=== PATIENT | male | born 1965 | race Caucasian/White ===

== ENCOUNTER 2023-12-27 08:23 | Day surgery (SDC) | payer OTHER, SELFPAY ==
--- NOTE | 2023-12-20 15:32 | PTCARENOTE ---
Abnormal EKG ok per Dr. Araujo.
[2023-12-27] VITALS (18 sets, daily range): BP systolic 142–179; BP diastolic 68–93; BMI 35.4
[2023-12-27] MEDS: NSS 1000 IV ×2 (09:45→17:20)
--- NOTE | 2023-12-27 09:53 | PTCARENOTE ---
Pt's accucheck was [address] Bauman made aware. No treatment ordered per Dr Bauman.
[2023-12-27 09:54] LABS: Hematocrit 30.9 % (39.0-52.0); Hemoglobin 10.5 g/dL (13.0-18.0); Mean Corpuscular Hgb 28.7 pg (27.0-31.0); Mean Corpuscular Volume 84.4 fL (80.0-94.0); Mean Platelet Volume 10.5 fL (7.4-10.4); Platelet Count 233 10^3/uL (130-400); Red Blood Cell Count 3.66 10^6/uL (4.70-6.10); Red Cell Dist. Width 15.1 % (11.5-14.5); White Blood Cell Count 12.7 10^3/uL (4.8-10.8)
[2023-12-27 10:02] LABS: Glucose - Point of Care 220 mg/dl (70-99)
[2023-12-27 10:09] LABS: INR 1.27; PT 15.7 Sec (11.4-14.6)
[2023-12-27 10:10] LABS: APTT 34.3 Sec (23.4-35.0)
[2023-12-27 10:11] LABS: Blood Urea Nitrogen 65 mg/dl (9-20); Calcium 8.7 mg/dl (8.4-10.2); Carbon Dioxide 19 mmol/L (22-30); Chloride 104 mmol/L (98-107); Estimated Creatinine Clearance 22 ml/min; Glucose 193 mg/dl (70-99); Potassium 3.9 mmol/L (3.5-5.1); Sodium 135 mmol/L (135-145); eGFR 13.62
--- NOTE | 2023-12-27 10:15 | PTCARENOTE ---
Addendum entered by Shyanne Connolly RN 12/27/23 10:16:
Pt is not a dialysis pt.
Original Note:
Pt's creatinine from today is 4.7. Pt's last creatinine was 4.1 from 02/10/2023. [employer] message sent to Ilene HOGAN, Jackelyn HOGAN, and Dr King. Awaiting response.
--- NOTE | 2023-12-27 10:55 | PTCARENOTE ---
Ilene HOGAN responded to pt's creat 4.7 stating ok. No further treatment ordered at this time. Will continue to monitor.
--- NOTE | 2023-12-27 13:55 | PTCARENOTE ---
Pt ambulated to bathoom with cane without difficutly.
[2023-12-27 14:28] LABS: Glucose - Point of Care 143 mg/dl (70-99)
--- NOTE | 2023-12-27 14:55 | W.SUR.PREOP ---
Pre-Operative Surgical Note
-
I have examined this patient prior to the performance of the scheduled procedure.
The patient's condition is unchanged from the time of the current History and
Physical and the patient is able to undergo the scheduled procedure.
[2023-12-27 16:44] LABS: Glucose - Point of Care 130 mg/dl (70-99)
--- NOTE | 2023-12-27 16:59 | W.IMMPOSTOP ---
Surgical Immed Post Op Note
-
Primary Surgeon: Emmett King III, MD
Assisting Surgeon: Lam Patel MD
Pre-op Diagnosis: Non-healing heel ulcer
Post-op Diagnosis: Non-healing heel ulcer
Procedure Performed: LLE angiogram, IV lithotripsy, drug-coated balloon angioplasty
Anesthesia Type: Light Sedation
Specimen / Cultures:
Estimated Blood Loss: 2cc
Complications: NA
Operative Findings:
Access obtained via right femoral artery and wire/catheter passed up and over into contralateral iliac. SFA relatively disease-free. Moderate-severe disease in below-knee pop. AT/PT/Peroneal arteries severely diseased. Peroneal artery treated with
3.5x6cm balloon IV lithotripsy. Popliteal artery treated with 5x80 drug-coated balloon. Brisk flow through posterior circulation noted postoperatively. Access site closed with a perc--close device. Left PT dopplerable postoperatively and marked.
[2023-12-27] MEDS: PLAVIX 300 MG PO (17:29)
--- NOTE | 2023-12-27 20:08 | OR.RPT ---
Operative Report
Operative Report
Date of Operation: 12/27/2023
Pre Op Diagnosis: Critical limb threatening ischemia with nonhealing left heel wound
Post Op Diagnosis: Critical limb threatening ischemia with nonhealing left heel wound
Procedure:
1.) Intravascular lithotripsy to calcified left posterior tibial artery occlusion (3.5 mm x 60 mm M5+ shockwave balloon)
2.) Intravascular lithotripsy to calcified left tibioperoneal trunk stenosis (3.5 mm x 60 mm M5+ shockwave balloon)
3.) Balloon angioplasty to distal left posterior tibial artery stenosis (3 mm x 150 mm angioplasty balloon)
4.) Drug-coated balloon angioplasty of left popliteal artery stenosis behind the knee (5 mm x 80 mm iNPACT DCB)
5.) Diagnostic aortobiiliac arteriogram (CO2)
6.) Diagnostic left lower extremity arteriogram (CO2 and 1/4 strength contrast)
7.) Ultrasound-guided percutaneous access to the right common femoral artery
8.) ProGlide closure of the right common femoral artery access
Surgeon: Emmett King III, MD
Supervisor Fertilizer: Lam Patel MD PGY-1
Anesthesia: Sedation with local
Fluoroscopy:
37.0 min
207 mGy
54.06 Gy.cm2
Complications: None
Estimated Blood Loss: Less than 20 cc
History and Indications for Procedure: 58-year-old male with critical limb threatening ischemia of his left lower extremity manifested by a nonhealing left heel wound
Procedure in Detail: Walter Williamson was correctly identified and placed supine on the operating table. After adequate induction of anesthesia the bilateral groins were prepped and draped in the usual sterile fashion. A timeout was performed with the
nursing and anesthesia staff confirming the patient's identity as well as the nature and laterality of the procedure.
The right common femoral artery was identified under ultrasound guidance. The artery was patent. The superior and inferior aspects of the femoral head were identified with radiographic guidance and marked at the skin level. The proposed puncture
site was infiltrated with local anesthesia. We saved a copy of the ultrasound image to the medical record. Under ultrasound guidance we accessed the right common femoral artery with a micropuncture needle and upsized to a 5 Fr sheath over a Project [employer]on
wire. The wire and a Shepherds hook flush catheter were advanced into the distal abdominal aorta and a diagnostic aorto-biiliac arteriogram was performed with CO2 due to the patient's chronic kidney disease:
AORTO-ILIAC ARTERIOGRAM:
Aorta: Patent with no stenosis identified
Right common iliac artery: Patent with no stenosis identified
Right external iliac artery: Patent with no stenosis identified
Left common iliac artery: Patent with no stenosis identified
Left external iliac artery: Patent with no stenosis identified
Under roadmap guidance using a Glidewire and the Shepherds hook catheter we selected the left common iliac artery and then the external iliac artery. A catheter was tracked up and over the aortic bifurcation and placed in the distal external iliac
artery. A diagnostic left lower extremity arteriogram was then performed with CO2 which demonstrated the following:
LEFT LOWER EXTREMITY:
Common femoral artery: Patent with no stenosis identified
Profunda femoral artery: Patent with no stenosis identified
Superficial femoral artery: Patent with no stenosis identified
In an effort to better visualize the popliteal artery and tibial artery runoff the superficial femoral artery and above-knee popliteal artery was selected with the Glidewire and Quickcross catheter. Dilute quarter strength contrast was then
utilized for the remainder of the procedure.
Popliteal artery: Patent. Moderate to high-grade stenosis identified behind the knee. Below the knee segment widely patent with no stenosis identified
Anterior tibial artery: Patent at its origin but occluded shortly thereafter. No distal reconstitution.
Tibioperoneal trunk: High-grade stenosis identified
Peroneal artery: High-grade stenosis versus focal occlusion in the proximal segment. Distal reconstitution identified
Posterior tibial artery: Occluded proximally. Reconstituted in the mid calf.
ENDOVASCULAR INTERVENTION: Systemic heparin was administered. Exchanged out for a 6 Fr 45 cm sheath over a Storq wire. Selected the the popliteal artery under roadmap guidance with Quickcross catheter and Glidewire. The popliteal artery stenosis was
crossed with this set up. Under roadmap guidance and magnification view I crossed the proximal posterior tibial artery occlusion with a Quickcross and Glidewire. The wire and catheter were advanced into the distal posterior tibial artery and a
subtraction arteriogram confirmed position in the true lumen. I exchanged out for a 0.014 wire. Due to the calcified nature of the posterior tibial artery and tibioperoneal trunk disease and in an effort to modify the calcium to achieve maximum
luminal gain with endovascular intervention I elected to proceed with intravascular lithotripsy. A 3.5 mm x 60 mm M5+ shockwave balloon was advanced through the occlusive disease and positioned in the desired location in the posterior tibial artery
under roadmap guidance. Alternating rounds of lithotripsy pulse delivery at sub-nominal pressure and angioplasty at nominal pressure was performed across the length of the posterior tibial artery disease as well as the tibioperoneal trunk stenosis.
In between rounds of pulse delivery and angioplasty the balloon was deflated and repositioned under roadmap guidance. All 300 pulses were delivered. Subsequent arteriogram demonstrated a significantly improved result across the occluded segment
which was now patent. Brisk flow was identified through the patent tibioperoneal trunk and posterior tibial artery. Areas of residual stenosis were identified distally in the posterior tibial artery. Under roadmap guidance I positioned a 3 mm x
150 mm angioplasty balloon across the areas of more distal stenosis. The balloon was inflated to nominal pressure, held in place for 2-minute inflation and then slowly deflated and removed over the wire. Subsequent arteriogram demonstrated an
excellent technical result with brisk flow through a patent posterior tibial artery. Only focal areas of mild residual stenosis were identified distally. The posterior tibial artery continued across the ankle to form the plantar branches in the
foot. The peroneal artery demonstrated late reconstitution.
I then focused my attention on the popliteal artery stenosis behind the knee. Under roadmap guidance a 5 mm x 80 mm drug-coated angioplasty balloon was advanced to the desired location in the popliteal artery behind the knee. The balloon was
inflated to nominal pressure in the desired location, held in place for 3 minutes and then slowly deflated and removed over the wire. Subsequent arteriogram demonstrated an excellent technical result with a widely patent popliteal artery and only
minimal residual stenosis identified.
Satisfied with this result we concluded the procedure. The sheath tip was pulled back into the right external iliac artery. A Bentson wire was placed. A Pro-glide closure device was used to close the right common femoral artery access. Protamine
was administered. Hemostasis was achieved. A sterile dressing was applied.
The patient tolerated the procedure well and was taken to the recovery area in stable condition.
Attestation: I was present and responsible for the entire procedure.
Signed:
Emmett King III, MD
[facility]
[phone] (cell)
== END 2023-12-27 20:35 | disposition home or self-care (01) ==
LOC: CATH 08:23
PROVIDERS: ATTENDING PHYSICIAN Surgery Vascular Surgery; FAMILY PHYSICIAN Family Medicine
DX: I70.244 Atherosclerosis of native arteries of left leg with ulceration of heel and midfoot (principal); L97.429 Non-pressure chronic ulcer of left heel and midfoot with unspecified severity; I13.0 Hypertensive heart and chronic kidney disease with heart failure and stage 1 through stage 4 chronic kidney disease, or unspecified chronic kidney disease; E11.22 Type 2 diabetes mellitus with diabetic chronic kidney disease; N18.9 Chronic kidney disease, unspecified; I50.9 Heart failure, unspecified; Z87.891 Personal history of nicotine dependence; Z79.82 Long term (current) use of aspirin; Z79.4 Long term (current) use of insulin; Z79.02 Long term (current) use of antithrombotics/antiplatelets
CPT/HCPCS: 37224; C9772; 75625; 75716; 76937; 80048; 82962; 85027; 85610; 85730; C1725; C1760; C1769; C1894; C2623; Q9967

== ENCOUNTER 2024-05-09 14:00 | Inpatient (IN) | payer MEDICARE, SELFPAY ==
[2024-05-09] VITALS (19 sets, daily range): BP systolic 119–155; BP diastolic 57–78; BMI 34.5
[2024-05-09] MEDS: NSS 337 ML IV (09:29)
[2024-05-09 09:39] LABS: Glucose - Point of Care 133 mg/dl (70-99)
[2024-05-09 09:47] LABS: Hematocrit 29.8 % (39.0-52.0); Mean Corp Hgb Conc. 33.6 g/dL (33.0-37.0); Mean Corpuscular Hgb 27.9 pg (27.0-31.0); Mean Corpuscular Volume 83.2 fL (80.0-94.0); Mean Platelet Volume 10.6 fL (7.4-10.4); Platelet Count 224 10^3/uL (130-400); Red Blood Cell Count 3.58 10^6/uL (4.70-6.10); Red Cell Dist. Width 14.5 % (11.5-14.5); White Blood Cell Count 12.6 10^3/uL (4.8-10.8)
--- NOTE | 2024-05-09 10:00 | PTCARENOTE ---
Patient here for LLE arteriogram possible IVL/angioplasty/stent. Patient's order sheet had mupirocin 2% & peridex checked off to be given. Patient has multiple antibiotic allergies and there is a possibilit of cross sensitivity to the ordered
medications. Verified with EDISON Garrison that these medications do not need to be given for the scheduled procedure, therefore Mupirocin and peridex were held as ordered by EDISON.
[2024-05-09 10:03] LABS: Blood Urea Nitrogen 89 mg/dl (9-20); Calcium 8.4 mg/dl (8.4-10.2); Carbon Dioxide 8 mmol/L (22-30); Chloride 112 mmol/L (98-107); Estimated Creatinine Clearance 17 ml/min; Glucose 130 mg/dl (70-99); Potassium 4.2 mmol/L (3.5-5.1); Sodium 137 mmol/L (135-145); eGFR 10.37
[2024-05-09 10:04] LABS: APTT 35.7 Sec (23.4-35.0); INR 1.38; PT 16.8 Sec (11.4-14.6)
--- NOTE | 2024-05-09 10:08 | PTCARENOTE ---
Patient's rhythm is NSR-Sinus ben with bigeminal PVCs. Patient is asymptomatic and says this is normal for him. Dr. Macdonald anesthesiologist evaluated patient and aware. Repeat EKG performed and reviewed by Dr. Macdonald. Magnesium level was added
to patient's lab orders. Awaiting results.
[2024-05-09 10:23] LABS: Magnesium 1.7 mg/dl (1.6-2.3)
--- NOTE | 2024-05-09 10:56 | PTCARENOTE ---
Patient did not take his daily dose of Aspirin or Plavix today. EDISON Hernandez aware and said they would be ordered post procedure.
--- NOTE | 2024-05-09 11:00 | W.SUR.PREOP ---
Pre-Operative Surgical Note
-
I have examined this patient prior to the performance of the scheduled procedure.
The patient's condition is unchanged from the time of the current History and
Physical and the patient is able to undergo the scheduled procedure.
Labs reviewed. Discussed with Dr. Leggett from nephrology. Will move ahead with arteriogram for critical limb threatening ischemia and plan for admission and likely initiation of hemodialysis.
Emmett King III, MD
[facility]
[phone] (cell)
--- NOTE | 2024-05-09 13:23 | HPS.HSE ---
Family Physician
-
Family Physician: Milind Montana
Chief Complaint
-
TENZIN
History of Present Illness
58yo M with PMHx of SANJUANA (DM 1.5), ASCVD, PAD, HTN, CKD stage 4, HFpEF was brought to the hospital for planned angiogram due to chronic limb ischemia. On PreOP labs noted to have elevated Cr from his baseline 4.3-4.7 to 5.9, so as discussed with
nephrology - might need initiation of HD.
Medical History
Past Medical History
Past Medical History: Reports Other
Additional Past Medical History:
See HPI
Past Surgical History: Reports None
Social History
Tobacco: Non-smoker
Alcohol: None
Drug: None
Family History
Family History: Not pertinent
Allergies / Home Medications
Allergies reflects when Allergies were last updated in [facility].
Home Medications with original date entered in [facility]
Allergy/Medication List:
Allergies
Allergy/AdvReac Type Severity Reaction Status Date / Time
JOHNATHON Inhibitors Allergy Swelling Verified 05/09/24 09:03
and HTN
acyclovir Allergy Swelling Verified 05/09/24 09:03
clindamycin Allergy Swelling Verified 05/09/24 09:03
ethacrynic acid Allergy nausea/ Verified 05/09/24 09:03
vomiting
honey Allergy Throat Verified 05/09/24 09:03
closes,
rash
hydralazine Allergy angioedema Verified 05/09/24 09:03
losartan Allergy palpitation Verified 05/09/24 09:03
s
metformin Allergy 'shut my Verified 05/09/24 09:03
liver
down, GI
Bleed'
metoprolol Allergy angioedema, Verified 05/09/24 09:03
Tachycardia,
HTN
mint Allergy Throat Verified 05/09/24 09:03
closes,
rash
mold Allergy Throat Verified 05/09/24 09:03
closes,
rash
nifedipine Allergy Angioedema Verified 05/09/24 09:03
Penicillins Allergy Anaphylaxis Verified 05/09/24 09:03
pollen extracts Allergy Throat Verified 05/09/24 09:03
closes,
rash, itch
Bwhesoy-VIB-ZoJ Reductase Allergy Rash, Verified 05/09/24 09:03
Inhibitor blistering
Sulfa (Sulfonamide Allergy Anaphylaxis Verified 05/09/24 09:03
Antibiotics) and hives
tetracycline Allergy Anaphylaxis Verified 05/09/24 09:03
Home Medications
insulin degludec 100 unit/mL (3 mL) subcutaneous pen (Tresiba FlexTouch U-100 insulin) 28 unit SC HS Diabetes 04/26/22
acetaminophen 325 mg tablet 650 mg (2 x 325 mg) PO Q4HPRN PRN PRIETO, mild pain, or temp >100.4F #30 tabs 04/28/22
metolazone 5 mg tablet 5 mg PO TUFR Fluid retention/Swelling 01/18/23
pantoprazole 40 mg tablet,delayed release 40 mg PO DAILY PRN GERD 01/18/23
furosemide 80 mg tablet 80 mg PO BID Fluid retention/Swelling 02/03/23
insulin aspart U-100 100 unit/mL (3 mL) subcutaneous pen (Novolog FlexPen U-100 Insulin aspart) 0 sliding scale dose SC MEALS Diabetes 02/03/23
calcium acetate(phosphat bind) 667 mg tablet 667 mg PO TID 12/22/23
carvedilol 25 mg tablet (Coreg) 25 mg PO BID Blood pressure 12/22/23
aspirin 81 mg tablet,delayed release 81 mg PO DAILY@1200 12/27/23
cholecalciferol (vitamin D3) 125 mcg (5,000 unit) tablet (Vitamin D3) 125 mcg PO SUMOWETHFRSA 12/27/23
dorzolamide 2 % eye drops 1 drp BOTH EYES DAILY 12/27/23
ergocalciferol (vitamin D2) 1,250 mcg (50,000 unit) capsule (Vitamin D2) 1,250 mcg PO TU@119912/27/23
fenofibrate 40 mg tablet 40 mg PO DAILY@119912/27/23
multivitamin with minerals-folic acid 200 mcg chewable tablet (Multivitamin Gummies) 2 tab PO DAILY 12/27/23
ofloxacin 0.3 % eye drops 1 drp ophthalmic (eye) Q8W Post eye injections 12/27/23
amlodipine 5 mg tablet 5 mg PO DAILY@119905/04/24
clopidogrel 75 mg tablet 75 mg PO DAILY@119905/04/24
sodium bicarbonate 650 mg tablet 650 mg PO TID 05/09/24
Review of Systems
-
History Source: Patient
A 12 point ROS was completed and negative except as noted: Yes
Physical Exam
Vital Signs
Vital Signs
Temp Pulse Resp BP Pulse Ox
97.6 F 48 18 143/63 98
05/09/24 09:04 05/09/24 09:45 05/09/24 09:45 05/09/24 09:17 05/09/24 09:45
Physical Exam
General: No Apparent Distress
HEENT: NormoCephalic
Respiratory: Clear; No Wheezes, Rales or Crackles
Cardiac: S1/S2 and Regular Rhythm
GI: Soft, Non Tender and Non Distended
Musculoskeletal: No Clubbing, No Cyanosis and No Edema
Skin: Warm
Neuro: Awake, Alert, Oriented, AO x 3 and Other (Chronic RUE and RLE weakness)
Psych: Calm
Laboratory Results
-
05/09/24 09:31
05/09/24 09:31
Laboratory Results
PT 16.8 Sec (11.4-14.6) H 05/09/24 09:31
INR 1.38 05/09/24 09:31
APTT 35.7 Sec (23.4-35.0) H 05/09/24 09:31
Data Reviewed
-
Lab Data: Labs Reviewed by me
Impression/Plan
-
A/P:
#Critical L limb ischemia 2/2 PAD with chronic L heel wound
s/p Angio
Vasc consult
COnt DAPT
wound care
#Mild chronic leukocytosis
2/2 severe PAD
follow trend
wound care
#CKD stage 4 with TENZIN
Possible need in HD, follow Cr
Nephro consult
#SANJUANA with circulatory complications
Insulin to continue, add sliding scale, check HgbA1c, DM diet
#Chronic HFpEF
#Essential HTN
#GERD
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
#Anemia of chronic disease
cont home meds
DVT ppx hep
FUll code
I Have spent at least 78min preparing admission, reviewing chart, test results, communication with consultants and direct patient care
--- NOTE | 2024-05-09 13:25 | W.SUR.POST ---
Surgical Immediate Post Op
Note
Pre Op Diagnosis: Peripheral arterial disease
Post Op Diagnosis: Peripheral arterial disease
Procedure Performed: LEFT lower extremity angioreaphy and angioplasty
Primary Surgeon: Emmett King MD
Secondary Surgeons: Migue Oliveros MD, PhD
Anesthesia: Per Anesthesia
Estimated Blood Loss: 2 cc
Fluids: Per Anesthesia
Drains/Shunts: None
Specimens/Cultures: None
Doppler/Duplex/Angio (Y/N): Yes
Complications: None
Operative Findings: LLE antegrade angiogram, 3 mm x 80 mm shockwave angioplasty x4 to segmental PT, 3 mm x 200 mm balloon angioplasty x2 to the PT, 3.5 mm x 60 mm balloon angioplasty x2 to the proximal PT.
[2024-05-09 13:33] LABS: Glucose - Point of Care 135 mg/dl (70-99)
--- NOTE | 2024-05-09 14:14 | OR.RPT ---
Operative Report
Operative Report
Date of Operation: 05/09/2024
Pre Op Diagnosis: Critical limb threatening ischemia with nonhealing left heel wound
Post Op Diagnosis: Critical limb threatening ischemia with nonhealing left heel wound
Procedure:
1.) Intravascular lithotripsy to left posterior tibial artery (3 mm x 80 mm E8 shockwave balloon)
2.) Balloon angioplasty of left posterior tibial artery (3 mm x 200 mm balloon)
3.) Balloon angioplasty of left tibioperoneal trunk (3.5 mm x 60 mm balloon)
4.) Ultrasound-guided ANTEGRADE access to the left proximal superficial femoral artery
5.) Diagnostic left lower extremity arteriogram (1/4 strength contrast)
Surgeon: Emmett King III, MD
Gynecologist: Migue Oliveros MD PhD PGY-6
Anesthesia: Sedation with local
Fluoroscopy:
33.7 min
195 mGy
33.92 Gy.cm2
Complications: None
Estimated Blood Loss: Less than 20 cc
History and Indications for Procedure: 58-year-old male with critical limb threatening ischemia of the left lower extremity manifested by a nonhealing left heel wound.
Procedure in Detail: Walter Williamson was correctly identified and placed supine on the operating table. After adequate induction of anesthesia the bilateral groins were prepped and draped in the usual sterile fashion. A timeout was performed with the
nursing and anesthesia staff confirming the patient's identity as well as the nature and laterality of the procedure.
The left common femoral artery was identified under ultrasound guidance. The artery was patent. The superior and inferior aspects of the femoral head were identified with radiographic guidance and marked at the skin level. The proposed puncture site
was infiltrated with local anesthesia. Under ultrasound guidance we accessed the proximal left superficial femoral artery with a micropuncture needle in an antegrade direction and upsized to a 5 Fr sheath over a Bentson wire.
A diagnostic left lower extremity arteriogram was then performed which demonstrated the following:
LEFT LOWER EXTREMITY:
Common femoral artery: Patent with no stenosis identified
Profunda femoral artery: Patent with scattered distal branch stenoses identified
Superficial femoral artery: Diffusely calcified, mild. Patent with no significant stenosis identified
Popliteal artery: Patent with no significant stenosis identified
Anterior tibial artery: Patent stump but occluded thereafter
Tibioperoneal trunk: Patent with high-grade stenosis
Peroneal artery: Occluded proximally with distal reconstitution identified.
Posterior tibial artery: Occluded proximally with distal reconstitution identified. Artery continues distally and crosses the ankle to form plantar branches. Small vessel disease identified in the distribution to the left heel.
ENDOVASCULAR INTERVENTION: Systemic heparin was administered. Exchanged out for a 5 Fr 23 cm sheath over a Joshfire wire. Selected the tibioperoneal trunk artery under roadmap guidance with Quickcross catheter and glidewire. The proximal posterior
tibial artery occlusion was crossed with a Quickcross and Glidewire under roadmap magnification view. The wire and catheter were advanced into the distal posterior tibial artery and subtraction angio confirmed proper position in the true lumen.
Exchanged out for a 0.014 grand slam wire. Due to the calcified nature of the tibial artery disease and in an effort to modify the calcium to achieve maximum luminal gain with endovascular intervention I elected to proceed with intravascular
lithotripsy. A 3 mm x 80 mm Shockwave balloon was placed across the stenosis under roadmap guidance. Alternating rounds of lithotripsy pulse delivery at sub-nominal pressure and angioplasty at nominal pressure was performed across the entire
posterior tibial artery. In between rounds of pulse delivery and angioplasty the balloon was deflated and repositioned under roadmap guidance. All 400 pulses were delivered. A subsequent arteriogram was performed demonstrating a significantly
improved result. There were scattered areas of residual stenosis identified throughout the posterior tibial artery but the artery was patent including the previously occluded segment. Under roadmap guidance and then brought into position a long 3
mm x 20 cm angioplasty balloon. The entire length of posterior tibial artery disease was again profiled with this balloon. 2 balloon inflations were performed across the entire posterior tibial artery. Each inflation was held in place for 2
minutes. Subsequent arteriogram demonstrated an excellent technical result with a widely patent posterior tibial artery. Some degree of spasm was identified in the distal posterior tibial artery. 100 mcg of nitroglycerin was locally injected into
the posterior tibial artery to treat this.
I then focused my attention on the tibioperoneal trunk stenosis. Under roadmap guidance I brought into position a 3.5 mm x 60 mm angioplasty balloon. This was placed into the proximal posterior tibial artery and carried across the tibioperoneal
trunk stenosis. The balloon was inflated to nominal pressure and held in place for 2 minutes. 2 inflations were performed in this manner across the tibioperoneal trunk stenosis. The balloon was then deflated and removed over the wire.
COMPLETION ARTERIOGRAM: Excellent technical result. Widely patent below-knee popliteal artery, tibioperoneal trunk and posterior tibial artery with brisk flow. Significantly improved compared to pretreatment. Again identified was evidence of
small vessel disease in the posterior tibial artery distribution to the heel.
Satisfied with this result we concluded the procedure. Protamine was administered. The wire was removed. The sheath was secured in place with the plan to pull it in the recovery area.
At the conclusion of the case the patient had a robust biphasic posterior tibial Doppler signal at the medial malleolus.
The patient tolerated the procedure well and was taken to the recovery area in stable condition.
Attestation: I was present and responsible for the entire procedure.
Signed:
Ememtt King III, MD
[facility]
[phone] (cell)
[2024-05-09] MEDS: ASPIR LOW (ENTERIC COATED) 81 MG PO (14:27)
[2024-05-09] MEDS: PLAVIX 75 MG PO (14:27)
--- NOTE | 2024-05-09 14:31 | W.CON.NEPH ---
Consultation
-
Date/Time Consultation Requested: 05/09/24 1312
Date/Time Consultation Performed: 05/09/24 1415
Requesting Provider: Titi To
Performing Provider: Olimpia Malhotra
Reason for Consultation: TENZIN with CKD
Medical History
-
Chief Complaint: Abnormal labs
History of Present Illness:
This patient is 58y/o M with PMH of IDDM with microvascular compactions, CKD4, HTN on Amlodipine, coreg, chr metabolic acidosis on high dose of po bicarb(2600mg TID), Anemia of CKD on SEEMA therapy by hematology, DCHF on lasix and metolazone who
recently had increase in cr from baseline mid 4s to 5.9 felt to be from low BPs and his meds were decreased hoping to see improvement and contact surg for PD catheter placement for initiating [employer]. He is here today for CLI of left heel wound for
which he needed angioplasty. Pre op labs shows cr 5.9 but with worsening acidosis bicarb at 8 hence nephrology consulted. Pt reports he trying to lose wt but with persistent edema. He notes to have intermittent diarrhea from Phoslo. No CP or SOB or
dysuria.
Past Medical History
1. CKD stage 4 approaching stage 5 due to biopsy-proven diabetic
nephropathy.
2. Renal biopsy September 2021.
3. Diabetic retinopathy.
4. Diabetic neuropathy.
5. PAD.
6. Anemia of CKD, maintained on SEEMA therapy.
7. History of iron deficiency.
8. Secondary hyperparathyroidism.
9. heart failure with preserved EF.
10.obesity
11.GERD.
12.CVA April 2022.
Hyperphosphatemia
Past Surgical History: Other ( Kidney biopsy 09/2021 Cyst removal from back extra bones removed from both feet age 12 Right eye cataract left eye cataract Arteriogram ([facility]) 02/05/23 Rt heel debridement 03/04/23
Arteriogram left leg 12/27/23,left leg angipoplasty 05/09/24)
Social History
Tobacco: Non-Smoker
Alcohol: None
Drug: None
Living: With Family
Employment: Retired
Family History
Father with a history of CAD, stroke, .
Mother heart disease
Brother heart disease, half brotheer from father's side of the kidney disease on dialysis
grandmother with heart disease, maternal grandfather with a cerebral hemorrhage, diabetes
Maternal cousin with edema issues
Paternal uncle probably with the kidney disease.
Allergies / Home Medications
Allergy/AdvReac Type Severity Reaction Status Date / Time
JOHNATHON Inhibitors Allergy Swelling Verified 05/09/24 09:03
and HTN
acyclovir Allergy Swelling Verified 05/09/24 09:03
clindamycin Allergy Swelling Verified 05/09/24 09:03
ethacrynic acid Allergy nausea/ Verified 05/09/24 09:03
vomiting
honey Allergy Throat Verified 05/09/24 09:03
closes,
rash
hydralazine Allergy angioedema Verified 05/09/24 09:03
losartan Allergy palpitation Verified 05/09/24 09:03
s
metformin Allergy 'shut my Verified 05/09/24 09:03
liver
down, GI
Bleed'
metoprolol Allergy angioedema, Verified 05/09/24 09:03
Tachycardia,
HTN
mint Allergy Throat Verified 05/09/24 09:03
closes,
rash
mold Allergy Throat Verified 05/09/24 09:03
closes,
rash
nifedipine Allergy Angioedema Verified 05/09/24 09:03
Penicillins Allergy Anaphylaxis Verified 05/09/24 09:03
pollen extracts Allergy Throat Verified 05/09/24 09:03
closes,
rash, itch
Bwdzzcu-BWT-UrB Reductase Allergy Rash, Verified 05/09/24 09:03
Inhibitor blistering
Sulfa (Sulfonamide Allergy Anaphylaxis Verified 05/09/24 09:03
Antibiotics) and hives
tetracycline Allergy Anaphylaxis Verified 05/09/24 09:03
�Medication �Instructions �Recorded �Confirmed �Type
insulin degludec 100 unit/mL (3 28 unit SC HS Diabetes 04/26/22 05/09/24 History
mL) subcutaneous pen (Tresiba
FlexTouch U-100 insulin)
acetaminophen 325 mg tablet 650 mg (2 x 325 mg) PO Q4HPRN PRN 04/28/22 05/04/24 Rx
PRIETO, mild pain, or temp >100.4F #30
tabs
metolazone 5 mg tablet 5 mg PO TUFR Fluid 01/18/23 05/09/24 History
retention/Swelling
pantoprazole 40 mg tablet,delayed 40 mg PO DAILY PRN GERD 01/18/23 05/04/24 History
release
furosemide 80 mg tablet 80 mg PO BID Fluid 02/03/23 05/09/24 History
retention/Swelling
insulin aspart U-100 100 unit/mL 0 sliding scale dose SC MEALS 02/03/23 05/09/24 History
(3 mL) subcutaneous pen (Novolog Diabetes
FlexPen U-100 Insulin aspart)
calcium acetate(phosphat bind) 667 667 mg PO TID 12/22/23 05/09/24 History
mg tablet
carvedilol 25 mg tablet (Coreg) 25 mg PO BID Blood pressure 12/22/23 05/09/24 History
aspirin 81 mg tablet,delayed 81 mg PO DAILY@1200 12/27/23 05/09/24 History
release
cholecalciferol (vitamin D3) 125 125 mcg PO SUMOWETHFRSA 12/27/23 05/04/24 History
mcg (5,000 unit) tablet (Vitamin
D3)
dorzolamide 2 % eye drops 1 drp BOTH EYES DAILY 12/27/23 05/09/24 History
ergocalciferol (vitamin D2) 1,250 1,250 mcg PO TU@119912/27/23 05/04/24 History
mcg (50,000 unit) capsule (Vitamin
D2)
fenofibrate 40 mg tablet 40 mg PO DAILY@119912/27/23 05/09/24 History
multivitamin with minerals-folic 2 tab PO DAILY 12/27/23 05/04/24 History
acid 200 mcg chewable tablet
(Multivitamin Gummies)
ofloxacin 0.3 % eye drops 1 drp ophthalmic (eye) Q8W Post 12/27/23 05/04/24 History
eye injections
amlodipine 5 mg tablet 5 mg PO DAILY@119905/04/24 05/09/24 History
clopidogrel 75 mg tablet 75 mg PO DAILY@119905/04/24 05/09/24 History
sodium bicarbonate 650 mg tablet 650 mg PO TID 05/09/24 05/09/24 History
Review of Systems
-
All complete 12 point ROS have been inquired and found negative other than stated in HPI
Physical Exam
Vital Signs
Vital Signs
Temp Pulse Resp BP Pulse Ox
97.0 F 72 6 134/78 96
05/09/24 13:18 05/09/24 14:15 05/09/24 14:15 05/09/24 14:15 05/09/24 14:15
Lab Results
WBC 12.6 10^3/uL (4.8-10.8) H 05/09/24 09:31
RBC 3.58 10^6/uL (4.70-6.10) L 05/09/24 09:31
Hgb 10.0 g/dL (13.0-18.0) L 05/09/24 09:31
Hct 29.8 % (39.0-52.0) L 05/09/24 09:31
Plt Count 224 10^3/uL (130-400) 05/09/24 09:31
Sodium 137 mmol/L (135-145) 05/09/24 09:31
Potassium 4.2 mmol/L (3.5-5.1) 05/09/24 09:31
Chloride 112 mmol/L (98-107) H 05/09/24 09:31
Carbon Dioxide 8 mmol/L (22-30) L* 05/09/24 09:31
BUN 89 mg/dl (9-20) H 05/09/24 09:31
Creatinine 5.9 mg/dL (0.7-1.3) H* 05/09/24 09:31
eGFR 10.37 05/09/24 09:31
Glucose 130 mg/dl (70-99) H 05/09/24 09:31
Calcium 8.4 mg/dl (8.4-10.2) 05/09/24 09:31
Physical Exam
General: Awake, Alert, Oriented, AOx3, No Distress and Nontoxic
HEENT: EOMI, Anicteric, Facial Symmetry and Neck Supple
Respiratory: Clear, Normal Excursion and Nonlabored Respirations
Cardiac: S1/S2 and Regular Rate/Rhythm
Breast: Deferred by me
Abdomen: Soft, Nontender and Nondistended
Musculoskeletal: No Cyanosis and Edema (2=chronic)
Skin: No Rash, Warm and Normal Turgor
Neuro: Other (chr right UE and LE weakness)
Psych: Mood/afflect pleasant, Insight/judgement good and Appropriate
Data Reviewed
-
Radiology: Report Reviewed by me
Labs: Labs Reviewed by me and Discussed with Patient
Assessment/Plan
-
Assessment:
CLI left leg s/p angioplasty 05/09/24
TENZIN
CKD 4-baseline mid 4 range
Acute on chronic metabolic acidosis on high dose po therapy
Biopsy-proven diabetic nephropathy with advanced nephrotic syndrome
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
PAD with right heel ischemic lesion
postponement of PD catheter placement due to right heel infection
Hypertension
Secondary hyperparathyroidism
Anemia in part CKD related on SEEMA through hematology
CVA April 2022
Family history of CKD/ESRD
Right heel wound with prior debridement s/p balloon angioplasty February 05, 2023
Skin cancer supposed to start XRT tomorrow
Hypertriglyceridemia
Hyperphosphatemia
Plan:
A/w abnormal labs TENZIN
Pt has very recent increase in cr felt to be result of low BPs and plan was to get PD catheter which has been delayed due to foot wound for longtime
now seem to have refractory acidosis despite on high dose po bicarb and no improvement of cr
suspect he may have progressed to CKD 5
will trial bicarb IVF to temporize and plan to start HD tomorrow with tunneled catheter, IR notified
previously he refused to have AVF eval since having stroke on right side
BP are stable, resume home meds and avoid hypotension
vol status seem stable, hold diuretics for now
ok to resume phoslo
d/w pt in detail
[2024-05-09] MEDS: SODIUM BICARBONATE 50 MEQ IV (16:18)
[2024-05-09] MEDS: SODIUM BICARBONATE 1150 MEQ IV (16:19)
[2024-05-09] MEDS: HEPARIN SC ×2 (17:42→23:02)
[2024-05-09] MEDS: SODIUM BICARBONATE 1300 MG PO ×2 (17:43→21:50)
[2024-05-09] MEDS: PHOSLO 667 MG PO (17:45)
[2024-05-09 17:51] LABS: Glucose - Point of Care 96 mg/dl (70-99)
[2024-05-09 20:42] LABS: Glucose - Point of Care 127 mg/dl (70-99)
[2024-05-09] MEDS: COREG 25 MG PO (21:50)
[2024-05-09] MEDS: LANTUS 0.28 UNITS SC (21:51)
[2024-05-10] VITALS (26 sets, daily range): BP systolic 76–163; BP diastolic 60–95; BMI 35.1
[2024-05-10 06:03] LABS: % Basophils 0.6 % (0-2); % Eosinophils 2.7 % (0-6); % Immature Granulocytes 0.9 % (0-0.5); % Lymphocytes 10.3 % (20.5-51.1); % Monocytes 8.8 % (1.7-9.3); % Neutrophils 76.7 % (42.2-75.2); Absolute Basophils 0.1 10^3/uL (0-0.2); Absolute Eosinophils 0.3 10^3/uL (0-0.7); Absolute Immature Granulocytes 0.1 10^3/uL (0-0.05); Absolute Lymphocytes 1.2 10^3/uL (1.2-3.4); Hematocrit 26.6 % (39.0-52.0); Hemoglobin 9.2 g/dL (13.0-18.0); Mean Corp Hgb Conc. 34.6 g/dL (33.0-37.0); Mean Corpuscular Hgb 28.9 pg (27.0-31.0); Mean Corpuscular Volume 83.6 fL (80.0-94.0); Mean Platelet Volume 10.6 fL (7.4-10.4); Nucleated Red Blood Cells % 0 % (-); Platelet Count 195 10^3/uL (130-400); Red Blood Cell Count 3.18 10^6/uL (4.70-6.10); Red Cell Dist. Width 14.3 % (11.5-14.5); White Blood Cell Count 11.7 10^3/uL (4.8-10.8)
--- NOTE | 2024-05-10 06:05 | PTCARENOTE ---
No acute changes overnight. Denies any pain. Tele showing NSR with Bigeminy and frequent PVCs; asymptomatic. Left groin site fully recovered. Pt ambulated to BR. Voiding into urinal. Left chronic heel dressing intact. Call roland and tray table within
reach. Pt calls appropriately.
[2024-05-10 06:33] LABS: ALT (SGPT) 10 U/L (0-50); AST (SGOT) 13 U/L (17-59); Alkaline Phosphatase 56 U/L (38-126); Blood Urea Nitrogen 87 mg/dl (9-20); Calcium 8.3 mg/dl (8.4-10.2); Carbon Dioxide 15 mmol/L (22-30); Chloride 113 mmol/L (98-107); Creatine Phosphokinase 50 U/L (55-170); Estimated Creatinine Clearance 18 ml/min; Glucose 89 mg/dl (70-99); Potassium 3.7 mmol/L (3.5-5.1); Sodium 138 mmol/L (135-145); Total Bilirubin 0.5 mg/dl (0.2-1.3); Total Protein 5.3 g/dl (6.3-8.2); eGFR 11.04
[2024-05-10 07:38] LABS: Glucose - Point of Care 97 mg/dl (70-99)
--- NOTE | 2024-05-10 08:12 | W.PN.VS ---
Addendum entered and electronically signed by Nithin Mann MD 05/10/24 11:47:
Seen and examined with CALDERON Cabezas earlier this AM. Agree with findings and plan as discussed and noted below.
Original Note:
Today's Communication / Plan
-
See below.
Assessment/Plan
-
Assessment: 58-year-old male POD #1 LEFT lower extremity angioreaphy and angioplasty
Plan:
Follow-up ultrasound and outpatient appointment placed in discharge instructions
Appreciate nephrology and primary team management of chronic kidney disease
Wound care consult placed for chronic wound management
We will sign off, please call with questions or concerns
Subjective Data
-
Date of Service: May 10, 2024
Patient seen and examined at bedside, offers no complaints. Denies pain at puncture site. Denies nausea, vomiting, fever, and chills.
Objective Data
-
Vital Signs
Temp Pulse Resp BP Pulse Ox
97.9 F 73 18 142/71 98
05/10/24 07:56 05/10/24 06:15 05/10/24 06:15 05/10/24 06:04 05/10/24 06:15
Intake and Output
05/09/24 05/10/24 05/11/24
06:59 06:59 06:59
Intake Total 387 / 387
Output Total 1250 / 1250
Balance -863 / -863
Intake:
IV fluids (Total) 387 / 387
NSS 50 / 50
Output:
Urine, Voided 1250 / 1250
Lab Results
05/10/24 05:52
05/10/24 05:52
Calcium 8.3 mg/dl (8.4-10.2) L 05/10/24 05:52
Magnesium Cancelled 05/09/24 09:51
Total Bilirubin 0.5 mg/dl (0.2-1.3) 05/10/24 05:52
AST 13 U/L (17-59) L 05/10/24 05:52
ALT 10 U/L (0-50) 05/10/24 05:52
Alkaline Phosphatase 56 U/L (38-126) 05/10/24 05:52
Total Protein 5.3 g/dl (6.3-8.2) L 05/10/24 05:52
Albumin 3.0 g/dl (3.5-5.0) L 05/10/24 05:52
Physical Exam
-
He is awake and alert.
Abdomen soft, nondistended, nontender.
Left groin puncture site flat, no hematoma.
Left foot warm and pink and well-perfused.
Moderate edema. Unchanged. Wound dressings dry.
[2024-05-10] MEDS: PHOSLO 667 MG PO ×2 (08:49→18:03)
[2024-05-10] MEDS: SODIUM BICARBONATE 1300 MG PO ×3 (08:49→21:10)
[2024-05-10] MEDS: HEPARIN SC ×2 (08:50→22:06)
[2024-05-10] MEDS: THERAGRAN 1 TABLET PO (08:50)
[2024-05-10] MEDS: COREG 25 MG PO ×2 (08:52→21:10)
[2024-05-10] MEDS: VITAMIN D3 (cholecalciferol) 125 MCG PO (08:57)
[2024-05-10 09:08] LABS: Glycohemoglobin (HgbA1c) 8.7 % (4.0-5.6)
--- NOTE | 2024-05-10 09:20 | WOUNDNOTE ---
L CALF (UPPER LATERAL)(knee toward R side of photo)
--- NOTE | 2024-05-10 09:40 | W.PN.HOSP.TC ---
Today's Communication/Plan
-
mild improvement in Cr and acidosis - await permacath placement by IRAD and HD
Assessment / Plan
Assessment / Plan
58yo M with PMHx of SANJUANA (DM 1.5), ASCVD, PAD, HTN, CKD stage 4, HFpEF was brought to the hospital for planned angiogram due to chronic limb ischemia. On PreOP labs noted to have elevated Cr from his baseline 4.3-4.7 to 5.9, so as discussed with
nephrology - might need initiation of HD.
A/P:
#Critical L limb ischemia 2/2 PAD with chronic L heel wound
s/p L Angio, baloon angio, shockwave angio
Vasc consult
Cont DAPT
wound care
#Mild chronic leukocytosis
2/2 severe PAD
follow trend
wound care
#CKD stage 4 with TENZIN and HAGMA
Possible need in HD, follow Cr
Nephro consult
#SANJUANA with circulatory complications
Insulin to continue, add sliding scale, check HgbA1c, DM diet
#Chronic HFpEF
#Essential HTN
#GERD
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
#Anemia of chronic disease
cont home meds
DVT ppx hep
FUll code
I have spent at least 37min reviewing chart, test results, communicstion with consultants and direct patient care
Anticipated Discharge: 24 - 48 hours
Subjective/Interval History
-
Date of Service: May 10, 2024
Objective Data
-
Labs:
Laboratory Results
05/10/24
05:52
WBC 11.7 H
Hgb 9.2 L
Hct 26.6 L
Plt Count 195
Sodium 138
Potassium 3.7
Chloride 113 H
Carbon Dioxide 15 L
BUN 87 H
Creatinine 5.6 H*
Glucose 89
Calcium 8.3 L
Total Bilirubin 0.5
AST 13 L
ALT 10
Alkaline Phosphatase 56
Vital Signs:
Vital Signs
Temp Pulse Resp BP Pulse Ox
97.9 F 80 18 146/67 98
05/10/24 07:56 05/10/24 08:52 05/10/24 06:15 05/10/24 08:52 05/10/24 06:15
I&O
05/09/24 05/10/24 05/11/24
06:59 06:59 06:59
Intake Total 387 / 387
Output Total 1250 / 1250
Balance -863 / -863
Review of Systems
-
History Source: Patient
All other systems: Reviewed and negative
Physical Exam
-
General: No Apparent Distress
HEENT: Normocephalic
Respiratory: Clear to Auscultation
Cardiac: Regular Rhythm
GI: Soft, Nontender and Nondistended
Musculoskeletal: No Clubbing, No Cyanosis and No Edema
Skin: Warm
Neuro: Awake, Alert, Oriented and AO x 3
Psych: Calm
--- NOTE | 2024-05-10 09:45 | WOUNDNOTE ---
[facility] RN note: Patient admitted for arteriogram. s/p LLE angioplasty LLE 05/09/24. Patient to get HD access and start hemodialysis today. His mother does his wound care at home.
See H&P for complete history.
PMH: CKD, DM, chronic L heel ulcer and is followed by Dr. Aviles agricultural economics teacher, neuropathy, edema, arteriogram 02/2023, heel debridement 03/04/23, former smoker.
Wound Location and type/assessment: Patient admitted with: full thickness L heel ulcer r/t PAD, diabetes, pressure? pale pink with scattered yellow fibrin. +Pedal pulse heard faintly via portable Doppler. Current wound care has been 5 minute soak
with Vashe, Xeroform gauze, gauze pad, ABD pad, kerlix, L knee high Alek, R knee high tubigrip (remove q hs). R heel mild pink and intact. Sacral/coccyx crease with linear mild red skin.
Appetite: good.
Pressure redistribution devices in place: [employer] Accumax. Patient moves self in bed and can ambulate.
Plan: Seen and confirmed orders with Dr. Rivero and updated RN Oneida Cabrera Confirmed with vascular PHOTOGEOLOGIST to apply L knee high Alek and R knee high Tubigrip. Patient removes compression q hs at home.
Care plan to be updated and will follow as needed. Patient to follow up with Dr. Aviles for wound management.
[2024-05-10 12:06] LABS: Glucose - Point of Care 139 mg/dl (70-99)
[2024-05-10] MEDS: TRICOR PO (13:40)
[2024-05-10] MEDS: PHOSLO PO (13:40)
[2024-05-10] MEDS: NORVASC PO (13:40)
[2024-05-10] MEDS: VANCOCIN 300 ML IV (13:50)
[2024-05-10] MEDS: VANCOCIN 300 MG IV (13:50)
[2024-05-10] MEDS: FLUSH (NSS) 1 FLUSH IV (13:51)
--- NOTE | 2024-05-10 14:37 | PTCARENOTE ---
Assumed care after morning report. Pt is alert and oriented x 3. Left groin site, CDI. CV team here and rounded on pt. WOC consult obtained and WOC RN provided wound care this am. Feet elevated to provided heel pressure relief. Pt with bilat
neuropathy and denies pain at this time. He is slow and slightly unsteady with gait and use of single point cane. Pt walks slow and cautiously, denies dizziness. Pt to IRAD for HD catheter. Psych-social support provided as pt discusses his multiple
and complicated health situation. Pt disappointed that he was unable to begin PD. Pt has Mom at bedside and she is aware of plan of care. HD RN aware pt is in IRAD
--- NOTE | 2024-05-10 15:55 | CM ---
Patient with Dx Critical L limb ischemia 2/2 PAD with chronic L heel wound s/p L Angio/balloon angio/shockwave angio, CKD stage 4 with TENZIN. Room air. To IR today for HD catheter -first dialysis today. Seen by wound care nurse.
Attempted to meet with patient who was off the unit in IR.
Spoke with patient's mother Roma;
the patient resides with his mother in a 1 story house with 3 LINDSAY.
He has been independent in ADLs and ambulation using his SPC.
Mother says patient has been slightly unsteady on his feet since his stroke.
Mother states that the patient does not work, he has disabled status due to kidney failure, stroke and diabetes, and receives income.
Roma does the patient's wound care and he also goes to the wound care center.
DME - SPC, shower chair, CGM/continuous glucose monitor
VN - prior VN
No prior SNF
Prior [facility].
PCP - Mil[facility] [place]
Pharmacy - [facility]
No immediate housing/food/utility/transport insecurity, however mother shares she has been out of work for the past 3 months and finances are tight.
Message with Dr Tiwari, who confirms patient will need outpatient HD setup for Dx ESRD.
Spoke with [facility]; initiated outpatient HD referral for [facility] [place]. Patient schedule preference unknown at this time. CM will need to provide # hrs HD run, dialysis catheter info, hepatitis labs, HD flowsheets.
Patient will benefit from PT/OT Evals when medically appropriate.
Plan speak with patient about outpatient HD.
Plan follow up after seen by PT/OT.
--- NOTE | 2024-05-10 15:56 | PTCARENOTE ---
patient off unit at 1400
--- NOTE | 2024-05-10 15:56 | PTCARENOTE ---
Patient returned from IRAD. Rt HD chest wall cath intact, dressing is CDI. HD Rn at bedside beginning treatment. Pt is alert and denies pain. Assess left groin site-no changes, pedals obtained with doppler to bilateral dorsalis pedis
--- NOTE | 2024-05-10 16:15 | W.PN.NEPH.HD ---
Assessment
-
Patient seen on dialysis
Systolic blood pressure 145 current UF of 1 kg
Mannitol x 2 given to mitigate disequilibrium
Low QB
HD via right IJ catheter
Next dialysis to be planned for tomorrow
Progress Note - Hemodialysis
-
Date of Service: May 10, 2024
Duration: 15 minutes and 2 hours
Potassium Bath: 3
Calcium Bath: 2.5
Opti-Dialyzer: 160
Ultrafiltration: Other (1kg)
Blood Flow: 250
Dialysate Flow: 600
Heparin: 500 x 2
EPO: 2000
[2024-05-10] MEDS: HEPARIN 500 UNITS IV ×2 (17:15→17:17)
[2024-05-10] MEDS: MANNITOL 25% 12.5 GRAMS IV ×2 (17:15→17:16)
[2024-05-10] MEDS: RETACRIT 2000 UNITS IV (17:16)
[2024-05-10] MEDS: CLARITIN 10 MG PO (18:03)
[2024-05-10] MEDS: HEPARIN 5000 UNITS SC (18:05)
[2024-05-10] MEDS: HEPARIN 2400 UNITS INTRACATH (18:14)
[2024-05-10 18:28] LABS: Glucose - Point of Care 76 mg/dl (70-99)
--- NOTE | 2024-05-10 19:35 | PTCARENOTE ---
patient c/o of nasal congestion and head stuffiness approx 1.5 hours into HD treatment. Pt given p.o.Claritin which is effective for s/s/ No other complaints during HD
[2024-05-10] MEDS: TRUSOPT 2% OPHTHALMIC SOLUTION 1 DROP BOTH EYES (21:11)
[2024-05-10] MEDS: LANTUS 0.28 UNITS SC (21:14)
[2024-05-10 21:24] LABS: Glucose - Point of Care 200 mg/dl (70-99)
--- NOTE | 2024-05-10 21:51 | PTCARENOTE ---
Pt being transferred to via wheelchair with all of his belongings. Report given to TAYA.
[2024-05-11 06:00] VITALS: BMI 35.0
[2024-05-11 07:25] LABS: Glucose - Point of Care 82 mg/dl (70-99)
[2024-05-11 07:36] LABS: Hematocrit 27.6 % (39.0-52.0); Hemoglobin 9.2 g/dL (13.0-18.0); Mean Corp Hgb Conc. 33.3 g/dL (33.0-37.0); Mean Corpuscular Hgb 27.5 pg (27.0-31.0); Mean Corpuscular Volume 82.4 fL (80.0-94.0); Mean Platelet Volume 10.5 fL (7.4-10.4); Platelet Count 188 10^3/uL (130-400); Red Blood Cell Count 3.35 10^6/uL (4.70-6.10); Red Cell Dist. Width 14.5 % (11.5-14.5); White Blood Cell Count 9.7 10^3/uL (4.8-10.8)
[2024-05-11 07:50] VITALS: BP 152/72
[2024-05-11] MEDS: SODIUM BICARBONATE 1300 MG PO ×3 (08:03→21:07)
[2024-05-11] MEDS: PHOSLO 667 MG PO ×3 (08:03→16:13)
[2024-05-11] MEDS: COREG 25 MG PO ×2 (08:03→21:07)
[2024-05-11] MEDS: THERAGRAN 1 TABLET PO (08:05)
[2024-05-11] MEDS: HEPARIN SC ×2 (08:06→16:13)
[2024-05-11 08:14] LABS: Blood Urea Nitrogen 59 mg/dl (9-20); Calcium 8.3 mg/dl (8.4-10.2); Carbon Dioxide 20 mmol/L (22-30); Chloride 107 mmol/L (98-107); Estimated Creatinine Clearance 22 ml/min; Glucose 73 mg/dl (70-99); Potassium 3.5 mmol/L (3.5-5.1); Sodium 138 mmol/L (135-145); eGFR 13.98
[2024-05-11] MEDS: HEPARIN 500 UNITS IV ×2 (10:02→11:17)
--- NOTE | 2024-05-11 10:16 | W.PN.HOSP.TC ---
Today's Communication/Plan
-
CM for HD time assignment as outpatient and D/C
Assessment / Plan
Assessment / Plan
58yo M with PMHx of SANJUANA (DM 1.5), ASCVD, PAD, HTN, CKD stage 4, HFpEF was brought to the hospital for planned angiogram due to chronic limb ischemia. On PreOP labs noted to have elevated Cr from his baseline 4.3-4.7 to 5.9, so as discussed with
nephrology patient started on HD. Tolerating sessions well. VascSx left D/C instruction for follow up. CM working on getting outpatient HD time assigned
A/P:
#Critical L limb ischemia 2/2 PAD with chronic L heel wound
s/p L Angio, baloon angio, shockwave angio
Vasc consult
Cont DAPT
wound care
#Mild chronic leukocytosis
2/2 severe PAD
follow trend
wound care
#CKD stage 4 with TENZIN and HAGMA
Possible need in HD, follow Cr
Nephro consult
#SANJUANA with circulatory complications
Insulin to continue, add sliding scale, check HgbA1c, DM diet
#Chronic HFpEF
#Essential HTN
#GERD
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
#Anemia of chronic disease
cont home meds
DVT ppx hep
FUll code
I have spent at least 37min reviewing chart, test results, communication with consultants and direct patient care
Anticipated Discharge: Within 24 hours
Subjective/Interval History
-
Date of Service: May 11, 2024
Objective Data
-
Labs:
Laboratory Results
05/11/24
07:20
WBC 9.7
Hgb 9.2 L
Hct 27.6 L
Plt Count 188
Sodium 138
Potassium 3.5
Chloride 107
Carbon Dioxide 20 L
BUN 59 H
Creatinine 4.6 H*
Glucose 73
Calcium 8.3 L
Vital Signs:
Vital Signs
Temp Pulse Resp BP Pulse Ox
98.0 F 73 17 152/72 97
05/11/24 07:50 05/11/24 07:50 05/11/24 07:50 05/11/24 07:50 05/11/24 07:50
I&O
05/10/24 05/11/24 05/12/24
06:59 06:59 06:59
Intake Total 387 / 387 935 / 935
Output Total 1250 / 1250 1150 / 1150
Balance -863 / -863 -215 / -215
Review of Systems
-
History Source: Patient
All other systems: Reviewed and negative
Physical Exam
-
General: No Apparent Distress
HEENT: Normocephalic and Atraumatic
Respiratory: Clear to Auscultation
GI: Soft and Nontender
Neuro: Awake, Alert, Oriented and AO x 3
Psych: Calm
--- NOTE | 2024-05-11 10:56 | W.PN.NEPH.HD ---
Assessment
-
Patient seen on hemodialysis
Systolic blood pressure stable with current UF
Mannitol provided to mitigate disequilibrium
Dialysis to be performed for tomorrow further treatment
Case management aware of patient need for outpatient ESRD management at [facility]
Progress Note - Hemodialysis
-
Date of Service: May 11, 2024
Duration: 30 minutes and 2 hours
Potassium Bath: 3
Calcium Bath: 2.5
Opti-Dialyzer: 160
Ultrafiltration: Other (1kg)
Blood Flow: 300
Dialysate Flow: 600
Heparin: 500 times two
EPO: none today
--- NOTE | 2024-05-11 11:01 | CM ---
Addendum entered by Racheal Acosta 05/11/24 14:01:
Clinicals faxed to [facility]
Plan - anticipate home when HD chair obtained
Original Note:
Case management following for discharge planning
Pt new to HD - outpatient HD placement in progress
Received call from Pablito at [facility] requesting additional clinical information be faxed to [phone]
[2024-05-11 11:39] LABS: Glucose - Point of Care 115 mg/dl (70-99)
[2024-05-11] MEDS: HEPARIN 4300 UNITS INTRACATH (12:34)
[2024-05-11] MEDS: NORVASC 5 MG PO (12:45)
[2024-05-11] MEDS: TRICOR 48 MG PO (12:45)
[2024-05-11] MEDS: VITAMIN D3 (cholecalciferol) 125 MCG PO (12:49)
[2024-05-11 12:57] VITALS: BP 167/71; PULSE 79; PULSE 83; O2SAT 97; O2SAT 98
--- NOTE | 2024-05-11 13:03 | PTOTSP ---
The patient is independent with ambulation and elevations using a cane, offers no concerns regarding his mobility upon return home. No PT needs identified at this time, will sign off.
--- NOTE | 2024-05-11 13:09 | PTOTSP ---
Pt presents to OT at mod I level with basic self care, transfers and functional mobility in room with SPC. No further skilled OT indicated at this time. Will sign off
[2024-05-11 15:00] VITALS: BP 151/74
[2024-05-11 16:18] LABS: Glucose - Point of Care 146 mg/dl (70-99)
[2024-05-11 18:01] LABS: Hepatitis B Surface Antigen Negative (Negative)
[2024-05-11 18:12] LABS: Hepatitis B Core Ab, Total Negative (Negative); Hepatitis B Surface Antibody Negative
[2024-05-11 18:19] LABS: Hepatitis C Antibody Negative (Negative)
[2024-05-11] MEDS: TRUSOPT 2% OPHTHALMIC SOLUTION 1 DROP BOTH EYES (21:07)
[2024-05-11 21:15] LABS: Glucose - Point of Care 227 mg/dl (70-99)
[2024-05-11] MEDS: LANTUS 0.28 UNITS SC (21:15)
[2024-05-11 23:15] VITALS: BP 154/74
[2024-05-12] MEDS: HEPARIN SC ×4 (00:32→23:19)
[2024-05-12 06:11] VITALS: BMI 35.1
[2024-05-12 07:00] VITALS: BP 141/76
[2024-05-12 07:42] LABS: Glucose - Point of Care 96 mg/dl (70-99)
[2024-05-12] MEDS: SODIUM BICARBONATE 1300 MG PO ×3 (07:53→21:44)
[2024-05-12] MEDS: THERAGRAN 1 TABLET PO (07:54)
[2024-05-12] MEDS: COREG PO (07:54)
[2024-05-12] MEDS: VITAMIN D3 (cholecalciferol) 125 MCG PO (07:54)
[2024-05-12] MEDS: PHOSLO 667 MG PO ×3 (07:54→15:29)
[2024-05-12 08:21] LABS: Hemoglobin 8.8 g/dL (13.0-18.0)
[2024-05-12] MEDS: HEPARIN 500 UNITS IV ×2 (08:30→09:30)
[2024-05-12 08:34] LABS: Blood Urea Nitrogen 49 mg/dl (9-20); Calcium 7.8 mg/dl (8.4-10.2); Carbon Dioxide 25 mmol/L (22-30); Chloride 104 mmol/L (98-107); Estimated Creatinine Clearance 24 ml/min; Glucose 102 mg/dl (70-99); Potassium 3.1 mmol/L (3.5-5.1); Sodium 135 mmol/L (135-145); eGFR 15.15
[2024-05-12] MEDS: MANNITOL 25% 12.5 GRAMS IV ×2 (09:00→10:30)
[2024-05-12] MEDS: RETACRIT 4000 UNITS IV (09:12)
--- NOTE | 2024-05-12 09:37 | CM ---
Addendum entered by Racheal Acosta 05/12/24 16:06:
Pt given information regarding start date and time for HD at [facility]
Addendum entered by Racheal Acosta 05/12/24 14:30:
Received call from Abby at [facility]
Confirmed HD chair time - start date 05/16/2024 at 5:50AM
T//S schedule
Plan - home - HD chair start date 05/16 at 5:50AM
Addendum entered by Racheal Acosta 05/12/24 12:47:
Updated clinicals faxed to [facility]
Original Note:
Case management following for discharge planning
Serology results faxed to [facility] and to [facility]
[2024-05-12] MEDS: HEPARIN 4300 UNITS INTRACATH (11:12)
[2024-05-12 11:28] LABS: Glucose - Point of Care 113 mg/dl (70-99)
--- NOTE | 2024-05-12 11:33 | W.PN.NEPH.HD ---
Assessment
-
Seen on HD. no complaints. VSS, access CVC.
await OP HD placement
refuse AVF
Progress Note - Hemodialysis
-
Date of Service: May 12, 2024
Duration: 3 hours
Potassium Bath: 3
Calcium Bath: 2.5
Opti-Dialyzer: 160
Ultrafiltration: Other (2kg)
Blood Flow: 400
Dialysate Flow: 600
Heparin: 500x2
EPO: 4000 units
[2024-05-12] MEDS: NORVASC 5 MG PO (11:41)
[2024-05-12] MEDS: TRICOR 48 MG PO (11:42)
--- NOTE | 2024-05-12 12:31 | W.PN.HOSP.TC ---
Today's Communication/Plan
-
pending outpatient HD
Assessment / Plan
Assessment / Plan
58yo M with PMHx of SANJUANA (DM 1.5), ASCVD, PAD, HTN, CKD stage 4, HFpEF was brought to the hospital for planned angiogram due to chronic limb ischemia. On PreOP labs noted to have elevated Cr from his baseline 4.3-4.7 to 5.9, so as discussed with
nephrology patient started on HD. Tolerating sessions well. VascSx left D/C instruction for follow up. CM working on getting outpatient HD time assigned, otherwise medically stable for d/c
A/P:
#Critical L limb ischemia 2/2 PAD with chronic L heel wound
s/p L Angio, baloon angio, shockwave angio
Vasc consult
Cont DAPT
wound care
#Mild chronic leukocytosis - resolved
2/2 severe PAD
follow trend
wound care
#CKD stage 4 with TENZIN and HAGMA
Possible need in HD, follow Cr
Nephro consult
#SANJUANA with circulatory complications
Insulin to continue, add sliding scale, check HgbA1c, DM diet
#hypokalemia
managed with HD
#Chronic HFpEF
#Essential HTN
#GERD
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
#Anemia of chronic disease
cont home meds
DVT ppx hep
FUll code
I have spent at least 37min reviewing chart, test results, communication with consultants and direct patient care
Anticipated Discharge: Within 24 hours
Subjective/Interval History
-
Date of Service: May 12, 2024
Objective Data
-
Labs:
Laboratory Results
05/12/24
07:13
Hgb 8.8 L
Hct 26.0 L
Sodium 135
Potassium 3.1 L
Chloride 104
Carbon Dioxide 25
BUN 49 H
Creatinine 4.3 H*
Glucose 102 H
Calcium 7.8 L
Vital Signs:
Vital Signs
Temp Pulse Resp BP Pulse Ox
98.3 F 84 16 162/82 95
05/12/24 07:00 05/12/24 11:41 05/12/24 07:00 05/12/24 11:41 05/12/24 07:00
I&O
05/11/24 05/12/24 05/13/24
06:59 06:59 06:59
Intake Total 935 / 935 900 / 900
Output Total 1150 / 1150
Balance -215 / -215 900 / 900
Review of Systems
-
History Source: Patient
All other systems: Reviewed and negative
Physical Exam
-
General: No Apparent Distress
HEENT: Normocephalic
Respiratory: Clear to Auscultation
Cardiac: Regular Rhythm
Musculoskeletal: No Clubbing, No Cyanosis and No Edema
Skin: Warm
Neuro: Awake, Alert, Oriented and AO x 3
Psych: Calm
--- NOTE | 2024-05-12 14:20 | W.PN.UPDATE ---
Update Note
Progress Note Update
HD chair start date of 05/16 at 5:50AM
D/C on 05/13/24 after HD
[2024-05-12 15:00] VITALS: BP 158/77
[2024-05-12 16:24] LABS: Glucose - Point of Care 131 mg/dl (70-99)
[2024-05-12] MEDS: COREG 25 MG PO (20:09)
[2024-05-12 20:59] LABS: Glucose - Point of Care 222 mg/dl (70-99)
[2024-05-12] MEDS: LANTUS 0.28 UNITS SC (21:43)
[2024-05-12] MEDS: TRUSOPT 2% OPHTHALMIC SOLUTION 1 DROP BOTH EYES (21:44)
[2024-05-12 23:10] VITALS: BP 140/70
[2024-05-13 06:01] VITALS: BMI 34.6
[2024-05-13 07:00] VITALS: BP 162/90
[2024-05-13 07:10] LABS: Glucose - Point of Care 138 mg/dl (70-99)
[2024-05-13] MEDS: PHOSLO 667 MG PO ×2 (07:11→11:23)
[2024-05-13] MEDS: THERAGRAN 1 TABLET PO (07:12)
[2024-05-13] MEDS: COREG PO (07:12)
[2024-05-13] MEDS: SODIUM BICARBONATE 1300 MG PO (07:12)
[2024-05-13] MEDS: VITAMIN D3 (cholecalciferol) 125 MCG PO (07:16)
[2024-05-13] MEDS: HEPARIN SC (07:17)
[2024-05-13] MEDS: HEPARIN 500 UNITS IV ×2 (07:55→08:55)
[2024-05-13 08:22] LABS: Hematocrit 26.6 % (39.0-52.0); Hemoglobin 8.9 g/dL (13.0-18.0)
[2024-05-13 08:44] LABS: Carbon Dioxide 27 mmol/L (22-30); Chloride 99 mmol/L (98-107); Sodium 135 mmol/L (135-145)
[2024-05-13] MEDS: HEPARIN 4300 UNITS INTRACATH (10:42)
--- NOTE | 2024-05-13 11:21 | W.PN.NEPH.HD ---
Assessment
-
Seen on HD. no complaints. VSS, access tunnelled CVC ok
OP HD TTS 1st shift [place]
Progress Note - Hemodialysis
-
Date of Service: May 13, 2024
Duration: 3 hours
Potassium Bath: 4
Calcium Bath: 2.5
Opti-Dialyzer: 160
Ultrafiltration: Other (1kg)
Blood Flow: 400
Dialysate Flow: 600
Heparin: 500x2
EPO: no
[2024-05-13] MEDS: TRICOR 48 MG PO (11:23)
[2024-05-13] MEDS: NORVASC 5 MG PO (11:23)
[2024-05-13 11:27] LABS: Glucose - Point of Care 140 mg/dl (70-99)
--- NOTE | 2024-05-13 11:35 | W.PN.HOSP.TC ---
Today's Communication/Plan
-
dc
Assessment / Plan
Assessment / Plan
58yo M with PMHx of SANJUANA (DM 1.5), ASCVD, PAD, HTN, CKD stage 4, HFpEF was brought to the hospital for planned angiogram due to chronic limb ischemia. On PreOP labs noted to have elevated Cr from his baseline 4.3-4.7 to 5.9, so as discussed with
nephrology patient started on HD. Tolerating sessions well. VascSx left D/C instruction for follow up. Outpatient HD arranged and patient has a scheduled session on 05/16/2024 at 5:50AM. Will follow with nephrology and VascSx upon d/c. Verbalized
understanding of the instructions and medically stable for d/c home
A/P:
#Critical L limb ischemia 2/2 PAD with chronic L heel wound
s/p L Angio, balloon angio, shockwave angio
Vasc consult
Cont DAPT
wound care
#Mild chronic leukocytosis - resolved
2/2 severe PAD
follow trend
wound care
#CKD stage 4 with TENZIN and HAGMA
Possible need in HD, follow Cr
Nephro consult
#SANJUANA with circulatory complications
Insulin to continue, add sliding scale, check HgbA1c, DM diet
#hypokalemia
managed with HD
#Chronic HFpEF
#Essential HTN
#GERD
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
#Anemia of chronic disease
cont home meds
DVT ppx hep
FUll code
I have spent at least 37min reviewing chart, test results, communication with consultants and direct patient care
Anticipated Discharge: Today
Subjective/Interval History
-
Date of Service: May 13, 2024
Objective Data
-
Labs:
Laboratory Results
05/13/24
08:06
Hgb 8.9 L
Hct 26.6 L
Sodium 135
Potassium 3.0 L
Chloride 99
Carbon Dioxide 27
Vital Signs:
Vital Signs
Temp Pulse Resp BP Pulse Ox
98.7 F 76 18 162/90 97
05/13/24 07:00 05/13/24 07:00 05/13/24 07:00 05/13/24 07:00 05/13/24 07:00
I&O
05/12/24 05/13/24 05/14/24
06:59 06:59 06:59
Intake Total 900 / 900 1080 / 1080
Balance 900 / 900 1080 / 1080
Review of Systems
-
History Source: Patient
All other systems: Reviewed and negative
Physical Exam
-
General: Well Nourished
HEENT: Normocephalic
Respiratory: Clear to Auscultation
GI: Soft, Nontender and Nondistended
Musculoskeletal: No Clubbing, No Cyanosis and No Edema
Neuro: Awake, Alert, Oriented and AO x 3
--- NOTE | 2024-05-13 11:37 | W.DCSUMMARY ---
Discharge Summary
Discharge Data
Date of Admission: 05/09/24
Date of Discharge: 05/13/24
-
Pending Results: No
Hospital Course
58yo M with PMHx of SANJUANA (DM 1.5), ASCVD, PAD, HTN, CKD stage 4, HFpEF was brought to the hospital for planned angiogram due to chronic limb ischemia. On PreOP labs noted to have elevated Cr from his baseline 4.3-4.7 to 5.9, so as discussed with
nephrology patient started on HD. Tolerating sessions well. VascSx left D/C instruction for follow up. Outpatient HD arranged and patient has a scheduled session on 05/16/2024 at 5:50AM. Will follow with nephrology and VascSx upon d/c. Chronic LE
wound seems to be non-infected. Verbalized understanding of the instructions and medically stable for d/c home
I have spent at least 38min preparing d/c
A/P:
#Critical L limb ischemia 2/2 PAD with chronic L heel wound
#Mild chronic leukocytosis - resolved
#CKD stage 4 with TENZIN and HAGMA
#SANJUANA with circulatory complications
#hypokalemia
#Chronic HFpEF
#Essential HTN
#GERD
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
#Anemia of chronic disease
Discharge Plan
-
Diet: As tolerated
Activity: No strenuous activity
Driving Restrictions: No driving for 24 hours
Bathing Restrictions: OK to Shower
Others Tests: Your follow-up ultrasound is scheduled on 06/22 at 8 AM here at [facility]
Activity Restrictions/Additional Instructions:
Wound Care Instructions
L heel wound care-Vashe solution moistened gauze soak x 5 minutes, Xeroform gauze, 4x4 gauze pad, ABD pad, kerlix. Change daily and prn drainage.
L knee high Alek with light compression, R knee high tubigrip; as tolerated; remove at bedtime; re apply every morning.
Elevate heels off bed with pillows.
Follow up with Dr. Aviles
Follow up with vascular surgeon
Follow up with your cost and risk analysis manager.
Stand Alone Forms: DC Instr - Vascular OR
Referrals:
Milind Montana MD [Family Provider] -
Sultana Jaime PA-C [Specified Professional Personl] - 06/28/24 9:30 am
Prescriptions:
No Action
insulin degludec [Tresiba FlexTouch U-100] 100 UNIT/ML insulin pen
28 unit SC HS
acetaminophen 325 mg Tablet
650 mg PO Q4HPRN PRN (Reason: PRIETO, mild pain, or temp >100.4F) Qty: 30 0RF
metolazone 5 mg Tablet
5 mg PO TUFR
pantoprazole 40 mg tablet,delayed release (DR/EC)
40 mg PO DAILY PRN (Reason: GERD)
furosemide 80 mg tablet
80 mg PO BID
insulin aspart U-100 [Novolog FlexPen U-100 Insulin] 100 unit/mL (3 mL) insulin pen
0 sliding scale dose SC MEALS
Patient Comments:
BS> 150
carvedilol [Coreg] 25 MG tablet
25 mg PO BID
calcium acetate(phosphat bind) 667 mg Tablet
667 mg PO TID
aspirin 81 mg Tablet,Delayed Release (Dr/Ec)
81 mg PO DAILY@1200
ergocalciferol (vitamin D2) [Vitamin D2] 1,250 mcg (50,000 unit) Capsule
1,250 mcg PO TU@1200
fenofibrate 40 mg Tablet
40 mg PO DAILY@1200
cholecalciferol (vitamin D3) [Vitamin D3] 125 mcg (5,000 unit) Tablet
125 mcg PO SUMOWETHFRSA
ofloxacin 0.3 % Drops
1 drp OPHTHALMIC (EYE) Q8W
dorzolamide 2 % Drops
1 drp BOTH EYES DAILY
multivit with min-folic acid [Multivitamin Gummies] 200 mcg Tablet,Chewable
2 tab PO DAILY
amlodipine 5 mg Tablet
5 mg PO DAILY@1200
clopidogrel 75 mg tablet
75 mg PO DAILY@1200
sodium bicarbonate 650 mg tablet
650 mg PO TID
Discharge Date and Time
Print Language: CZECH
[2024-05-13 12:15] VITALS: BP 162/83
--- NOTE | 2024-05-13 13:44 | CM ---
pt for dc.
IMM issued verbally.
Pt with no VN need; Will start HD 05/16/2024 at 5:50AM; schedule
== END 2024-05-13 12:36 | disposition home or self-care (01) | DRG 279 ==
LOC: 3 WEST ACU 14:00
PROVIDERS: Radiology Vascular & Interventional Radiology; Specialist; ADMITTING PHYSICIAN Surgery Vascular Surgery; ATTENDING PHYSICIAN Internal Medicine; FAMILY PHYSICIAN Family Medicine; OTHER PHYSICIAN Internal Medicine
PROC: 047N3ZZ Dilation of Left Popliteal Artery, Percutaneous Approach (ICD-10-PCS; 2024-05-09)
PROC: 047S3ZZ Dilation of Left Posterior Tibial Artery, Percutaneous Approach (ICD-10-PCS; 2024-05-09)
PROC: B41G1ZZ Fluoroscopy of Left Lower Extremity Arteries using Low Osmolar Contrast (ICD-10-PCS; 2024-05-09)
PROC: 04FS3ZZ Fragmentation of Left Posterior Tibial Artery, Percutaneous Approach (ICD-10-PCS; 2024-05-09)
PROC: 0JH60XZ Insertion of Tunneled Vascular Access Device into Chest Subcutaneous Tissue and Fascia, Open Approach (ICD-10-PCS; 2024-05-10)
PROC: B5181ZA Fluoroscopy of Superior Vena Cava using Low Osmolar Contrast, Guidance (ICD-10-PCS; 2024-05-10)
PROC: 5A1D70Z Performance of Urinary Filtration, Intermittent, Less than 6 Hours Per Day (ICD-10-PCS; 2024-05-10)
PROC: 02H633Z Insertion of Infusion Device into Right Atrium, Percutaneous Approach (ICD-10-PCS; 2024-05-10)
DX: E13.51 Other specified diabetes mellitus with diabetic peripheral angiopathy without gangrene (principal); I13.0 Hypertensive heart and chronic kidney disease with heart failure and stage 1 through stage 4 chronic kidney disease, or unspecified chronic kidney disease; I50.32 Chronic diastolic (congestive) heart failure; N18.4 Chronic kidney disease, stage 4 (severe); N17.9 Acute kidney failure, unspecified; N25.81 Secondary hyperparathyroidism of renal origin; E87.21 Acute metabolic acidosis; E87.22 Chronic metabolic acidosis; L97.429 Non-pressure chronic ulcer of left heel and midfoot with unspecified severity; I70.244 Atherosclerosis of native arteries of left leg with ulceration of heel and midfoot; E78.1 Pure hyperglyceridemia; E66.9 Obesity, unspecified; I25.10 Atherosclerotic heart disease of native coronary artery without angina pectoris; D63.1 Anemia in chronic kidney disease; E83.39 Other disorders of phosphorus metabolism; E13.22 Other specified diabetes mellitus with diabetic chronic kidney disease; E13.42 Other specified diabetes mellitus with diabetic polyneuropathy; E87.6 Hypokalemia; K21.9 Gastro-esophageal reflux disease without esophagitis; I69.322 Dysarthria following cerebral infarction; Z88.1 Allergy status to other antibiotic agents; Z88.3 Allergy status to other anti-infective agents; Z88.0 Allergy status to penicillin; Z88.2 Allergy status to sulfonamides; Z88.8 Allergy status to other drugs, medicaments and biological substances; Z91.018 Allergy to other foods; Z79.4 Long term (current) use of insulin; Z79.82 Long term (current) use of aspirin; Z79.02 Long term (current) use of antithrombotics/antiplatelets; Z68.34 Body mass index [BMI] 34.0-34.9, adult; Z82.49 Family history of ischemic heart disease and other diseases of the circulatory system; Z83.3 Family history of diabetes mellitus
CPT/HCPCS: 36558; 37228; 37232; 75710; 76937; 77001; 80048; 80051; 80053; 82550; 82962; 83036; 83735; 85014; 85018; 85025; 85027; 85610; 85730; 86704; 86706; 86803; 87070; 87340; 93005; 97162; 97165; 99152; 99153; C1725; C1750; C1894; G0257; P9047; Q5106; Q9967

== ENCOUNTER → 2024-06-23 08:35 | Outpatient (REF) | payer MEDICARE, SELFPAY | LOC: RAD 08:35 | PROVIDERS: ATTENDING PHYSICIAN Surgery Vascular Surgery; FAMILY PHYSICIAN Family Medicine; REFERRING PHYSICIAN Podiatrist Foot & Ankle Surgery | DX: I73.9 Peripheral vascular disease, unspecified (principal) | CPT/HCPCS: 93922; 93925 ==

== ENCOUNTER → 2024-09-15 07:34 | Outpatient (REF) | payer MEDICARE, SELFPAY ==
[2024-09-15 09:21] LABS: Hematocrit 30.4 % (39.0-52.0); Mean Corp Hgb Conc. 32.9 g/dL (33.0-37.0); Mean Corpuscular Hgb 28.4 pg (27.0-31.0); Mean Corpuscular Volume 86.4 fL (80.0-94.0); Mean Platelet Volume 11.1 fL (7.4-10.4); Platelet Count 186 10^3/uL (130-400); Red Blood Cell Count 3.52 10^6/uL (4.70-6.10); Red Cell Dist. Width 14.5 % (11.5-14.5); White Blood Cell Count 9.6 10^3/uL (4.8-10.8)
[2024-09-15 10:14] LABS: Blood Urea Nitrogen 23 mg/dl (9-20); Calcium 8.8 mg/dl (8.4-10.2); Carbon Dioxide 27 mmol/L (22-30); Chloride 101 mmol/L (98-107); Glucose 104 mg/dl (70-99); Potassium 4.9 mmol/L (3.5-5.1); Sodium 140 mmol/L (135-145); eGFR 15.15
== END ==
LOC: SDSPAT 07:34
PROVIDERS: ATTENDING PHYSICIAN Surgery; FAMILY PHYSICIAN Family Medicine
DX: Z01.818 Encounter for other preprocedural examination (principal)
CPT/HCPCS: 36415; 80048; 85027

== ENCOUNTER 2024-09-22 06:20 | Day surgery (SDC) | payer MEDICARE, SELFPAY ==
[2024-09-15 13:55] VITALS: BMI 37.3
[2024-09-22] VITALS (8 sets, daily range): BP systolic 136–152; BP diastolic 70–77; BMI 37.3
--- NOTE | 2024-09-22 07:22 | HP.FOC2 ---
Focused History & Physical
Chief Complaint
HPI:
Chief Complaint: End-stage renal disease need for dialysis access
HPI / Indication for Planned Procedure: Patient is a 58-year-old male currently on hemodialysis through a temporary hemodialysis catheter. He wishes to transition to peritoneal rather than long-term hemodialysis and presents today for anticipated
laparoscopic assisted placement of PD catheter
Relevant Past Medical History: Other (Hypertension, ESRD on HD, diabetes, retinopathy, diabetic neuropathy, edema, hyperlipidemia, history of CVA, anemia, CHF, bigeminy)
Relevant Social History: Negative
Relevant Family History: Negative
Relevant Past Surgical History: Positive for (Kidney biopsies, cyst removal, cataracts, angiogram, heel debridement)
Review of Systems
Review of Pertinent Systems: All Systems Negative
Medication
See Medication form for detailed medications: Yes
Medication List (including Herbals & OTC):
insulin degludec 100 unit/mL (3 mL) subcutaneous pen (Tresiba FlexTouch U-100 insulin) 32 unit SC HS Diabetes 04/26/22
metolazone 5 mg tablet 5 mg PO TUFR Fluid retention/Swelling 01/18/23
pantoprazole 40 mg tablet,delayed release 40 mg PO DAILY PRN GERD 01/18/23
furosemide 80 mg tablet 80 mg PO BID Fluid retention/Swelling 02/03/23
insulin aspart U-100 100 unit/mL (3 mL) subcutaneous pen (Novolog FlexPen U-100 Insulin aspart) 0 sliding scale dose SC MEALS Diabetes 02/03/23
calcium acetate(phosphat bind) 667 mg tablet 667 mg PO TID Supplement 12/22/23
carvedilol 25 mg tablet (Coreg) 25 mg PO BID Blood pressure 12/22/23
aspirin 81 mg tablet,delayed release 81 mg PO DAILY@1200 Blood Clot Prevention/Tx 12/27/23
cholecalciferol (vitamin D3) 125 mcg (5,000 unit) tablet (Vitamin D3) 125 mcg PO SUMOWETHFRSA Supplement 12/27/23
dorzolamide 2 % eye drops 1 drp BOTH EYES DAILY Eye Condition 12/27/23
ergocalciferol (vitamin D2) 1,250 mcg (50,000 unit) capsule (Vitamin D2) 1,250 mcg PO TU@1200 Supplement 12/27/23
fenofibrate 40 mg tablet 40 mg PO DAILY@1200 HIGH TRIGLYCERIDES 12/27/23
multivitamin with minerals-folic acid 200 mcg chewable tablet (Multivitamin Gummies) 2 tab PO DAILY Supplement 12/27/23
ofloxacin 0.3 % eye drops 1 drp ophthalmic (eye) Q8W PRN Post eye injections 12/27/23
amlodipine 5 mg tablet 5 mg PO BID Blood Pressure 05/04/24
clopidogrel 75 mg tablet 75 mg PO DAILY@1200 Blood Clot Prevention/Tx 05/04/24
sodium bicarbonate 650 mg tablet 650 mg PO TID ALKALINIZER 05/09/24
Medications Reviewed: Yes
Allergies and Reactions
Patient has Allergies: Yes
Noted Allergies and Reactions:
Allergy/AdvReac Type Severity Reaction Status Date / Time
JOHNATHON Inhibitors Allergy Swelling Verified 09/18/24 09:03
and HTN
acyclovir Allergy Swelling Verified 09/18/24 09:03
clindamycin Allergy Swelling Verified 09/18/24 09:03
ethacrynic acid Allergy nausea/ Verified 09/18/24 09:03
vomiting
honey Allergy Throat Verified 09/18/24 09:03
closes,
rash
hydralazine Allergy angioedema Verified 09/18/24 09:03
losartan Allergy palpitation Verified 09/18/24 09:03
s
metformin Allergy 'shut my Verified 09/18/24 09:03
liver
down, GI
Bleed'
metoprolol Allergy angioedema, Verified 09/18/24 09:03
Tachycardia,
HTN
mint Allergy Throat Verified 09/18/24 09:03
closes,
rash
mold Allergy Throat Verified 09/18/24 09:03
closes,
rash
nifedipine Allergy Angioedema Verified 09/18/24 09:03
Penicillins Allergy Anaphylaxis Verified 09/18/24 09:03
pollen extracts Allergy Throat Verified 09/18/24 09:03
closes,
rash, itch
[id number] Reductase Allergy Rash, Verified 09/18/24 09:03
Inhibitor blistering
Sulfa (Sulfonamide Allergy Anaphylaxis Verified 09/18/24 09:03
Antibiotics) and hives
tetracycline Allergy Anaphylaxis Verified 09/18/24 09:03
Pertinent Physical Exam
All Other Systems: Negative
Head/Neck: Normal
Lungs: Normal
Heart: Normal
Abdomen: Normal
Extremities: Other (Bilateral lower extremity edema)
Neurological: Normal
Diagnosis / Assessment
58-year-old male presenting for peritoneal dialysis catheter access procedure
Plan / Procedure
Laparoscopic assisted placement of peritoneal dialysis catheter; 1 cuff curl catheter with 2 cuff swan neck extension and left subcostal skin exit site
Anesthesia/Sedation to be done by Anesthesia Provider: Yes
[2024-09-22 08:12] LABS: Glucose - Point of Care 80 mg/dl (70-99)
[2024-09-22] MEDS: TYLENOL 1000 MG PO (08:24)
[2024-09-22] MEDS: NORMOSOL-R/PLASMALYTE-A 1000 IV (08:26)
--- NOTE | 2024-09-22 10:28 | W.IMMPOSTOP ---
Addendum entered and electronically signed by Deni Arroyo MD 09/22/24 10:40:
#[id number]
Original Note:
Surgical Immed Post Op Note
-
Primary Surgeon: Cruz
Assisting Surgeon: Sherin Echeverria PA-c
Pre-op Diagnosis: ESRD on HD
Post-op Diagnosis: ESRD on HD
Procedure Performed: Laparoscopic assisted placement of peritoneal dialysis catheter
Anesthesia Type: GETA + 0.25% Marcaine
Specimen / Cultures: none
Estimated Blood Loss: 4mL
Complications: none immediate
Operative Findings: normal anatomy. 1 cuff curl catheter; 2 cuff swan neck extension. LUQ skin exit site. Excellent in-jaimee/out-jaimee intraoperative (1L 3min in/800mL 2 min out)
[2024-09-22 10:37] LABS: Glucose - Point of Care 69 mg/dl (70-99)
[2024-09-22 10:51] LABS: Glucose - Point of Care 77 mg/dl (70-99)
== END 2024-09-22 12:17 | disposition home or self-care (01) ==
LOC: SDS 06:20
PROVIDERS: ATTENDING PHYSICIAN Surgery
DX: N18.6 End stage renal disease (principal); Z99.2 Dependence on renal dialysis
CPT/HCPCS: 49324; 82962; C1894

== ENCOUNTER 2024-09-30 22:13 | Inpatient (IN) | payer MEDICARE, SELFPAY ==
[2024-09-30] VITALS (33 sets, daily range): BP systolic 106–186; BP diastolic 66–154; PULSE 2–106; BMI 36.1
[2024-09-30] MEDS: LASIX 80 MG IV (19:05)
--- NOTE | 2024-09-30 19:10 | ED.GENMED ---
History of Present Illness
General
Chief Complaint: Breathing Problem
Source: patient and ambulance crew
Exam Limitations: none
Time Seen by Provider: 09/30/24 19:09
Nursing documentation reviewed up to this point in time: agreed with
History of Present Illness
History of Present Illness:
59-year-old male presents emergency department from complaining of shortness of breath that began earlier today. His oxygen saturation was found to be in the 60s-70s, found sitting on toilet. called EMS. About 2 hours prior to EMS call, it
worsened. He had hemodialysis today. Has not felt well for 2 days.
Past History
Past History
ED Past Medical History: CHF, HTN, IDDM and Renal failure
Social History
Tobacco: Former smoker
Alcohol: None
Drug: None
Personal:
Living: with family
Review of Systems
Review of Systems
Allergies reviewed?: Yes
All Other Systems: Not applicable
Constitutional: Reports no symptoms
EENT: Reports no symptoms
Respiratory: Reports cough and trouble breathing
Cardiac: Reports no symptoms
ABD/GI: Reports no symptoms
: Reports no symptoms
Musculoskeletal: Reports no symptoms
Skin: Reports no symptoms
Neurological: Reports no symptoms
Endocrine: Reports no symptoms
Hematologic/Lymphatic: Reports no symptoms
Psychiatric: Reports no symptoms
Phy Exam
Physical Exam
Physical Exam:
Physical Exam
General: Severe respiratory distress
Neck: supple. no meningeal signs. normal posterior pharynx
Heart: s1/s2 tachycardia, regular rhythm, no murmur. equal radial
pulses.
HEENT: Pupils equal round reactive to light, EOMI
Lungs: Severe respiratory distress. Rales bilaterally
Abdomen: normal bowel sounds. not tender. no CVAT, peritoneal dialysis catheter in place
Neuro: alert and oriented. no focal neurological deficits cranial nerves II through XII intact
Skin: no rash
Psychiatric: well kept. interactive and cooperative
Extremities: no edema. no calf tenderness. negative homans. good distal pulses
Scores
Heart Failure Risk
Heart Failure Risk Score: Yes
History of Stroke or TIA: Yes
History of intubation for respiratory distress: No
Heart rate on ED arrival >/= 110: No
SaO2 <90% on arrival on room air: Yes
HR >/=110 during 3min walk test (or too ill to perform test): Yes
ECG has acute ischemic changes: No
Urea >/=12mmol/L (BUN 33.6mg/dL): No
Serum CO2>/=35mmol/L: No
Troponin I or T elevated to ID Level (0.4mg/dL): No
NT-proBNP >/=5,000ng/L (5,000pg/ml): Yes
HF Risk Score: 5
Admission Status: VERY HIGH RISK 39.8% Consider admission to hospital
Course
Orders/Labs/Results
Orders:
Orders
09/30/24 19:05
Electrocardiogram (*1) Urgent
Reason for Study: Shortness of Breath
EKG- Treatment ONCE
Furosemide [Lasix] 80 mg IV NOW STA
09/30/24 19:06
CR Chest Portable - 1 View Urgent
Comment:
Reason For Exam: SOB
Reason Study Needs to be Portable: Other
09/30/24 19:15
Nitroglycerin 100 mg/250 ml [Nitroglycerin Premix] 100 mg in 250 ml IV PER PROTOCOL
Initial dose in mcg/min, then titrate:: 100
Titrate to keep:: MAP 70-100 mmHg
Titrate by mcg/min:: 5 mcg/min, may increase by 10 mcg/min if dose > 20 mcg/min
Frequency of titrations (minutes):: every 3-5 minutes
Maximum dose in mcg/min:: 200
Begin to taper infusion when:: Remained at goal for 2hrs
Taper by mcg/min:: 5 mcg/min
Frequency of taper (minutes) if patient maintains goal:: 30
Taper to off?: Yes
If infusion off & no longer maintaining goal:: Contact Provider
09/30/24 19:24
COVID-19 Antigen Urgent
Source: Nasal Swab
Complete Blood Count/With Diff Urgent
Comprehensive Metabolic Panel Urgent
NT-proBNP Urgent
Troponin I Urgent
Influenza A+B Rapid Molecular Urgent
THALIA Source: Nasal Swab
Specimen Description:
09/30/24 19:28
ABG [Arterial Blood Gas] Urgent
%Oxygen/Room Air: 60
09/30/24 21:24
Admit/Transfer Patient As Directed
Co-Sign Provider:
Level of Care: Inpatient admission
Assign to:: IMU- Intermediate Care
Physician / Group: Adán
Diagnosis: Acute Hypoxemic Respiratory Failure, COVID-19, ESRD on HD
Reason for Hospitalization: Acute Hypoxemic Respiratory Failure, COVID-19, ESRD on HD
Expected length of stay greater than two midnights?: Yes
ELOS- Estimated Length of Stay in days: 4
I certify the patient meets the requirements for IP care: Yes
PRN Pain Medication Management As Directed
May give lesser potent ordered pain med per pt: Yes
preference::
Protocol:: Medication orders for pain may be administered in a
manner that supports deferring to patient preference
when the pt is:
- Requesting an ordered lesser potent pain medication.
Least to most potent pain medications are defined
as: acetaminophen < NSAID < tramadol < opioids
(morphine, oxycodone, hydromorphone).
- Requesting a lesser dose of the same medication IF
ORDERED.
- Requesting a less intrusive route of administration
if both routes are prescribed by the provider (PO <
IV).
09/30/24 21:26
Code Status As Directed
Resuscitation Status: Full Code
09/30/24 23:23
Acetaminophen [Tylenol] 650 mg PO Q4HPRN PRN
Albuterol [ProAIR HFA INHALER] 2 puff INH R Q4HPRN PRN
Calcium Acetate [Phoslo] 667 mg PO TID
Dextrose 50%-Water [Dextrose 50% Syringe] 12.5 grams IV [id number] PRN
Glucagon [GlucaGen] 1 mg IM PRN PRN
Nitroglycerin 100 mg/250 ml [Nitroglycerin Premix] 100 mg in 250 ml IV PER PROTOCOL
Continuous dose without titration in mcg/min:: 60
Additional Titration Instructions:: Do not titrate. Rate change by provider order only.
insulin degludec [Tresiba FlexTouch U-100] 30 unit SC HS
09/30/24 23:23
Echo 2D MMode Doppler [Echo 2D MMode Color/Doppler] Routine
Reason for Study: CHF
Consult Notification Routine
Specialty to Notify: Nephrology
Consult Notification Routine
Specialty to Notify: Pulmonary
NEPHROLOGY CONSULT Routine
Consulting Provider: Norberto Harris
Was physician already notified: No
Reason for consult: ESRD / HD, Hypoxemia / Pulm Edema
PULMONARY CONSULT Routine
Consulting Provider: Aline Renteria
Was physician already notified: No
Reason for consult: Hypoxemia, COVID-19
WOUND/OSTOMY CONSULT Routine
Reason for Consult: L Foot Wound
TSH Reflex To Free T4 Routine
Activity As Directed
Activity Level: Ambulate
With Assistance
Bedside Glucose Monitoring As Directed
Frequency: AC&HS
Additional Instructions:: Change to q6h if pt on TPN, tube feeding or not eating
Bladder Scan As Directed
Follow Bladder Retention/Intermittent Cath Algorithm?: Yes
PRN if no void in __ hours: 6
Frequency: Per Retention Algorithm
If Bladder Scan Result >: 400
then:: Straight cath
EKG with chest pain [ECG as needed] As Directed
ECG as needed for:: Chest Pain
I/O [Intake/ Output] As Directed
Frequency: Per unit guidelines
Precautions As Directed
Type of Precautions: Airborne
Straight Cath As Directed
Frequency: Per Retention Algorithm
Additional Instructions: straight cath as needed per acute urinary retention algorithm for 24 hrs
Additional Instructions: for bladder scan greater than 400 mL
Vital Signs As Directed
Frequency: Per unit guidelines
Weight As Directed
Frequency: Daily
Bipap [RESP] Routine
Patient to use own unit?: No
Inspiratory Pressure (cm H2O): 18
Expiratory Pressure (cm H2O): 10
Instructions: Titrate for comfort and adequate oxygenation.
Oxygen Therapy [O2 Therapy] [RESP] Routine
Titrate/Wean O2 to maintain O2 sat greater than (%): 94
DX Deep Vein Thrombosis Video Routine
09/30/24 23:30
Dexamethasone Sod Phosphate [Decadron] 6 mg IV Q24H
10/01/24 00:00
Heparin 5,000 units SC Q8
10/01/24 05:23
Troponin I Q6H
10/01/24 06:00
EKG [Electrocardiogram (*1)] IN AM
Reason for Study: Chest Pain
2000 calorie (17 carb) Diabetic
At Your Request: Full Participation
Does patient need a safe tray?: No
Fluid Restriction: 1440 mL/day (48 oz)
Basic Metabolic Panel IN AM
Complete Blood Count/No Diff IN AM
Glycohemoglobin (HgbA1c) IN AM
Magnesium IN AM
Phosphorus IN AM
10/01/24 07:30
Insulin Aspart Corrective Mod [Novolog Flexpen-Moderate Resistance] See Protocol SC AC
10/01/24 08:00
Carvedilol [Coreg] 25 mg PO BID
Furosemide [Lasix] 80 mg IV BID AT 0800,1600
Sodium Bicarbonate 650 mg PO BID
10/01/24 11:23
Troponin I Q6H
10/01/24 12:00
Aspirin Low Dose EC [Aspir Low (Enteric Coated)] 81 mg PO DAILY@1200
Clopidogrel Bisulfate [Plavix] 75 mg PO DAILY@1200
Pantoprazole [Protonix] 40 mg PO NOON
Abnormal Lab Results
09/30/24 09/30/24
19:24 19:28
WBC 12.9 H 10^3/uL
(4.8-10.8)
RBC 3.49 L 10^6/uL
(4.70-6.10)
Hgb 9.7 L g/dL
(13.0-18.0)
Hct 29.8 L %
(39.0-52.0)
MCHC 32.6 L g/dL
(33.0-37.0)
RDW 15.0 H %
(11.5-14.5)
Abs Immat Gran (auto) 0.1 H 10^3/uL
(0-0.05)
Absolute Neuts (auto) 11.3 H 10^3/uL
(1.4-6.5)
Absolute Lymphs (auto) 0.5 L 10^3/uL
(1.2-3.4)
Absolute Monos (auto) 0.8 H 10^3/uL
(0.1-0.6)
Immature Gran % 1.1 H %
(0-0.5)
Neutrophils % 87.8 H %
(42.2-75.2)
Lymphocytes % 4.0 L %
(20.5-51.1)
pO2 65 L mmHg
(83-108)
Sodium 134 L mmol/L
(135-145)
Chloride 94 L mmol/L
(98-107)
BUN 23 H mg/dl
(9-20)
Creatinine 3.9 H mg/dL
(0.7-1.3)
Glucose 249 H mg/dl
(70-99)
Calcium 8.0 L mg/dl
(8.4-10.2)
Troponin I 0.091 H* ng/ml
SARS-CoV-2 Antigen Positive A
(Negative)
09/30/24 19:24
09/30/24 19:24
Vital Signs
Initial and Last Documented VS:
Initial Vital Signs
Pulse Resp Pulse Ox
108 32 89
09/30/24 19:03 09/30/24 19:03 09/30/24 19:03
Last Documented Vital Signs
Temp Pulse Resp BP Pulse Ox
99.4 F 90 20 128/76 99
10/01/24 00:00 09/30/24 23:05 09/30/24 23:05 09/30/24 23:00 10/01/24 01:33
MDM/Problems Addressed
Differential Diagnosis Includes:
Pneumonia, COVID, CHF exacerbation, respiratory failure.
MDM/Problems Addressed:
59-year-old male with respiratory failure, improving on BiPAP. COVID, CHF exacerbation, improving with Lasix and nitroglycerin drip. Chronic kidney disease on hemodialysis. Patient had hemodialysis today. Admit to ICU.
Chronic conditions affecting care: DM, HTN, Cardiomyopathy and Kidney disease
Acute Exacerbation and/or Progression of Chronic Illness: DM, HTN, Cardiomyopathy and Kidney disease
*Radiology
Radiology exam reviewed: preliminary read by ED provider (Chest x-ray shows mild fluid overload, bilateral groundglass infiltrates)
*Pulse Oximetry
Patient hypoxic: yes
*EKG
Interpreted by ED Provider?: Yes
EKG Intrepretation Date: 09/30/24
EKG Intrepretation Time: 19:09
Interpretation: abnormal
Comparison EKG: no comparison EKG present
Heart Rate: 106
Rate: tachycardiac
Rhythm: PVC's and sinus tachycardia
[place]: normal axis
Interval: normal interval
QRS Pattern: normal QRS
Ischemia: no ischemia
*Cushion Mat Maker Interpretation
Rate: tachycardiac
Interpretation: abnormal
Heart Rate: 105
Rhythm: sinus tachycardia
*Critical Care Note
Total Time (30-74mins, 75-104mins- exclusive of procedures): 40
comment:
Critical care statement: A total of 40 minutes of critical care time was provided for this patient. This includes management of unstable vital signs, evaluation of the patient at bedside, reviewing the patient's pertinent medical records,
discussion with consultants, review of old EKGs and review of pertinent medical records. This time with separate from time utilized to perform the aforementioned documented procedures
Data Reviewed
Review of Other/Old Records Reveals: Labs (Prior creatinine 4.3 on 09/15/2024) and Testing (Echocardiogram on 04/27/2022 shows normal biventricular size and systolic function without regional wall motion abnormality)
Source: records
ED Attending Note
-
Portions of this chart may have been created with voice recognition software.� Occasional wrong word or��sound alike� substitutions may have occurred due to the inherent limitations of voice recognition software.
Discharge Plan
Departure
Patient Disposition: Admit
Date of Disposition: 09/30/24
Time of Disposition: 20:06
Admit to: ICU
Presentation/result/management discussed w/ accepting MD/DO: Hospitalist
Patient with high blood pressure during this ER visit?: Yes
Condition: Serious
Covid-19: Confirmed COVID-19
Discharge Problem:
Respiratory failure with hypoxia, CKD (chronic kidney disease) stage 4, GFR 15-29 ml/min, IDDM (insulin dependent diabetes mellitus), COVID-19, Acute exacerbation of CHF (congestive heart failure)
Interventions
Interventions:
*Risk Screen - Suicide Last Done: 09/30/24 19:03
*General Assessment Last Done: 09/30/24 19:03
*Neglect/Abuse Screening Last Done: 09/30/24 19:03
ED- Fall Risk Assessment Last Done: 09/30/24 23:16
*ED COVID-19 Vaccine History Last Done: 09/30/24 19:03
*Nursing Disposition Last Done: 09/30/24 23:16
ED- Cardiac Assessment Last Done: 09/30/24 19:03
ED- Pulmonary Assessment Last Done: 09/30/24 19:10
Discharge Date and Time
Discharge Date/Time: 09/30/24 23:17
[2024-09-30] MEDS: NITROGLYCERIN PREMIX 250 IV (19:27)
[2024-09-30 19:31] LABS: % Basophils 0.5 % (0-2); % Eosinophils 0.5 % (0-6); % Immature Granulocytes 1.1 % (0-0.5); % Monocytes 6.1 % (1.7-9.3); % Neutrophils 87.8 % (42.2-75.2); Absolute Basophils 0.1 10^3/uL (0-0.2); Absolute Eosinophils 0.1 10^3/uL (0-0.7); Absolute Immature Granulocytes 0.1 10^3/uL (0-0.05); Absolute Lymphocytes 0.5 10^3/uL (1.2-3.4); Absolute Monocytes 0.8 10^3/uL (0.1-0.6); Absolute Neutrophils 11.3 10^3/uL (1.4-6.5); Hematocrit 29.8 % (39.0-52.0); Hemoglobin 9.7 g/dL (13.0-18.0); Mean Corp Hgb Conc. 32.6 g/dL (33.0-37.0); Mean Corpuscular Hgb 27.8 pg (27.0-31.0); Mean Corpuscular Volume 85.4 fL (80.0-94.0); Mean Platelet Volume 10.4 fL (7.4-10.4); Nucleated Red Blood Cells % 0 % (-); Platelet Count 213 10^3/uL (130-400); Red Blood Cell Count 3.49 10^6/uL (4.70-6.10); White Blood Cell Count 12.9 10^3/uL (4.8-10.8)
[2024-09-30 19:35] LABS: B.E. 2.8 mmol/L; HCO3 27.2 mmol/L (21-28); O2 Saturation % 94.5 % (94-98); PCO2 40 mmHg (35-48); PO2 65 mmHg (83-108); pH 7.44 (7.35-7.45)
[2024-09-30 19:50] LABS: ALT (SGPT) 18 U/L (0-50); AST (SGOT) 21 U/L (17-59); Albumin 3.9 g/dl (3.5-5.0); Alkaline Phosphatase 70 U/L (38-126); Blood Urea Nitrogen 23 mg/dl (9-20); Carbon Dioxide 28 mmol/L (22-30); Chloride 94 mmol/L (98-107); Glucose 249 mg/dl (70-99); Potassium 4.7 mmol/L (3.5-5.1); Sodium 134 mmol/L (135-145); Total Bilirubin 0.8 mg/dl (0.2-1.3); Total Protein 6.5 g/dl (6.3-8.2); eGFR 16.93
[2024-09-30 19:52] LABS: COVID-19 Antigen Positive (Negative)
[2024-09-30 20:00] LABS: NT-proBNP 12900 pg/ml; Troponin I 0.091 ng/ml
--- NOTE | 2024-09-30 21:52 | HPS.HSE ---
Family Physician
-
Family Physician: Milind Montana
Chief Complaint
-
SOB
History of Present Illness
Patient is a 59y M with PMH significant for DM-II and ESRD on HD who presents to ED complaining of SOB and cough. Patient states that he started coughing a few days ago. Today while at HD he became increasingly short of breath. He had multiple
episodes today of N/V/D. Following HD he felt more fatigued than usual. His dyspnea progressed throughout the remainder of the day. His found him this evening sitting on the toilet in respiratory distress. 911 was called and patient was
found to have SpO2 in the 60s / 70s for EMS. He was brought to the ED for further evaluation. Patient remained hypoxemic / in distress despite supplemental O2, NRB, etc.
He was placed on BiPAP and NTG infusion in the ED and is currently feeling much improved.
Patient reports multiple people coughing at the dialysis center, but no specific / known sick contacts.
He had his initial two SARS-CoV-2 vaccinations, but no boosters since that time. He suffered at stroke in 2020 which he notes was attributed to his second COVID vaccine.
Patient had recent PD catheter placement done here at on 09/22/24. He states that he has been recovering well from that procedure - until cough started 2-3 days ago.
Medical History
Past Medical History
Past Medical History: Reports Other
Additional Past Medical History:
DM-II with Retinopathy, Nephropathy
ESRD on HD
Hypertension
ASCVD (CVA, PAD)
Chronic HFpEF
Past Surgical History: Reports Other
Additional Past Surgical History:
R IJ Tunneled HD Catheter Placed
PD Catheter Placement
Bilateral LE Angioplasties (Multiple)
Cataracts
Foot Surgery
Renal Biopsy
Social History
Tobacco: Former Smoker (Quit smoking in 1980s)
Alcohol: None
Drug: None
Family History
Family History: Not pertinent
Allergies / Home Medications
Allergies reflects when Allergies were last updated in [employer].
Home Medications with original date entered in [employer]
Allergy/Medication List:
Allergies
Allergy/AdvReac Type Severity Reaction Status Date / Time
JOHNATHON Inhibitors Allergy Swelling Verified 09/22/24 08:00
and HTN
acyclovir Allergy Swelling Verified 09/22/24 08:00
clindamycin Allergy Swelling Verified 09/22/24 08:00
ethacrynic acid Allergy nausea/ Verified 09/22/24 08:00
vomiting
honey Allergy Throat Verified 09/22/24 08:00
closes,
rash
hydralazine Allergy angioedema Verified 09/22/24 08:00
losartan Allergy palpitation Verified 09/22/24 08:00
s
metformin Allergy 'shut my Verified 09/22/24 08:00
liver
down, GI
Bleed'
metoprolol Allergy angioedema, Verified 09/22/24 08:00
Tachycardia,
HTN
mint Allergy Throat Verified 09/22/24 08:00
closes,
rash
mold Allergy Throat Verified 09/22/24 08:01
closes,
rash
nifedipine Allergy Angioedema Verified 09/22/24 08:01
Penicillins Allergy Anaphylaxis Verified 09/22/24 08:01
pollen extracts Allergy Throat Verified 09/22/24 08:01
closes,
rash, itch
Ppnsung-WRS-CgV Reductase Allergy Rash, Verified 09/22/24 08:01
Inhibitor blistering
Sulfa (Sulfonamide Allergy Anaphylaxis Verified 09/22/24 08:01
Antibiotics) and hives
tetracycline Allergy Anaphylaxis Verified 09/22/24 08:01
Home Medications
insulin degludec 100 unit/mL (3 mL) subcutaneous pen (Tresiba FlexTouch U-100 insulin) 32 unit SC HS Diabetes 04/26/22
metolazone 5 mg tablet 5 mg PO TUFR Fluid retention/Swelling 01/18/23
pantoprazole 40 mg tablet,delayed release 40 mg PO NOON 01/18/23
furosemide 80 mg tablet 80 mg PO BID Fluid retention/Swelling 02/03/23
insulin aspart U-100 100 unit/mL (3 mL) subcutaneous pen (Novolog FlexPen U-100 Insulin aspart) 0 sliding scale dose SC MEALS Diabetes 02/03/23
calcium acetate(phosphat bind) 667 mg tablet 667 mg PO TID Supplement 12/22/23
carvedilol 25 mg tablet (Coreg) 25 mg PO BID Blood pressure 12/22/23
aspirin 81 mg tablet,delayed release 81 mg PO DAILY@1200 Blood Clot Prevention/Tx 12/27/23
cholecalciferol (vitamin D3) 125 mcg (5,000 unit) tablet (Vitamin D3) 125 mcg PO NOON Supplement 12/27/23
amlodipine 5 mg tablet 5 mg PO BID Blood Pressure 05/04/24
clopidogrel 75 mg tablet 75 mg PO DAILY@1200 Blood Clot Prevention/Tx 05/04/24
sodium bicarbonate 650 mg tablet 650 mg PO TID ALKALINIZER 05/09/24
fenofibrate nanocrystallized 48 mg tablet 48 mg PO NOON 09/30/24
Review of Systems
-
History Source: Patient
A 12 point ROS was completed and negative except as noted: Yes
Constitutional: Reports Fatigue; Denies Fever or Chills
EENT: Denies Sore Throat
Respiratory: Reports Cough and Trouble Breathing; Denies Hemoptysis
Cardiac: Denies Chest Pain or Palpitations
Abdomen/GI: Reports Nausea, Vomiting and Diarrhea; Denies Abdominal Pain
: Reports Other (Makes approx 2 liters of urine / day); Denies Dysuria or Flank Pain
Musculoskeletal: Reports Edema; Denies Joint Pain
Skin: Reports Other (L Foot Wound)
Neurological: Denies Dizzy or Headache
Psych: Denies Depression or Anxiety
Physical Exam
Vital Signs
Vital Signs
Pulse Resp BP Pulse Ox
95 26 124/79 99
09/30/24 21:00 09/30/24 21:00 09/30/24 21:00 09/30/24 21:00
Physical Exam
General: Other (59y M in mild distress on BiPAP.)
HEENT: Moist mucous membranes, PERRLA and Other (Thick neck.)
Respiratory: Other (Few rales at both bases - otherwise clear on BiPAP.)
Cardiac: S1/S2 and Regular Rhythm (with ectopy.)
GI: Soft, Non Tender, Non Distended, Normal Bowel Sounds and Other (Obese. Midline PD catheter in place with dressing intact. No strikethrough.)
Musculoskeletal: No Clubbing, No Cyanosis and Other (2-3+ pitting edema b/l feet - L > R. Dressings in place over L foot wound without bleeding / discharge.)
Neuro: AO x 3
Hematologic/Lymphatic: Other (R IJ HD Cath in place.)
Laboratory Results
-
09/30/24 19:24
09/30/24 19:24
Laboratory Results
pH 7.44 (7.35-7.45) 09/30/24 19:28
pCO2 40 mmHg (35-48) 09/30/24 19:28
pO2 65 mmHg (83-108) L 09/30/24 19:
HCO3 27.2 mmol/L (21-28) 09/30/24 19:28
Total Bilirubin 0.8 mg/dl (0.2-1.3) 09/30/24 19:24
AST 21 U/L (17-59) 09/30/24 19:24
ALT 18 U/L (0-50) 09/30/24 19:24
Alkaline Phosphatase 70 U/L (38-126) 09/30/24 19:24
Troponin I 0.091 ng/ml H* 09/30/24 19:24
Impression/Plan
-
A/P: Patient is a 59y M with PMH significant for ESRD ON HD, DM and hypertension who presents to ED in respiratory distress.
Acute Hypoxemic Respiratory Failure
- Admit for further evaluation and treatment.
- Suspect that hypoxemia is multifactorial and due to combination of COVID-19 pneumonia as well as volume overload.
- Treat individual issues as outlined below.
- Continue BiPAP support for now and wean / titrate as needed.
- Patient will need negative pressure room while on PAP therapy.
COVID-19 Pneumonia
- Received initial two doses of vaccine, but no boosters since that time.
- Multiple episodes of COVID-19 infection in the past requiring hospitalization.
- IV dexamethasone daily.
- Continue supportive care.
- Pulm evaluation for additional recommendations.
Acute on Chronic HFpEF
- Pulm edema / volume overload despite HD.
- IV Lasix and IV NTG started in the ED with good response.
- Continue BID IV Lasix (patient notes that he makes urine).
- Continue IV NTG infusion.
- Additional volume management per Nephrology on HD.
- Follow I/Os, daily weights, etc.
- Mild elevation in troponin is likely secondary to acute HF - follow to peak.
ESRD on HD
- Volume overloaded at present.
- Nephrology evaluation for HD / UF needs during acute stay.
- Follow labs / lytes.
- Continue bicarb supplementation, PhosLo, etc.
- Has R IJ HD cath which he has been using.
- New PD cath (09/22/24) not yet utilized.
ASCVD
Right Sided Weakness as Late Effect of CVA
- Stable. No chest pain. No new neurologic complaints.
- Continue DAPT. He is unfortunately statin intolerant.
- Follow for any new issues / complaints.
DM-II
- Stable. Continue basal : bolus insulin regimen.
- Follow glucose and cover with SSI as needed.
- Update A1C.
Benign Hypertension
- Continue BP med regimen and adjust as needed.
DVT Prophylaxis: Subcut Heparin
Code Status: Full
[2024-09-30] MEDS: PHOSLO PO (23:38)
[2024-09-30] MEDS: HEPARIN 5000 UNITS SC (23:48)
[2024-09-30] MEDS: DECADRON 6 MG IV (23:49)
[2024-09-30] MEDS: LANTUS 0.3 UNITS SC (23:53)
[2024-10-01] VITALS (47 sets, daily range): BP systolic 100–190; BP diastolic 50–106; PULSE 2–105
[2024-10-01 00:03] LABS: Glucose - Point of Care 238 mg/dl (70-99)
[2024-10-01 03:12] LABS: Hematocrit 26.8 % (39.0-52.0); Hemoglobin 8.7 g/dL (13.0-18.0); Mean Corp Hgb Conc. 32.5 g/dL (33.0-37.0); Mean Corpuscular Hgb 28.1 pg (27.0-31.0); Mean Corpuscular Volume 86.5 fL (80.0-94.0); Mean Platelet Volume 11.2 fL (7.4-10.4); Platelet Count 166 10^3/uL (130-400); White Blood Cell Count 7.5 10^3/uL (4.8-10.8)
[2024-10-01 03:19] LABS: Blood Urea Nitrogen 27 mg/dl (9-20); Calcium 8.1 mg/dl (8.4-10.2); Carbon Dioxide 26 mmol/L (22-30); Chloride 95 mmol/L (98-107); Estimated Creatinine Clearance 24 ml/min; Glucose 230 mg/dl (70-99); Magnesium 1.9 mg/dl (1.6-2.3); Phosphorus 4.2 mg/dl (2.5-4.5); Potassium 4.8 mmol/L (3.5-5.1); Sodium 134 mmol/L (135-145); eGFR 14.65
[2024-10-01 03:47] LABS: TSH Reflex To Free T4 1.44 uIU/ml (0.47-4.68)
--- NOTE | 2024-10-01 07:08 | PTCARENOTE ---
Pt admitted overnight. aaox3, pleasant.remained on bipap all night. NO pain, no SOB. NSR bigeminy. Trending trops. NO CP. Will monitor.
[2024-10-01 08:04] LABS: Glucose - Point of Care 231 mg/dl (70-99)
[2024-10-01] MEDS: SODIUM BICARBONATE 650 MG PO (08:11)
[2024-10-01] MEDS: PHOSLO PO ×3 (08:11→22:27)
[2024-10-01] MEDS: TYLENOL PO (08:11)
[2024-10-01] MEDS: COREG 25 MG PO (08:11)
[2024-10-01] MEDS: LASIX 80 MG IV ×2 (08:12→16:06)
[2024-10-01] MEDS: NOVOLOG FLEXPEN-MODERATE RESISTANCE 3 UNITS SC ×2 (08:12→16:08)
[2024-10-01] MEDS: HEPARIN 5000 UNITS SC ×3 (08:12→23:33)
--- NOTE | 2024-10-01 09:09 | W.PN.HOSP.TC ---
Today's Communication/Plan
-
Continue steroids
Wean oxygen as able
Pulmonary consult
Cardiology consult
Adjust insulin
Continue IV Lasix
Wean down nitroglycerin as able
Assessment / Plan
Assessment / Plan
Gen-AAOx3, mild respiratory distress, obese
HEENT-NC, AT, anicteric, clear oral mm
Neck-supple
CV-reg, no M, +S1/S2
Lungs-clear B/L
Abd-soft, distended but not tender
Ext-bilateral lower extremity edema
Musculoskeletal-no cyanosis, clubbing
Skin-warm and dry
Neuro-grossly non-focal
Psych-calm, cooperative
Acute hypoxic respiratory failure -suspect multifactorial etiology including acute pulmonary edema, COVID infection, etc. Required BiPAP last night, transitioned to 10 L mid flow oxygen currently. Wean down as able. Consult pulmonary.
Sepsis due to COVID-19 infection -possible COVID-pneumonia. Continue steroids. Watch glucoses. Consult pulmonary for any additional recommendations.
Acute on chronic heart failure preserved EF -continue IV Lasix. Patient does normally make urine but so far none today. He is on furosemide 80 mg p.o. twice daily at home. Still on nitroglycerin drip.
Troponin elevation -patient denies chest pain. EKG with PVCs, bigeminy. QT prolongation noted, 548 ms. Trend troponins, consult cardiology. Initial troponin 0.09, repeat 6.3.
PAD -with history of critical limb ischemia. Followed by Dr. King. Had lower extremity revascularization for a nonhealing left heel wound in May 2024. Patient states wound is healing well. Continue dual antiplatelet therapy.
SANJUANA with hyperglycemia - has been on Tresiba 32 units at bedtime, NovoLog sliding scale at home. Glucose 230 this morning.
Currently on Lantus insulin 30 units at bedtime, moderate resistance NovoLog scale. Anticipate hyperglycemia with IV steroids. Add mealtime insulin.
ESRD -requiring dialysis. Last session was yesterday. Nephrology consulted. PD catheter placed recently but has not started using yet.
History of stroke with right hemiparesis -reportedly is statin intolerant.
Diabetic retinopathy/nephropathy
Essential hypertension -stable.
GERD -Protonix. Add Maalox for breakthrough heartburn symptoms.
Cataracts
Obesity due to excess calories
Full code
Anticipated Discharge: > 48 hours
Subjective/Interval History
-
Date of Service: October 01, 2024
Patient seen and examined. States he is feeling better, less short of breath. Still has orthopnea. Denies chest pain.
Objective Data
-
Labs:
Laboratory Results
10/01/24
02:37
WBC 7.5
Hgb 8.7 L
Hct 26.8 L
Plt Count 166 D
Sodium 134 L
Potassium 4.8
Chloride 95 L
Carbon Dioxide 26
BUN 27 H
Creatinine 4.4 H*
Glucose 230 H
Calcium 8.1 L
Vital Signs:
Vital Signs
Temp Pulse Resp BP Pulse Ox
100.4 F H 100 21 122/70 99
10/01/24 03:00 10/01/24 08:12 10/01/24 06:00 10/01/24 08:12 10/01/24 06:00
Review of Systems
-
History Source: Patient
All other systems: Reviewed and negative
[2024-10-01] MEDS: COMPAZINE 10 MG IV (09:18)
--- NOTE | 2024-10-01 09:42 | W.CON.NEPH ---
Consultation
-
Date/Time Consultation Requested: 10/01/2024 7 AM
Date/Time Consultation Performed: 10/01/1974 10 AM
Requesting Provider: Dr. Max
Performing Provider: Dr. Harris
Reason for Consultation: ESRD
Medical History
-
Chief Complaint: Abnormal labs
History of Present Illness:
This patient is 58y/o M with IDDM with microvascular compactions, ESRD on dialysis TTS, HTN on Amlodipine, coreg, Anemia on SEEMA therapy, DCHF on lasix. He had a PD catheter placed on September 22 for eventual transition to peritoneal dialysis at
home. While at dialysis on Wednesday he had developed shortness of breath which only worsened over time. He then developed some nausea vomiting and diarrhea. Given the persistent shortness of breath he came to the emergency room and was found to
be hypoxic. He did test positive for COVID. His troponin was also noted to be elevated at 6.0. At dialysis he had 2.7 kg of removal off a 1.7 interdialytic weight gain. He had initially required BiPAP but has not been weaned to 8 L supplemental
nasal cannula.
Past Medical History
ESRD HD TTS
Renal biopsy September 2021.
Diabetic retinopathy.
Diabetic neuropathy.
PAD.
Anemia of CKD, maintained on SEEMA therapy.
History of iron deficiency.
Secondary hyperparathyroidism.
heart failure with preserved EF.
obesity
GERD.
CVA April 2022.
Hyperphosphatemia
Past Surgical History: Other ( Kidney biopsy 09/2021 Cyst removal from back extra bones removed from both feet age 12 Right eye cataract left eye cataract Arteriogram ([facility]) 02/05/23 Rt heel debridement 03/04/23
Arteriogram left leg 12/27/23,left leg angipoplasty 05/09/24)
Social History
Tobacco: Non-Smoker
Alcohol: None
Drug: None
Living: With Family
Employment: Retired
Family History
Father with a history of CAD, stroke, .
Mother heart disease
Brother heart disease, half brotheer from father's side of the kidney disease on dialysis
grandmother with heart disease, maternal grandfather with a cerebral hemorrhage, diabetes
Maternal cousin with edema issues
Paternal uncle probably with the kidney disease.
Allergies / Home Medications
Allergy/AdvReac Type Severity Reaction Status Date / Time
JOHNATHON Inhibitors Allergy Swelling Verified 09/22/24 08:00
and HTN
acyclovir Allergy Swelling Verified 09/22/24 08:00
clindamycin Allergy Swelling Verified 09/22/24 08:00
ethacrynic acid Allergy nausea/ Verified 09/22/24 08:00
vomiting
honey Allergy Throat Verified 09/22/24 08:00
closes,
rash
hydralazine Allergy angioedema Verified 09/22/24 08:00
losartan Allergy palpitation Verified 09/22/24 08:00
s
metformin Allergy 'shut my Verified 09/22/24 08:00
liver
down, GI
Bleed'
metoprolol Allergy angioedema, Verified 09/22/24 08:00
Tachycardia,
HTN
mint Allergy Throat Verified 09/22/24 08:00
closes,
rash
mold Allergy Throat Verified 09/22/24 08:01
closes,
rash
nifedipine Allergy Angioedema Verified 09/22/24 08:01
Penicillins Allergy Anaphylaxis Verified 09/22/24 08:01
pollen extracts Allergy Throat Verified 09/22/24 08:01
closes,
rash, itch
Xsctecp-MYE-LzP Reductase Allergy Rash, Verified 09/22/24 08:01
Inhibitor blistering
Sulfa (Sulfonamide Allergy Anaphylaxis Verified 09/22/24 08:01
Antibiotics) and hives
tetracycline Allergy Anaphylaxis Verified 09/22/24 08:01
�Medication �Instructions �Recorded �Confirmed �Type
insulin degludec 100 unit/mL (3 32 unit SC HS Diabetes 04/26/22 09/30/24 History
mL) subcutaneous pen (Tresiba
FlexTouch U-100 insulin)
metolazone 5 mg tablet 5 mg PO TUFR Fluid 01/18/23 09/30/24 History
retention/Swelling
pantoprazole 40 mg tablet,delayed 40 mg PO NOON 01/18/23 09/30/24 History
release
furosemide 80 mg tablet 80 mg PO BID Fluid 02/03/23 09/30/24 History
retention/Swelling
insulin aspart U-100 100 unit/mL 0 sliding scale dose SC MEALS 02/03/23 09/30/24 History
(3 mL) subcutaneous pen (Novolog Diabetes
FlexPen U-100 Insulin aspart)
calcium acetate(phosphat bind) 667 667 mg PO TID Supplement 12/22/23 09/30/24 History
mg tablet
carvedilol 25 mg tablet (Coreg) 25 mg PO BID Blood pressure 12/22/23 09/30/24 History
aspirin 81 mg tablet,delayed 81 mg PO DAILY@1200 Blood Clot 12/27/23 09/30/24 History
release Prevention/Tx
cholecalciferol (vitamin D3) 125 125 mcg PO NOON Supplement 12/27/23 09/30/24 History
mcg (5,000 unit) tablet (Vitamin
D3)
amlodipine 5 mg tablet 5 mg PO BID Blood Pressure 05/04/24 09/30/24 History
clopidogrel 75 mg tablet 75 mg PO DAILY@1200 Blood Clot 05/04/24 09/30/24 History
Prevention/Tx
sodium bicarbonate 650 mg tablet 650 mg PO TID ALKALINIZER 05/09/24 09/30/24 History
fenofibrate nanocrystallized 48 mg 48 mg PO NOON 09/30/24 09/30/24 History
tablet
Review of Systems
-
SOB, nausea
All other systems: Negative unless noted
Physical Exam
Vital Signs
Vital Signs
Temp Pulse Resp BP Pulse Ox
100.4 F H 100 21 122/70 99
10/01/24 03:00 10/01/24 08:12 10/01/24 06:00 10/01/24 08:12 10/01/24 06:00
Lab Results
WBC 7.5 10^3/uL (4.8-10.8) 10/01/24 02:37
RBC 3.10 10^6/uL (4.70-6.10) L 10/01/24 02:37
Hgb 8.7 g/dL (13.0-18.0) L 10/01/24 02:37
Hct 26.8 % (39.0-52.0) L 10/01/24 02:37
Plt Count 166 10^3/uL (130-400) D 10/01/24 02:37
Sodium 134 mmol/L (135-145) L 10/01/24 02:37
Potassium 4.8 mmol/L (3.5-5.1) 10/01/24 02:37
Chloride 95 mmol/L (98-107) L 10/01/24 02:37
Carbon Dioxide 26 mmol/L (22-30) 10/01/24 02:37
BUN 27 mg/dl (9-20) H 10/01/24 02:37
Creatinine 4.4 mg/dL (0.7-1.3) H* 10/01/24 02:37
eGFR 14.65 10/01/24 02:37
Glucose 230 mg/dl (70-99) H 10/01/24 02:37
Calcium 8.1 mg/dl (8.4-10.2) L 10/01/24 02:37
Phosphorus 4.2 mg/dl (2.5-4.5) 10/01/24 02:37
Qhj-P-Bzvknfskeix Pept 95099 pg/ml 09/30/24 19:24
Albumin 3.9 g/dl (3.5-5.0) 09/30/24 19:24
Physical Exam
Patient is awake alert oriented and in no distress. Mood and affect were pleasant, insight and judgment were good. Pupils are equal round and reactive to light, extraocular movements are intact, sclera were anicteric. Hearing was normal, ears and
nose are intact. Oropharynx was clear. Neck was supple with trachea midline and no thyromegaly. Heart was regular rate and rhythm without rubs. Lower extremities with 1+ edema. Lungs were coarse with rhonchi to auscultation bilaterally and with
normal excursion. Abdomen was soft, nontender, with normal active bowel sounds, and no hepatosplenomegaly. Skin was without rash and with normal turgor.
Data Reviewed
-
Radiology: Image Personally Visualized and interpreted (Chest x-ray on 09/22/2024 by reading shows increased vascular markings)
Medical Tests (Nuc Med, Echo etc): Image Personally Visualized and interpreted (EKG on 10/01/2024 by my reading shows sinus rhythm bigeminy anterior inferior Q, prolonged QT)
Labs: Labs Reviewed by me
Old Records: Reviewed
Assessment/Plan
-
Assessment:
CLI left leg s/p angioplasty 05/09/24
ESRD
Biopsy-proven diabetic nephropathy with advanced nephrotic syndrome
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
PAD
PD catheter, 09/22/2024
Hypertension
Secondary hyperparathyroidism
Anemia
Hypertriglyceridemia
Hyperphosphatemia
COVID pneumonia
Elevated troponin
Plan:
Discussed with patient at length
O2 requirements are improving. He appears comfortable without distress
He just had dialysis yesterday with 2.7 kg removal (off a 1.7kg IDWG). He is slightly above his dry weight though he believes that this is more due to increasing body mass from the holidays.
I suspect more of his shortness of breath is related to COVID-pneumonia.
We have agreed to keep him on his dialysis schedule which would be Wednesday and Wednesday this week. We will have the option of additional UF on Wednesday if needed.
Lasix may be continued for now
[2024-10-01 09:45] LABS: Glucose - Point of Care 212 mg/dl (70-99)
[2024-10-01 10:41] LABS: Glycohemoglobin (HgbA1c) 8.7 % (4.0-5.6)
[2024-10-01] MEDS: PROTONIX 40 MG PO (11:45)
[2024-10-01] MEDS: TYLENOL 650 MG PO (11:45)
[2024-10-01] MEDS: ASPIR LOW (ENTERIC COATED) 81 MG PO (11:45)
[2024-10-01] MEDS: NOVOLOG FLEXPEN-MODERATE RESISTANCE 1 UNITS SC ×2 (12:44→23:37)
[2024-10-01 12:51] LABS: Glucose - Point of Care 177 mg/dl (70-99)
--- NOTE | 2024-10-01 14:10 | CON.CAR ---
Consultation
Consultation Request
Date/Time Consultation Requested: October 01, 2024 11:30 AM
Date/Time Consultation Performed: summer 2 PM
Requesting Provider: Hospitalist
Performing Provider: Toni Gonzalez
Reason for Consultation: Elevated troponin
Medical History
-
Chief Complaint: Shortness of breath
History of Present Illness:
59-year-old male with past medical history of type 2 diabetes, end-stage renal disease on dialysis, likely heart failure preserved ejection fraction, who is here for shortness of breath and cough. He tells me that over the last 5 or so days he has
had worsening shortness of breath and coughing. While he was at his dialysis appointment he had increasingly worsening shortness of breath and multiple episodes of nausea vomiting and diarrhea. He also felt more fatigued than usual. He was then
brought to the emergency room for further evaluation. In the emergency room he was hypoxic and seem to be in respiratory distress and placed on BiPAP and nitroglycerin infusion. This improved his situation and significantly.
Included in his workup was a troponin that has now peaked at 6. In my conversation with him he has not had any chest pain or symptoms to suggest ischemia/VT. It could be that this is critical illness related versus possible NSTEMI. However, given
he has no symptoms of ischemia we will obtain an echocardiogram for further evaluation.
Past Medical History
Past Medical History: Other (DM-II with Retinopathy, Nephropathy ESRD on HD Hypertension ASCVD (CVA, PAD) Chronic HFpEF)
Past Surgical History: Other (R IJ Tunneled HD Catheter Placed PD Catheter Placement Bilateral LE Angioplasties (Multiple) Cataracts Foot Surgery Renal Biopsy)
Social History
Tobacco: Former Smoker
Alcohol: None
Drug: None
Employment: Disabled
Family History
Family History: Reviewed & Not Pertinent
Allergies / Home Medications
Allergy/AdvReac Type Severity Reaction Status Date / Time
JOHNATHON Inhibitors Allergy Swelling Verified 09/22/24 08:00
and HTN
acyclovir Allergy Swelling Verified 09/22/24 08:00
clindamycin Allergy Swelling Verified 09/22/24 08:00
ethacrynic acid Allergy nausea/ Verified 09/22/24 08:00
vomiting
honey Allergy Throat Verified 09/22/24 08:00
closes,
rash
hydralazine Allergy angioedema Verified 09/22/24 08:00
losartan Allergy palpitation Verified 09/22/24 08:00
s
metformin Allergy 'shut my Verified 09/22/24 08:00
liver
down, GI
Bleed'
metoprolol Allergy angioedema, Verified 09/22/24 08:00
Tachycardia,
HTN
mint Allergy Throat Verified 09/22/24 08:00
closes,
rash
mold Allergy Throat Verified 09/22/24 08:01
closes,
rash
nifedipine Allergy Angioedema Verified 09/22/24 08:01
Penicillins Allergy Anaphylaxis Verified 09/22/24 08:01
pollen extracts Allergy Throat Verified 09/22/24 08:01
closes,
rash, itch
Xcvsjrv-HQB-VqW Reductase Allergy Rash, Verified 09/22/24 08:01
Inhibitor blistering
Sulfa (Sulfonamide Allergy Anaphylaxis Verified 09/22/24 08:01
Antibiotics) and hives
tetracycline Allergy Anaphylaxis Verified 09/22/24 08:01
�Medication �Instructions �Recorded �Confirmed �Type
insulin degludec 100 unit/mL (3 32 unit SC HS Diabetes 04/26/22 09/30/24 History
mL) subcutaneous pen (Tresiba
FlexTouch U-100 insulin)
metolazone 5 mg tablet 5 mg PO TUFR Fluid 01/18/23 09/30/24 History
retention/Swelling
pantoprazole 40 mg tablet,delayed 40 mg PO NOON GERD 01/18/23 09/30/24 History
release
furosemide 80 mg tablet 80 mg PO BID Fluid 02/03/23 09/30/24 History
retention/Swelling
insulin aspart U-100 100 unit/mL 0 sliding scale dose SC MEALS 02/03/23 09/30/24 History
(3 mL) subcutaneous pen (Novolog Diabetes
FlexPen U-100 Insulin aspart)
calcium acetate(phosphat bind) 667 667 mg PO TID Supplement 12/22/23 09/30/24 History
mg tablet
carvedilol 25 mg tablet (Coreg) 25 mg PO BID Blood pressure 12/22/23 09/30/24 History
aspirin 81 mg tablet,delayed 81 mg PO DAILY@1200 Blood Clot 12/27/23 09/30/24 History
release Prevention/Tx
cholecalciferol (vitamin D3) 125 125 mcg PO NOON Supplement 12/27/23 09/30/24 History
mcg (5,000 unit) tablet (Vitamin
D3)
amlodipine 5 mg tablet 5 mg PO BID Blood Pressure 05/04/24 09/30/24 History
clopidogrel 75 mg tablet 75 mg PO DAILY@1200 Blood Clot 05/04/24 09/30/24 History
Prevention/Tx
sodium bicarbonate 650 mg tablet 650 mg PO TID ALKALINIZER 05/09/24 09/30/24 History
fenofibrate nanocrystallized 48 mg 48 mg PO NOON HIGH TRIGLYCERIDES 09/30/24 09/30/24 History
tablet
Review of Systems
-
All other systems: Negative unless noted
Physical Exam
Vital Signs
Temp Pulse Resp BP Pulse Ox
101.0 F H 100 21 122/70 99
10/01/24 11:45 10/01/24 08:12 10/01/24 06:00 10/01/24 08:12 10/01/24 06:00
Lab Results
10/01/24 02:37
10/01/24 02:37
Troponin I 5.540 ng/ml H* 10/01/24 12:06
Ldb-K-Nsoqrjpzjoy Pept 20482 pg/ml 09/30/24 19:24
Physical Exam
General: Well Developed, Well Nourished and No Apparent Distress
HEENT: Normocephalic
Respiratory: Crackles (faint) and Non Labored Respirations
Cardiac: Regular Rhythm
GI: Soft
Musculoskeletal: No Edema
Skin: Warm and Dry
Neuro: AO x 3
Psych: Calm
Impression / Plan
-
A: 59-year-old male with past medical history of end-stage renal disease on dialysis, type 2 diabetes, hypertension, CVA and PAD, HFpEF who is here today for COVID-pneumonia and was found to have an elevated troponin.
Plan:
Elevated troponin
it is unclear to me the exact etiology of his elevated troponin as he has no symptoms of coronary artery disease at this time. He also denies having symptoms prior to hospitalization. I could be secondary to critical illness versus nonischemic
myocardial injury. 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 I discussed that if his heart function is now abnormal we would consider possible
ischemic eval.
-Echocardiogram
-Continue aspirin and Plavix
-Continue carvedilol
-End-stage renal disease prohibits SGLT2 inhibitor
Acute hypoxic respiratory failure secondary to heart failure and pneumonia
-Per primary
Hypertension and history of bigeminy
-Continue carvedilol amlodipine is currently on hold
Type 2 diabetes
CVA and PAD
End-stage renal disease
Data Reviewed
-
EKG: Tracing Personally Visualized and interpreted (sr)
Radiology: Report Reviewed by me
Labs: Labs Reviewed by me
--- NOTE | 2024-10-01 15:18 | CON.PUL ---
Consultation
Consultation Request
Date/Time Consultation Requested: 10/01
Date/Time Consultation Performed: 10/01
Reason for Consultation: Hypoxia, COVID
Medical History
-
History of Present Illness:
History obtained from the chart and also from patient and medical records. Patient is a 59-year-old male with history of diabetes for 12 years, dialysis for the past 3 to 4 months, Hypertension, peripheral arterial disease who presents with 2-day
history of increasing shortness of breath. Brought himself into [facility] where upon arrival temperature 99.4, pulse 108, breathing at 32, 89% on room air. Patient was initially started on BiPAP. He was found to have positive COVID.
X-ray suggested heart failure patient was given Lasix and nitroglycerin drip (for unclear reasons). He was admitted to IMU for further management. Of note he used BiPAP overnight, patient does not have history of sleep apnea. He became nauseous
with the BiPAP and throughout. It was then taken off.
Today he is feeling improved. He has been weaned down from 15 L to 6 L presently, 96%. He has a dry cough, no hemoptysis. Denies any blood in urine or stool, falls, syncope
He is awaiting initiation of peritoneal dialysis
.
PMH: Hypertension, hyperlipidemia, diabetes, history of chronic kidney disease with end-stage renal disease on dialysis for last 3 months, peripheral arterial disease. Records suggest history of stroke with right hemiparesis,
patient denied any history of stroke or heart attack.
Past Medical History
Past Medical History: None (See above)
Past Surgical History: None (See above)
Social History
Tobacco: Non-smoker
Alcohol: Occasional
Drug: None
Living: With Family (Lives with son, mother)
Employment: Disabled
Family History
Family History: Other (Children healthy. 1 sibling from gunshot wound. Other sibling healthy)
Allergies / Home Medications
Allergies
Allergy/AdvReac Type Severity Reaction Status Date / Time
JOHNATHON Inhibitors Allergy Swelling Verified 12/20/24 08:00
and HTN
acyclovir Allergy Swelling Verified 09/22/24 08:00
clindamycin Allergy Swelling Verified 09/22/24 08:00
ethacrynic acid Allergy nausea/ Verified 09/22/24 08:00
vomiting
honey Allergy Throat Verified 09/22/24 08:00
closes,
rash
hydralazine Allergy angioedema Verified 09/22/24 08:00
losartan Allergy palpitation Verified 09/22/24 08:00
s
metformin Allergy 'shut my Verified 09/22/24 08:00
liver
down, GI
Bleed'
metoprolol Allergy angioedema, Verified 09/22/24 08:00
Tachycardia,
HTN
mint Allergy Throat Verified 09/22/24 08:00
closes,
rash
mold Allergy Throat Verified 09/22/24 08:01
closes,
rash
nifedipine Allergy Angioedema Verified 09/22/24 08:01
Penicillins Allergy Anaphylaxis Verified 09/22/24 08:01
pollen extracts Allergy Throat Verified 09/22/24 08:01
closes,
rash, itch
Avmrrcd-GFU-KoZ Reductase Allergy Rash, Verified 09/22/24 08:01
Inhibitor blistering
Sulfa (Sulfonamide Allergy Anaphylaxis Verified 09/22/24 08:01
Antibiotics) and hives
tetracycline Allergy Anaphylaxis Verified 09/22/24 08:01
Home Medications
�Medication �Instructions �Recorded �Confirmed �Last Taken �Type
insulin degludec 100 unit/mL (3 32 unit SC HS Diabetes 04/26/22 09/30/24 09/21/24 20:00 History
mL) subcutaneous pen (Tresiba 28 units
FlexTouch U-100 insulin)
metolazone 5 mg tablet 5 mg PO TUFR Fluid 01/18/23 09/30/24 09/19/24 12:00 History
retention/Swelling
pantoprazole 40 mg tablet,delayed 40 mg PO NOON GERD 01/18/23 09/30/24 09/21/24 16:00 History
release
furosemide 80 mg tablet 80 mg PO BID Fluid 02/03/23 09/30/24 09/21/24 19:00 History
retention/Swelling
insulin aspart U-100 100 unit/mL 0 sliding scale dose SC MEALS 02/03/23 09/30/24 09/18/24 12:00 History
(3 mL) subcutaneous pen (Novolog Diabetes
FlexPen U-100 Insulin aspart)
calcium acetate(phosphat bind) 667 667 mg PO TID Supplement 12/22/23 09/30/24 09/21/24 History
mg tablet
carvedilol 25 mg tablet (Coreg) 25 mg PO BID Blood pressure 12/22/23 09/30/24 09/22/24 05:00 History
aspirin 81 mg tablet,delayed 81 mg PO DAILY@1200 Blood Clot 12/27/23 09/30/24 09/18/24 12:00 History
release Prevention/Tx
cholecalciferol (vitamin D3) 125 125 mcg PO NOON Supplement 12/27/23 09/30/24 09/21/24 12:00 History
mcg (5,000 unit) tablet (Vitamin
D3)
amlodipine 5 mg tablet 5 mg PO BID Blood Pressure 05/04/24 09/30/24 09/22/24 05:00 History
clopidogrel 75 mg tablet 75 mg PO DAILY@1200 Blood Clot 05/04/24 09/30/24 09/18/24 History
Prevention/Tx
sodium bicarbonate 650 mg tablet 650 mg PO TID ALKALINIZER 05/09/24 09/30/24 09/21/24 05:00 History
fenofibrate nanocrystallized 48 mg 48 mg PO NOON HIGH TRIGLYCERIDES 09/30/24 09/30/24 Unknown History
tablet
Review of Systems
-
All other systems: Negative unless noted
Vitals / Labs / Diagnostic Testing
Vital Signs
Temp Pulse Resp BP Pulse Ox
101.0 F H 100 21 122/70 97
10/01/24 11:45 10/01/24 08:12 10/01/24 06:00 10/01/24 08:12 10/01/24 14:21
Lab Data
10/01/24 02:37
10/01/24 02:37
Laboratory Results
09/30/24
19:28
pH 7.44
pCO2 40
pO2 65 L
HCO3 27.2
O2 Delivery Level
Microbiology
09/30/24 19:24 Nasal Swab Influenza Types A & B (DK) - Final
Negative for Influenza A & B, NAAT
Negative results must be combined with clinical observations
and patient history.
Nucleic Acid Amplification test (NAAT)performed on the
[employer] platform.
Diagnostic Testing:
Physical Exam
-
HEENT: Normocephalic, Anicteric, Other (Large neck) and Other (Right anterior chest HD catheter)
Cardiovascular: S1/S2, Regular Rhythm, Murmur (n), Rub (n) and Peripheral Edema (tr)
Respiratory: Wheeze (n), Rales (n), Rhonchi (n) and Other (Decreased)
GI: Soft, Non Distended (Obese) and Non Tender
Neurology: Awake, Alert and No Motor Deficits (Able to sit up without assistance)
Skin: Good Color
General: Comfortable (Conversant)
Assessment
-
59-year-old male with history of diabetes, end-stage renal disease on dialysis, increased shortness of breath over the past few days. To me he denied any nausea, diarrhea but records suggest he had some nausea and some GI symptoms. He was found to
have positive troponin, positive COVID and a chest x-ray with questionable heart failure. Patient was started on nitroglycerin drip, given Lasix, admitted to IMU for further management. We are asked to help from pulmonary standpoint
Acute hypoxic respiratory insufficiency
88%, required 15 L initially
Bilateral infiltrates, heart failure versus interstitial pneumonitis
Positive COVID
Elevated troponin
Peripheral arterial disease with history of left heel nonhealing wound May 2024
Diabetes
End-stage renal disease on dialysis since May
PD catheter in place
History of stroke with right hemiparesis
patient denied history of stroke
Hypertension, hyperlipidemia
GERD
Multiple allergies
Plan/recommendations
At this time, patient respiratory status is tenuous. He required 15 L overnight. He was placed on BiPAP but became nauseous and had some emesis with BiPAP in place?. BiPAP was removed
chest exam is clear
Since this morning, oxygen requirement is gone from 15 L down to 6 L, currently 96%. Patient feels much improved. Denies chest pain
Moving forward
Continue with IV Decadron for now. Patient is also on aspirin, Plavix therapy
Will continue daily Decadron for now, follow blood sugars
Discontinue BiPAP
Do not suspect bacterial pneumonia at this time.
Suspect that symptoms are primarily from COVID
Continue dialysis per nephrology
Cardio also following
Echocardiogram pending
DVT prophylaxis:Subcutaneous heparin
GI prophylaxis: Pantoprazole
Reviewed with patient and daughter at bedside
Reviewed with nursing
We will follow
[2024-10-01] MEDS: PHOSLO 667 MG PO (16:06)
[2024-10-01 16:10] LABS: Glucose - Point of Care 148 mg/dl (70-99)
--- NOTE | 2024-10-01 17:12 | CM ---
Patient seen at bedside along with his mom and son
IA completed.
Dx: Acute hypoxic resp failure, covid,
PMH: DM, ESRD on HD for past 3 months - awaiting to initiate PD
Continues on
Lives in a 1 story home with mom and son
PLOF: Ambulates with can
DME: Cane, walker, wheelchair
Has had [facility] in past, [facility] in past stroke
PCP: Milind [place]
Pharmacy: [facility]
PLAN: continue to follow hospital progression, to be determined
--- NOTE | 2024-10-01 17:15 | PTCARENOTE ---
Pt observed coughing and beginning to dry heave while on Bipap mask, mask immediately removed and Pt vomited large amount of emesis. Pt placed on NC @ 6L O2 and Resp Therapy notified - changed to NC @ 10L O2 to keep Pt > 93%; Compazine order
obtained and administered with + effect. Continued to wean O2 throughout shift, Pt able to maintain ~ 94% on 4L O2. Will continue to monitor and assess.
--- NOTE | 2024-10-01 20:00 | PTCARENOTE ---
rec`d pt from IMU after a rapid was called. pt in respiratory distress. upgraded to ICU. as pt arrived to ICU, pt POX satting in the 70s on bipap. pt then intubated. #8ett @24. prop and fent started per protocol. vent settings: 16/500/100%/8 of
peep. vent bigeminy, trigeminy and SR on monitor w/ PVCs. +2 edema lower extrem. coarse, crackle lung sounds. thick griggs secretions via ETT. unsuccessful NGT and OGT placement. therm rea placed. restraints on. 20 rt AC, 18 left hand, 18 left AC,
rt chest tunneled cath. PD cath also in place. family at bedside, updated on pt`s condition. safe environment maintained.
[2024-10-01 20:24] LABS: HCO3 28.4 mmol/L (21-28); O2 Saturation % 94.7 % (94-98); PCO2 59 mmHg (35-48); PO2 72 mmHg (83-108); pH 7.29 (7.35-7.45)
[2024-10-01 20:32] LABS: Glucose - Point of Care 193 mg/dl (70-99)
[2024-10-01] MEDS: SUBLIMAZE 100 MCG IV (20:57)
--- NOTE | 2024-10-01 20:58 | W.PN.UPDATE ---
Update Note
Progress Note Update
2100- Patient transferred from IMU in respiratory distress, using accessory muscles, tachypneic, labored breathing, hypoxic sustained 70-80s%. Previous reported patient had vomited earlier. He was not tolerant of midflow and non rebreather and
became increasingly short of breath and in distress when bipap was applied. Decision was made to intubate patient due to respiratory distress. MAGNETIZER was called to for intubation, patient tolerated procedure well. Sedation per light sedation
protocol ordered propofol and fentanyl gtts with prn medications.
Patient's motherRoma was called and updated, all questions answered.
[2024-10-01] MEDS: SUBLIMAZE 100 IV (20:59)
--- NOTE | 2024-10-01 21:07 | RR ---
A Rapid Response was called on this patient, please see Rapid Response form.
This RN entered patient's room and pt sitting on side of bed, dyspneic and diaphoretic. Pt sating 79% on 8 L MFNC. increased to 15L and placed pt on NRB. Sat increased to 92%. Notified CALDERON Navarro and RT Pako of pt's status and requested them to see
pt at bedside. RR called due to continued decline in pt's condition. Pt transferred to ICU and bedside report given to TAYA Ortiz.
[2024-10-01 21:08] LABS: % Basophils 0.6 % (0-2); % Eosinophils 0.1 % (0-6); % Immature Granulocytes 1.4 % (0-0.5); % Lymphocytes 7.8 % (20.5-51.1); % Monocytes 5.4 % (1.7-9.3); % Neutrophils 84.7 % (42.2-75.2); Absolute Basophils 0.1 10^3/uL (0-0.2); Absolute Immature Granulocytes 0.2 10^3/uL (0-0.05); Absolute Lymphocytes 1.2 10^3/uL (1.2-3.4); Absolute Monocytes 0.9 10^3/uL (0.1-0.6); Absolute Neutrophils 13.4 10^3/uL (1.4-6.5); Hematocrit 29.5 % (39.0-52.0); Hemoglobin 9.6 g/dL (13.0-18.0); Mean Corp Hgb Conc. 32.5 g/dL (33.0-37.0); Mean Corpuscular Hgb 27.8 pg (27.0-31.0); Mean Corpuscular Volume 85.5 fL (80.0-94.0); Mean Platelet Volume 10.3 fL (7.4-10.4); Nucleated Red Blood Cells % 0 % (-); Platelet Count 236 10^3/uL (130-400); Red Blood Cell Count 3.45 10^6/uL (4.70-6.10); White Blood Cell Count 15.8 10^3/uL (4.8-10.8)
--- NOTE | 2024-10-01 21:14 | W.PN.ANESINT ---
Anesthesia Intubation Note
- Intubation Note
Intubation Note:
Diagnosis: COVID
Blade: Glidescope MAC 4
Tube Size: 8.0
Depth: 22 cm
Side Taped: right
Drugs Used: Propofol 50 mg in divided doses then Rocuronium 50mg after intubation
Grade View: I
EtCO2 Present: +
Atraumatic: yes
Attempts: 1
Insertion Start and Stop Time:
SaO2 Pre: 71
SaO2 Post: 95
Glidescope Used: yes
Other Airway Adjustments: no
Pre-Oxygenated: yes
Portable Chest X-Ray: to follow
RSI: no
Suctioned: yes - white frothy
Bilateral Breath Sounds Confirmed: equal b/l
Vent Settings:
Settings per _X__Attending Physician
[2024-10-01 21:18] LABS: Blood Urea Nitrogen 40 mg/dl (9-20); Calcium 8.2 mg/dl (8.4-10.2); Carbon Dioxide 28 mmol/L (22-30); Chloride 92 mmol/L (98-107); Estimated Creatinine Clearance 17 ml/min; Glucose 192 mg/dl (70-99); Sodium 130 mmol/L (135-145); Triglycerides 237 mg/dl (10-149)
--- NOTE | 2024-10-01 21:23 | W.PN.UPDATE ---
Update Note
Progress Note Update
Rapid Response
Patient 8L MFNC 79% placed on NRB, still appears to be in distress. Placed patient on Bipap without improvement saturating in 70s-80s. Rx ABG, CXR, CBC BMP. Patient transferred to ICU for further management.
[2024-10-01] MEDS: COREG PO (21:24)
--- NOTE | 2024-10-01 21:33 | RESPNOTE ---
pt intubated in ICU, pt preoxygenated via ambu bag prior to intubation, intubated with 8.0ETT @ 24, placed on AC settings tolerating well.
[2024-10-01 22:02] LABS: INR 1.35; PT 17.2 Sec (11.4-14.6)
[2024-10-01 22:03] LABS: APTT 32.6 Sec (23.4-35.0)
[2024-10-01 22:04] LABS: Magnesium 1.9 mg/dl (1.6-2.3); Phosphorus 6.3 mg/dl (2.5-4.5)
[2024-10-01] MEDS: SUBLIMAZE 50 MCG IV ×2 (22:07→22:44)
[2024-10-01] MEDS: SODIUM BICARBONATE PO (22:08)
[2024-10-01] MEDS: NON-FORMULARY ITEM 32 UNIT SC (23:32)
[2024-10-01] MEDS: DECADRON 6 MG IV (23:32)
[2024-10-01 23:36] LABS: B.E. 0.2 mmol/L; HCO3 25.4 mmol/L (21-28); O2 Saturation % 99.5 % (94-98); PCO2 43 mmHg (35-48); PO2 116 mmHg (83-108); pH 7.38 (7.35-7.45)
[2024-10-01] MEDS: NOVOLOG FLEXPEN 8 UNITS SC (23:37)
[2024-10-01] MEDS: DIPRIVAN 100 IV (23:41)
[2024-10-01 23:42] LABS: Glucose - Point of Care 197 mg/dl (70-99)
[2024-10-02] VITALS (73 sets, daily range): BP systolic 125–166; BP diastolic 53–108; BMI 36.3
--- NOTE | 2024-10-02 02:08 | PTCARENOTE ---
pt reassessed. no changes in pt assessment, fent and prop gtt continued. vent settings weaned to 16/500/60%/ 8 of peep. pt tolerating, POX 98%.
[2024-10-02] MEDS: DIPRIVAN 100 IV ×5 (03:31→22:10)
[2024-10-02 04:29] LABS: Hematocrit 25.7 % (39.0-52.0); Hemoglobin 8.5 g/dL (13.0-18.0); Mean Corp Hgb Conc. 33.1 g/dL (33.0-37.0); Mean Corpuscular Hgb 28.2 pg (27.0-31.0); Mean Corpuscular Volume 85.4 fL (80.0-94.0); Mean Platelet Volume 10.8 fL (7.4-10.4); Platelet Count 177 10^3/uL (130-400); Red Blood Cell Count 3.01 10^6/uL (4.70-6.10); Red Cell Dist. Width 15.1 % (11.5-14.5); White Blood Cell Count 8.9 10^3/uL (4.8-10.8)
[2024-10-02 04:41] LABS: B.E. 0 mmol/L; HCO3 24.8 mmol/L (21-28); O2 Saturation % 98.9 % (94-98); PCO2 40 mmHg (35-48); PO2 88 mmHg (83-108)
[2024-10-02 04:46] LABS: O2 Therapy VENT
[2024-10-02 04:51] LABS: Blood Urea Nitrogen 45 mg/dl (9-20); Calcium 8.1 mg/dl (8.4-10.2); Carbon Dioxide 25 mmol/L (22-30); Chloride 93 mmol/L (98-107); Estimated Creatinine Clearance 16 ml/min; Glucose 166 mg/dl (70-99); Potassium 4.9 mmol/L (3.5-5.1); Sodium 131 mmol/L (135-145); eGFR 9.17
[2024-10-02] MEDS: SUBLIMAZE 100 IV ×2 (05:01→18:43)
[2024-10-02] MEDS: NOVOLOG FLEXPEN 8 UNITS SC (06:23)
[2024-10-02] MEDS: NOVOLOG FLEXPEN-MODERATE RESISTANCE 1 UNITS SC (06:23)
[2024-10-02 06:33] LABS: Glucose - Point of Care 196 mg/dl (70-99)
--- NOTE | 2024-10-02 08:25 | W.PN.NEPH.PH ---
Today's Communication / Plan
-
HD today
Maintain intubation with FiO2 currently at 100% for hypoxic respiratory failure
Chest x-ray reviewed from last evening
Isolated UF treatment for tomorrow
Assessment/Plan
-
Assessment:
Hypoxic respiratory failure
CLI left leg s/p angioplasty 05/09/24
ESRD
Biopsy-proven diabetic nephropathy with advanced nephrotic syndrome
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
PAD
PD catheter, 09/22/2024
Hypertension
Secondary hyperparathyroidism
Anemia
Hypertriglyceridemia
Hyperphosphatemia
COVID pneumonia
Elevated troponin
Plan:
Patient transferred to ICU last night requiring intubation for hypoxic respiratory failure
Chest x-ray notes congestive heart failure although underlying COVID-pneumonia may be in play as well
We will proceed with his dialysis schedule which would be Today , he will likely require further isolated u/f tomorrow for volume control
Patient critically ill requiring intubation and mechanical ventilation
31 minutes critical care time spent with patient
-
-
Date of Service: October 02, 2024
CC / HPI / ROS
-
Chief Complaint:
End-stage renal disease
History of Present Illness:
ESRD Wednesday schedule
Hemodynamically stable off pressor support
intubated
Review of Systems:
intubated Fio2 50%
fevers overnight
Labs
-
Labs:
WBC 8.9 10^3/uL (4.8-10.8) 10/02/24 04:02
RBC 3.01 10^6/uL (4.70-6.10) L 10/02/24 04:02
Hgb 8.5 g/dL (13.0-18.0) L 10/02/24 04:02
Hct 25.7 % (39.0-52.0) L 10/02/24 04:02
Plt Count 177 10^3/uL (130-400) D 10/02/24 04:02
eGFR 9.17 10/02/24 04:02
Phosphorus 6.3 mg/dl (2.5-4.5) H 10/01/24 21:43
Hxs-E-Szcmiggexse Pept 49037 pg/ml 09/30/24 19:24
Albumin 3.9 g/dl (3.5-5.0) 09/30/24 19:24
Physical Exam
-
Vital Signs:
Vital Signs
Temp Pulse Resp BP Pulse Ox
98.3 F 62 16 146/66 98
10/02/24 07:23 10/02/24 07:15 10/02/24 07:15 10/02/24 07:15 10/02/24 08:10
Cardiovascular:: Regular rate and rhythm
Respiratory:: Bilateral: Coarse
Lung Excursion:: Normal
Abdomen:: Nontender and Soft
Bowel Sounds:: Decreased
Extremity Edema:: +1: Bilateral:
King Catheter: No
--- NOTE | 2024-10-02 09:01 | PTCARENOTE ---
0700 assumed care pt intubated and sedated on Propofol 35/24.7and fentanyl 100/10. BP via RT FA 147/67 MAP 88 SR 63 POX 94% RR 16 core temp 97.2
Vent 16/500/+8/50% Peak 25; VT 489; RR 16
RT tunnel cath dressing intact
[2024-10-02] MEDS: HEPARIN 5000 UNITS SC ×2 (09:32→17:31)
[2024-10-02] MEDS: LASIX 80 MG IV ×2 (09:32→17:30)
[2024-10-02] MEDS: SUBLIMAZE 50 MCG IV ×2 (09:40→17:14)
--- NOTE | 2024-10-02 11:07 | W.PN.INTV ---
Today's Communication / Plan
Recommendations
Continue mechanical ventilation without change
Dialysis today
Minimize sedation
Continue dexamethasone
Glycemic control
Possible spontaneous breathing trial later today if appropriate after dialysis.
Assessment
-
59-year-old male with history of diabetes, end-stage renal disease on dialysis, increased shortness of breath over the past few days. To me he denied any nausea, diarrhea but records suggest he had some nausea and some GI symptoms. He was found to
have positive troponin, positive COVID and a chest x-ray with questionable heart failure. Patient was started on nitroglycerin drip, given Lasix, admitted to IMU for further management. We are asked to help from pulmonary standpoint
Acute hypoxic respiratory insufficiency intubated 10/01/2024
88%, required 15 L initially
Bilateral infiltrates, heart failure versus interstitial pneumonitis
Positive COVID
Elevated troponin
Peripheral arterial disease with history of left heel nonhealing wound May 2024
Diabetes
End-stage renal disease on dialysis since May
PD catheter in place
History of stroke with right hemiparesis
patient denied history of stroke
Hypertension, hyperlipidemia
GERD
Multiple allergies
Plan/recommendations:
Critically ill requiring intubation and mechanical ventilation 10/01/2024.
Mechanical ventilation settings reviewed
Assist-control continue for now
Respiratory mechanics acceptable
No significant secretions through ET tube.
ABG 7.4/40/88 (10/02/2024)-adequate oxygenation and ventilation
-
Minimize sedation
Will attempt a spontaneous breathing trial if patient is appropriate after dialysis.
COVID-positive
Continue with IV Decadron for now.
Monitor blood sugars
Do not suspect bacterial pneumonia at this time.
Suspect that symptoms are primarily from COVID
Continue dialysis per nephrology
Chronic anemia-secondary to renal disease. No evidence for bleeding.
Elevated troponins:
Cardio also following
Antiplatelets aspirin/Plavix
Echocardiogram pending
Blood sugar control-Target 140/180
Insulin sliding scale
Usually on subcu insulin
DVT prophylaxis:Subcutaneous heparin
GI prophylaxis: Pantoprazole
If not extubated tube feedings will be started.
Critical care statement: A total of 358 minutes of critical care time was provided for this patient today. This includes management of unstable vital signs, evaluation of the patient at bedside, reviewing the patient's pertinent medical records
including ventilator settings, arterial blood gases, radiographs, microbiology, laboratory evaluations and discussion with primary team, critical care nursing, and respiratory therapy.
Subjective Dataa
Subjective Data
Date of Service:
Date of Service: October 02, 2024
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
Subjective:
Sedated, on mechanical ventilation.
Remains critically ill
Review of Systems
General: Unobtainable - Sedation
Objective Data
Data Reviewed
Vital Signs / I&O / Oxygen:
Vital Signs
Temp Pulse Resp BP Pulse Ox
96.7 F L 62 16 146/66 98
10/02/24 08:57 10/02/24 07:15 10/02/24 07:15 10/02/24 07:15 10/02/24 08:10
Intake and Output
10/01/24 10/02/24 10/03/24
06:59 06:59 06:59
Intake Total 242.9 / 277.6 104.1 / 104.1
Output Total 315 / 365 100 / 100
Balance -72.1 / -87.4 4.1 / 4.1
SaO2 [A/C] 93
SaO2 98
Physical Exam
General: Comfortable
HEENT: Normocephalic and Other (ET tube in place)
Cardiovascular: S1-S2
Respiratory: Clear and Non-Labored Respirations
GI: Soft and Non Distended
Neurology: Other (Lethargic, on sedation. Has respiratory effort. Has cough effort)
Skin: Warm
Labs/Micro/Reports
Lab Data
10/02/24 04:02
Laboratory Results
10/01/24 10/01/24 10/01/24
20:15 21:43 23:25
PT 17.2 H
INR 1.35
APTT 32.6
pH 7.29 L 7.38
pCO2 59 H 43
pO2 72 L 116 H
HCO3 28.4 H 25.4
O2 Delivery Level
10/02/24
04:30
PT
INR
APTT
pH 7.40
pCO2 40
pO2 88
HCO3 24.8
O2 Delivery Level Vent
Microbiology
10/01/24 02:37 Nose MRSA Screen - Final
No Methicillin Resistant Staphylococcus aureus isolated.
09/30/24 19:24 Nasal Swab Influenza Types A & B (DK) - Final
Negative for Influenza A & B, NAAT
Negative results must be combined with clinical observations
and patient history.
Nucleic Acid Amplification test (NAAT)performed on the
[employer] platform.
--- NOTE | 2024-10-02 11:08 | W.PN.CD ---
Today's Communication / Plan
-
echo
holding COREG
remains Intubated weaning oxygen as able
Impression / Plan
-
A: 59-year-old male with past medical history of end-stage renal disease on dialysis, type 2 diabetes, hypertension, CVA and PAD, HFpEF who is here today for COVID-pneumonia and was found to have an elevated troponin.
Plan:
Elevated troponin in the setting of acute hypoxic respiratory failure:
-trop elevated but no cp or ecg changes
-Plaque rupture not suspected
-will update EF with echo so appropriate GDMT
-Continue aspirin and Plavix
-Continue ---holding carvedilol today for no po access
-End-stage renal disease prohibits SGLT2 inhibitor
Acute hypoxic respiratory failure secondary to heart failure and pneumonia
-now intubated with high Oxygen requirement
-treat COVID
-HD controls volume
Hypertension and history of bigeminy
-bp controlled, will resume po agents when indicated
Type 2 diabetes
CVA and PAD
End-stage renal disease
Subjective:
intubated and sedated
Physical Exam
Vital Signs/Labs
Vital Signs
Temp Pulse Resp BP Pulse Ox
96.7 F L 62 16 146/66 98
10/02/24 08:57 10/02/24 07:15 10/02/24 07:15 10/02/24 07:15 10/02/24 08:10
10/01/24 10/02/24 10/03/24
06:59 06:59 06:59
Actual Weight 117.48 kg 118.026 kg
10/02/24 04:02
PT 17.2 Sec (11.4-14.6) H 10/01/24 21:43
INR 1.35 10/01/24 21:43
APTT 32.6 Sec (23.4-35.0) 10/01/24 21:43
Magnesium 1.9 mg/dl (1.6-2.3) 10/01/24 21:43
Triglycerides 237 mg/dl (10-149) H 10/01/24 20:52
09/30/24
19:24
Unb-Q-Rtfxjalbokv Pept 01821
LAB Results
09/30/24 09/30/24 10/01/24
19: 23:23 02:37
Troponin I 0.091 H* Cancelled 6.310 H* D
10/01/24 10/01/24
12:06 21:43
Troponin I 5.540 H* 3.880 H*
Physical Exam
Constitutional: No acute distress and Other (intubated and sedated)
Cardiovascular: Rhythm & rate is regular, Pedal edema is absent, JVD pressure is normal and Systolic murmur absent
Respiratory: Respiratory effort normal, Lungs clear to auscul., Wheeze Absent and Crackles Absent
Neuro/Psych: AO x 3
Data Reviewed
-
Date of Service: October 02, 2024
Medical Decision Making: Review of Case with other Provider (spoke with ICU Stella nurse ok to hold COREG, )
EKG: Other (tele sinus)
[2024-10-02] MEDS: SODIUM BICARBONATE PO ×2 (11:38→19:50)
[2024-10-02] MEDS: COREG PO ×2 (11:38→19:50)
[2024-10-02] MEDS: PHOSLO PO ×3 (11:38→22:19)
[2024-10-02 11:45] LABS: Glucose - Point of Care 153 mg/dl (70-99)
[2024-10-02] MEDS: NOVOLOG FLEXPEN-MODERATE RESISTANCE SC ×2 (11:52→18:45)
[2024-10-02] MEDS: HEPARIN 500 UNITS IV ×2 (12:50→13:50)
[2024-10-02 13:57] LABS: Blood Urea Nitrogen 51 mg/dl (9-20); Calcium 8.2 mg/dl (8.4-10.2); Carbon Dioxide 25 mmol/L (22-30); Chloride 93 mmol/L (98-107); Estimated Creatinine Clearance 14 ml/min; Glucose 144 mg/dl (70-99); Potassium 4.8 mmol/L (3.5-5.1); Sodium 130 mmol/L (135-145); eGFR 7.85
--- NOTE | 2024-10-02 14:04 | W.PN.NEPH.HD ---
Assessment
-
Patient seen on dialysis
We'll provide isolated UF treatment tomorrow
Possible extubation after dialysis today
Progress Note - Hemodialysis
-
Date of Service: October 02, 2024
Duration: 30 minutes and 3 hours
Potassium Bath: 2
Calcium Bath: 2.5
Opti-Dialyzer: 160
Ultrafiltration: Other (3 kg)
Blood Flow: 400
Dialysate Flow: 600
Heparin: 500�2
EPO: , 10,000
--- NOTE | 2024-10-02 14:06 | W.PN.HOSP.TC ---
Addendum entered and electronically signed by Russ Christiansen MD 10/02/24 18:17:
Updated patient's mother over the phone in details.
Original Note:
Today's Communication/Plan
-
Hemodialysis today
Vent weaning per pharmacy informaticist
Continue with steroids
Assessment / Plan
Assessment / Plan
Gen-intubated and sedated
Neck-supple
CV-reg, not tachycardiac
Lungs-ETT noted
Abd-soft, distended but not tender
Ext-bilateral lower extremity edema
Musculoskeletal-no cyanosis, clubbing
Skin-warm and dry
Neuro-sedated
Psych-sedated
Acute hypoxic respiratory failure -suspect multifactorial etiology including acute pulmonary edema, COVID infection, etc.
Status post intubation and sedation 10/01
Currently comfortable on ventilation
Possible spontaneous breathing trial after hemodialysis today
Laser Specialist following
Sepsis due to COVID-19 infection -possible COVID-pneumonia.
Continue steroids. Watch glucoses.
Acute on chronic heart failure preserved EF
Continue with IV Lasix. Volume removal via hemodialysis should help
Troponin elevation likely nonischemic myocardial injury
Prolonged QTc improved
QTc downtrended to 445
initial troponin 0.09, repeat 6.3.
ECHO pending for today
Cardiology following
Continue with antiplatelet agents
ESRD
Plan for hemodialysis today. Possible ultrafiltration session tomorrow
nephrology consulted. PD catheter placed recently but has not started using yet.
PAD
with history of critical limb ischemia. Followed by Dr. King.
Had lower extremity revascularization for a nonhealing left heel wound in May 2024. Patient stated wound is healing well. Continue dual antiplatelet therapy.
SANJUANA with hyperglycemia
Has been on Tresiba 32 units at bedtime, NovoLog sliding scale at home.
Currently on Lantus insulin 30 units at bedtime, moderate resistance NovoLog scale. Anticipate hyperglycemia with IV steroids.
History of stroke with right hemiparesis -reportedly is statin intolerant.
Diabetic retinopathy/nephropathy
Essential hypertension -stable.
GERD -Protonix. Add Maalox for breakthrough heartburn symptoms.
Cataracts
Obesity due to excess calories
Full code
Discussed with pharmacy informaticist
Anticipated Discharge: > 48 hours
Subjective/Interval History
-
Date of Service: October 02, 2024
remains intubated and sedated
Objective Data
-
Labs:
Laboratory Results
10/02/24 10/02/24 10/02/24
04:02 04:30 12:46
WBC 8.9
Hgb 8.5 L
Hct 25.7 L
Plt Count 177 D
HCO3 24.8
Sodium 131 L 130 L
Potassium 4.9 4.8
Chloride 93 L 93 L
Carbon Dioxide 25 25
BUN 45 H 51 H
Creatinine 6.5 H* 7.4 H*
Glucose 166 H 144 H
Calcium 8.1 L 8.2 L
Vital Signs:
Vital Signs
Temp Pulse Resp BP Pulse Ox
97.3 F 56 16 155/75 97
10/02/24 11:21 10/02/24 13:15 10/02/24 13:15 10/02/24 13:15 10/02/24 13:15
I&O
10/01/24 10/02/24 10/03/24
06:59 06:59 06:59
Intake Total 242.9 / 277.6 242.9 / 242.9
Output Total 315 / 365 250 / 250
Balance -72.1 / -87.4 -7.1 / -7.1
Data Reviewed
-
Total Time Spent with Patient (in minutes): 55
[2024-10-02] MEDS: ASPIR LOW (ENTERIC COATED) PO (14:09)
--- NOTE | 2024-10-02 15:15 | WOUNDNOTE ---
LEFT HEEL [id number]
--- NOTE | 2024-10-02 15:24 | PTCARENOTE ---
patient intubated . wile on Propofol 35 and Fentanyl 100 patient opening eyes drowsy . Restraints to b/l UE
Dialysis in progress , VSS : 97.0 core; SB 58-55; RR 16; BP via RT FA 156/74 MAP 96;
Current vent settings AC 16/500/+5; 40% PEAk 23; RR17
Propofol and fentanyl turned off 15:30. Restrains b/l UE
--- NOTE | 2024-10-02 15:30 | WOUNDNOTE ---
[facility] RN NOTE: Reviewed chart, met with patient who is intubated currently receiving dialysis. Left lateral heel ulcer is likely an unstageable PI given its location. The wound is dry, necrotic appearing. No draining or odor noted. Betadine and dry
dressing applied. Heels off-loaded with pillows under calves. Patient currently receiving dialysis and could not be turned. Spoke to TAYA Douglas who confirmed sacrum is intact. Left heel with adhesive foam. RN given update, will confirm orders to
hospitalist. 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 Will follow as needed.
[2024-10-02] MEDS: RETACRIT 10000 UNITS IV (16:52)
[2024-10-02] MEDS: HEPARIN 4300 UNITS INTRACATH (16:52)
[2024-10-02] MEDS: PROTONIX PO (17:14)
[2024-10-02] MEDS: PROTONIX IV 40 MG IV (17:33)
[2024-10-02] MEDS: NSS (PRESERVATIVE FREE) 10 ML IV (17:33)
[2024-10-02 17:58] LABS: Glucose - Point of Care 125 mg/dl (70-99)
--- NOTE | 2024-10-02 20:00 | PTCARENOTE ---
rec`d pt at 1900 intubated and sedated on prop. vent bigeminy, SR w/ PVCs. afebrile. +lower extrem edema. HR 70s-80s. rt ETT #8 @24. vent settings: 16/500/40%/ 5 of peep. thick griggs secretions suctioned via ETT. coarse lung sounds. NPO. round obese
abdomen. therm rea. restraints. rt heel foam. left heel old healing ulcer dressing changed with wound care during the day. rt ac 20. left ac 18. 18 left hand. chest rt tunneled cath. PD also in place. safe environment maintained.
[2024-10-02] MEDS: DECADRON 6 MG IV (22:19)
[2024-10-02] MEDS: NON-FORMULARY ITEM 32 UNIT SC (22:19)
[2024-10-02 22:29] LABS: Glucose - Point of Care 123 mg/dl (70-99)
[2024-10-03] VITALS (52 sets, daily range): BP systolic 155–203; BP diastolic 66–142; BMI 35.4
--- NOTE | 2024-10-03 | PTCARENOTE ---
pt reassessed. no changes in pt assessment.
[2024-10-03] MEDS: NOVOLOG FLEXPEN-MODERATE RESISTANCE SC ×2 (00:15→15:32)
[2024-10-03] MEDS: HEPARIN 5000 UNITS SC ×4 (00:16→23:37)
[2024-10-03 00:26] LABS: Glucose - Point of Care 133 mg/dl (70-99)
[2024-10-03] MEDS: DIPRIVAN 100 IV ×2 (00:59→03:27)
[2024-10-03] MEDS: SUBLIMAZE 100 IV (03:24)
[2024-10-03 03:49] LABS: Hemoglobin 8.8 g/dL (13.0-18.0); Mean Corp Hgb Conc. 33.8 g/dL (33.0-37.0); Mean Corpuscular Hgb 28.9 pg (27.0-31.0); Mean Corpuscular Volume 85.2 fL (80.0-94.0); Mean Platelet Volume 11.2 fL (7.4-10.4); Platelet Count 187 10^3/uL (130-400); Red Blood Cell Count 3.05 10^6/uL (4.70-6.10); Red Cell Dist. Width 14.8 % (11.5-14.5); White Blood Cell Count 8.4 10^3/uL (4.8-10.8)
--- NOTE | 2024-10-03 03:56 | PTCARENOTE ---
pt reassessed. no changes in pt assessment.
[2024-10-03 04:20] LABS: Blood Urea Nitrogen 32 mg/dl (9-20); Calcium 8.2 mg/dl (8.4-10.2); Carbon Dioxide 27 mmol/L (22-30); Chloride 95 mmol/L (98-107); Estimated Creatinine Clearance 23 ml/min; Glucose 161 mg/dl (70-99); Potassium 4.5 mmol/L (3.5-5.1); Sodium 133 mmol/L (135-145); eGFR 14.65
[2024-10-03] MEDS: NOVOLOG FLEXPEN-MODERATE RESISTANCE 3 UNITS SC (05:51)
[2024-10-03 06:02] LABS: Glucose - Point of Care 208 mg/dl (70-99)
[2024-10-03] MEDS: SUBLIMAZE 50 MCG IV (07:45)
[2024-10-03] MEDS: COREG PO (07:47)
[2024-10-03] MEDS: PROTONIX IV 40 MG IV (07:51)
[2024-10-03] MEDS: LASIX 80 MG IV ×2 (07:51→16:01)
[2024-10-03] MEDS: NSS (PRESERVATIVE FREE) 10 ML IV (07:52)
[2024-10-03] MEDS: SODIUM BICARBONATE PO (07:52)
[2024-10-03] MEDS: PHOSLO PO (07:52)
--- NOTE | 2024-10-03 08:13 | W.PN.INTV ---
Today's Communication / Plan
Recommendations
Wean off sedation
Hopefully spontaneous breathing trial
Continue IV corticosteroids for COVID.
Dialysis per nephrology
Repeat chest x-ray tomorrow
Continue antiplatelets
N.p.o.
Assessment
-
59-year-old male with history of diabetes, end-stage renal disease on dialysis, increased shortness of breath over the past few days. To me he denied any nausea, diarrhea but records suggest he had some nausea and some GI symptoms. He was found to
have positive troponin, positive COVID and a chest x-ray with questionable heart failure. Patient was started on nitroglycerin drip, given Lasix, admitted to IMU for further management. We are asked to help from pulmonary standpoint
Acute hypoxic respiratory insufficiency intubated 10/01/2024
88%, required 15 L initially
Bilateral infiltrates, heart failure versus interstitial pneumonitis
Positive COVID
Elevated troponin
Peripheral arterial disease with history of left heel nonhealing wound May 2024
Diabetes
End-stage renal disease on dialysis since May
PD catheter in place
History of stroke with right hemiparesis
patient denied history of stroke
Hypertension, hyperlipidemia
GERD
Multiple allergies
Plan/recommendations:
Critically ill requiring intubation and mechanical ventilation 10/01/2024.
Mechanical ventilation settings reviewed
Assist-control/500/16/+5/40%
Assist-control continue for now
Improved respiratory mechanics. Peak pressure 25. Plateau pressure 23.
Lung exam relatively clear
ET tube without significant secretions.
ABG 7.4/40/88 (10/02/2024)-adequate oxygenation and ventilation
Currently on fentanyl drip/propofol drip: With that able to open eyes and follow commands.
Discontinue sedation: Try spontaneous breathing trial today.
Afebrile/leukocytosis resolved.
COVID-positive
Continue with IV Decadron for now.
Negative influenza
Negative MRSA screening
Do not suspect bacterial pneumonia at this time.
Suspect that symptoms are primarily from COVID
With elevated proBNP, part of the chest x-ray may be explained by volume overload as well.
Patient is hypertensive
Weight is trending lower after dialysis
Continue dialysis per nephrology
Chronic anemia-secondary to renal disease. No evidence for bleeding.
Elevated troponins: Likely in the setting of hypoxemic respiratory failure.
No EKG changes.
Cardio also following
Antiplatelets aspirin/Plavix
Echocardiogram pending
Blood sugar control-Target 140/180
Insulin sliding scale
Usually on subcu insulin
DVT prophylaxis:Subcutaneous heparin
GI prophylaxis: Pantoprazole
If not extubated tube feedings will be started today 10/03/2024. Otherwise remains n.p.o. per
Critical care statement: A total of 34 minutes of critical care time was provided for this patient today. This includes management of unstable vital signs, evaluation of the patient at bedside, reviewing the patient's pertinent medical records
including ventilator settings, arterial blood gases, radiographs, microbiology, laboratory evaluations and discussion with primary team, critical care nursing, and respiratory therapy.
Subjective Dataa
Subjective Data
Date of Service:
Date of Service: October 03, 2024
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
Subjective:
Remains on mechanical ventilation
Tolerated dialysis 10/02/2024
Unable to provide history
Hemodynamically not requiring vasopressors
Review of Systems
General: Unobtainable - Sedation
Objective Data
Data Reviewed
Vital Signs / I&O / Oxygen:
Vital Signs
Temp Pulse Resp BP Pulse Ox
98.9 F 78 16 161/85 94
10/03/24 07:00 10/03/24 04:30 10/03/24 04:30 10/03/24 04:30 10/03/24 07:56
Intake and Output
1210/03/24 10/04/24
06:59 06:59 06:59
Intake Total 242.9 / 277.6 798.1 / 832.8 69.4 / 69.4
Output Total 315 / 365 730 / 795 125 / 125
Balance -72.1 / -87.4 68.1 / 37.8 -55.6 / -55.6
SaO2 [A/C] 93
SaO2 94
Physical Exam
General: Comfortable
HEENT: Normocephalic and Other (ET tube in place)
Cardiovascular: S1-S2
Respiratory: Clear and Non-Labored Respirations
GI: Soft and Non Distended
Neurology: Other (Lethargic, on sedation. Has respiratory effort. Has cough effort)
Skin: Warm
Labs/Micro/Reports
Lab Data
10/03/24 03:32
10/03/24 03:32
Microbiology
10/01/24 02:37 Nose MRSA Screen - Final
No Methicillin Resistant Staphylococcus aureus isolated.
09/30/24 19:24 Nasal Swab Influenza Types A & B (DK) - Final
Negative for Influenza A & B, NAAT
Negative results must be combined with clinical observations
and patient history.
Nucleic Acid Amplification test (NAAT)performed on the
[employer] platform.
--- NOTE | 2024-10-03 08:25 | W.PN.CD ---
Today's Communication / Plan
-
IV metoprolol 5mg now
resume po agents when able
await echo
if normal continue typical medications and will see again at your request
Impression / Plan
-
A: 59-year-old male with past medical history of end-stage renal disease on dialysis, type 2 diabetes, hypertension, CVA and PAD, HFpEF who is here today for COVID-pneumonia and was found to have an elevated troponin.
Plan:
Type II AL in the setting of acute hypoxic respiratory failure(ventilator dependant) and ESRD:
-trop elevated but no cp or ecg changes
-Plaque rupture not suspected
-will update EF with echo so appropriate GDMT
-Continue aspirin and Plavix
-Continue ---holding carvedilol today for no po access
-End-stage renal disease prohibits SGLT2 inhibitor
Acute hypoxic respiratory failure secondary to heart failure and pneumonia
-now intubated with high Oxygen requirement
-treat COVID
-SBT
Hypertension
-bp elevated will give a dose of IV BB as on SBT
- will resume po agents when indicated
h/o bigeminy
Type 2 diabetes
CVA and PAD
End-stage renal disease
Subjective:
intubated and but alert and cooperative, shake head no to cp or sob
Physical Exam
Vital Signs/Labs
Vital Signs
Temp Pulse Resp BP Pulse Ox
98.9 F 78 16 161/85 94
10/03/24 07:00 10/03/24 04:30 10/03/24 04:30 10/03/24 04:30 10/03/24 07:56
10/02/24 10/03/24 10/04/24
06:59 06:59 06:59
Actual Weight 118.026 kg 115.108 kg
10/03/24 03:32
10/03/24 03:32
PT 17.2 Sec (11.4-14.6) H 10/01/24 21:43
INR 1.35 10/01/24 21:43
APTT 32.6 Sec (23.4-35.0) 10/01/24 21:43
Magnesium 1.9 mg/dl (1.6-2.3) 10/01/24 21:43
Triglycerides 237 mg/dl (10-149) H 10/01/24 20:52
09/30/24
19:24
Zxh-W-Zugwgaanepe Pept [id number]
LAB Results
09/30/24 09/30/24 10/01/24
19:24 23:23 02:37
Troponin I 0.091 H* Cancelled 6.310 H* D
10/01/24 10/01/24
12:06 21:43
Troponin I 5.540 H* 3.880 H*
Physical Exam
Constitutional: No acute distress and Other (intubated but calm and interactive)
Cardiovascular: Rhythm & rate is regular and Pedal edema is absent
Respiratory: Respiratory effort normal, Lungs clear to auscul., Wheeze Absent, Crackles Absent and Rhonchi Absent
Neuro/Psych: AO x 3
Data Reviewed
-
Date of Service: October 03, 2024
EKG: Other (sinus with pvcs in bigeminy)
--- NOTE | 2024-10-03 09:00 | PTCARENOTE ---
Pt received in bed @ 0700. Intubated and sedated. Propofol gtt infusing @ 25 mcg/kg/min and Fentanyl @ 75 mcg/hr. RASS 0 to -1. Pt able to follow commands and communicate nonverbally. ETT $8 @ 24 cm to middle lip. AC (16/500/40%/5+). SaO2 95%. SBT
started and pt tolerating. 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 Occasional vent bigeminy. HR 70s - 80s. Trace pitting LE edema. Echo completed at bedside. King catheter in place draining clear yellow urine.
--- NOTE | 2024-10-03 09:11 | PN.CDI ---
CDI
- -
CDI:
Physician Documentation Request
Admit Date: 09/30/24 22:13
Dear Doctor Kuldip,
Patient admitted with sepsis due to COVID, acute hypoxic respiratory failure.
Sodium results:
Laboratory Tests
10/01/24 10/01/24 10/02/24
02:37 20:52 04:02
Sodium 134 L 130 L 131 L
10/02/24 10/03/24
12:46 03:32
Sodium 130 L 133 L
Could you please provide a diagnosis that supports the above lab abnormalities and additional evaluation/monitoring:
Hyponatremia
Abnormal lab value clinically insignificant
Other
Use of terms such as suspected, likely, concern for, or probable (associated with a specific diagnosis that is being evaluated, monitored, or treated as if it exists) are acceptable and can be coded in the inpatient setting, when documented at the
time of discharge.
Thank you,
Danielle Ramirez RN, BSN
CDI Specialist
tiger text
Please use your independent medical judgment in providing your response.
[2024-10-03] MEDS: LOPRESSOR 5 MG IV ×2 (09:18→21:56)
--- NOTE | 2024-10-03 09:36 | W.PN.NEPH.PH ---
Today's Communication / Plan
-
Isolated ultrafiltration today then dialysis again on
Assessment/Plan
-
Assessment:
Hypoxic respiratory failure
CLI left leg s/p angioplasty 05/09/24
ESRD
Biopsy-proven diabetic nephropathy with advanced nephrotic syndrome
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
PAD
PD catheter, 09/22/2024
Hypertension
Secondary hyperparathyroidism
Anemia
Hypertriglyceridemia
Hyperphosphatemia
COVID pneumonia
Elevated troponin
Plan:
Chest x-ray notes congestive heart failure although underlying COVID-pneumonia may be in play as well
Extra dialysis treatment today for volume control ultrafiltration only
Next treatment after today will be
Remains extubated but awake
31 minutes critical care time spent with patient
-
-
Date of Service: October 03, 2024
CC / HPI / ROS
-
Chief Complaint:
End-stage renal disease
History of Present Illness:
ESRD Wednesday schedule
Hemodynamically stable off pressor support
intubated
Review of Systems:
intubated Fio2 50%
fevers overnight
Labs
-
Labs:
WBC 8.4 10^3/uL (4.8-10.8) 10/03/24 03:32
RBC 3.05 10^6/uL (4.70-6.10) L 10/03/24 03:32
Hgb 8.8 g/dL (13.0-18.0) L 10/03/24 03:32
Hct 26.0 % (39.0-52.0) L 10/03/24 03:32
Plt Count 187 10^3/uL (130-400) 10/03/24 03:32
Sodium 133 mmol/L (135-145) L 10/03/24 03:32
Potassium 4.5 mmol/L (3.5-5.1) 10/03/24 03:32
Chloride 95 mmol/L (98-107) L 10/03/24 03:32
Carbon Dioxide 27 mmol/L (22-30) 10/03/24 03:32
BUN 32 mg/dl (9-20) H 10/03/24 03:32
Creatinine 4.4 mg/dL (0.7-1.3) H* 10/03/24 03:32
eGFR 14.65 10/03/24 03:32
Glucose 161 mg/dl (70-99) H 10/03/24 03:32
Calcium 8.2 mg/dl (8.4-10.2) L 10/03/24 03:32
Phosphorus 6.3 mg/dl (2.5-4.5) H 10/01/24 21:43
Mxi-C-Auggdrukwka Pept 63795 pg/ml 09/30/24 19:24
Albumin 3.9 g/dl (3.5-5.0) 09/30/24 19:24
Physical Exam
-
Vital Signs:
Vital Signs
Temp Pulse Resp BP Pulse Ox
98.9 F 82 13 161/85 96
10/03/24 07:00 10/03/24 08:30 10/03/24 08:30 10/03/24 04:30 10/03/24 08:30
Cardiovascular:: Regular rate and rhythm
Respiratory:: Bilateral: Coarse
Lung Excursion:: Normal
Abdomen:: Nontender and Soft
Bowel Sounds:: Normal
Extremity Edema:: +1: Bilateral:
King Catheter: No
Other Findings::
Awake and responsive
[2024-10-03 09:49] LABS: B.E. 1.1 mmol/L; O2 Saturation % 98.8 % (94-98); PCO2 36 mmHg (35-48); PO2 93 mmHg (83-108); pH 7.45 (7.35-7.45)
[2024-10-03] MEDS: ZOFRAN 4 MG IV (10:10)
[2024-10-03 11:55] LABS: Glucose - Point of Care 202 mg/dl (70-99)
--- NOTE | 2024-10-03 13:07 | W.PN.HOSP.TC ---
Today's Communication/Plan
-
IV steroids
ultrafilitraiton
Monitor BP-Prn IV meds
monitor mentation and oxygenation closely
Assessment / Plan
Assessment / Plan
Gen-calm
Neck-supple
CV-reg, not tachycardiac
Lungs-Was intubated earlier now extubated
Abd-soft, distended but not tender
Ext-bilateral lower extremity edema
Musculoskeletal-no cyanosis, clubbing
Skin-warm and dry
Neuro-awake on HD
Acute hypoxic respiratory failure -suspect multifactorial etiology including acute pulmonary edema, COVID infection, etc.
Status post intubation and sedation 10/01
s/p extubation on 10/03
off sedation.
Drop Wire Builder following
Sepsis due to COVID-19 infection -possible COVID-pneumonia.
Continue steroids. Watch glucoses.
Acute on chronic heart failure preserved EF
Continue with IV Lasix. Volume removal via hemodialysis should help
Troponin elevation likely nonischemic myocardial injury
Prolonged QTc improved
QTc downtrended to 445
initial troponin 0.09, repeat 6.3.
ECHO pending for today
Cardiology following
Continue with antiplatelet agents
ESRD
Plan for ultrafiltration session
nephrology consulted. PD catheter placed recently but has not started using yet.
PAD
with history of critical limb ischemia. Followed by Dr. King.
Had lower extremity revascularization for a nonhealing left heel wound in May 2024. Patient stated wound is healing well. Continue dual antiplatelet therapy.
SANJUANA with hyperglycemia
Has been on Tresiba 32 units at bedtime, NovoLog sliding scale at home.
Currently on Lantus insulin 30 units at bedtime, moderate resistance NovoLog scale. Anticipate hyperglycemia with IV steroids.
History of stroke with right hemiparesis -reportedly is statin intolerant.
Diabetic retinopathy/nephropathy
Essential hypertension -elevated. If no improvement after HD start IV meds .
GERD -Protonix. Add Maalox for breakthrough heartburn symptoms.
Cataracts
Obesity due to excess calories
Full code
Discussed with channel man
d/w with mother at bedside
Anticipated Discharge: > 48 hours
Subjective/Interval History
-
Date of Service: October 03, 2024
Was intubated earlier during am evaluation.
Extubated later today
seen on HD
Objective Data
-
Labs:
Laboratory Results
10/03/24 10/03/24
03:32 09:38
WBC 8.4
Hgb 8.8 L
Hct 26.0 L
Plt Count 187
HCO3 25.0
Sodium 133 L
Potassium 4.5
Chloride 95 L
Carbon Dioxide 27
BUN 32 H
Creatinine 4.4 H*
Glucose 161 H
Calcium 8.2 L
Vital Signs:
Vital Signs
Temp Pulse Resp BP Pulse Ox
99.6 F 81 14 186/90 94
10/03/24 11:00 10/03/24 11:00 10/03/24 11:00 10/03/24 11:00 10/03/24 11:00
I&O
10/02/24 10/03/24 10/04/24
06:59 06:59 06:59
Intake Total 242.9 / 277.6 798.1 / 832.8 69.4 / 69.4
Output Total 315 / 365 730 / 795 325 / 325
Balance -72.1 / -87.4 68.1 / 37.8 -255.6 / -255.6
Data Reviewed
-
Total Time Spent with Patient (in minutes): 55
[2024-10-03] MEDS: HEPARIN 500 UNITS IV (13:10)
--- NOTE | 2024-10-03 13:26 | PTCARENOTE ---
Pt reassessed. Successful with SBT. Extubated @ 11:50 to 5L NC; SaO2 94%. High blood pressures. Lopressor 5mg IV x1 now acknowledged and administered. Pt for dialysis this afternoon/
[2024-10-03] MEDS: ASPIR LOW (ENTERIC COATED) PO (15:25)
[2024-10-03] MEDS: HEPARIN 4300 UNITS INTRACATH (15:37)
--- NOTE | 2024-10-03 15:38 | W.PN.UPDATE ---
Update Note
Progress Note Update
Extubated without issues.
No stridor on exam
Advance diet as patient is able to swallow on bedside evaluation
Continue with current care
Isolation per protocol
Will transfer to intermediate care unit.
Pulmonary will continue to follow
[2024-10-03] MEDS: PHOSLO 667 MG PO ×2 (16:02→21:56)
[2024-10-03] MEDS: NORVASC 5 MG PO (17:07)
[2024-10-03] MEDS: NOVOLOG FLEXPEN-MODERATE RESISTANCE 1 UNITS SC (17:08)
[2024-10-03 17:17] LABS: Glucose - Point of Care 197 mg/dl (70-99)
--- NOTE | 2024-10-03 18:10 | PTCARENOTE ---
Pt reassessed. HD completed and remains hypertensive. Dr. Christiansen, notified. Order to restart Norvasc 5mg PO. King catheter removed. Pt downgraded to IMU.
--- NOTE | 2024-10-03 20:00 | PTCARENOTE ---
Addendum entered by Judith Matias RN 10/04/24 02:23:
Vital signs saved from 10/03 11:30 until now.
Original Note:
Received pt from previous shift. Systems reviewed, see flowsheets. Pt lying comfortably in bed on 5L NC. NSR on heart monitor with ventricular bigeminy at times. +1 b/l LE edema noted. Lungs diminished with rhonchi. Pt reports a productive cough and
is using suction as needed. LBM 09/30. King removed during previous shift, due to void by 00:00. RAC 20, LAC 20, and L hand 18 PIVs capped. R tunnelled HD catheter in place. Will continue to monitor.
[2024-10-03] MEDS: SODIUM BICARBONATE 650 MG PO (20:17)
[2024-10-03] MEDS: COREG 25 MG PO (20:17)
[2024-10-03] MEDS: NON-FORMULARY ITEM 32 UNIT SC (21:56)
[2024-10-03 22:08] LABS: Glucose - Point of Care 218 mg/dl (70-99)
--- NOTE | 2024-10-03 22:45 | PTCARENOTE ---
At 21:24 pt went into a rapid AFib, HR 1402-160s. Pt was having a coughing spell and vomited a small amount of food as well. Pt stated he felt himself get tachycardic right before the coughing fit. BP 194/92. No other symptoms. House Provider
Wanda Pratt notified. Orders received for 5mg IV lopressor. Administered, see MAR. HR now 110s-120s, occasionally jumping to 150. BP 176/92.
[2024-10-03] MEDS: DECADRON 6 MG IV (23:37)
[2024-10-04] VITALS (16 sets, daily range): BP systolic 138–167; BP diastolic 63–144; BMI 34.4
[2024-10-04] MEDS: LOPRESSOR 5 MG IV (00:32)
[2024-10-04 05:14] LABS: Blood Urea Nitrogen 55 mg/dl (9-20); Calcium 7.9 mg/dl (8.4-10.2); Carbon Dioxide 26 mmol/L (22-30); Chloride 93 mmol/L (98-107); Estimated Creatinine Clearance 17 ml/min; Glucose 235 mg/dl (70-99); Potassium 4.3 mmol/L (3.5-5.1); Sodium 133 mmol/L (135-145)
[2024-10-04 06:49] LABS: Glucose - Point of Care 251 mg/dl (70-99)
--- NOTE | 2024-10-04 06:57 | W.PN.UPDATE ---
Addendum entered and electronically signed by EDISON De Jesus 10/04/24 07:04:
Cardizem infusion with bolus added this morning by Dr. Frank. She will address anticoagulation.
Original Note:
Update Note
Progress Note Update
Late evening patient noted to be in uncontrolled afib after long coughing episode after extubation. Lopressor IV for rate control. Asymptomatic. [facility] cardiology service group aware via TT this am.
[2024-10-04] MEDS: COREG 25 MG PO ×2 (07:26→20:05)
[2024-10-04] MEDS: PHOSLO 667 MG PO ×2 (07:26→16:13)
[2024-10-04] MEDS: SODIUM BICARBONATE 650 MG PO ×2 (07:26→20:08)
[2024-10-04] MEDS: PROTONIX IV 40 MG IV (07:27)
[2024-10-04] MEDS: HEPARIN 5000 UNITS SC (07:27)
[2024-10-04] MEDS: NORVASC 5 MG PO (07:27)
[2024-10-04] MEDS: LASIX 80 MG IV ×2 (07:28→16:13)
[2024-10-04] MEDS: NSS (PRESERVATIVE FREE) 10 ML IV (07:28)
--- NOTE | 2024-10-04 07:43 | W.PN.CD ---
Today's Communication / Plan
-
Stop amlodipine, start diltiazem drip.
Stop clopidogrel, start Eliquis 5 mg p.o. twice a day.
Impression / Plan
-
A: 59-year-old male with past medical history of end-stage renal disease on dialysis, type 2 diabetes, hypertension, CVA and PAD, HFpEF who is here today for COVID-pneumonia and was found to have an elevated troponin.
Plan:.
Atrial fibrillation:
� New onset, some mild palpitations
-on max beta-tori dose, will stop amlodipine and start diltiazem drip which will need intensive monitoring of hemodynamics. Also he tends to have many drug reactions.
-[id number] Score is 5 (DM, PAD, DM and CVA)
-Start Eliquis 5mg po bid (ok with surgery, discussed at patient's request but PD cath placed 09/22/24)
-CM c/s for cost
Type II WI in the setting of acute hypoxic respiratory failure(ventilator dependant) and ESRD:
-trop elevated but no cp or ecg changes
-Plaque rupture not suspected
-EF 50% with mild global HK, difference from comparison may be due to quality rather than actual difference.
-Noninvasive assessment as an outpatient is recommended.
-Continue aspirin
-Plavix stopped for Eliquis
-End-stage renal disease prohibits SGLT2 inhibitor
Acute hypoxic respiratory failure secondary to heart failure and pneumonia
Successfully extubated yesterday. Improved
-treat COVID
Hypertension
-bp elevated , medications being adjusted
CVA and PAD: stop clopidogrel will continue asa
h/o bigeminy
Type 2 diabetes
End-stage renal disease
Subjective:
i he is feeling well, has some palpitations but nothing like he had last night. No chest pain. Breathing feels better.
Critical care time spent in the care of this patient discussing the plan with multiple providers and nursing was 31 minutes.
Physical Exam
Vital Signs/Labs
Vital Signs
Temp Pulse Resp BP Pulse Ox
98.5 F 115 14 156/92 96
10/04/24 03:00 10/04/24 03:30 10/04/24 03:30 10/04/24 02:00 10/04/24 03:30
10/03/24 10/04/24 10/05/24
06:59 06:59 06:59
Actual Weight 115.108 kg 111.72 kg
10/03/24 03:32
10/04/24 04:16
PT 17.2 Sec (11.4-14.6) H 10/01/24 21:43
INR 1.35 10/01/24 21:43
APTT 32.6 Sec (23.4-35.0) 10/01/24 21:43
Magnesium 1.9 mg/dl (1.6-2.3) 10/01/24 21:43
Triglycerides 237 mg/dl (10-149) H 10/01/24 20:52
09/30/24
19:24
Isp-Y-Zkrlzwvlssm Pept 32152
LAB Results
10/01/24 10/01/24
12:06 21:43
Troponin I 5.540 H* 3.880 H*
Physical Exam
Constitutional: No acute distress
Cardiovascular: Pedal edema is absent, JVD pressure is normal, Systolic murmur absent, Diastolic murmur absent and Rhythm/rate is irregular
Respiratory: Respiratory effort normal, Lungs clear to auscul., Wheeze Absent, Crackles Absent and Rhonchi Absent
Neuro/Psych: AO x 3
Data Reviewed
-
Date of Service: October 04, 2024
Medical Decision Making: Review of Case with other Provider (Reviewed case with Carly ortega at 7 AM the covering overnight WOOL FLEECE SORTER, then reviewed the plan with critical care nursing [place], Dr. Millan and Dr. Christiansen)
EKG: Tracing Personally Visualized and interpreted (EKG tracing 10/03/2024 at 23: 59 atrial fibrillation with rapid ventricular response nonspecific ST abnormality.)
[2024-10-04] MEDS: CARDIZEM IV (08:32)
[2024-10-04] MEDS: NOVOLOG FLEXPEN-MODERATE RESISTANCE 7 UNITS SC (08:33)
[2024-10-04] MEDS: NOVOLOG FLEXPEN 8 UNITS SC (08:34)
[2024-10-04 08:54] LABS: Glucose - Point of Care 324 mg/dl (70-99)
--- NOTE | 2024-10-04 08:56 | PTCARENOTE ---
Assumed care of pt. Continues in Afib 110-130. HTN continues. Assessment as noted. New Cardizem orders held awaiting Flight Line Mechanic/summer clerk approval as requested by pharmacist due to possible cross allergic reaction. Dr Frank okayed
administration. Novel resp precautions continues for +Covid. SpO2 97% on 5L NC.
[2024-10-04] MEDS: CARDIZEM 10 MG IV (09:08)
[2024-10-04] MEDS: CARDIZEM 125 IV ×2 (09:09→18:43)
--- NOTE | 2024-10-04 09:18 | PTCARENOTE ---
Cardizem bolus given and gtt started at 5mg/hr with Afib 119-128HR.
--- NOTE | 2024-10-04 09:42 | CM ---
Consult for Eliquis pricing. Pharmacy closed today, left for patient pharmacy [facility] and CM requested insurance card for medication insurance check. CM will continue to follow for discharge planning needs.
Plan; Eliquis pricing
--- NOTE | 2024-10-04 10:18 | W.PN.INTV ---
Today's Communication / Plan
Recommendations
IV diuretics
Dialysis as able
Transition Decadron to oral and complete 10 days or until oxygen is weaned off
Monitor electrolytes
Observe off antibiotics
Incentive spirometry
Decrease FiO2, currently 3 L
Pulmonary will continue to follow briefly
Assessment
-
59-year-old male with history of diabetes, end-stage renal disease on dialysis, increased shortness of breath over the past few days. To me he denied any nausea, diarrhea but records suggest he had some nausea and some GI symptoms. He was found to
have positive troponin, positive COVID and a chest x-ray with questionable heart failure. Patient was started on nitroglycerin drip, given Lasix, admitted to IMU for further management. We are asked to help from pulmonary standpoint
Acute hypoxic respiratory insufficiency intubated 10/01/2024
88%, required 15 L initially
Extubated 10/03/2025
Bilateral infiltrates, heart failure versus interstitial pneumonitis
Positive COVID
Elevated troponin
Atrial fibrillation-new onset 10/04/2024
Conditions present prior admission:
Peripheral arterial disease with history of left heel nonhealing wound May 2024
Diabetes
End-stage renal disease on dialysis since May
PD catheter in place
History of stroke with right hemiparesis
patient denied history of stroke
Hypertension, hyperlipidemia
GERD
Multiple allergies
Plan/recommendations:
Overall clinically improved, now extubated since 10/03/2025
On low rate supplemental oxygen-decreased to 3 L and pulse ox 97%. Continue to decrease to maintain pulse ox above 90%.
Chest x-ray 10/04/2024: Reviewed, showed improved interstitial/alveolar pulmonary edema compared to 10/01/2024.
-
Afebrile/leukocytosis resolved.
COVID-positive
Will transition Decadron to oral 6 mg daily 10/04/2024, will complete total of 10 days or discontinue once oxygen is weaned off.
Negative influenza
Negative MRSA screening
Do not suspect bacterial pneumonia at this time.
Suspect that symptoms are primarily from COVID
Given improvement in chest x-ray postdialysis suspect hypoxemia was also related to pulmonary edema.
With elevated proBNP, part of the chest x-ray may be explained by volume overload as well.
Weight is trending lower after dialysis
IV diuretics continue
Continue dialysis per nephrology
Chronic anemia-secondary to renal disease. No evidence for bleeding.
Rapid atrial fibrillation 10/04/2024- started on IV beta-tori.
Cardizem drip started. Will continue to monitor-telemetry.
Elevated troponins: Likely in the setting of hypoxemic respiratory failure.
Cardio also following
Antiplatelets aspirin/Plavix
Apixaban started
Echocardiogram: 10/03/2024, normal LVEF. Mildly depressed global systolic function. LVEF 50%. No significant valvular abnormalities.
Blood sugar control-Target 140-180
Insulin sliding scale
Restart subcu insulin
DVT prophylaxis:Subcutaneous heparin
GI prophylaxis: Pantoprazole
Continue regular diet
Continue IMU level
Pulmonary will follow, for hypoxemia/COVID briefly.
Subjective Dataa
Subjective Data
Date of Service:
Date of Service: October 04, 2024
Chief Complaint: Tableau Lead Follow Up (Acute hypoxemic respiratory failure requiring intubation-)
Subjective:
Developed atrial fibrillation overnight
Extubated 10/03/2025, denies phlegm production.
Denies chest pain
Denies shortness of breath at rest
Review of Systems
GI: Abdominal Pain (n) and Nausea (n)
Neuro: Headache (n)
Objective Data
Data Reviewed
Vital Signs / I&O / Oxygen:
Vital Signs
Temp Pulse Resp BP Pulse Ox
97.8 F 111 10 159/104 97
10/04/24 07:00 10/04/24 10:00 10/04/24 10:00 10/04/24 08:00 10/04/24 09:30
Intake and Output
10/03/24 10/04/24 10/05/24
06:59 06:59 06:59
Intake Total 798.1 / 832.8 1029.4 / 1029.4 245 / 245
Output Total 730 / 795 1375 / 1375
Balance 68.1 / 37.8 -345.6 / -345.6 245 / 245
SaO2 [A/C] 96
SaO2 97
Nasal Cannula flow liters per 5
minute
Physical Exam
General: Comfortable
HEENT: Normocephalic
Cardiovascular: Irregular Rhythm
Respiratory: Clear and Non-Labored Respirations
GI: Soft and Non Distended
Neurology: Awake, Alert and Oriented
Skin: Warm
Labs/Micro/Reports
Lab Data
10/03/24 03:32
10/04/24 04:16
Microbiology
10/01/24 02:37 Nose MRSA Screen - Final
No Methicillin Resistant Staphylococcus aureus isolated.
[2024-10-04] MEDS: ELIQUIS 5 MG PO ×2 (10:22→20:08)
[2024-10-04 10:37] LABS: Glucose - Point of Care 279 mg/dl (70-99)
--- NOTE | 2024-10-04 11:13 | W.PN.HOSP.TC ---
Today's Communication/Plan
-
increase insulin
po steroids
wean o2
HD nephrology
rate control
eliquis
Assessment / Plan
Assessment / Plan
Gen-calm, talkative. not in distress
Neck-supple
CV-irregularly irregular tachycardic
Lungs-on nasal cannula, not tachypneic. Able to speak in complete sentences
Abd-soft, nondistended nontender
Ext-bilateral lower extremity edema
Musculoskeletal-no cyanosis, clubbing
Skin-warm and dry
Neuro-following all commands.
Psych pleasant
Acute hypoxic respiratory failure -suspect multifactorial etiology including acute pulmonary edema, COVID infection, etc.
Status post intubation and sedation 10/01
s/p extubation on 10/03
off sedation.
Indoor Landscape Architect following
Sepsis due to COVID-19 infection -possible COVID-pneumonia.
Continue steroids. Watch glucoses.
wean o2 as tolerated
Acute on chronic heart failure preserved EF
Continue with IV Lasix. Volume removal via hemodialysis should help
New onset of atrial fibrillation with rapid ventricular response
Continue with Cardizem infusion
Continue with Eliquis
Cardiology following
Troponin elevation likely nonischemic myocardial injury
Prolonged QTc improved
QTc downtrended to 445
initial troponin 0.09, repeat 6.3.
ECHO noted
Cardiology following
Continue with asa only. Plavix stopped as started on Eliquis
ESRD
HD per nephrology.
nephrology consulted. PD catheter placed [address] Arroyo but has not started using yet.
PAD
with history of critical limb ischemia. Followed by Dr. King.
Had lower extremity revascularization for a nonhealing left heel wound in May 2024. Patient stated wound is healing well. Continue dual antiplatelet therapy.
SANJUANA with hyperglycemia
Has been on Tresiba 32 units at bedtime, NovoLog sliding scale at home.
Currently on Lantus insulin 32 units at bedtime, novolog increased to 11u AC moderate resistance NovoLog scale. Anticipate hyperglycemia with IV steroids.
History of stroke with right hemiparesis -reportedly is statin intolerant.
Diabetic retinopathy/nephropathy
Essential hypertension -elevated. Now on cardizem gtt. norvasc stopped. coreg cont.
GERD -Protonix. Add Maalox for breakthrough heartburn symptoms.
Cataracts
Obesity due to excess calories
Hyponatremia Abnormal lab value clinically insignificant in ESRD patient
Full code
Discussed with silviculture teacher
d/w with mother at bedside
Anticipated Discharge: > 48 hours
Subjective/Interval History
-
Date of Service: October 04, 2024
talkative this morning
went into Afib RVR overnight
on cardizem gtt
remains on oxygen
tolerating diet
Objective Data
-
Labs:
Laboratory Results
10/04/24
04:16
Sodium 133 L
Potassium 4.3
Chloride 93 L
Carbon Dioxide 26
BUN 55 H
Creatinine 6.1 H*
Glucose 235 H
Calcium 7.9 L
Vital Signs:
Vital Signs
Temp Pulse Resp BP Pulse Ox
97.4 F 111 10 159/104 97
10/04/24 11:00 10/04/24 10:00 10/04/24 10:00 10/04/24 08:00 10/04/24 09:30
I&O
10/03/24 10/04/24 10/05/24
06:59 06:59 06:59
Intake Total 798.1 / 832.8 1029.4 / 1029.4 245 / 245
Output Total 730 / 795 1375 / 1375
Balance 68.1 / 37.8 -345.6 / -345.6 245 / 245
Data Reviewed
-
Total Time Spent with Patient (in minutes): 55
--- NOTE | 2024-10-04 11:52 | W.PN.NEPH.PH ---
Today's Communication / Plan
-
Dialysis , tomorrow
Assessment/Plan
-
Assessment:
Hypoxic respiratory failure
CLI left leg s/p angioplasty 05/09/24
ESRD
Biopsy-proven diabetic nephropathy with advanced nephrotic syndrome
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
PAD
PD catheter, 09/22/2024
Hypertension
Secondary hyperparathyroidism
Anemia
Hypertriglyceridemia
Hyperphosphatemia
COVID pneumonia
Elevated troponin
Plan:
Chest x-ray today shows no active disease
Next dialysis tomorrow
Ultrafiltration 2 -3L
Total Time Spent with Patient (in minutes): 35 minutes
-
-
Date of Service: October 04, 2024
CC / HPI / ROS
-
Chief Complaint:
End-stage renal disease
History of Present Illness:
ESRD Wednesday schedule
Hemodynamically stable off pressor support
Extubated comfortable
Review of Systems:
No chest pain or shortness of breath
Labs
-
Labs:
WBC 8.4 10^3/uL (4.8-10.8) 10/03/24 03:32
RBC 3.05 10^6/uL (4.70-6.10) L 10/03/24 03:32
Hgb 8.8 g/dL (13.0-18.0) L 10/03/24 03:32
Hct 26.0 % (39.0-52.0) L 10/03/24 03:32
Plt Count 187 10^3/uL (130-400) 10/03/24 03:32
Sodium 133 mmol/L (135-145) L 10/04/24 04:16
Potassium 4.3 mmol/L (3.5-5.1) 10/04/24 04:16
Chloride 93 mmol/L (98-107) L 10/04/24 04:16
Carbon Dioxide 26 mmol/L (22-30) 10/04/24 04:16
BUN 55 mg/dl (9-20) H 10/04/24 04:16
Creatinine 6.1 mg/dL (0.7-1.3) H* 10/04/24 04:16
eGFR 9.90 10/04/24 04:16
Glucose 235 mg/dl (70-99) H 10/04/24 04:16
Calcium 7.9 mg/dl (8.4-10.2) L 10/04/24 04:16
Phosphorus 6.3 mg/dl (2.5-4.5) H 10/01/24 21:43
Xya-H-Gizepbyexrf Pept 01457 pg/ml 09/30/24 19:24
Albumin 3.9 g/dl (3.5-5.0) 09/30/24 19:24
Physical Exam
-
Vital Signs:
Vital Signs
Temp Pulse Resp BP Pulse Ox
97.4 F 111 10 159/104 97
10/04/24 11:00 10/04/24 10:00 10/04/24 10:00 10/04/24 08:00 10/04/24 09:30
Cardiovascular:: Regular rate and rhythm
Respiratory:: Bilateral: Coarse
Lung Excursion:: Normal
Abdomen:: Nontender and Soft
Bowel Sounds:: Normal
Extremity Edema:: +1: Bilateral:
King Catheter: No
Other Findings::
Awake and responsive
[2024-10-04] MEDS: NOVOLOG FLEXPEN 11 UNITS SC ×2 (12:11→17:43)
[2024-10-04] MEDS: NOVOLOG FLEXPEN-MODERATE RESISTANCE 5 UNITS SC (12:11)
[2024-10-04] MEDS: ASPIR LOW (ENTERIC COATED) 81 MG PO (12:12)
[2024-10-04] MEDS: TRICOR 48 MG PO (12:12)
[2024-10-04 12:26] LABS: Glucose - Point of Care 290 mg/dl (70-99)
--- NOTE | 2024-10-04 15:47 | PTCARENOTE ---
Received patient by bed from ICU. Patient tolerated ambulating to the bathroom. HR 100-120 on exertion. 3L NC, sats 94%. Cardizem gtt at 15. Mom at bedside. Patient with no complaints. Will continue to monitor.
[2024-10-04 17:16] LABS: Glucose - Point of Care 217 mg/dl (70-99)
[2024-10-04] MEDS: NOVOLOG FLEXPEN-MODERATE RESISTANCE 3 UNITS SC (17:42)
[2024-10-04] MEDS: PHOSLO PO (20:06)
[2024-10-04] MEDS: NON-FORMULARY ITEM 32 UNIT SC (21:49)
[2024-10-04 21:58] LABS: Glucose - Point of Care 199 mg/dl (70-99)
--- NOTE | 2024-10-04 23:53 | W.PN.UPDATE ---
Update Note
Progress Note Update
pt with 6 sec conversion pause from afib to NSR
Cardizem infusion now off
PT was asymptomatic. Tele strip on chart
[2024-10-05] VITALS (33 sets, daily range): BP systolic 123–188; BP diastolic 70–125; BMI 34.5
--- NOTE | 2024-10-05 00:08 | PTCARENOTE ---
Pt had a 6.26 second pause converting from afib to SB. Asymptomatic, BP 157/84. HR now in 50's. Cardizem gtt turned off, BOOK CUTTER aware. EKG completed, SB. Strip with pause in chart. Will monitor.
--- NOTE | 2024-10-05 01:17 | PTCARENOTE ---
Caring for pt overnight. aaox3, pleasant. Denies pain. GUZMAN. Remains on 3LNC, 96%. Pt was on cardizem gtt 15mg at beginning of shift, titrated down to 5mg then titrated off once pt had 6 second conversion pause to SR. Now SB HR 50's. EKG confirmed.
Pt was asymptomatic. No other issues at this time. Will monitor.
[2024-10-05 07:41] LABS: Glucose - Point of Care 179 mg/dl (70-99)
[2024-10-05] MEDS: NOVOLOG FLEXPEN-MODERATE RESISTANCE 1 UNITS SC (07:55)
[2024-10-05] MEDS: NOVOLOG FLEXPEN 11 UNITS SC ×3 (07:55→17:46)
[2024-10-05] MEDS: PHOSLO 667 MG PO ×2 (07:56→17:41)
--- NOTE | 2024-10-05 08:28 | W.PN.CD ---
Today's Communication / Plan
-
Dilt 30 q6hrs
Eliquis pricing
Impression / Plan
-
A: 59-year-old male with past medical history of end-stage renal disease on dialysis, type 2 diabetes, hypertension, CVA and PAD, HFpEF who is here today for COVID-pneumonia and was found to have an elevated troponin.
Plan:.
Atrial fibrillation:
� New onset, some mild palpitations
-on max beta-tori dose, stopped amlodiping, back in SR off dilt gtt, start dilt 30mg q6hrs . Also he tends to have many drug reactions.
-[id number] Score is 5 (DM, PAD, DM and CVA)
-Start Eliquis 5mg po bid (ok with surgery, discussed at patient's request but PD cath placed 09/22/24)
-CM c/s for cost -> awaiting pricing
Type II AL in the setting of acute hypoxic respiratory failure(ventilator dependant) and ESRD:
-trop elevated but no cp or ecg changes
-Plaque rupture not suspected
-EF 50% with mild global HK, difference from comparison may be due to quality rather than actual difference.
-Noninvasive assessment as an outpatient is recommended.
-Continue aspirin
-Plavix stopped for Eliquis
-End-stage renal disease prohibits SGLT2 inhibitor
Acute hypoxic respiratory failure secondary to heart failure and pneumonia
Successfully extubated yesterday. Improved
-treat COVID
Hypertension
-bp elevated , medications being adjusted
CVA and PAD: stop clopidogrel will continue asa
h/o bigeminy
Type 2 diabetes
End-stage renal disease
Subjective:
Feeling much improved slept well no new complaints
Physical Exam
Vital Signs/Labs
Vital Signs
Temp Pulse Resp BP Pulse Ox
97.9 F 58 14 159/82 98
10/05/24 03:07 10/05/24 04:00 10/05/24 04:00 10/05/24 04:00 10/05/24 04:00
10/04/24 10/05/24 10/06/24
06:59 06:59 06:59
Actual Weight 246 lb 4.8 oz 247 lb 5.738 oz
PT 17.2 Sec (11.4-14.6) H 10/01/24 21:43
INR 1.35 10/01/24 21:43
APTT 32.6 Sec (23.4-35.0) 10/01/24 21:43
Magnesium 1.9 mg/dl (1.6-2.3) 10/01/24 21:43
Triglycerides 237 mg/dl (10-149) H 10/01/24 20:52
09/30/24
19:24
Hdz-H-Qdaavcuszmt Pept 21469
Physical Exam
Constitutional: No acute distress and Comfortable
EENT: Anicteric
Cardiovascular: Rhythm & rate is regular
Respiratory: Respiratory effort normal
GI: Soft
Neuro/Psych: AO x 3
Data Reviewed
-
Date of Service: October 05, 2024
Medical Decision Making: Reviewed Test Results
EKG: Tracing Personally Visualized and interpreted (sr )
Echo: Tracing Personally Visualized and interpreted and Report Reviewed by me
Labs: Labs Reviewed by me
--- NOTE | 2024-10-05 08:57 | W.PN.PUL3 ---
Today's Communication / Plan
-
HD as per nephrology
PO Cardizem
IV diuresis
Goal BG >100 and <180
Decadron x 10 days or can be stopped sooner if he is completely weaned off oxygen
Aspiration precautions
Continue weaning down O2 while keeping SpO2 >90-94%; if resting SaO2 is <96% on room air then check ambulatory pulse oximetry prior to discharge
Pulmonary service will continue to briefly follow along
Assessment
-
59-year-old male with history of diabetes, end-stage renal disease on dialysis, increased shortness of breath over the past few days. To me he denied any nausea, diarrhea but records suggest he had some nausea and some GI symptoms. He was found to
have positive troponin, positive COVID and a chest x-ray with questionable heart failure. Patient was started on nitroglycerin drip, given Lasix, admitted to IMU for further management. We are asked to help from pulmonary standpoint
Impression:
Acute hypoxic respiratory insufficiency intubated 10/01/2024
88%, required 15 L initially
Extubated 10/03/2025
Bilateral infiltrates, heart failure versus interstitial pneumonitis
Positive COVID
Elevated troponin
Atrial fibrillation-new onset 10/04/2024
Conditions present prior admission:
Peripheral arterial disease with history of left heel nonhealing wound May 2024
Diabetes
End-stage renal disease on dialysis since May
PD catheter in place
History of stroke with right hemiparesis
patient denied history of stroke
Hypertension, hyperlipidemia
GERD
Multiple allergies
Plan/recommendations:
Overall clinically improved, extubated since 10/03/2025 --> now on nasal cannula as of 10/05/2024
Continue to decrease to maintain pulse ox above 90%
Check ambulatory pulse oximetry prior to discharge
Chest x-ray 10/04/2024: Reviewed, showed improved interstitial/alveolar pulmonary edema compared to 10/01/2024.
-
Afebrile/leukocytosis resolved.
COVID-positive
Will transition Decadron to oral 6 mg daily 10/04/2024, will complete total of 10 days or discontinue once oxygen is weaned off.
Negative influenza
Negative MRSA screening
Do not suspect bacterial pneumonia at this time.
Suspect that symptoms are primarily from COVID
Given improvement in chest x-ray postdialysis suspect hypoxemia was also related to pulmonary edema.
With elevated proBNP, part of the chest x-ray may be explained by volume overload as well.
Weight is trending lower after dialysis
IV diuretics continue
Continue dialysis per nephrology
Chronic anemia-secondary to renal disease. No evidence for bleeding.
Rapid atrial fibrillation 10/04/2024- started on IV beta-tori.
Cardizem drip started. Will continue to monitor-telemetry.
Elevated troponins: Likely in the setting of hypoxemic respiratory failure.
Cardio also following
Antiplatelets aspirin; plavix never administered
Apixaban started
Echocardiogram: 10/03/2024, normal LVEF. Mildly depressed global systolic function. LVEF 50%. No significant valvular abnormalities.
Blood sugar control-Target 140-180
Insulin sliding scale
Restart subcu insulin
DVT prophylaxis: Eliquis
GI prophylaxis: Pantoprazole
Continue diabetic diet
Pulmonary service will continue to briefly follow along
Total time spent today was 37 minutes for this encounter. Time includes reviewing laboratory test/imaging results, reviewing pertinent medical records, obtaining and reviewing medical history, performing an appropriate exam, ordering medications,
tests and procedures. Time also includes documentation of this encounter, coordinating patient care and communicating with other healthcare professionals. Total time does not include separately billed tests performed on this date of service.
Subjective Data
-
Date of Service:
Date of Service: October 05, 2024
Chief Complaint: Pulmonary Follow Up
Subjective:
Patient seen and evaluated today at bedside. Patient's mother, Roma, at bedside and all questions were answered. He currently feels well, breathing comfortably on 2 L/min nasal cannula saturating 96%. Heart rate 79 and BP 174/75. He denies
chest pain, PRIETO, abdominal pain, nausea, fevers or chills.
Review of Systems
General: Other (Negative unless mentioned above)
Objective Data
Data Reviewed
Vital Signs / I&O / Oxygen:
Vital Signs
Temp Pulse Resp BP Pulse Ox
97.9 F 58 14 159/82 98
10/05/24 03:07 10/05/24 04:00 10/05/24 04:00 10/05/24 04:00 10/05/24 04:00
Intake and Output
10/04/24 10/05/24 10/06/24
06:59 06:59 06:59
Intake Total 1029.4 / 1029.4 265 / 265
Output Total 1375 / 1375 225 / 225
Balance -345.6 / -345.6 40 / 40
SaO2 [A/C] 96
SaO2 98
Nasal Cannula flow liters per 3
minute
Physical Exam
General: Respiratory Distress (negative), Comfortable, Chills (negative) and Sweats (negative)
HEENT: Normocephalic and Anicteric
Cardiovascular: S1-S2 and Peripheral Edema (+1 lower extremity pitting edema bilaterally)
Respiratory: Wheeze (negative), Crackles (Bibasilar), Rhonchi (negative), Non-Labored Respirations and Stridor (negative)
GI: Soft, Non Distended, Non Tender and Normal Bowel Sounds
Neurology: Awake, Alert and Tremors (negative)
Skin: Warm, Dry and Other (PD catheter in upper abdomen; permacath seen in right anterior chest wall)
Labs/Micro/Reports
Microbiology
10/01/24 02:37 Nose MRSA Screen - Final
No Methicillin Resistant Staphylococcus aureus isolated.
[2024-10-05] MEDS: LASIX IV (09:06)
[2024-10-05] MEDS: COREG 25 MG PO ×2 (09:06→20:55)
[2024-10-05] MEDS: ELIQUIS 5 MG PO ×2 (09:06→20:51)
[2024-10-05] MEDS: CARDIZEM 30 MG PO ×3 (09:08→20:54)
[2024-10-05] MEDS: RETACRIT 10000 UNITS IV (09:15)
--- NOTE | 2024-10-05 09:23 | W.PN.NEPH.HD ---
Assessment
-
Seen on HD. no new complaints. VSS. Access ok
says he is feeling better
afib on HD. for coreg
Progress Note - Hemodialysis
-
Date of Service: October 05, 2024
Duration: 30 minutes and 3 hours
Potassium Bath: 2
Calcium Bath: 2.5
Opti-Dialyzer: 160
Ultrafiltration: Other (2kg)
Blood Flow: 400
Dialysate Flow: 600
Heparin: no
EPO: 43025 units
--- NOTE | 2024-10-05 09:33 | PN.CDI ---
CDI
- -
CDI:
Physician Documentation Request
Admit Date: 09/30/24 22:13
Dear Doctor Kuldip,
Patient is admitted for sepsis, respiratory failure, pneumonia and heart failure. Troponin noted to be elevated.
Cardiology progress note states 'Type II IN in the setting of acute hypoxic respiratory failure(ventilator dependant) and ESRD'
Hospitalist note 'Troponin elevation likely nonischemic myocardial injury'
In an attempt to clarify potentially conflicting documentation, please clarify the etiology of the elevated troponin:
Type II IN
Nonischemic myocardial injury
Other
Use of terms such as suspected, likely, concern for, or probable (associated with a specific diagnosis that is being evaluated, monitored, or treated as if it exists) are acceptable and can be coded in the inpatient setting, when documented at the
time of discharge.
Thank you,
Danielle Ramirez RN, BSN
CDI Specialist
tiger text
Please use your independent medical judgment in providing your response.
[2024-10-05 09:46] LABS: Hematocrit 26.4 % (39.0-52.0); Hemoglobin 8.7 g/dL (13.0-18.0)
--- NOTE | 2024-10-05 09:57 | CM ---
Addendum entered by Dary Antonio RN 10/05/24 12:00:
Met briefly with patient and mother; provided Eliquis Free Month Card.
Plan watch for home O2 needs.
Plan home.
Original Note:
Patient with Hx ESRD on HD. COVID +. O2 3L. Receiving IV Lasix. PT Eval recommends HH.
CM Consult: Cost of Eiquis 5mg PO BID
Spoke with pharmacist, [facility]; Eliquis cost is $47/month.
Per [facility] ambulatory orders same cost info through [facility] & $126 for 90 day supply at [facility]
Spoke with patient who agrees to Eliquis cost- informed him will provide Free Month copay card.
Message to Dr Gonzalez that patient is ok with Eliquis cost.
Patient volunteers that he will be starting home peritoneal dialysis soon and is waiting for PD supplies to be delivered to his home once he is discharged. In the interim he will continue with [facility] and will drive himself to
dialysis.
Offered patient VN for SN & PT and he declined.
Plan provide Eliquis Free Month Card.
Plan watch for home O2 needs.
Plan home.
[2024-10-05 10:21] LABS: Carbon Dioxide 25 mmol/L (22-30); Chloride 93 mmol/L (98-107); Potassium 3.2 mmol/L (3.5-5.1); Sodium 131 mmol/L (135-145)
[2024-10-05 11:52] LABS: Glucose - Point of Care 106 mg/dl (70-99)
--- NOTE | 2024-10-05 13:45 | W.PN.HOSP.TC ---
Today's Communication/Plan
-
wean o2
po steroids
HD today
monitor BP
Cont eliquis
Assessment / Plan
Assessment / Plan
Gen-calm, talkative. not in distress
Neck-supple
CV-irregularly irregular tachycardic
Lungs-on nasal cannula, not tachypneic. Able to speak in complete sentences
Abd-soft, nondistended nontender
Ext-bilateral lower extremity edema
Musculoskeletal-no cyanosis, clubbing
Skin-warm and dry
Neuro-following all commands.
Psych pleasant
Acute hypoxic respiratory failure -suspect multifactorial etiology including acute pulmonary edema, COVID infection, etc.
Status post intubation and sedation 10/01
s/p extubation on 10/03
off sedation.
Remains on nasal cannula. wean o2 as tolerated.
Sepsis due to COVID-19 infection -possible COVID-pneumonia.
Continue steroids. Watch glucoses.
wean o2 as tolerated
Acute on chronic heart failure preserved EF
Continue with IV Lasix. Volume removal via hemodialysis should help
New onset of atrial fibrillation with rapid ventricular response
Overnight went into NSR with sinus pause. Seems to be going back and forth to NSR to afib
s/p Cardizem infusion and now on po cardizem 30mg q6h.
if with persistent pauses/bradycardia may require PPM
Continue with Eliquis
Cardiology following
Troponin elevation likely type II RI in setting of severe hypoxemia, volume overload, COVID-19, new onset of Afib.
Prolonged QTc improved
QTc downtrended to 445
initial troponin 0.09, repeat 6.3.
ECHO noted
Cardiology following
Continue with asa only. Plavix stopped as started on Eliquis
ESRD
HD per nephrology.
nephrology consulted. PD catheter placed [address] Arroyo but has not started using yet.
PAD
with history of critical limb ischemia. Followed by Dr. King.
Had lower extremity revascularization for a nonhealing left heel wound in May 2024. Patient stated wound is healing well. Continue dual antiplatelet therapy.
SANJUANA with hyperglycemia
Has been on Tresiba 32 units at bedtime, NovoLog sliding scale at home.
Currently on Lantus insulin 32 units at bedtime, novolog increased to 11u AC moderate resistance NovoLog scale. Anticipate hyperglycemia with IV steroids.
POC improved.
History of stroke with right hemiparesis -reportedly is statin intolerant.
Diabetic retinopathy/nephropathy
Essential hypertension -elevated. Now on cardizem gtt. norvasc stopped. coreg cont.
GERD -Protonix. Add Maalox for breakthrough heartburn symptoms.
Cataracts
Obesity due to excess calories
Hyponatremia Abnormal lab value clinically insignificant in ESRD patient
Full code
Anticipated Discharge: > 48 hours
Subjective/Interval History
-
Date of Service: October 05, 2024
Seen on HD
BP and HR elevated
remains on oxygen
Objective Data
-
Labs:
Laboratory Results
10/05/24
08:33
Hgb 8.7 L
Hct 26.4 L
Sodium 131 L
Potassium 3.2 L D
Chloride 93 L
Carbon Dioxide 25
Vital Signs:
Vital Signs
Temp Pulse Resp BP Pulse Ox
97.5 F 96 20 161/93 99
10/05/24 07:05 10/05/24 12:00 10/05/24 12:00 10/05/24 11:45 10/05/24 12:00
I&O
10/04/24 10/05/24 10/06/24
06:59 06:59 06:59
Intake Total 1029.4 / 1029.4 265 / 265
Output Total 1375 / 1375 225 / 225
Balance -345.6 / -345.6
Data Reviewed
-
Total Time Spent with Patient (in minutes): 55
[2024-10-05] MEDS: ASPIR LOW (ENTERIC COATED) 81 MG PO (13:50)
[2024-10-05] MEDS: DECADRON 6 MG PO (13:50)
[2024-10-05] MEDS: TRICOR 48 MG PO (13:50)
[2024-10-05] MEDS: NSS (PRESERVATIVE FREE) 10 ML IV (13:51)
[2024-10-05] MEDS: SODIUM BICARBONATE 650 MG PO ×2 (13:51→20:51)
[2024-10-05] MEDS: PROTONIX IV 40 MG IV (13:52)
[2024-10-05] MEDS: NOVOLOG FLEXPEN-MODERATE RESISTANCE SC ×2 (13:55→17:46)
[2024-10-05] MEDS: LASIX 80 MG IV (17:41)
[2024-10-05] MEDS: KCL 40 MEQ PO (17:41)
[2024-10-05 17:48] LABS: Glucose - Point of Care 87 mg/dl (70-99)
--- NOTE | 2024-10-05 18:46 | PTCARENOTE ---
AAOx3, ambulated to bathroom x1 assit with PCT today. Intermittent wheeze I/E scattered, rales right side, received on 3L NC - weaned to 1.5L. PC noted white, uses yankeur himself. Tele show multiple rhythms, SB 50-60, freq PVCs, sometimes
bigeminy - also flips into AF rates elevated 110s-120s. BP higher side- even while on HD. Tolerated HD 2 kilos off. Compliant with diet and fluid restriction- he expressed concerns with diet change this pm- will bring up tomorrow with MD. PD
cath site and glued lap sites CDi./ Accu check/ insulin coverage as ordered.
[2024-10-05] MEDS: PHOSLO PO (20:51)
[2024-10-05 21:43] LABS: Glucose - Point of Care 123 mg/dl (70-99)
[2024-10-05] MEDS: NON-FORMULARY ITEM 32 UNIT SC (22:02)
[2024-10-06] VITALS (16 sets, daily range): BP systolic 142–205; BP diastolic 78–105; O2SAT 92–97; BMI 33.9
--- NOTE | 2024-10-06 01:06 | PTCARENOTE ---
Pt BP 170/87 @ 00:52. Pt asymptomatic. ACCOUNTING OFFICE MANAGER Wanda Pratt notified via tiger text @ 00:59. No new orders. Will continue to monitor. All other VSS.
[2024-10-06] MEDS: CARDIZEM 30 MG PO ×2 (04:14→09:53)
--- NOTE | 2024-10-06 08:51 | W.PN.PUL3 ---
Today's Communication / Plan
-
HD as per nephrology
PO Cardizem
IV diuresis
Goal BG >100 and <180
Decadron x 10 days or can be stopped sooner if he is completely weaned off oxygen
Aspiration precautions
Continue weaning down O2 while keeping SpO2 >90-94%; if resting SaO2 is <96% on room air then check ambulatory pulse oximetry prior to discharge
Patient continuing to improve from pulmonary perspective. No additional recommendations at this time. Pulmonary service will now sign off. Outpatient pulmonary office follow-up will be arranged. Please reconsult if there are any additional
questions/concerns, or if patient's respiratory status deteriorates.
Assessment
-
59-year-old male with history of diabetes, end-stage renal disease on dialysis, increased shortness of breath over the past few days. To me he denied any nausea, diarrhea but records suggest he had some nausea and some GI symptoms. He was found to
have positive troponin, positive COVID and a chest x-ray with questionable heart failure. Patient was started on nitroglycerin drip, given Lasix, admitted to IMU for further management. We are asked to help from pulmonary standpoint
Impression:
Acute hypoxic respiratory insufficiency intubated 10/01/2024
88%, required 15 L initially, now on 2 L/min nasal cannula
Extubated 10/03/2025
Bilateral infiltrates, heart failure versus interstitial pneumonitis
Positive COVID
Elevated troponin
Atrial fibrillation-new onset 10/04/2024
Conditions present prior admission:
Peripheral arterial disease with history of left heel nonhealing wound May 2024
Diabetes
End-stage renal disease on dialysis since May
PD catheter in place
History of stroke with right hemiparesis
patient denied history of stroke
Hypertension, hyperlipidemia
GERD
Multiple allergies
Plan/recommendations:
Overall, patient has markedly improved, extubated since 10/03/2025 --> now on nasal cannula as of 10/05/2024
Continue to decrease to maintain pulse ox above 90%
Check ambulatory pulse oximetry prior to discharge
Chest x-ray 10/04/2024: Reviewed, showed improved interstitial/alveolar pulmonary edema compared to 10/01/2024.
-
Afebrile/leukocytosis resolved.
COVID-positive
Transitioned Decadron to oral 6 mg daily 10/04/2024, will complete total of 10 days or discontinue once oxygen is weaned off.
Negative influenza
Negative MRSA screening
Do not suspect bacterial pneumonia at this time.
Suspect that symptoms are primarily from COVID
Given improvement in chest x-ray postdialysis suspect hypoxemia was also related to pulmonary edema.
With elevated proBNP, part of the chest x-ray may be explained by volume overload as well.
Weight is trending lower after dialysis
IV diuretics continue
Continue dialysis per nephrology
Chronic anemia-secondary to renal disease. No evidence for bleeding.
Rapid atrial fibrillation 10/04/2024- started on IV beta-tori.
s/p cardizem drip --> now on PO cardizem CD; continue to monitor-telemetry.
Elevated troponins: Likely in the setting of hypoxemic respiratory failure.
Cardiology following
Antiplatelets aspirin; plavix never administered
Apixaban started
Echocardiogram: 10/03/2024, normal LVEF. Mildly depressed global systolic function. LVEF 50%. No significant valvular abnormalities.
Blood sugar control-Target 140-180
Insulin sliding scale
Basal�bolus insulin
DVT prophylaxis: Eliquis
GI prophylaxis: Pantoprazole
Continue diabetic diet
Outpatient pulmonary office follow-up will be arranged.
Patient continuing to improve from pulmonary perspective. No additional recommendations at this time. Pulmonary service will now sign off. Thank you for allowing us to be involved in the care of this patient. Please reconsult if there are any
additional questions/concerns, or if patient's respiratory status deteriorates.
Total time spent today was 36 minutes for this encounter. Time includes reviewing laboratory test/imaging results, reviewing pertinent medical records, obtaining and reviewing medical history, performing an appropriate exam, ordering medications,
tests and procedures. Time also includes documentation of this encounter, coordinating patient care and communicating with other healthcare professionals. Total time does not include separately billed tests performed on this date of service.
Subjective Data
-
Date of Service:
Date of Service: October 06, 2024
Chief Complaint: Pulmonary Follow Up
Subjective:
Patient seen and evaluated today at bedside. Currently on 2 L/min nasal cannula saturating 98%. He feels well overall. Denies chest pain, PRIETO, abdominal pain, nausea, vomiting, fevers chills. Heart rate 66, BP 156/72.
Review of Systems
General: Other (Negative unless mentioned above)
Objective Data
Data Reviewed
Vital Signs / I&O / Oxygen:
Vital Signs
Temp Pulse Resp BP Pulse Ox
97.4 F 65 14 154/80 94
10/05/24 23:36 10/06/24 06:00 10/06/24 06:00 10/06/24 06:00 10/06/24 06:00
Intake and Output
10/05/24 10/06/24 10/07/24
06:59 06:59 06:59
Intake Total 265 / 265 240 / 240
Output Total 225 / 225 300 / 300
Balance 40 / 40 -60 / -60
SaO2 [A/C] 96
SaO2 94
Nasal Cannula flow liters per 1.5
minute
Physical Exam
General: Respiratory Distress (negative), Comfortable, Chills (negative) and Sweats (negative)
HEENT: Normocephalic and Anicteric
Cardiovascular: S1-S2 and Peripheral Edema (+1 lower extremity pitting edema bilaterally)
Respiratory: Wheeze (negative), Crackles (Bibasilar), Rhonchi (negative), Non-Labored Respirations and Stridor (negative)
GI: Soft, Distended (Abdominal obesity), Non Tender and Normal Bowel Sounds
Neurology: Awake, Alert and Tremors (negative)
Skin: Warm, Dry and Other (PD catheter in upper abdomen; permacath seen in right anterior chest wall)
Labs/Micro/Reports
Lab Data
10/05/24 08:33
10/05/24 08:33
[2024-10-06 09:40] LABS: Glucose - Point of Care 179 mg/dl (70-99)
[2024-10-06] MEDS: PROTONIX 40 MG PO (09:52)
[2024-10-06] MEDS: PHOSLO 667 MG PO ×3 (09:53→17:53)
[2024-10-06] MEDS: DECADRON 6 MG PO (09:53)
[2024-10-06] MEDS: ELIQUIS 5 MG PO ×2 (09:53→20:45)
[2024-10-06] MEDS: LASIX 80 MG IV ×2 (09:54→17:52)
[2024-10-06] MEDS: SODIUM BICARBONATE 650 MG PO ×2 (09:54→20:45)
[2024-10-06] MEDS: COREG 25 MG PO ×2 (09:54→20:45)
[2024-10-06] MEDS: NOVOLOG FLEXPEN-MODERATE RESISTANCE 1 UNITS SC (09:55)
[2024-10-06] MEDS: NOVOLOG FLEXPEN 11 UNITS SC ×3 (09:55→17:54)
--- NOTE | 2024-10-06 11:25 | W.PN.HOSP.TC ---
Today's Communication/Plan
-
Monitor heart rate
Blood pressure consider clonidine
Dialysis per nephrology
Wean oxygen as tolerated
Transfer out of IMU if heart rate remains stable
Assessment / Plan
Assessment / Plan
Gen-calm, talkative. not in distress
Neck-supple
CV-regular rhytm, pvcs noted on tele
Lungs-on nasal cannula, not tachypneic. Able to speak in complete sentences
Abd-soft, nondistended nontender
Ext-bilateral lower extremity edema
Musculoskeletal-no cyanosis, clubbing
Skin-warm and dry
Neuro-following all commands.
Psych pleasant
Acute hypoxic respiratory failure -suspect multifactorial etiology including acute pulmonary edema, COVID infection, etc.
Status post intubation and sedation 10/01
s/p extubation on 10/03
off sedation.
Remains on nasal cannula. wean o2 as tolerated.
Sepsis due to COVID-19 infection -possible COVID-pneumonia.
Continue steroids. Watch glucoses.
wean o2 as tolerated
Acute on chronic heart failure preserved EF
Continue with IV Lasix. Volume removal via hemodialysis should help
New onset of atrial fibrillation with rapid ventricular response
Overnight went into NSR with sinus pause. Seems to be going back and forth to NSR to afib
s/p Cardizem infusion and now on po cardizem 30mg q6h.
if with persistent pauses/bradycardia may require PPM
Continue with Eliquis
Cardiology following
Troponin elevation likely type II IN in setting of severe hypoxemia, volume overload, COVID-19, new onset of Afib.
Prolonged QTc improved
QTc downtrended to 445
initial troponin 0.09, repeat 6.3.
ECHO noted
Cardiology following
Continue with asa only. Plavix stopped as started on Eliquis
ESRD
HD per nephrology.
nephrology consulted. PD catheter placed [address] Arroyo but has not started using yet.
PAD
with history of critical limb ischemia. Followed by Dr. King.
Had lower extremity revascularization for a nonhealing left heel wound in May 2024. Patient stated wound is healing well. Continue dual antiplatelet therapy.
SANJUANA with hyperglycemia
Has been on Tresiba 32 units at bedtime, NovoLog sliding scale at home.
Currently on Lantus insulin 32 units at bedtime, novolog increased to 11u AC moderate resistance NovoLog scale. Anticipate hyperglycemia with IV steroids.
POC improved.
History of stroke with right hemiparesis -reportedly is statin intolerant.
Diabetic retinopathy/nephropathy
Essential hypertension -elevated. At times. Started on Cardizem. Continue Coreg. If needed can start clonidine. Already on Lasix. Multiple allergy to medication noted.
GERD -Protonix. Add Maalox for breakthrough heartburn symptoms.
Cataracts
Obesity due to excess calories
Hyponatremia Abnormal lab value clinically insignificant in ESRD patient
Full code
PT-home health
Discussed with patient mother at bedside in detail.
Anticipated Discharge: 24 - 48 hours
Subjective/Interval History
-
Date of Service: October 06, 2024
Converted to NSR
Remains on 1.5l of oxygen
tolerating diet
Objective Data
-
Vital Signs:
Vital Signs
Temp Pulse Resp BP Pulse Ox
97.4 F 65 14 154/80 94
10/06/24 07:05 10/06/24 06:00 10/06/24 06:00 10/06/24 06:00 10/06/24 06:00
I&O
10/05/24 10/06/24 10/07/24
06:59 06:59 06:59
Intake Total 265 / 265 240 / 240
Output Total 225 / 225 300 / 300
Balance 40 / 40 -60 / -60
Data Reviewed
-
Total Time Spent with Patient (in minutes): 55
--- NOTE | 2024-10-06 11:59 | W.PN.CD ---
Today's Communication / Plan
-
Stop dilt 30 start dilt ER 120
Cont Eliquis
Impression / Plan
-
A: 59-year-old male with past medical history of end-stage renal disease on dialysis, type 2 diabetes, hypertension, CVA and PAD, HFpEF who is here today for COVID-pneumonia and was found to have an elevated troponin.
Plan:.
Atrial fibrillation:
� New onset, some mild palpitations
-on max beta-tori dose, start dilt 120 mg daily . Also he tends to have many drug reactions.
-[id number] Score is 5 (DM, PAD, DM and CVA)
-Start Eliquis 5mg po bid (ok with surgery, discussed at patient's request but PD cath placed 09/22/24)
Type II IN in the setting of acute hypoxic respiratory failure(ventilator dependant) and ESRD:
-trop elevated but no cp or ecg changes
-Plaque rupture not suspected
-EF 50% with mild global HK, difference from comparison may be due to quality rather than actual difference.
-Noninvasive assessment as an outpatient is recommended.
-Continue aspirin
-Plavix stopped for Eliquis
-End-stage renal disease prohibits SGLT2 inhibitor
Acute hypoxic respiratory failure secondary to heart failure and pneumonia
Successfully extubated yesterday. Improved
-treat COVID
Hypertension
-bp elevated , medications being adjusted
CVA and PAD: stop clopidogrel will continue asa
h/o bigeminy
Type 2 diabetes
End-stage renal disease
Subjective:
Continues to feel beter
Physical Exam
Vital Signs/Labs
Vital Signs
Temp Pulse Resp BP Pulse Ox
97.4 F 65 14 154/80 94
10/06/24 07:05 10/06/24 06:00 10/06/24 06:00 10/06/24 06:00 10/06/24 06:00
10/05/24 10/06/24 10/07/24
06:59 06:59 06:59
Actual Weight 247 lb 5.738 oz
10/05/24 08:33
10/05/24 08:33
PT 17.2 Sec (11.4-14.6) H 10/01/24 21:43
INR 1.35 10/01/24 21:43
APTT 32.6 Sec (23.4-35.0) 10/01/24 21:43
Magnesium 1.9 mg/dl (1.6-2.3) 10/01/24 21:43
Triglycerides 237 mg/dl (10-149) H 10/01/24 20:52
09/30/24
19:24
Ifl-T-Emsdupwmsyn Pept 16834
Physical Exam
Constitutional: No acute distress
Cardiovascular: Rhythm & rate is regular and Pedal edema is absent
Respiratory: Respiratory effort normal and Lungs clear to auscul.
GI: Soft
Neuro/Psych: AO x 3
Data Reviewed
-
Date of Service: October 06, 2024
EKG: Tracing Personally Visualized and interpreted (sr)
Echo: Tracing Personally Visualized and interpreted and Report Reviewed by me
Labs: Labs Reviewed by me
[2024-10-06 12:47] LABS: Glucose - Point of Care 147 mg/dl (70-99)
[2024-10-06] MEDS: TRICOR 48 MG PO (13:02)
[2024-10-06] MEDS: CARDIZEM CD 120 MG PO (13:02)
[2024-10-06] MEDS: ASPIR LOW (ENTERIC COATED) 81 MG PO (13:04)
[2024-10-06] MEDS: NOVOLOG FLEXPEN-MODERATE RESISTANCE SC ×2 (13:04→17:54)
--- NOTE | 2024-10-06 14:43 | W.PN.NEPH.PH ---
Today's Communication / Plan
-
HD tomorrow
Assessment/Plan
-
Assessment:
Hypoxic respiratory failure
CLI left leg s/p angioplasty 05/09/24
ESRD
Biopsy-proven diabetic nephropathy with advanced nephrotic syndrome
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
PAD
PD catheter, 09/22/2024
Hypertension
Secondary hyperparathyroidism
Anemia
Hypertriglyceridemia
Hyperphosphatemia
COVID pneumonia
Elevated troponin
Plan:
stable on RA
Next dialysis tomorrow
UF as much he can tolerate
PD catheter care
cont lasix still has residual UOP
CCB adjusted pre cards
weaning steroids
-
-
Date of Service: October 06, 2024
CC / HPI / ROS
-
Chief Complaint:
End-stage renal disease
History of Present Illness:
ESRD Wednesday schedule
Hemodynamically stable
On RA
Review of Systems:
No chest pain or shortness of breath at rest
hypoxic on ambulation per staff
cough still
Labs
-
Labs:
WBC 8.4 10^3/uL (4.8-10.8) 10/03/24 03:32
RBC 3.05 10^6/uL (4.70-6.10) L 10/03/24 03:32
Hgb 8.7 g/dL (13.0-18.0) L 10/05/24 08:33
Hct 26.4 % (39.0-52.0) L 10/05/24 08:33
Plt Count 187 10^3/uL (130-400) 10/03/24 03:32
Sodium 131 mmol/L (135-145) L 10/05/24 08:33
Potassium 3.2 mmol/L (3.5-5.1) L D 10/05/24 08:33
Chloride 93 mmol/L (98-107) L 10/05/24 08:33
Carbon Dioxide 25 mmol/L (22-30) 10/05/24 08:33
BUN 55 mg/dl (9-20) H 10/04/24 04:16
Creatinine 6.1 mg/dL (0.7-1.3) H* 10/04/24 04:16
eGFR 9.90 10/04/24 04:16
Glucose 235 mg/dl (70-99) H 10/04/24 04:16
Calcium 7.9 mg/dl (8.4-10.2) L 10/04/24 04:16
Phosphorus 6.3 mg/dl (2.5-4.5) H 10/01/24 21:43
Qxs-V-Oagipfhfuei Pept 14760 pg/ml 09/30/24 19:24
Albumin 3.9 g/dl (3.5-5.0) 09/30/24 19:24
Physical Exam
-
Vital Signs:
Vital Signs
Temp Pulse Resp BP Pulse Ox
98.5 F 65 14 154/80 94
10/06/24 11:05 10/06/24 06:00 10/06/24 06:00 10/06/24 06:00 10/06/24 06:00
Cardiovascular:: Regular rate and rhythm
Respiratory:: Bilateral: Coarse
Lung Excursion:: Normal
Abdomen:: Distended, Nontender and Soft
Extremity Edema:: +1: Bilateral: (chronic)
King Catheter: No
Other Findings::
PD catheter dressing intact
[2024-10-06 17:01] LABS: Glucose - Point of Care 134 mg/dl (70-99)
--- NOTE | 2024-10-06 19:21 | PTCARENOTE ---
Report given to Trudi, transferred to 4th floor via monitored stretcher.
[2024-10-06 21:30] LABS: Glucose - Point of Care 94 mg/dl (70-99)
[2024-10-06] MEDS: NON-FORMULARY ITEM 32 UNIT SC (23:00)
[2024-10-07 03:30] VITALS: BP 152/78
[2024-10-07 06:00] VITALS: BMI 34.2
[2024-10-07 07:34] LABS: Glucose - Point of Care 153 mg/dl (70-99)
[2024-10-07] MEDS: NOVOLOG FLEXPEN 11 UNITS SC ×2 (07:36→11:46)
[2024-10-07] MEDS: NOVOLOG FLEXPEN-MODERATE RESISTANCE 1 UNITS SC (07:37)
[2024-10-07 07:40] VITALS: BP 159/85
[2024-10-07] MEDS: DECADRON 6 MG PO (07:40)
[2024-10-07] MEDS: PROTONIX 40 MG PO (07:40)
[2024-10-07] MEDS: PHOSLO 667 MG PO ×3 (07:40→17:18)
[2024-10-07] MEDS: ELIQUIS 5 MG PO ×2 (07:40→20:23)
[2024-10-07] MEDS: COREG 25 MG PO ×2 (07:40→20:23)
[2024-10-07] MEDS: CARDIZEM CD 120 MG PO (07:41)
[2024-10-07] MEDS: SODIUM BICARBONATE 650 MG PO ×2 (07:42→20:23)
[2024-10-07] MEDS: LASIX 80 MG IV ×2 (08:03→17:17)
[2024-10-07 09:29] LABS: Blood Urea Nitrogen 76 mg/dl (9-20); Calcium 8.2 mg/dl (8.4-10.2); Carbon Dioxide 23 mmol/L (22-30); Chloride 89 mmol/L (98-107); Estimated Creatinine Clearance 17 ml/min; Glucose 191 mg/dl (70-99); Phosphorus 5.8 mg/dl (2.5-4.5); Potassium 4.2 mmol/L (3.5-5.1); Sodium 128 mmol/L (135-145)
[2024-10-07] MEDS: TRICOR 48 MG PO (11:41)
[2024-10-07] MEDS: ASPIR LOW (ENTERIC COATED) 81 MG PO (11:41)
[2024-10-07 11:43] LABS: Glucose - Point of Care 233 mg/dl (70-99)
[2024-10-07 11:47] VITALS: BP 148/75
[2024-10-07] MEDS: NOVOLOG FLEXPEN-MODERATE RESISTANCE 3 UNITS SC (11:48)
--- NOTE | 2024-10-07 12:26 | W.PN.UPDATE ---
Update Note
Progress Note Update
-Telemetry review: Sinus rhythm.
-Continue Coreg 25 mg twice daily and Cardizem CD 120 mg daily.
-HD today as per Nephrology.
-Cardiology will remain available on an as-needed basis.
--- NOTE | 2024-10-07 13:32 | W.PN.HOSP.TC ---
Today's Communication/Plan
-
Start dispo process
Reduce insulin
HD today
monitor BP
nephro recs
cont CCB/BB/Eliquis
Assessment / Plan
Assessment / Plan
Gen-calm, talkative. not in distress
Neck-supple
CV-regular rhytm, pvcs noted on tele
Lungs-on nasal cannula, not tachypneic. Able to speak in complete sentences
Abd-soft, nondistended nontender
Ext-bilateral lower extremity edema
Musculoskeletal-no cyanosis, clubbing
Skin-warm and dry
Neuro-following all commands.
Psych pleasant
Acute hypoxic respiratory failure -suspect multifactorial etiology including acute pulmonary edema, COVID infection, etc.
Status post intubation and sedation 10/01
s/p extubation on 10/03
off sedation.
off oxygen.
Sepsis due to COVID-19 infection -possible COVID-pneumonia.
off oxygen. Stable on room air. DC steroids.
Acute on chronic heart failure preserved EF
Continue with IV Lasix. Volume removal via hemodialysis should help
New onset of atrial fibrillation with rapid ventricular response
Overnight went into NSR with sinus pause. Seems to be going back and forth to NSR to afib
s/p Cardizem infusion and now off cardizem 30mg q6h to Cardizem 120mg CD.
if with persistent pauses/bradycardia may require PPM
Continue with Eliquis
Cardiology following
Currently in NSR
Troponin elevation likely type II [place] in setting of severe hypoxemia, volume overload, COVID-19, new onset of Afib.
Prolonged QTc improved
QTc downtrended to 445
initial troponin 0.09, repeat 6.3.
ECHO noted
Cardiology following
Continue with asa only. Plavix stopped as started on Eliquis
ESRD
HD per nephrology.
nephrology consulted. PD catheter placed [address] Arroyo but has not started using yet.
PAD
with history of critical limb ischemia. Followed by Dr. King.
Had lower extremity revascularization for a nonhealing left heel wound in May 2024. Patient stated wound is healing well. Continue dual antiplatelet therapy.
SANJUANA with hyperglycemia
Has been on Tresiba 32 units at bedtime, NovoLog sliding scale at home.
Currently on Lantus insulin 32 units at bedtime, novolog decreased moderate resistance NovoLog scale. steroids stopped. Glucose should downtrend
POC improved.
History of stroke with right hemiparesis -reportedly is statin intolerant.
Diabetic retinopathy/nephropathy
Essential hypertension -elevated. At times. Started on Cardizem. Continue Coreg. If needed can start clonidine. Already on Lasix. Multiple allergy to medication noted.
GERD -Protonix. Add Maalox for breakthrough heartburn symptoms.
Cataracts
Obesity due to excess calories
Hyponatremia Abnormal lab value clinically insignificant in ESRD patient
Full code
PT-home health
Discussed with patient mother at bedside in detail on 10/06/24
Anticipated Discharge: Within 24 hours
Subjective/Interval History
-
Date of Service: October 07, 2024
on room air
states feeling alot better
afebrile
HD today
Objective Data
-
Labs:
Laboratory Results
10/07/24
08:25
Sodium 128 L
Potassium 4.2 D
Chloride 89 L
Carbon Dioxide 23
BUN 76 H
Creatinine 5.9 H*
Glucose 191 H
Calcium 8.2 L
Vital Signs:
Vital Signs
Temp Pulse Resp BP Pulse Ox
97.5 F 60 18 148/75 99
10/07/24 11:47 10/07/24 11:47 10/07/24 11:47 10/07/24 11:47 10/07/24 11:47
I&O
10/06/24 10/07/24 10/08/24
06:59 06:59 06:59
Intake Total 240 / 240 800 / 800
Output Total 300 / 300
Balance -60 / -60 800 / 800
Data Reviewed
-
Total Time Spent with Patient (in minutes): 55
[2024-10-07] MEDS: RETACRIT 10000 UNITS IV (14:10)
[2024-10-07 15:40] VITALS: BP 163/86
--- NOTE | 2024-10-07 16:03 | W.PN.NEPH.HD ---
Addendum entered and electronically signed by Olimpia Barnes MD 10/07/24 16:07:
hyponatremia likely dilutional, reports awre of FR-will keep at 40ounces/day
diet eventually can changed to renal
Original Note:
Assessment
-
pt jimmy during HD
vitals stable
UF a tolerates though below EDW since has more UE edema
CVC function well
d/c plan
Progress Note - Hemodialysis
-
Date of Service: October 07, 2024
Duration: 30 minutes and 3 hours
Potassium Bath: 3
Calcium Bath: 2.5
Opti-Dialyzer: 160
Ultrafiltration: Other (2-2.5kg)
Blood Flow: 400
Dialysate Flow: 600
Heparin: no
EPO: [id number]
[2024-10-07 17:26] LABS: Glucose - Point of Care 139 mg/dl (70-99)
[2024-10-07] MEDS: NOVOLOG FLEXPEN 5 UNITS SC (17:27)
[2024-10-07] MEDS: NOVOLOG FLEXPEN-MODERATE RESISTANCE SC (17:28)
[2024-10-07 19:59] VITALS: BP 161/77
[2024-10-07 21:19] LABS: Glucose - Point of Care 183 mg/dl (70-99)
[2024-10-07] MEDS: NON-FORMULARY ITEM 32 UNIT SC (22:01)
[2024-10-07 23:55] VITALS: BP 170/83
[2024-10-08 00:18] VITALS: BP 156/78
[2024-10-08 03:19] VITALS: BP 157/78
[2024-10-08 06:00] VITALS: BMI 33.9
[2024-10-08 07:40] VITALS: BP 158/82
[2024-10-08 08:36] LABS: Glucose - Point of Care 160 mg/dl (70-99)
[2024-10-08] MEDS: CARDIZEM CD 120 MG PO (09:20)
[2024-10-08] MEDS: PROTONIX 40 MG PO (09:20)
[2024-10-08] MEDS: ELIQUIS 5 MG PO (09:20)
[2024-10-08] MEDS: PHOSLO 667 MG PO (09:21)
[2024-10-08] MEDS: NOVOLOG FLEXPEN 5 UNITS SC (09:21)
[2024-10-08] MEDS: NOVOLOG FLEXPEN-MODERATE RESISTANCE 1 UNITS SC (09:21)
[2024-10-08] MEDS: COREG 25 MG PO (09:21)
[2024-10-08] MEDS: SODIUM BICARBONATE 650 MG PO (09:21)
[2024-10-08] MEDS: LASIX 80 MG IV (09:22)
[2024-10-08 11:00] VITALS: BP 150/67
--- NOTE | 2024-10-08 11:24 | W.PN.HOSP.TC ---
Today's Communication/Plan
-
dc home
Assessment / Plan
Assessment / Plan
Gen-calm, talkative. not in distress
Neck-supple
CV-regular rhytm, pvcs noted on tele
Lungs-on room air. stable. CTA.
Abd-soft, nondistended nontender
Ext-bilateral lower extremity edema
Musculoskeletal-no cyanosis, clubbing
Skin-warm and dry
Neuro-following all commands.
Psych pleasant
Acute hypoxic respiratory failure -suspect multifactorial etiology including acute pulmonary edema, COVID infection, etc.
Status post intubation and sedation 10/01
s/p extubation on 10/03
off sedation.
off oxygen. Stable on room air.
Sepsis due to COVID-19 infection -possible COVID-pneumonia.
off oxygen. Stable on room air. DC steroids.
Acute on chronic heart failure preserved EF
Switch to po regimen home diuretics. Volume removal via hemodialysis should help
New onset of atrial fibrillation with rapid ventricular response
Overnight went into NSR with sinus pause. Seems to be going back and forth to NSR to afib
s/p Cardizem infusion and now off cardizem 30mg q6h to Cardizem 120mg CD.
if with persistent pauses/bradycardia may require PPM
Continue with Eliquis
Cardiology following
Currently in NSR
Troponin elevation likely type II AR in setting of severe hypoxemia, volume overload, COVID-19, new onset of Afib.
Prolonged QTc improved
QTc downtrended to 445
initial troponin 0.09, repeat 6.3.
ECHO noted
Cardiology following
Continue with asa only. Plavix stopped as started on Eliquis
ESRD
HD per nephrology. Demaned regular diet w/FR at all times.
nephrology consulted. PD catheter placed [address] Arroyo but has not started using yet. Plan to be started on PD soon.
PAD
with history of critical limb ischemia. Followed by Dr. King.
Had lower extremity revascularization for a nonhealing left heel wound in May 2024. Patient stated wound is healing well. Continue dual antiplatelet therapy.
SANJUANA with hyperglycemia
Has been on Tresiba 32 units at bedtime, NovoLog sliding scale at home.
Currently on Lantus insulin 32 units at bedtime, novolog decreased moderate resistance NovoLog scale. steroids stopped. Glucose should downtrend
POC improved.
History of stroke with right hemiparesis -reportedly is statin intolerant.
Diabetic retinopathy/nephropathy
Essential hypertension -elevated. At times. Started on Cardizem. Continue Coreg. If needed can start clonidine. Already on Lasix. Multiple allergy to medication noted.
GERD -Protonix. Add Maalox for breakthrough heartburn symptoms.
Cataracts
Obesity due to excess calories
Hyponatremia Abnormal lab value clinically insignificant in ESRD patient
Full code
PT-home health
More than 30 minutes spent in discharge including
Final examination of the patient
Summarizing hospital stay
Instructions for continuing care to all relevant caregivers
Preparation of discharge records, prescriptions, and referral forms
Total time spent (in minutes): 53
Anticipated Discharge: Today
Subjective/Interval History
-
Date of Service: October 08, 2024
on room air
tolerating diet
Objective Data
-
Vital Signs:
Vital Signs
Temp Pulse Resp BP Pulse Ox
98.7 F 60 20 158/82 94
10/08/24 07:40 10/08/24 07:40 10/08/24 07:40 10/08/24 07:40 10/08/24 07:40
I&O
10/07/24 10/08/24 10/09/24
06:59 06:59 06:59
Intake Total 800 / 800 1620 / 1620
Balance 800 / 800 1620 / 1620
--- NOTE | 2024-10-08 11:28 | CM ---
Pt to be d/c today per nurse around lunch time.
CM reviewed therapy notes. PT last seen 10/04, recommended home PT at d/c. Discussed this w/ pt, pt declined HH says he doesn't need it.
Per pt he will call [facility] to schedule his next HD session on Wednesday. Pt confirms he is seen at [facility] in [place] and has been receiving OP HD for about 4 months.
Pt expressed he is ready to d/c today and his family is on their way
IMM reviewed, copy in chart
Plan: Home; no needs
--- NOTE | 2024-10-08 11:31 | W.DCSUMMARY ---
Discharge Summary
Discharge Data
Date of Admission: 09/30/24
Date of Discharge: 10/08/24
-
Pending Results: No
Hospital Course
59-year-old male past medical history of ESRD on hemodialysis, peripheral arterial disease, diabetes mellitus, primary hypertension, history of stroke with right-sided weakness, diabetic retinopathy, nephropathy, GERD, was seen with shortness of
breath. Patient was found to be pneumonia. Sepsis was secondary to COVID-19 infection. Patient was started on IV steroids. Patient respiratory status declined and he was intubated on 10/01. Patient was extubated on 10/03. Patient did well post
extubation. Patient was tolerating diet. Patient was also found to be new onset of atrial fibrillation and received IV Cardizem patient was transitioned to p.o. Cardizem on discharge. Patient was started on Eliquis. Patient troponin elevated
which was deemed secondary to severe hypoxemia, volume overload, COVID-19. Patient was weaned off to oxygen and patient was stable on room air. Patient was taken off Decadron and is stable on room air. Patient tolerated hemodialysis session
schedule by nephrology. Patient was tolerating diet and stable on room air. Patient converted to normal sinus rhythm. Patient be discharged home recommendation to follow-up outpatient with cardiology and nephrology.
Discharge Plan
-
Patient Disposition: Home (Routine Discharge)
Discharge Diagnosis/Procedures: Acute hypoxic respiratory failure -suspect multifactorial etiology including acute pulmonary edema, COVID infection, etc.
Sepsis due to COVID-19 infection -possible COVID-pneumonia.
Acute on chronic heart failure preserved EF
New onset of atrial fibrillation with rapid ventricular response
Troponin elevation likely type II IN in setting of severe hypoxemia, volume overload, COVID-19, new onset of Afib.
Condition: Fair
Diet: 2 Gram Sodium, Diabetic, Carb Controlled and Restrict fluids to 48 oz
Activity: As tolerated
Driving Restrictions: As prior to admission
Activity Restrictions/Additional Instructions:
Wound Care Instructions Left Heel- Betadine, silicone border foam. Change Q 48 hours and PRN.
Follow up at [facility] call for an appointment OR with parts product analyst
Instructions: *PCP/Other Deputy Treasurer Heart Failure Instructions
Referrals:
Milind Montana MD [Family Provider] -
Karan Costello MD [Active] - in two to four weeks (full PFTs on day of office visit)
Toni Gonzalez MD [Active] - in one month
Prescriptions:
New
diltiazem HCl 120 mg Capsule,Extended Release 24hr
120 mg PO DAILY 30 Days Qty: 30 0RF
Eliquis 5 mg Tablet
5 mg PO BID Qty: 60 0RF
Continued
insulin degludec [Tresiba FlexTouch U-100] 100 UNIT/ML insulin pen
32 unit SC HS
metolazone 5 mg Tablet
5 mg PO TUFR
pantoprazole 40 mg tablet,delayed release (DR/EC)
40 mg PO NOON
furosemide 80 mg tablet
80 mg PO BID
insulin aspart U-100 [Novolog FlexPen U-100 Insulin] 100 unit/mL (3 mL) insulin pen
0 sliding scale dose SC MEALS
Patient Comments:
BS> 150
carvedilol [Coreg] 25 MG tablet
25 mg PO BID
calcium acetate(phosphat bind) 667 mg Tablet
667 mg PO TID
aspirin 81 mg Tablet,Delayed Release (Dr/Ec)
81 mg PO DAILY@1200
cholecalciferol (vitamin D3) [Vitamin D3] 125 mcg (5,000 unit) Tablet
125 mcg PO NOON
fenofibrate nanocrystallized 48 mg Tablet
48 mg PO NOON
Changed
sodium bicarbonate 650 mg tablet
650 mg PO BID Qty: 0 0RF
Patient Comments:
Patient only takes the am dose.
Discontinued
amlodipine 5 mg Tablet
5 mg PO BID
clopidogrel 75 mg tablet
75 mg PO DAILY@1200
Discharge Orders:
Discharge Patient (As Directed); Ordered 10/08/24
Ordered By: Russ Christiansen
Discharge Date and Time
Discharge Date/Time: 10/08/24 12:18
Print Language: [id number]
== END 2024-10-08 12:18 | disposition home or self-care (01) | DRG 871 ==
LOC: 4 WEST ACU 22:13
PROVIDERS: Internal Medicine; Internal Medicine Critical Care Medicine; Nurse Practitioner Family; Nurse Practitioner Gerontology; Nurse Practitioner Primary Care; Physician Assistant; Registered Nurse; Specialist; ADMITTING PHYSICIAN Hospitalist; ATTENDING PHYSICIAN Hospitalist; CONSULT PHYSICIAN Internal Medicine Cardiovascular Disease; CONSULT PHYSICIAN Internal Medicine Critical Care Medicine; CONSULT PHYSICIAN Specialist; EMERGENCY PHYSICIAN Emergency Medicine; FAMILY PHYSICIAN Family Medicine
PROC: 5A09357 Assistance with Respiratory Ventilation, Less than 24 Consecutive Hours, Continuous Positive Airway Pressure (ICD-10-PCS; 2024-09-30)
PROC: 0BH17EZ Insertion of Endotracheal Airway into Trachea, Via Natural or Artificial Opening (ICD-10-PCS; 2024-10-01)
PROC: 5A1945Z Respiratory Ventilation, 24-96 Consecutive Hours (ICD-10-PCS; 2024-10-01)
PROC: 5A1D70Z Performance of Urinary Filtration, Intermittent, Less than 6 Hours Per Day (ICD-10-PCS; 2024-10-02)
DX: A41.89 Other specified sepsis (principal); I21.A1 Myocardial infarction type 2; U07.1 COVID-19; I50.33 Acute on chronic diastolic (congestive) heart failure; N18.6 End stage renal disease; J96.01 Acute respiratory failure with hypoxia; J12.82 Pneumonia due to coronavirus disease 2019; I13.2 Hypertensive heart and chronic kidney disease with heart failure and with stage 5 chronic kidney disease, or end stage renal disease; N25.81 Secondary hyperparathyroidism of renal origin; I69.351 Hemiplegia and hemiparesis following cerebral infarction affecting right dominant side; D63.1 Anemia in chronic kidney disease; E61.1 Iron deficiency; K21.9 Gastro-esophageal reflux disease without esophagitis; I48.91 Unspecified atrial fibrillation; E78.1 Pure hyperglyceridemia; E66.09 Other obesity due to excess calories; E11.22 Type 2 diabetes mellitus with diabetic chronic kidney disease; E11.319 Type 2 diabetes mellitus with unspecified diabetic retinopathy without macular edema; E11.40 Type 2 diabetes mellitus with diabetic neuropathy, unspecified; E11.51 Type 2 diabetes mellitus with diabetic peripheral angiopathy without gangrene; E11.65 Type 2 diabetes mellitus with hyperglycemia; I25.10 Atherosclerotic heart disease of native coronary artery without angina pectoris; Z87.891 Personal history of nicotine dependence; Z99.2 Dependence on renal dialysis; Z79.4 Long term (current) use of insulin; Z88.1 Allergy status to other antibiotic agents; Z88.0 Allergy status to penicillin; Z88.2 Allergy status to sulfonamides; Z88.8 Allergy status to other drugs, medicaments and biological substances; Z91.018 Allergy to other foods; Z79.82 Long term (current) use of aspirin; Z79.02 Long term (current) use of antithrombotics/antiplatelets; Z86.16 Personal history of COVID-19; Z68.33 Body mass index [BMI] 33.0-33.9, adult; Z82.49 Family history of ischemic heart disease and other diseases of the circulatory system; Z82.3 Family history of stroke; Z83.3 Family history of diabetes mellitus
CPT/HCPCS: 36600; 71045; 80048; 80051; 80053; 82805; 82962; 83036; 83735; 83880; 84100; 84443; 84478; 84484; 85014; 85018; 85025; 85027; 85610; 85730; 87070; 87502; 87811; 93005; 93306; 94002; 94003; 94660; 96365; 96366; 96375; 97163; 97167; 99291; G0257; P9047; Q5106

== ENCOUNTER → 2024-12-14 09:41 | Outpatient (REF) | payer MEDICARE, SELFPAY ==
[2024-12-14 10:01] VITALS: BP 166/79; BP_SYST 79
== END ==
LOC: RADI 09:41
PROVIDERS: ATTENDING PHYSICIAN Internal Medicine; FAMILY PHYSICIAN Family Medicine
DX: Z49.01 Encounter for fitting and adjustment of extracorporeal dialysis catheter (principal); N18.6 End stage renal disease
CPT/HCPCS: 36589

== ENCOUNTER → 2025-02-07 13:12 | Outpatient (REF) | payer MEDICARE, SELFPAY | LOC: RAD 13:12 | PROVIDERS: ATTENDING PHYSICIAN Surgery Vascular Surgery; FAMILY PHYSICIAN Family Medicine | DX: I73.9 Peripheral vascular disease, unspecified (principal) | CPT/HCPCS: 93922 ==

== ENCOUNTER 2025-05-22 15:40 | Inpatient (IN) | payer MEDICARE, SELFPAY ==
[2025-05-22] VITALS (22 sets, daily range): BP systolic 74–133; BP diastolic 40–104; PULSE 2–72; BMI 35.6; BMI 35.3
--- NOTE | 2025-05-22 12:44 | ED.GENMED ---
History of Present Illness
General
Chief Complaint: Breathing Problem
Time Seen by Provider: 05/22/25 12:33
History of Present Illness
History of Present Illness:
59-year-old male with history of insulin-dependent diabetes, end-stage renal disease on peritoneal dialysis, CHF, hypertension, hyperlipidemia presents to the emergency department for evaluation of shortness of breath for the past 4 to 5 days. He
notes that for the past several days he has had difficulty with peritoneal dialysis where the fluid return does not match the fluid infused. He has gained 4 pounds over this time. He also notes that he was constipated and began on a bowel regimen,
has had large volume bowel movements with no improvement in weight or shortness of breath. He also self d/c his furosemide 5d ago due to low BPs. Reports a temperature of 102.3 Fahrenheit last night. Also notes coughing and right shoulder
discomfort when lying supine or on his right side.
Past History
Past History
ED Past Medical History: CHF, HTN, IDDM and Renal failure
Social History
Tobacco: Former smoker
Alcohol: None
Drug: None
Personal:
Living: with family
Review of Systems
Review of Systems
Allergies reviewed?: Yes
All Other Systems: ROS reviewed and negative except as documented in HPI and ROS
Phy Exam
Physical Exam
Physical Exam:
GEN: Well appearing, NAD, WDWN
HEENT: Oral mucosa moist, no scleral icterus
Cardiac: Regular rate and rhythm, no murmurs
Lung: No respiratory distress, no tachypnea, diminished right base breath sounds, no rales or crackles
MSK: No gross deformity or injuries
Skin: Good color, no pallor or jaundice, no rashes
Neuro: AO x3, moves all extremities freely
Psych: Calm, cooperative
Scores
Heart Failure Risk
Heart Failure Risk Score: Yes
History of Stroke or TIA: No
History of intubation for respiratory distress: No
Heart rate on ED arrival >/= 110: No
SaO2 <90% on arrival on room air: Yes
HR >/=110 during 3min walk test (or too ill to perform test): Yes
ECG has acute ischemic changes: Yes
Urea >/=12mmol/L (BUN 33.6mg/dL): Yes
Serum CO2>/=35mmol/L: Yes
Troponin I or T elevated to NE Level (0.4mg/dL): Yes
NT-proBNP >/=5,000ng/L (5,000pg/ml): Yes
HF Risk Score: 11
Admission Status: VERY HIGH RISK 89% Consider Admission to hospital
Course
Orders/Labs/Results
Orders:
Orders
05/22/25 12:44
Electrocardiogram (*1) Urgent
Reason for Study: Chest Pain
EKG- Treatment ONCE
CR Chest - 2 Views Urgent
Comment:
Reason For Exam: SOB
05/22/25 12:50
Complete Blood Count/With Diff Urgent
Comprehensive Metabolic Panel Urgent
Lactic Acid Q4H
Comment: CANCEL 2nd LACTIC ACID IF 1st LACTIC ACID IS LESS THAN 2
NT-proBNP Urgent
Troponin I Urgent
Blood Culture Q30M
THALIA Source: Blood/Venous
Specimen Description:
05/22/25 12:51
COVID-19 Antigen Urgent
Source: Nasal Swab
Blood Culture Q30M
THALIA Source: Blood/Venous
Specimen Description:
Influenza A+B Rapid Molecular Urgent
THALIA Source: Nasal Swab
Specimen Description:
05/22/25 13:47
Urinalysis Reflex To Culture Urgent
CefTRIAXone [Rocephin] 1,000 mg IV NOW STA
Furosemide [Lasix] 40 mg IV NOW STA
05/22/25 14:06
Sterile Water [Sterile Water For Injection] 10 ml .ROUTE .[facility] ONE
05/22/25 14:19
Echo 2D MMode Color/Doppler Urgent
Reason for Study: Chest pain
05/22/25 14:21
Heparin 4,000 units IV NOW STA
Heparin Protocol- PTT Orders As Directed
PTT per Heparin protocol: -Obtain CBC and baseline PTT - if not already collected.
-Obtain PTT 6 hours from start of infusion. Then, every 6 hours until 2 consecutive
PTT's are therapeutic. Then, PTT Daily.
-With each rate change, obtain PTT every 6 hours until 2 consecutive PTT's are
therapeutic. Then, PTT Daily.
Notify MD As Directed
Notify physician if: PTT is greater than or equal to 200.
05/22/25 14:22
Aspirin Chewable [Low Strength Aspirin] 243 mg PO NOW STA
05/22/25 14:30
Heparin 70111 Units/250 ml 25,000 units in 250 ml IV PER PROTOCOL
Weight to be used for heparin protocol in kilograms (kg):: 112.4
Protocol:: Cardiac Tx/Acute Coronary
PTT Goal Range to be used:: PTT 73 to 111 seconds
Order type:: Initial
INITIAL Infusion Dose (UNITS/KG/hr) & then follow protocol:: 12 units/kg/hr
Infusion Dose in UNITS/hr & then follow protocol (UNITS/hr):: 1,000
INFUSION RATE in mL/hr & then follow protocol (mL/hr):: 10
PTT less than or equal to 64 seconds:: Increase rate by 200 units/hr (+ 2 mL/hr)
PTT 64.1 to 72.9 seconds:: Increase rate by 100 units/hr (+ 1 mL/hr)
PTT 73 to 111 seconds:: Target Range. No change in rate.
PTT 111.1 to 130.9 seconds:: Decrease rate by 100 units/hr (- 1 mL/hr)
PTT 131 to 199.9 seconds:: HOLD for 1 hr. Then decrease rate by 200 units/hr (- 2 mL/hr)
PTT greater than or equal to 200 seconds:: HOLD for 2 hrs & Notify Provider. Then decrease by 200 units/hr (-
2 mL/hr)
Lab follow-up:: Each change, PTT q6h until 2 consecutive are therapeutic. Then PTT
daily.
05/22/25 14:53
EKG [Electrocardiogram (*1)] Urgent
Reason for Study: Chest Pain
EKG- Treatment ONCE
05/22/25 15:05
Admit/Transfer Patient As Directed
Co-Sign Provider:
Level of Care: Inpatient admission
Assign to:: IMU- Intermediate Care
Physician / Group: Tino Foss
Diagnosis: acute HFpEF, respiratory insufficiency, NSTEMI
Reason for Hospitalization: acute HFpEF, respiratory insufficiency, NSTEMI
Expected length of stay greater than two midnights?: Yes
ELOS- Estimated Length of Stay in days: 3
I certify the patient meets the requirements for IP care: Yes
05/22/25 15:06
PRN Pain Medication Management As Directed
May give lesser potent ordered pain med per pt: Yes
preference::
Protocol:: Medication orders for pain may be administered in a
manner that supports deferring to patient preference
when the pt is:
- Requesting an ordered lesser potent pain medication.
Least to most potent pain medications are defined
as: acetaminophen < NSAID < tramadol < opioids
(morphine, oxycodone, hydromorphone).
- Requesting a lesser dose of the same medication IF
ORDERED.
- Requesting a less intrusive route of administration
if both routes are prescribed by the provider (PO <
IV).
05/22/25 15:08
Code Status As Directed
Resuscitation Status: Full Code
05/22/25 15:50
EKG [Electrocardiogram (*1)] Routine
Reason for Study: Abnormal EKG
05/22/25 16:36
PTT Urgent
Comment: Obtain baseline before beginning heparin infusion if not already collected
05/22/25 16:39
Troponin I Urgent
05/24/25 06:00
Complete Blood Count/No Diff Q2D
Comment: Notify MD if platelet count is <130,000 or decreases by 50% from baseline
05/26/25 06:00
Complete Blood Count/No Diff Q2D
Comment: Notify MD if platelet count is <130,000 or decreases by 50% from baseline
05/28/25 06:00
Complete Blood Count/No Diff Q2D
Comment: Notify MD if platelet count is <130,000 or decreases by 50% from baseline
05/30/25 06:00
Complete Blood Count/No Diff Q2D
Comment: Notify MD if platelet count is <130,000 or decreases by 50% from baseline
06/01/25 06:00
Complete Blood Count/No Diff Q2D
Comment: Notify MD if platelet count is <130,000 or decreases by 50% from baseline
06/03/25 06:00
Complete Blood Count/No Diff Q2D
Comment: Notify MD if platelet count is <130,000 or decreases by 50% from baseline
06/05/25 06:00
Complete Blood Count/No Diff Q2D
Comment: Notify MD if platelet count is <130,000 or decreases by 50% from baseline
06/07/25 06:00
Complete Blood Count/No Diff Q2D
Comment: Notify MD if platelet count is <130,000 or decreases by 50% from baseline
Abnormal Lab Results
05/22/25
12:50
WBC 16.4 H 10^3/uL
(4.8-10.8)
RBC 3.91 L 10^6/uL
(4.70-6.10)
Hgb 11.1 L g/dL
(13.0-18.0)
Hct 32.9 L %
(39.0-52.0)
MPV 11.3 H fL
(7.4-10.4)
Abs Immat Gran (auto) 0.1 H 10^3/uL
(0-0.05)
Absolute Neuts (auto) 13.7 H 10^3/uL
(1.4-6.5)
Absolute Monos (auto) 1.1 H 10^3/uL
(0.1-0.6)
Immature Gran % 0.7 H %
(0-0.5)
Neutrophils % 83.8 H %
(42.2-75.2)
Lymphocytes % 7.9 L %
(20.5-51.1)
Sodium 130 L mmol/L
(135-145)
Chloride 95 L mmol/L
(98-107)
BUN 79 H mg/dl
(9-20)
Creatinine 8.3 H* mg/dL
(0.7-1.3)
Glucose 173 H mg/dl
(70-99)
Calcium 8.3 L mg/dl
(8.4-10.2)
AST 69 H U/L
(17-59)
Troponin I 52.200 H* ng/ml
05/22/25 12:50
05/22/25 12:50
Vital Signs
Initial and Last Documented VS:
Initial Vital Signs
Temp Pulse Resp BP Pulse Ox
98.3 F 102 20 121/90 92
05/22/25 12:33 05/22/25 12:33 05/22/25 12:33 05/22/25 12:33 05/22/25 12:33
Last Documented Vital Signs
Temp Pulse Resp BP Pulse Ox
98.3 F 118 22 110/83 94
05/22/25 12:33 05/22/25 16:00 05/22/25 16:00 05/22/25 16:00 05/22/25 16:15
MDM/Problems Addressed
MDM/Problems Addressed:
Patient presenting severely volume overloaded likely due to noncompliance with diuretics. Severely elevated troponin was discussed with cardiology, at this time I do not have a high suspicion for ACS given his presentation, will initiate diuresis
at this point due to hypoxia and signs of vascular congestion on x-ray. Chest prior to admission the patient developed a SVT however rate gradually downtrended while in the ED, initiated Cardizem drip after discussion with cardiology
*Pulse Oximetry
SaO2: 92
Oxygen Mode of Delivery: Room air
Patient hypoxic: no
*Critical Care Note
Total Time (30-74mins, 75-104mins- exclusive of procedures): 60 minutes
comment:
Critical care time: 60 minutes
Critical care time was exclusive of: Separately billable procedures, treating other patients, and teaching time
Critical care was necessary to treat or prevent imminent or life-threatening deterioration of the following conditions: Acute CHF/tachyarrhythmia
Critical care time spent personally by me on the following activities:
[x] Review of old charts
[x] Obtaining history from patient or surrogate
[x] Ordering and review of the laboratory studies
[x] Ordering and review of radiographic studies
[x] Ordering and performing treatments and interventions
[x] Patient patient's response to treatment
[x] Development of treatment plan with patient or surrogate
ED Attending Note
-
Portions of this chart may have been created with voice recognition software.� Occasional wrong word or��sound alike� substitutions may have occurred due to the inherent limitations of voice recognition software.
Discharge Plan
Departure
Patient Disposition: Admit
Date of Disposition: 05/22/25
Time of Disposition: 14:08
Admit to: Telemetry
Presentation/result/management discussed w/ accepting MD/DO: Hospitalist
Discharge Problem:
Acute heart failure with preserved ejection fraction (HFpEF)
Interventions
Interventions:
*Risk Screen - Suicide Last Done: 05/22/25 12:33
*General Assessment Last Done: 05/22/25 12:33
*Neglect/Abuse Screening Last Done: 05/22/25 12:33
*ED COVID-19 Vaccine History Last Done: 05/22/25 12:33
ED- Cardiac Assessment Last Done: 05/22/25 12:45
ED- Pulmonary Assessment Last Done: 05/22/25 12:45
[2025-05-22 13:10] LABS: Hematocrit 32.9 % (39.0-52.0); Hemoglobin 11.1 g/dL (13.0-18.0); Mean Corp Hgb Conc. 33.7 g/dL (33.0-37.0); Mean Corpuscular Volume 84.1 fL (80.0-94.0); Nucleated Red Blood Cells % 0 % (-); Platelet Count 217 10^3/uL (130-400); Red Cell Dist. Width 14.4 % (11.5-14.5)
--- NOTE | 2025-05-22 13:15 | EDRN ---
Received patient from home via EMS. Patient wtih c/o increased SOB over the past 4-5 days. Patient stated that his blood pressure has been in the 90's for the past 5 days and has not taken his Lasix or Coreg because of it. Patient with c/o
intermittent chest tightness also for the past 5 days. +GUZMAN noted on minimal exertion. Patient SOB while answering questions. Patient stated that he has not been draining as much fluid with his PD dialysis the past couple of days.
[2025-05-22 13:19] LABS: ALT (SGPT) 36 U/L (0-50); AST (SGOT) 69 U/L (17-59); Albumin 3.8 g/dl (3.5-5.0); Alkaline Phosphatase 65 U/L (38-126); Blood Urea Nitrogen 79 mg/dl (9-20); Calcium 8.3 mg/dl (8.4-10.2); Carbon Dioxide 22 mmol/L (22-30); Chloride 95 mmol/L (98-107); Glucose 173 mg/dl (70-99); Potassium 3.9 mmol/L (3.5-5.1); Sodium 130 mmol/L (135-145); Total Protein 6.4 g/dl (6.3-8.2); eGFR 6.84
[2025-05-22 13:24] LABS: COVID-19 Antigen Negative (Negative)
[2025-05-22 13:43] LABS: Troponin I 52.200 ng/ml
[2025-05-22] MEDS: ROCEPHIN 1000 MG IV (14:12)
[2025-05-22] MEDS: LASIX 40 MG IV (14:12)
--- NOTE | 2025-05-22 14:12 | HPS.HSE ---
Family Physician
-
Family Physician: Milind [place]
Chief Complaint
-
chest heaviness
History of Present Illness
Patient is a 59-year-old male with past medical history of hypertension, atrial fibrillation, chronic HFpEF, ESRD on PD and DM-II who presented to [facility] ED for evaluation of chest heaviness. Patient explains that he has not been feeling well over the
past 4-5 days, he reports chest pressure that has intermittently radiated to his left arm and currently right shoulder and neck. He states he has had increased bloating with belching. He reports chest pressure and bloating have had some improvement
if he uses GasX. He states he had increased shortness of breath over last 4-5 days at rest and with exertion, a 4 pound weight gain, diarrhea, dizziness, fevers and chills with dry cough. Patient reports transitioning from HD to PD 7-8 months ago
and states he has been doing well. He normally takes Lasix daily at home but was stopped 5 days ago related to hypotension at home.
Medical History
Past Medical History
Past Medical History: Reports Other
Additional Past Medical History:
hypertension
atrial fibrillation
chronic HFpEF
ESRD on HD
DM-II
GERD
diabetic retinopathy
nephropathy
CVA
PAD
Past Surgical History: Reports Other
Additional Past Surgical History:
R IJ Tunneled HD Catheter Placed
PD Catheter Placement
Bilateral LE Angioplasties (Multiple)
Cataracts
Foot Surgery
Renal Biopsy
Social History
Tobacco: Former Smoker (Quit smoking in 1980s)
Alcohol: None
Drug: None
Living: With Family
Employment: Disabled
Family History
Family History: Other (Mother: stomach cancer, CAD; Father: CAD, CVA)
Allergies / Home Medications
Allergies reflects when Allergies were last updated in [facility].
Home Medications with original date entered in [facility]
Allergy/Medication List:
Allergies
Allergy/AdvReac Type Severity Reaction Status Date / Time
JOHNATHON Inhibitors Allergy Swelling Verified 05/22/25 12:44
and HTN
acyclovir Allergy Swelling Verified 05/22/25 12:44
clindamycin Allergy Swelling Verified 05/22/25 12:44
ethacrynic acid Allergy nausea/ Verified 05/22/25 12:44
vomiting
honey Allergy Throat Verified 05/22/25 12:44
closes,
rash
hydralazine Allergy angioedema Verified 05/22/25 12:44
losartan Allergy palpitation Verified 05/22/25 12:44
s
metformin Allergy 'shut my Verified 05/22/25 12:44
liver
down, GI
Bleed'
metoprolol Allergy angioedema, Verified 05/22/25 12:44
Tachycardia,
HTN
mint Allergy Throat Verified 05/22/25 12:44
closes,
rash
mold Allergy Throat Verified 05/22/25 12:44
closes,
rash
nifedipine Allergy Angioedema Verified 05/22/25 12:44
Penicillins Allergy Anaphylaxis Verified 05/22/25 12:44
pollen extracts Allergy Throat Verified 05/22/25 12:44
closes,
rash, itch
[id number] Reductase Allergy Rash, Verified 05/22/25 12:44
Inhibitor blistering
Sulfa (Sulfonamide Allergy Anaphylaxis Verified 05/22/25 12:44
Antibiotics) and hives
tetracycline Allergy Anaphylaxis Verified 05/22/25 12:44
Home Medications
insulin degludec 100 unit/mL (3 mL) subcutaneous pen (Tresiba FlexTouch U-100 insulin) 32 unit SC HS Diabetes 04/26/22
furosemide 80 mg tablet 80 mg PO DAILY Fluid retention/Swelling 02/03/23
insulin aspart U-100 100 unit/mL (3 mL) subcutaneous pen (Novolog FlexPen U-100 Insulin aspart) 0 sliding scale dose SC MEALS Diabetes 02/03/23
calcium acetate(phosphat bind) 667 mg tablet 667 mg PO AC Supplement 12/22/23
carvedilol 25 mg tablet (Coreg) 12.5 mg PO BID Blood pressure 12/22/23
aspirin 81 mg tablet,delayed release 81 mg PO DAILY Blood Clot Prevention/Tx 12/27/23
fenofibrate nanocrystallized 48 mg tablet 48 mg PO NOON HIGH TRIGLYCERIDES 09/30/24
cholecalciferol (vitamin D3) 25 mcg (1,000 unit) tablet (Vitamin D3) 25 mcg PO DAILY Supplement 05/22/25
diltiazem HCl 120 mg capsule,extended release 24 hr 120 mg PO DAILYPRN PRN afib 05/22/25
Review of Systems
-
History Source: Patient
Constitutional: Reports Fever, Night Sweats and Chills
EENT: Denies Sore Throat
Respiratory: Reports Cough (dry ) and Trouble Breathing (shortness of breath at rest and exertional )
Cardiac: Reports Chest Pain (more chest pressure )
Abdomen/GI: Reports Nausea, Vomiting and Diarrhea
: Denies Dysuria or Urgency
Skin: Denies Rash
Neurological: Reports Dizzy; Denies Headache or Weakness
Psych: Reports Calm
Physical Exam
Vital Signs
Vital Signs
Temp Pulse Resp BP Pulse Ox
98.3 F 100 26 116/90 93
05/22/25 12:33 05/22/25 13:45 05/22/25 13:45 05/22/25 13:00 05/22/25 13:45
Physical Exam
General: Well Developed, Well Nourished, No Apparent Distress and Obese
HEENT: NormoCephalic, Moist mucous membranes and Atraumatic
Respiratory: Clear and Decreased Breath Sounds
Cardiac: S1/S2, Regular Rhythm and Tachycardia; No Murmur, Rub or Gallop
Breast: Deferred by me
GI: Soft, Non Tender and Non Distended
Rectal: Deferred by Provider
Genito-urinary: Deferred by me
Musculoskeletal: No Clubbing, No Cyanosis and No Edema
Skin: Warm and IV/Catheter Site
Neuro: Awake, AO x 3 and Nonfocal/grossly intact
Psych: Calm
Laboratory Results
-
05/22/25 12:50
05/22/25 12:50
Laboratory Results
Lactic Acid 1.7 mmol/L (0.7-2.0) 05/22/25 12:50
Total Bilirubin 1.1 mg/dl (0.2-1.3) 05/22/25 12:50
AST 69 U/L (17-59) H 05/22/25 12:50
ALT 36 U/L (0-50) 05/22/25 12:50
Alkaline Phosphatase 65 U/L (38-126) 05/22/25 12:50
Troponin I 52.200 ng/ml H* 05/22/25 12:50
Data Reviewed
-
Medical Tests (Nuc Med, Echo, EKG etc): Report Reviewed by me (EKG: NORMAL SINUS RHYTHM CANNOT RULE OUT INFERIOR INFARCT , AGE UNDETERMINED ANTERIOR INFARCT , AGE UNDETERMINED MARKED ST ABNORMALITY, POSSIBLE LATERAL SUBENDOCARDIAL INJURY)
Lab Data: Labs Reviewed by me (WBC 16.4, Neut 83.8, Na+ 130, BUN 79, Creat 8.3, Trop 52.200, pBNP >34708)
Impression/Plan
-
IMPRESSION/PLAN:
#acute respiratory insufficiency likely 2/2 acute HFpEF/volume overload
pBNP >69307
- Admit to IMU
- Consult Cardiology
- Consult Necrology
- Diuresis per nephrology
- ECHO in AM
- daily weights
- I & Os
#NSTEMI
Trop 52.200
EKG: NORMAL SINUS RHYTHM
CANNOT RULE OUT INFERIOR INFARCT , AGE UNDETERMINED
ANTERIOR INFARCT , AGE UNDETERMINED
MARKED ST ABNORMALITY, POSSIBLE LATERAL SUBENDOCARDIAL INJURY
- heparin gtt
- trend troponin
- ECHO in AM
#leukocytosis
WBC 16.4, Neut 83.8
- empiric antibiotics (IV Rocephin)
- will have Nephrology culture PD
#ESRD on PD
Na+ 130, BUN 79, Creat 8.3
- Consult Nephrology
#hypertension
- continue carvedilol
#atrial fibrillation
- continue diltiazem
#DM-II
- AccuCheck AC & HS
- SSI
- continue Tresiba
Code status: full code
DVT prophylaxis: heparin gtt
--- NOTE | 2025-05-22 14:31 | CON.CAR ---
Addendum entered and electronically signed by George Bal MD 05/22/25 18:43:
LVEF 30% by echocardiogram. Switch Diltiazem to IV Amiodarone for rate control. Continue IV Heparin. Still no plan for emergent catheterization. Trop is downtrending and he is chest pain free. Would like to get his respiratory status more optimized
prior to [facility]. Discussed with nephrology at bedside. Will try IV diuresis and escalate to hemodialysis if needed for volume management. Patient being moved to ICU.
Addendum entered and electronically signed by George Bal MD 05/22/25 16:32:
I saw and examined the patient.
The CRICKET COACH's note was reviewed and I agree with the note.
Comment:
59-year-old male with ESRD on peritoneal dialysis, HFpEF, paroxysmal atrial fibrillation, CVA, PAD, type 2 diabetes mellitus, and obesity who presented to the emergency department with a chief complaint of shortness of breath. He has had shortness
of breath and stuttering chest pain for the past 4 days. He also complains of bilateral lower extremity edema and orthopnea. In the ER troponin is 52. Initial ECG shows normal sinus rhythm with lateral ST depressions and inferior Q waves (old).
At the time of my assessment he is chest pain-free but reports that he had chest pain 5 minutes ago while in the ER.
Physical exam: Regular rate and rhythm, no murmurs, crackles at bilateral lung bases, nonpitting bilateral lower extremity edema
His symptoms and elevated troponin are concerning for type I NSTEMI. Unfortunately with 4 days of symptoms and his troponin already being 52, I suspect that his event was at least 12-24 hours ago. We will start him on IV heparin and give him full
dose aspirin. At this time he does not have any indication for emergent cardiac catheterization, but we need to keep a very close eye on him. If he develops recurrent refractory chest pain, significant ectopy, hemodynamic instability, or
worsening heart failure symptoms, we will need to take him to cardiac catheterization urgently. We will check an echocardiogram. We should trend troponins and ECGs every 6 hours. He already received 1 dose of IV Lasix in the ER. I would hold on
any further diuretics until we sort out his LVEF.
Since I saw him, he developed atrial flutter with rapid ventricular response. He is on a heparin drip for anticoagulation as above. Unfortunately he has a reported history of angioedema to metoprolol. He was started on a Cardizem drip by the ER.
Hopefully his ejection fraction is normal. Otherwise we will have to switch to some other agent. He has not been compliant with Eliquis so cardioversion is not an option.
Original Note:
Consultation
Consultation Request
Date/Time Consultation Requested: 05/22/2025 14:00
Date/Time Consultation Performed: 05/22/2025 14:00
Requesting Provider: Norberto Ruiz PA-C
Performing Provider: EDISON Pickering for Dr. Bal
Reason for Consultation: Abnormal troponin
Medical History
-
Chief Complaint: Shortness of breath
History of Present Illness:
Walter Williamson is a 59-year-old male with ESRD on peritoneal dialysis, HFpEF, paroxysmal atrial fibrillation, CVA, PAD, type 2 diabetes mellitus, and obesity who presented to the emergency department with a chief complaint of shortness of breath.
He endorses associated chest pain. His shortness of breath has been ongoing for approximately 4 days. In this period of time he has gained approximately 4 pounds. Regarding his chest pain, he describes it as a midsternal anterior pressure. It
comes and goes. It will occur with exertion and at rest. He occasionally will have nausea when he is experiencing chest discomfort. He is currently chest pain-free. Cardiology was consulted as he was found to have a troponin of 52.[address]
depression on his EKG.
He was seen by cardiology when he was admitted earlier this year with ventilator dependent respiratory failure in the setting of COVID-19. He had a type II LA. He was diagnosed with new onset atrial fibrillation. His clopidogrel was stopped and
apixaban was started. The plan was for an outpatient stress test. He did not follow-up with cardiology in the outpatient setting.
Past Medical History
Past Medical History: Arrhythmias (Paroxysmal atrial fibrillation), CHF (HFpEF), CVA, HTN, Hypercholesterolemia, IDDM and Renal Failure (ESRD on PD)
Past Surgical History: Other (PD catheter placement)
Social History
Tobacco: Former Smoker
Alcohol: None
Living: With Family
Employment: Retired
Family History
Family History: Reviewed & Not Pertinent
Allergies / Home Medications
Allergy/AdvReac Type Severity Reaction Status Date / Time
JOHNATHON Inhibitors Allergy Swelling Verified 05/22/25 12:44
and HTN
acyclovir Allergy Swelling Verified 05/22/25 12:44
clindamycin Allergy Swelling Verified 05/22/25 12:44
ethacrynic acid Allergy nausea/ Verified 05/22/25 12:44
vomiting
honey Allergy Throat Verified 05/22/25 12:44
closes,
rash
hydralazine Allergy angioedema Verified 05/22/25 12:44
losartan Allergy palpitation Verified 05/22/25 12:44
s
metformin Allergy 'shut my Verified 05/22/25 12:44
liver
down, GI
Bleed'
metoprolol Allergy angioedema, Verified 05/22/25 12:44
Tachycardia,
HTN
mint Allergy Throat Verified 05/22/25 12:44
closes,
rash
mold Allergy Throat Verified 05/22/25 12:44
closes,
rash
nifedipine Allergy Angioedema Verified 05/22/25 12:44
Penicillins Allergy Anaphylaxis Verified 05/22/25 12:44
pollen extracts Allergy Throat Verified 05/22/25 12:44
closes,
rash, itch
Jpaarbn-WAF-ZrS Reductase Allergy Rash, Verified 05/22/25 12:44
Inhibitor blistering
Sulfa (Sulfonamide Allergy Anaphylaxis Verified 05/22/25 12:44
Antibiotics) and hives
tetracycline Allergy Anaphylaxis Verified 05/22/25 12:44
�Medication �Instructions �Recorded �Confirmed �Type
insulin degludec 100 unit/mL (3 32 unit SC HS Diabetes 04/26/22 05/22/25 History
mL) subcutaneous pen (Tresiba
FlexTouch U-100 insulin)
furosemide 80 mg tablet 80 mg PO DAILY Fluid 02/03/23 05/22/25 History
retention/Swelling
insulin aspart U-100 100 unit/mL 0 sliding scale dose SC MEALS 02/03/23 05/22/25 History
(3 mL) subcutaneous pen (Novolog Diabetes
FlexPen U-100 Insulin aspart)
calcium acetate(phosphat bind) 667 667 mg PO AC Supplement 12/22/23 05/22/25 History
mg tablet
carvedilol 25 mg tablet (Coreg) 12.5 mg PO BID Blood pressure 12/22/23 05/22/25 History
aspirin 81 mg tablet,delayed 81 mg PO DAILY Blood Clot 12/27/23 05/22/25 History
release Prevention/Tx
fenofibrate nanocrystallized 48 mg 48 mg PO NOON HIGH TRIGLYCERIDES 09/30/24 05/22/25 History
tablet
cholecalciferol (vitamin D3) 25 25 mcg PO DAILY Supplement 05/22/25 05/22/25 History
mcg (1,000 unit) tablet (Vitamin
D3)
diltiazem HCl 120 mg 120 mg PO DAILYPRN PRN afib 05/22/25 05/22/25 History
capsule,extended release 24 hr
Review of Systems
-
History Source: Patient
All other systems: Negative unless noted
Constitutional: Fever, Weight Gain and Fatigue
EENT: No Symptoms
Respiratory: Trouble Breathing
Cardiac: Chest Pain
Abdomen/GI: No Symptoms
: No Symptoms
Musculoskeletal: Edema
Skin: No Symptoms
Neurological: No Symptoms
Endocrine: No Symptoms
Hematologic/Lymphatic: No Symptoms
Physical Exam
Vital Signs
Temp Pulse Resp BP Pulse Ox
98.3 F 97 26 127/92 93
05/22/25 12:33 05/22/25 14:12 05/22/25 13:45 05/22/25 14:12 05/22/25 13:45
Lab Results
05/22/25 12:50
05/22/25 12:50
Troponin I 52.200 ng/ml H* 05/22/25 12:50
Uio-J-Fuqcjzialah Pept > 03218 pg/ml 05/22/25 12:50
Physical Exam
General: Well Developed and Well Nourished
HEENT: Normocephalic and Anicteric
Respiratory: Crackles and Accessory Resp Muscle Use
Cardiac: S1/S2 and Regular Rhythm
Breast: Deferred by me
GI: Soft, Non Tender, Non Distended and Normal Bowel Sounds
Rectal: Deferred by Provider
Genito-urinary: No Costovertebral Tender
Musculoskeletal: No Clubbing and No Cyanosis
Skin: Warm and Dry
Neuro: Awake and Alert
Hematologic/Lymphatic: No Lymphadenopathy
Psych: Calm
Impression / Plan
-
I/P: 59M with ESRD on peritoneal dialysis, HFpEF, paroxysmal atrial fibrillation, CVA, PAD, type 2 diabetes mellitus, and obesity who presented to the emergency department with a chief complaint of shortness of breath & chest pain
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 Gonzalez
Acute hypoxic respiratory insufficiency, in the setting of acute HFpEF/volume overload
- Diuresis as below
NSTEMI
- ASA given to total 324 mg
- Heparin bolus and drip
- EKG with ST depression
- Initial troponin 52.2, trend
- Echocardiogram
- Recent admission in October where he had a type II LA in the setting of acute hypoxic respiratory failure (ventilator dependent in the setting of COVID pneumonia) with a peak troponin of 6.310
Heart failure, presumed HFpEF, acute
- Diuresis per nephrology given his peritoneal dialysis
- ESRD prohibits the use of SGLT2i
Paroxysmal atrial fibrillation
- Stable in sinus rhythm, continue carvedilol and diltiazem (he is now taking this as needed at home)
- Oral anticoagulation: Apixaban was recommended at his last hospitalization, self discontinued
- [id number] score of at least 5 (DM, PAD, CVA, HF)
ESRD
- Does PD daily at home
- Nephrology consulted
Hypertension
- With his allergies and kidney disease, this is being managed by nephrology
Prior CVA
PAD, follows with Dr. King
Hypertriglyceridemia, on fenofibrate, statin intolerant
Type 2 diabetes mellitus, per primary service
Data Reviewed
-
EKG: Report Reviewed by me
Radiology: Report Reviewed by me
Medical Tests (Nuc Med, Echo etc): Report Reviewed by me
Labs: Labs Reviewed by me
Old Records: Reviewed
[2025-05-22] MEDS: LOW STRENGTH ASPIRIN 243 MG PO (14:37)
[2025-05-22] MEDS: HEPARIN 4000 UNITS IV (14:41)
[2025-05-22] MEDS: HEPARIN 25000 UNITS/250 ML IV (14:42)
[2025-05-22] MEDS: CARDIZEM 125 IV (16:21)
[2025-05-22 17:10] LABS: APTT 40.5 Sec (23.4-35.0)
[2025-05-22 17:12] LABS: Troponin I 48.600 ng/ml
--- NOTE | 2025-05-22 17:27 | W.PN.UPDATE ---
Addendum entered and electronically signed by Tino Foss MD 05/22/25 18:45:
Was contacted by [employer] bpm consultant
Patient EF has declined 30%,
Concern for further decompensation as PD and may not able to volume optimized rapidly enough to stabilize pulm status
Patient resistant to idea of HD
Original Note:
Update Note
Progress Note Update
I saw and examined the patient.
The GEOMAGNETIST's note was reviewed and I agree with the note.
59-year-old male with below mentioned PMH came to ER with new onset of shortness of breath which started slowly over the last 4 days. Patient with history of ESRD and was on hemodialysis in the past although for unclear reason patient has been
switched to peritoneal dialysis. And able to tolerate it without any problems. Patient stopped taking Lasix for 5 days back due to concern of hypotension and started noticing having worsening dyspnea. No overt chest pain/cough reported. Patient
also complained of having constipation, no nausea or vomiting reported.
HEENT: No pallor, cyanosis, or jaundice. Throat clear.
NECK: Supple. No JVD.
RESPIRATORY: Lungs clear to auscultation.
CVS: S1, S2 normal. Tachycardic
ABDOMEN: Soft, non-tender. No distension. BS+/normal.
EXTREMITIES: No peripheral cyanosis or edema.
SOLE CONDITIONER: AOx3. No focal deficits.
1. NSTEMI
-Troponin elevated to 52, follow-up troponin ordered
-EKG reviewed and no ST segment changes
-Cardiology evaluated and recommended patient to be managed conservatively as suspected symptoms ongoing more than 48 hours
-Patient may end up requiring heart catheterization if any concern of worsening cardiac function
-Cardio plan to do an echocardiogram
-Maintain on heparin drip
2. Hypoxic respiratory failure
Bilateral pleural effusion
-Chest x-ray showing pulmonary edema/congestion
-Likely volume overloaded as patient stopped taking Lasix reportedly peritoneal dialysis was not effective
-Patient got IV Lasix 40 g the ER, further dosing per nephrology
3. ESRD on peritoneal dialysis
- Was on hemodialysis in the past
- Admit to IMU with nephrology to help with continuation of peritoneal dialysis
4. Atrial flutter with 2-1 block
-Started on amiodarone drip
-on coreg as well
-monitor on telemetry
-Cardiology aware
5. Leukocytosis
Rule out infection
- Questioning if patient have peritoneal infection
-COVID neg.
-Can get urinalysis if able to provide sample
-Chest x-ray did not show any overt pneumonia
-Maintain on empiric Rocephin
6. Hyponatremia
- With ESRD, monitor
6. Essential hypertension
- Being started on diltiazem for rate control
7. Elevated AST
- As part of congestive hepatopathy?
- Monitor LFTs with patient required to be started on amiodarone drip
8. Insulin-dependent diabetes mellitus
- Maintain on regimen of insulin/sliding scale
Code status: full code
DVT prophylaxis: heparin gtt
[2025-05-22] MEDS: PHOSLO 667 MG PO (17:58)
[2025-05-22] MEDS: CORDARONE 518 MG IV (18:15)
--- NOTE | 2025-05-22 18:33 | PTCARENOTE ---
Patient arrived to IMU from ED. Slid from stretcher to bed. AOx3. Very SOB and unable to lay flat. SpO2 88% on 4L NC upon arrival to the floor. Increased to 6L midflow with SpO2 91%. Tachypnic, shallow, and pursed lip breathing. Sinus tach and a
flutter on monitor with HR in the 120's-140's. Switched to amio gtt and turned off cardizem gtt per order. Heparin gtt infusing per order. BP stable. Patient c/o of chest tightness. EKG completed per order. +3 B/L LE edema. Cardiology and nephrology
at bedside. Call roland within reach, bed in lowest position, and bed of wheels locked.
[2025-05-22 18:36] LABS: Glucose - Point of Care 198 mg/dl (70-99)
[2025-05-22 19:09] LABS: Hematocrit 33.2 % (39.0-52.0); Hemoglobin 11.4 g/dL (13.0-18.0); Mean Corp Hgb Conc. 34.3 g/dL (33.0-37.0); Mean Corpuscular Volume 83.2 fL (80.0-94.0); Platelet Count 227 10^3/uL (130-400); Red Cell Dist. Width 14.3 % (11.5-14.5)
--- NOTE | 2025-05-22 19:09 | RR ---
A Rapid Response was called on this patient, please see Rapid Response form.
This RN called a Rapid Response at approx 1845 due to patient complaining of worsening chest pain/tightness. Nephrology at bedside. HR in the 130's with amio gtt infusing. BP stable. EKG completed. On 6L midflow with SpO2 91%. HAND THERMAL CUTTER's and ICU REGULATORY COMPLIANCE ENGINEER
Deni at bedside. Bloodwork sent. Transferred patient to ICU.
[2025-05-22] MEDS: CORDARONE 103 MG IV (19:10)
--- NOTE | 2025-05-22 19:13 | W.CON.NEPH ---
Addendum entered and electronically signed by Milton Miguel DO 05/22/25 20:10:
discuss HD or [facility]. Pt wants to wait for effects of lasix despite my strong recommendation
extra 15 min CC time
Original Note:
Consultation
-
Date/Time Consultation Requested: May 22, 2025 1400
Date/Time Consultation Performed: May 22, 2025 7 PM
Requesting Provider: Nancy Costa
Performing Provider: Dr. Miguel
Reason for Consultation: End-stage renal disease
Medical History
-
Chief Complaint: ESRD
History of Present Illness:
59-year-old male with past medical history of hypertension, atrial fibrillation, chronic HFpEF, ESRD on PD and DM-II who presented to [facility] ED for evaluation of chest heaviness. Patient explains that he has not been feeling well over the past 4-5
days, he reports chest pressure that has intermittently radiated to his left arm and currently right shoulder and neck. Found to have NSTEMI. Seen in the ICU
Renal consult for end-stage renal disease on peritoneal dialysis
Recently transition to peritoneal dialysis about 6 months
Has been dealing with volume overload for the last few weeks and peritoneal orders have been changed but yet going to affect. He was to try a last fill of icodextrin to help with ultrafiltration but is yet to get the solution delivered
Initial workup shows diminished ejection fraction 32%.
Discussed with cardiology at length.
Family at the bedside
Patient is having labored breathing but is alert. He is nonoliguric at baseline
Estimated dry weight is 104.5 although he is cannot achieve that in quite a few weeks
His last recorded weight was 105.8 kg on 05/09 from outpatient record
Past Medical History
ESRD HD TTS
Renal biopsy September 2021.
Diabetic retinopathy.
Diabetic neuropathy.
PAD.
Anemia of CKD, maintained on SEEMA therapy.
History of iron deficiency.
Secondary hyperparathyroidism.
heart failure with preserved EF.
obesity
GERD.
CVA April 2022.
Hyperphosphatemia
Past Surgical History: Other ( Kidney biopsy 09/2021 Cyst removal from back extra bones removed from both feet age 12 Right eye cataract left eye cataract Arteriogram (King) 02/05/23 Rt heel debridement 03/04/23
Arteriogram left leg 12/27/23,left leg angipoplasty 05/09/24)
Social History
Tobacco: Non-Smoker
Alcohol: None
Drug: None
Living: With Family
Employment: Retired
Family History
Father with a history of CAD, stroke, .
Mother heart disease
Brother heart disease, half brotheer from father's side of the kidney disease on dialysis
grandmother with heart disease, maternal grandfather with a cerebral hemorrhage, diabetes
Maternal cousin with edema issues
Paternal uncle probably with the kidney disease.
Allergies / Home Medications
Allergy/AdvReac Type Severity Reaction Status Date / Time
JOHNATHON Inhibitors Allergy Swelling Verified 05/22/25 12:44
and HTN
acyclovir Allergy Swelling Verified 05/22/25 12:44
clindamycin Allergy Swelling Verified 05/22/25 12:44
ethacrynic acid Allergy nausea/ Verified 05/22/25 12:44
vomiting
honey Allergy Throat Verified 05/22/25 12:44
closes,
rash
hydralazine Allergy angioedema Verified 05/22/25 12:44
losartan Allergy palpitation Verified 05/22/25 12:44
s
metformin Allergy 'shut my Verified 05/22/25 12:44
liver
down, GI
Bleed'
metoprolol Allergy angioedema, Verified 05/22/25 12:44
Tachycardia,
HTN
mint Allergy Throat Verified 05/22/25 12:44
closes,
rash
mold Allergy Throat Verified 05/22/25 12:44
closes,
rash
nifedipine Allergy Angioedema Verified 05/22/25 12:44
Penicillins Allergy Anaphylaxis; Verified 05/22/25 17:25
tolerates
ceftriaxone
pollen extracts Allergy Throat Verified 05/22/25 12:44
closes,
rash, itch
Xtcxugw-UGV-PtM Reductase Allergy Rash, Verified 05/22/25 12:44
Inhibitor blistering
Sulfa (Sulfonamide Allergy Anaphylaxis Verified 05/22/25 12:44
Antibiotics) and hives
tetracycline Allergy Anaphylaxis Verified 05/22/25 12:44
�Medication �Instructions �Recorded �Confirmed �Type
insulin degludec 100 unit/mL (3 32 unit SC HS Diabetes 04/26/22 05/22/25 History
mL) subcutaneous pen (Tresiba
FlexTouch U-100 insulin)
furosemide 80 mg tablet 80 mg PO DAILY Fluid 02/03/23 05/22/25 History
retention/Swelling
insulin aspart U-100 100 unit/mL 0 sliding scale dose SC MEALS 02/03/23 05/22/25 History
(3 mL) subcutaneous pen (Novolog Diabetes
FlexPen U-100 Insulin aspart)
calcium acetate(phosphat bind) 667 667 mg PO AC Supplement 12/22/23 05/22/25 History
mg tablet
carvedilol 25 mg tablet (Coreg) 12.5 mg PO BID Blood pressure 12/22/23 05/22/25 History
aspirin 81 mg tablet,delayed 81 mg PO DAILY Blood Clot 12/27/23 05/22/25 History
release Prevention/Tx
fenofibrate nanocrystallized 48 mg 48 mg PO NOON HIGH TRIGLYCERIDES 09/30/24 05/22/25 History
tablet
cholecalciferol (vitamin D3) 25 25 mcg PO DAILY Supplement 05/22/25 05/22/25 History
mcg (1,000 unit) tablet (Vitamin
D3)
diltiazem HCl 120 mg 120 mg PO DAILYPRN PRN afib 05/22/25 05/22/25 History
capsule,extended release 24 hr
Review of Systems
-
Shortness of breath no current chest pain. Belching but no nausea or vomiting
Physical Exam
Vital Signs
Vital Signs
Temp Pulse Resp BP Pulse Ox
98.7 F 118 22 112/86 90
05/22/25 19:05 05/22/25 17:06 05/22/25 17:06 05/22/25 17:06 05/22/25 18:28
Lab Results
WBC 16.9 10^3/uL (4.8-10.8) H 05/22/25 19:03
RBC 3.99 10^6/uL (4.70-6.10) L 05/22/25 19:03
Hgb 11.4 g/dL (13.0-18.0) L 05/22/25 19:03
Hct 33.2 % (39.0-52.0) L 05/22/25 19:03
Plt Count 227 10^3/uL (130-400) 05/22/25 19:03
eGFR 6.84 05/22/25 12:50
Izk-T-Bouwssmxzyh Pept > 26495 pg/ml 05/22/25 12:50
Physical Exam
General no acute distress
HEENT no cephalic atraumatic extraocular muscle intact no scleral icterus no JVD neck supple
lungs coarse breath sounds
heart regular S1-S2 positive
abdomen soft nontender positive bowel sounds
extremities +3 edema pulses present bilateral
Neurologically nonfocal alert and oriented x 3
Skin no lesions no abrasions no petechiae
Psych normal affect no bizarre behavior
Data Reviewed
-
Radiology: Image Personally Visualized and interpreted
Labs: Labs Reviewed by me, Discussed with Physician, Discussed with Nurse, Discussed with Patient and Discussed with Family
Assessment/Plan
-
59-year-old male with past medical history of hypertension, atrial fibrillation, chronic HFpEF, ESRD on PD and DM-II who presented to [facility] ED for evaluation of chest heaviness. Patient explains that he has not been feeling well over the past 4-5
days, he reports chest pressure that has intermittently radiated to his left arm and currently right shoulder and neck. Found to have NSTEMI. Seen in the ICU
Renal consult for end-stage renal disease on peritoneal dialysis
Recently transition to peritoneal dialysis about 6 months
Has been dealing with volume overload for the last few weeks and peritoneal orders have been changed but yet going to affect. He was to try a last fill of icodextrin to help with ultrafiltration but is yet to get the solution delivered
Initial workup shows diminished ejection fraction 32%.
Discussed with cardiology at length.
Family at the bedside
Patient is having labored breathing but is alert. He is nonoliguric at baseline
Estimated dry weight is 104.5 although he is cannot achieve that in quite a few weeks
His last recorded weight was 105.8 kg on 05/09 from outpatient record
Impression.
ESRD on PD
NSTEMI
CHF ejection fraction 32% from previous echo September 2024 was 50%
Atrial fibrillation
Type 2 diabetes
Plan.
120 mg IV Lasix
Heparin
Discussed with cardiology will hold on cardiac catheterization until patient more stable. Patient's been having symptoms for about 4 to 5 days and likely not acute event though deferring to cardiology
Discussed with the patient about hemodialysis if we need aggressive ultrafiltration which he is opposed to at this time for various reasons although indication is he will accept it if needed
Amiodarone for rate control
He is nonoliguric at baseline will see his response to Lasix
Ordered peritoneal dialysis short dwell (2hrs)x 4 to increase ultrafiltration using 4.25% with close monitoring of his blood sugars as he has been having difficulty with hyperglycemia outpatient

70 minutes critical care time
[2025-05-22 19:19] LABS: INR 1.50; PT 18.4 Sec (11.4-14.6)
[2025-05-22 19:20] LABS: APTT 36.6 Sec (23.4-35.0)
[2025-05-22 19:24] LABS: ALT (SGPT) 35 U/L (0-50); AST (SGOT) 60 U/L (17-59); Albumin 3.7 g/dl (3.5-5.0); Alkaline Phosphatase 69 U/L (38-126); Blood Urea Nitrogen 78 mg/dl (9-20); Calcium 7.9 mg/dl (8.4-10.2); Carbon Dioxide 20 mmol/L (22-30); Chloride 94 mmol/L (98-107); Estimated Creatinine Clearance 11 ml/min; Glucose 184 mg/dl (70-99); Potassium 4.1 mmol/L (3.5-5.1); Sodium 130 mmol/L (135-145); Total Protein 6.2 g/dl (6.3-8.2); eGFR 6.38
[2025-05-22] MEDS: LASIX 120 MG PO (19:25)
[2025-05-22] MEDS: COREG 12.5 MG PO (19:25)
--- NOTE | 2025-05-22 19:30 | PTCARENOTE ---
pt adm to ICU from IMU after CAFE ASSOCIATE, pt aaox3, ongoing intermittent CP, LAC18 with amio & heparin gtt per MAR- IV team unable to place additional IV access during rapid- plan to come back to place Midline. BDoughJulio/Dr Miguel present &
discussing plan. care ongoing.
[2025-05-22 19:33] LABS: Magnesium 2.7 mg/dl (1.6-2.3)
[2025-05-22 19:41] LABS: Troponin I 46.100 ng/ml
[2025-05-22] MEDS: NOVOLOG FLEXPEN-LOW RESISTANCE 1 UNITS SC (20:09)
[2025-05-22] MEDS: LASIX 100 MG IV (20:09)
[2025-05-22 20:43] LABS: Blood Urea Nitrogen 83 mg/dl (9-20); Calcium 7.8 mg/dl (8.4-10.2); Carbon Dioxide 17 mmol/L (22-30); Chloride 95 mmol/L (98-107); Estimated Creatinine Clearance 12 ml/min; Glucose 217 mg/dl (70-99); Magnesium 2.7 mg/dl (1.6-2.3); Potassium 4.4 mmol/L (3.5-5.1); Sodium 129 mmol/L (135-145); eGFR 6.94
[2025-05-22 21:14] LABS: INR 1.64; PT 19.6 Sec (11.4-14.6)
[2025-05-22 21:15] LABS: APTT 74.0 Sec (23.4-35.0)
--- NOTE | 2025-05-22 22:00 | PTCARENOTE ---
pt c/o difficulty breathing, GUZMAN, very diaphoretic, Sat 89% on 6LNC, BDoughertyNP to bedside, vbg to lab, RT to place pt on Bipap.
[2025-05-22 22:12] LABS: Glucose - Point of Care 221 mg/dl (70-99)
[2025-05-22 22:21] LABS: Venous Blood Gas B.E. -6.9 mmol/L (-4 to +4); Venous Blood Gas O2 Sat % 65.8 %
[2025-05-22] MEDS: LEVOPHED 250 IV (22:35)
[2025-05-22] MEDS: LANTUS 0.32 UNITS SC (22:43)
[2025-05-23] VITALS (44 sets, daily range): BP systolic 85–145; BP diastolic 59–112; PULSE 2–91; BMI 35.1
[2025-05-23 00:23] LABS: B.E. -7.9 mmol/L; HCO3 15.5 mmol/L (21-28); O2 Saturation % 99.4 % (94-98); PCO2 25 mmHg (35-48); PO2 121 mmHg (83-108); Potassium 4.5 mMOL/L (3.5-5.1); Sodium 125 mMOL/L (136-145)
[2025-05-23] MEDS: NOVOLIN R 6 UNITS IV (01:15)
[2025-05-23] MEDS: NOVOLIN R INSULIN INFUSION 100 IV ×2 (01:20→07:25)
--- NOTE | 2025-05-23 02:39 | DOWNTIME ---
There was a [employer] Client Business Services Manager Downtime on 05/23/2025 from 0100 to 05/23/2025 at 0235. Downtime documentation of patient's care, including medication administrations, has been reconciled in the electronic record per guidelines. Refer to the
patient's paper chart under the miscellaneous tab to see printed paper medication records and downtime forms.
[2025-05-23 02:53] LABS: Troponin I 50.000 ng/ml
[2025-05-23 03:27] LABS: Glucose - Point of Care 377 mg/dl (70-99)
[2025-05-23 03:37] LABS: Hematocrit 32.5 % (39.0-52.0); Hemoglobin 10.8 g/dL (13.0-18.0); Mean Corp Hgb Conc. 33.2 g/dL (33.0-37.0); Mean Corpuscular Volume 85.8 fL (80.0-94.0); Platelet Count 194 10^3/uL (130-400); Red Cell Dist. Width 14.3 % (11.5-14.5)
[2025-05-23 03:50] LABS: APTT 43.0 Sec (23.4-35.0)
[2025-05-23 03:52] LABS: ALT (SGPT) 431 U/L (0-50); AST (SGOT) 569 U/L (17-59); Albumin 3.5 g/dl (3.5-5.0); Alkaline Phosphatase 56 U/L (38-126); Blood Urea Nitrogen 87 mg/dl (9-20); Calcium 8.1 mg/dl (8.4-10.2); Carbon Dioxide 21 mmol/L (22-30); Chloride 94 mmol/L (98-107); Estimated Creatinine Clearance 12 ml/min; Glucose 361 mg/dl (70-99); HDL Cholesterol 20 mg/dl; LDL Cholesterol, Calculated 82 mg/dl; Potassium 3.9 mmol/L (3.5-5.1); Sodium 129 mmol/L (135-145); Total Protein 5.9 g/dl (6.3-8.2); Very Low Density Lipoprotein 29 mg/dl (0-30); eGFR 6.56
[2025-05-23 04:19] LABS: Glucose - Point of Care 348 mg/dl (70-99)
[2025-05-23 05:19] LABS: Glucose - Point of Care 340 mg/dl (70-99)
[2025-05-23 06:17] LABS: Glucose - Point of Care 243 mg/dl (70-99)
--- NOTE | 2025-05-23 06:25 | W.PN.CD ---
Today's Communication / Plan
-
Atrial flutter converted to sinus - continue amio and Heparin
resp stataus worsened last night but now improved.Comfortable. remains on bipap and currently Chest pain free. initial tropinin 52 was highest ant was tending down. 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 May have been precipitated by
atrial flutter with RVR and resp insuff. Continue to follow troponins. Ultimately plan for cath . Would reassess timingof cath later this morning. will need to assess stability of resp status and ability to to tolerate procedure and also will need
to coordinate with nephrology and interventional cardiology
-
Impression / Plan
-
I/P: 59-year-old male with ESRD on peritoneal dialysis, HFpEF, paroxysmal atrial fibrillation, CVA, PAD, type 2 diabetes mellitus, and obesity who presented to the emergency department with a chief complaint of shortness of breath. He has had
shortness of breath and stuttering chest pain for the past 4 days. He also complains of bilateral lower extremity edema and orthopnea. In the ER troponin is 52 which was then trending down into the 40s. Echo with EF 30%. Patient developed
aflutter with RVR and placed on amiodarone IV. Concern raised regarding HF and challenges of removing volume with ESRD. Patient on PD not HD. Seen by nephrology. 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
diuretic. patient developed increased SOB requring Bipap and then had addtion PD with improvement. Current on Bipap but with no SOB or Cp. Atrial flutter has converted to NSR.
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 Gonzalez
Acute hypoxic respiratory insufficiency, in the setting of acute HFpEF/volume overload
- some worsengin overngiht 05/22-05/23/25 but has improved this morning
- volume control as per nepohrology
-wean bipap as tolerated
VT/ late presetnation
- currently CP free
- initial tropinin 52 was highest ant was tending down. There was a mild rise in early mornign troponin today. May have been related to atrial flutter with RVR and rsp insuff. Continue to follow troponins. Ultimately plan for cath . would reassess
early this morning. will need to assess stability of resp status and ability to t tolerate procedure and also will need to coordinate with nephrology
- ASA and Heparin
- No BB due to allergy
- EKG with ST depression
- NO beta tori due to - allergy listed. angioedema
Heart failure, acute HFrEF,
- volume control and PD per nephrology
Paroxysmal atrial fibrillation
- Stable in sinus rhythm, continue carvedilol and diltiazem (he is now taking this as needed at home)
- Oral anticoagulation: Apixaban was recommended at his last hospitalization, self discontinued
- presented in sinus and developed atrial flutter with RVR . Now in sinus on amiodarone
- [id number] score of at least 5 (DM, PAD, CVA, HF)
- IV heparin
ischemic CM-
ef 30%
- limited options due to GDMT with ESRD and BP
ESRD
- Does PD daily at home
- Nephrology consulted
Prior CVA
PAD, follows with Dr. King
Hypertriglyceridemia, on fenofibrate, statin intolerant
Type 2 diabetes mellitus, per primary service
Physical Exam
Vital Signs/Labs
Vital Signs
Temp Pulse Resp BP Pulse Ox
97.7 F 63 18 108/83 94
05/23/25 04:09 05/23/25 06:00 05/23/25 06:00 05/23/25 06:00 05/23/25 05:00
05/21/25 05/22/25 05/23/25
06:59 06:59 06:59
Actual Weight 111 kg
05/23/25 03:16
05/23/25 03:16
PT 19.6 Sec (11.4-14.6) H 05/22/25 20:57
INR 1.64 05/22/25 20:57
APTT 43.0 Sec (23.4-35.0) H 05/23/25 03:16
Magnesium 2.7 mg/dl (1.6-2.3) H 05/22/25 20:08
Triglycerides 146 mg/dl (10-149) 05/23/25 03:16
LDL Cholesterol, Calc 82 mg/dl 05/23/25 03:16
VLDL Cholesterol, Calc 29 mg/dl (0-30) 05/23/25 03:16
HDL Cholesterol 20 mg/dl 05/23/25 03:16
05/22/25
12:50
Bfa-G-Kytgvctkuqb Pept > [id number]
LAB Results
05/22/25 05/22/25 05/22/25
12:50 16:39 17:12
Troponin I 52.200 H* 48.600 H* Cancelled
05/22/25 05/22/25 05/23/25
18:52 20:12 00:40
Troponin I 46.100 H* Cancelled 50.000 H*
Physical Exam
Constitutional: No acute distress
EENT: Anicteric
Cardiovascular: Rhythm & rate is regular
Respiratory: Wheeze Absent, Rhonchi Absent and Other (bipap)
GI: Soft
Neuro/Psych: Alert
Other: Skin and Other (mild edema)
Data Reviewed
-
Date of Service: May 23, 2025
Medical Decision Making: Reviewed Test Results
Echo: Report Reviewed by me
Medical Tests (PFT, Pathology etc): Report Reviewed by me
Labs: Labs Reviewed by me
Critical Care Time (in minutes): 50
--- NOTE | 2025-05-23 06:51 | CON.INTV ---
Consultation
Consultation Request
Date/Time Consultation Requested: 05/23
Date/Time Consultation Performed: 05/23
Reason for Consultation: Critical care
Medical History
-
History of Present Illness:
History obtained from the patient, reviewing medical records. Patient is a 59-year-old male with history of end-stage renal disease on peritoneal dialysis, hypertension, atrial fibrillation, history of heart failure who presents with 5 days of
increasing shortness of breath and chest pain radiating to his left arm. He also describes about a 5 pound weight gain. He describes chronic orthopnea, typically sleeps with the head of bed elevated. Upon arrival to [facility] 05/22, pulse
102, blood pressure 121/90, 92%. Patient developed SVT, initiated Cardizem drip in the ED. He was subsequently admitted, found to have acute an ST elevation MN. Patient was treated with heparin therapy. He developed tachycardia, increased
shortness of breath 05/22 with rapid response identified hypoxia requiring BiPAP therapy. For this reason he was transferred to the ICU. We are asked to help from critical care standpoint
Of note, echocardiogram noted to have a EF of 30%. Chest x-ray consistent with bilateral infiltrates and pleural effusions suspicious for heart failure
.
PMH: Hypertension, hyperlipidemia, end-stage renal disease on peritoneal dialysis since 2024, history of stroke, peripheral arterial disease, on chronic disability.
Past Medical History
Past Medical History: None (See above)
Past Surgical History: None (See above)
Social History
Tobacco: Former Smoker ([id number], quit recently)
Alcohol: Occasional
Drug: None
Personal: Single
Living: With Family (Lives with son and mother)
Employment: Disabled
Family History
Family History: Other (Family history negative for blood clots, lung cancer)
Allergies / Home Medications
Allergies
Allergy/AdvReac Type Severity Reaction Status Date / Time
JOHNATHON Inhibitors Allergy Swelling Verified 05/22/25 12:44
and HTN
acyclovir Allergy Swelling Verified 05/22/25 12:44
clindamycin Allergy Swelling Verified 05/22/25 12:44
ethacrynic acid Allergy nausea/ Verified 05/22/25 12:44
vomiting
honey Allergy Throat Verified 05/22/25 12:44
closes,
rash
hydralazine Allergy angioedema Verified 05/22/25 12:44
losartan Allergy palpitation Verified 05/22/25 12:44
s
metformin Allergy 'shut my Verified 05/22/25 12:44
liver
down, GI
Bleed'
metoprolol Allergy angioedema, Verified 05/22/25 12:44
Tachycardia,
HTN
mint Allergy Throat Verified 05/22/25 12:44
closes,
rash
mold Allergy Throat Verified 05/22/25 12:44
closes,
rash
nifedipine Allergy Angioedema Verified 05/22/25 12:44
Penicillins Allergy Anaphylaxis; Verified 05/22/25 17:25
tolerates
ceftriaxone
pollen extracts Allergy Throat Verified 05/22/25 12:44
closes,
rash, itch
Aziyosg-RPY-[id number] Reductase Allergy Rash, Verified 05/22/25 12:44
Inhibitor blistering
Sulfa (Sulfonamide Allergy Anaphylaxis Verified 05/22/25 12:44
Antibiotics) and hives
tetracycline Allergy Anaphylaxis Verified 05/22/25 12:44
Home Medications
�Medication �Instructions �Recorded �Confirmed �Last Taken �Type
insulin degludec 100 unit/mL (3 32 unit SC HS Diabetes 04/26/22 05/22/25 05/21/25 History
mL) subcutaneous pen (Tresiba
FlexTouch U-100 insulin)
furosemide 80 mg tablet 80 mg PO DAILY Fluid 02/03/23 05/22/25 4 Days Ago History
retention/Swelling ~05/18/25
insulin aspart U-100 100 unit/mL 0 sliding scale dose SC MEALS 05/0305/22/25 09/18/24 12:00 History
(3 mL) subcutaneous pen (Novolog Diabetes
FlexPen U-100 Insulin aspart)
calcium acetate(phosphat bind) 667 667 mg PO AC Supplement 12/22/23 05/22/25 09/21/24 History
mg tablet
carvedilol 25 mg tablet (Coreg) 12.5 mg PO BID Blood pressure 12/22/23 05/22/25 4 Days Ago History
~05/18/25
aspirin 81 mg tablet,delayed 81 mg PO DAILY Blood Clot 12/27/23 05/22/25 05/22/25 History
release Prevention/Tx
fenofibrate nanocrystallized 48 mg 48 mg PO NOON HIGH TRIGLYCERIDES 09/30/24 05/22/25 05/21/25 History
tablet
cholecalciferol (vitamin D3) 25 25 mcg PO DAILY Supplement 05/22/25 05/22/25 05/21/25 History
mcg (1,000 unit) tablet (Vitamin
D3)
diltiazem HCl 120 mg 120 mg PO DAILYPRN PRN afib 05/22/25 05/22/25 Unknown History
capsule,extended release 24 hr
Review of Systems
-
All other systems: Negative unless noted
Vitals / Labs / Diagnostic Testing
Vital Signs
Temp Pulse Resp BP Pulse Ox
97.7 F 66 17 111/88 97
05/23/25 04:09 05/23/25 06:45 05/23/25 06:45 05/23/25 06:30 05/23/25 06:45
Lab Data
05/23/25 03:16
05/23/25 03:16
Laboratory Results
05/22/25 05/22/25 05/22/25
16:36 18:52 20:08
PT 18.4 H Cancelled
INR 1.50 Cancelled
APTT 40.5 H 36.6 H Cancelled
pH
pCO2
pO2
HCO3
O2 Delivery Level
05/22/25 05/23/25 05/23/25
20:57 00:17 03:16
PT 19.6 H
INR 1.64
APTT 74.0 H 43.0 H
pH 7.40
pCO2 25 L
pO2 121 H
HCO3 15.5 L*
O2 Delivery Level
Microbiology
05/22/25 12:51 Nasal Swab Influenza Types A & B (DK) - Final
Negative for Influenza A & B, NAAT
Negative results must be combined with clinical observations
and patient history.
Nucleic Acid Amplification test (NAAT)performed on the
[employer] platform.
Diagnostic Testing:
Physical Exam
-
HEENT: Normocephalic and Anicteric
Cardiovascular: S1/S2, Regular Rhythm, Irregular Rhythm, Murmur (n), Rub (n) and Peripheral Edema (tr)
Respiratory: Wheeze (n), Rales (Few at base), Rhonchi (n) and Non-Labored Respirations
GI: Soft, Non Distended and Non Tender
Neurology: Awake, Alert and No Motor Deficits
Skin: Good Color
General: Comfortable
Assessment
-
59-year-old male with end-stage renal disease on peritoneal dialysis, atrial fibrillation, stroke, diabetes presents with shortness of breath for 5 days and weight gain. Found to have acute non-ST elevation MN, troponin increased to 60, developed
worsening shortness of breath, tachycardia requiring amiodarone therapy BiPAP therapy transferred to ICU 05/22. We are asked to help from critical care standpoint
Acute hypoxic respiratory insufficiency
89% on 6 L
Required BiPAP, 10 L
Transferred to ICU 05/22
Hypotension, systolic pressure 70 in the setting of tachycardia
Improved
S/p NSTEMI, admitted 05/22
Shortness of breath, chest pain for 5 days
Now resolved
Atrial fibrillation with RVR
On amiodarone therapy
Hyperglycemia
Acute congestive heart failure, systolic dysfunction
EF 32%
Moderate to severe mitral regurgitation
Acute transaminitis
Conditions present prior to admission
End-stage renal disease on PD
Diabetes
Hypertension/hypercholesterolemia
History of stroke
30 pack year history of smoking, quit
Disabled
Plan/recommendations
At this time, patient is critically ill but has stabilized. He feels symptoms have improved
Hemodynamics have improved
He is currently undergoing peritoneal dialysis, and nephrology has been able to achieve negative fluid status
Echocardiogram with EF 32%, severe mitral regurgitation
Moving forward
Continue with management per cardiology and nephrology
Remains on amiodarone, heparin drip
Cardiac catheterization is being considered but for now we will hold off given respiratory status
Nephrology plans to continue with peritoneal dialysis
Has been able to achieve negative fluid status in the last 24 hours with subjective improvement
Patient may require CRRT. With this may require HD catheter. If pursued will pursue trialysis catheter but for now we will hold off as he seems to be responding to PD
Midline in place
Follow liver function
Blood sugars noted
Continue with insulin therapy
Reviewed with critical care nursing, respiratory care, pharmacy
Reviewed with patient and updated mother at bedside
TCCT 35 min
[2025-05-23 06:57] LABS: Glycohemoglobin (HgbA1c) 10.3 % (4.0-5.6)
[2025-05-23 07:23] LABS: Troponin I 41.100 ng/ml
[2025-05-23 07:33] LABS: Glucose - Point of Care 189 mg/dl (70-99)
[2025-05-23] MEDS: VITAMIN D3 (cholecalciferol) 25 MCG PO (07:47)
[2025-05-23] MEDS: PHOSLO 667 MG PO ×2 (07:47→16:41)
[2025-05-23] MEDS: ASPIR LOW (ENTERIC COATED) 81 MG PO (07:47)
[2025-05-23 07:50] LABS: Glucose - Point of Care 358 mg/dl (70-99)
[2025-05-23 07:50] LABS: Glucose - Point of Care 330 mg/dl (70-99)
--- NOTE | 2025-05-23 07:53 | W.PN.NEPH.PH ---
Today's Communication / Plan
-
Maintain high-volume PD orders provide
Maintain pressor support to keep MAP at 65 or greater
Assessment/Plan
-
59-year-old male with past medical history of hypertension, atrial fibrillation, chronic HFpEF, ESRD on PD and DM-II who presented to [facility] ED for evaluation of chest heaviness. Patient explains that he has not been feeling well over the past 4-5
days, he reports chest pressure that has intermittently radiated to his left arm and currently right shoulder and neck. Found to have NSTEMI. Seen in the ICU
Renal consult for end-stage renal disease on peritoneal dialysis
Recently transition to peritoneal dialysis about 6 months
Has been dealing with volume overload for the last few weeks and peritoneal orders have been changed but yet going to affect. He was to try a last fill of icodextrin to help with ultrafiltration but is yet to get the solution delivered
Initial workup shows diminished ejection fraction 32%.
Discussed with cardiology at length.
Family at the bedside
Patient is having labored breathing but is alert. He is nonoliguric at baseline
Estimated dry weight is 104.5 although he is cannot achieve that in quite a few weeks
His last recorded weight was 105.8 kg on 05/09 from outpatient record
Impression.
ESRD on PD
NSTEMI
CHF ejection fraction 32% from previous echo September 2024 was 50%
Atrial fibrillation
Type 2 diabetes
Plan.
120 mg IV Lasix without efficacy ~100cc
Discussed with cardiology will hold on cardiac catheterization until patient more stable. Patient's been having symptoms for about 4 to 5 days and likely not acute event though deferring to cardiology
Discussed with the patient about hemodialysis if we need aggressive ultrafiltration which he is opposed to at this time for various reasons although indication is he will accept it if needed
Amiodarone for rate control
Remains anticoagulated on heparin drip
He is nonoliguric at baseline will see his response to Lasix
Ordered peritoneal dialysis short dwell (2hrs)x 4 to increase ultrafiltration using 4.25% with close monitoring of his blood sugars as he has been having difficulty with hyperglycemia outpatient
PD flowsheets reviewed currently about a liter negative after 2 exchanges
Discussed case with cardiology re: cath intervention timing
Ideally would like to take off more fluid prior to cardiac catheterization
If patient does not respond well to PD I will transition him to CRRT as he remains hemodynamically stable and volume overload
Patient remains critically ill in setting of acute myocardial infarction with hemodynamic instability maintained on pressor support
35 minutes critical care time spent with patient

Total Time Spent with Patient (in minutes): 35-minute
-
-
Date of Service: May 23, 2025
CC / HPI / ROS
-
Chief Complaint:
ESRD/PD
History of Present Illness:
Remains on PD 4.25% every 2 hour exchanges
Hemodynamically labile on pressor support
Non-ST elevation MT with troponin peak at 52, remains on heparin drip
Review of Systems:
Essentially anuric after Lasix at 100 cc
Now on nasal cannula O2 and off BiPAP
No reported chest pain
Labs
-
Labs:
WBC 13.1 10^3/uL (4.8-10.8) H 05/23/25 03:16
RBC 3.79 10^6/uL (4.70-6.10) L 05/23/25 03:16
Hgb 10.8 g/dL (13.0-18.0) L 05/23/25 03:16
Hct 32.5 % (39.0-52.0) L 05/23/25 03:16
Plt Count 194 10^3/uL (130-400) 05/23/25 03:16
Sodium 129 mmol/L (135-145) L 05/23/25 03:16
Potassium 3.9 mmol/L (3.5-5.1) 05/23/25 03:16
Chloride 94 mmol/L (98-107) L 05/23/25 03:16
Carbon Dioxide 21 mmol/L (22-30) L 05/23/25 03:16
BUN 87 mg/dl (9-20) H 05/23/25 03:16
Creatinine 8.6 mg/dL (0.7-1.3) H* 05/23/25 03:16
eGFR 6.56 05/23/25 03:16
Glucose 361 mg/dl (70-99) H 05/23/25 03:16
Calcium 8.1 mg/dl (8.4-10.2) L 05/23/25 03:16
Phosphorus 9.0 mg/dl (2.5-4.5) H 05/22/25 20:08
Jyo-V-Dacshehhqfx Pept > 30194 pg/ml 05/22/25 12:50
Albumin 3.5 g/dl (3.5-5.0) 05/23/25 03:16
Physical Exam
-
Vital Signs:
Vital Signs
Temp Pulse Resp BP Pulse Ox
97.7 F 66 17 111/88 97
05/23/25 04:09 05/23/25 06:45 05/23/25 06:45 05/23/25 06:30 05/23/25 06:45
Cardiovascular:: Regular rate and rhythm
Respiratory:: Bilateral: Coarse and Bilateral: Rales (At base)
Lung Excursion:: Normal
Abdomen:: Nontender and Soft
Bowel Sounds:: Normal
Extremity Edema:: +2: Bilateral:
King Catheter: No
[2025-05-23] MEDS: COREG PO (08:07)
--- NOTE | 2025-05-23 08:12 | W.PN.UPDATE ---
Update Note
Progress Note Update
PD note
Patient seen on peritoneal dialysis
4.25% every exchange at2 hours to maximize ultrafiltration
Remains on pressor support with systolic blood pressure around 98
--- NOTE | 2025-05-23 08:30 | PTCARENOTE ---
Assumed care at 0700. Pt on BiPAP 12/5/10L, tolerating well. BiPAP removed and to 6L MF with SpO2 99%. States breathing Much better. RR18-24, crackles in bases. Pt pleasant and interactive. Mother at bedside. PD indwelling exchanged at 0810 and
continuing Q2H exchanges. SR c BBB, PVCs vs afib noted on monitor, BLE edema continues. Heparin, Amiodarone, insulin gtt continues. Levophed off since 0400 with MAP >65. Maintenance Painter, Pressing Department Supervisor, and Process Controls Technician at bedside to discuss plans.
[2025-05-23 08:37] LABS: Glucose - Point of Care 138 mg/dl (70-99)
[2025-05-23 09:35] LABS: Glucose - Point of Care 123 mg/dl (70-99)
--- NOTE | 2025-05-23 09:49 | PN.DE.MGMTRT ---
Insulin Management
- -
05/23/2025 Diabetes Management Consult
Patient admitted 05/22 for increased difficulty breathing over past 5 days found to be in acute CHF. PMH CFH, HTN, diabetes, renal failure, HLD. Prior to admission was taking novolog ss AC with Tresiba 32 units @ HS. A1C on admission 10.3%.
Cr8.6, eGFR 6.56.
Patient is awake alert and oriented able to discuss diabetes care. States he was diagnosed ~ 15 years ago, took prandin for years then started insulin. Follows with primary care doctor, Milind [place]. Uses DexCom G7 and traditional glucose monitor
for glucose testing. He states he is not surprised his A1C is elevated as he has not been paying attention to his diabetes.
Patient glucose has been as high as 377 on critical care glycemic protocol requiring up to 20 units of insulin per hour, currently at 6 units of insulin per hour with glucose 189. Will continue glycemic protocol today and assess for readiness to
transition in AM.
Discussed with nurse.
Will follow.
Diabetes History
- -
Type of Diabetes: 2 requiring insulin
Pre-Admission Diabetes Regimen
05/22/25 05/22/25 05/22/25
12:50 18:52 20:08
Creatinine 8.3 H* 8.8 H* 8.2 H*
05/23/25
03:16
Creatinine 8.6 H*
Lab Results
Hemoglobin A1c 10.3 % (4.0-5.6) H 05/23/25 03:16
Insulin Pump Settings
IP Diabetes Regimen
05/22/25 05/22/25 05/22/25
12:50 18:25 18:52
Glucose 173 H 184 H
POC Glucose 198 H
05/22/25 05/22/25 05/23/25
20:08 22:01 00:54
Glucose 217 H
POC Glucose 221 H 330 H
05/23/25 05/23/25 05/23/25
02:02 03:15 03:16
Glucose 361 H
POC Glucose 358 H 377 H
05/23/25 05/23/25 05/23/25
04:08 05:07 06:06
Glucose
POC Glucose 348 H 340 H 243 H
05/23/25 05/23/25 05/23/25
07:21 08:25 09:24
Glucose
POC Glucose 189 H 138 H 123 H
Patient Education
--- NOTE | 2025-05-23 10:06 | W.PN.HOSP.TC ---
Today's Communication/Plan
-
see note
Assessment / Plan
Assessment / Plan
TTE 05/22
1. Left ventricle is normal in size with moderately reduced systolic function. LVEF 32%.
2. Right ventricle is normal in size and systolic function.
3. Moderate to severe mitral regurgitation.
4. Compared to prior echocardiogram in September 2024, LVEF has decreased from 50% to 32%. There is now moderate to severe mitral regurgitation (previously mild).

1. NSTEMI
-Troponin elevated to max 52, trending down
-EKG reviewed and no ST segment changes
-Cardiology evaluated and recommended patient to be managed conservatively as suspected symptoms ongoing more than 48 hours
-TTE result as above.
-Maintain on heparin drip
-Cardio considering for LHC in 24-48hrs.
2. Acute Hypoxic respiratory failure
Bilateral pleural effusion
-Chest x-ray showing pulmonary edema/congestion
-Likely volume overloaded as patient stopped taking Lasix reportedly peritoneal dialysis was not effective
-Required BiPAP overnight, now on midflow 10L/min
3. ESRD on peritoneal dialysis
- Was on hemodialysis in the past
- Nephrology evaluated and trying to do aggressive peritoneal dialysis and trying to maximize ultrafiltration
4. Atrial flutter with 2-1 block
Shock - type unclear
-Started on amiodarone drip
-Coreg started although needed to be held due to shock state
-monitor on telemetry
- Patient has been requiring small dose of vasopressor, wean off as possible
5. Acute transaminitis
- As part of congestive hepatopathy with added shock liver ?
- LFT has increased significantly within 12-hour, ALT 35 > 431, AST 60 > 569
- Follow-up LFT ordered in afternoon.
- Started on Amio drip yesterday and less likely playing role but will need adjustment based on LFT trend.
5. Leukocytosis - suspecting reactive
Rule out infection
-COVID neg.
-Chest x-ray did not show any overt pneumonia
- Abdominal examination benign. Can get peritoneal dialysis catheter sample if concern for peritonitis
- Rocephin discontinued. monitor for now off abx.
6. Hyponatremia
- With ESRD, monitor
7. Essential hypertension
- Being started on diltiazem for rate control
8. Insulin-dependent diabetes mellitus - Uncontrolled
- A1c of 10.3
- Maintain on regimen of insulin/sliding scale
- Diabetes ADMITTING MANAGER consulted
Code status: full code
DVT prophylaxis: heparin gtt
Case discussed with nephrology/cardiology/diet supervisor
Total critical care time 45. Total critical care time documented does not include time spent on separately billed procedures or the services of residents, students, nurses or physician assistants. I personally saw and examined the patient. I have
reviewed all diagnostic interpretations and treatment plans as written. I was present for the herrera portions of any procedures performed and the inclusive time noted in any critical care statement. Critical care time includes patient management by me,
time spent at the patients bedside, time to review lab and imaging results, discussing patient care, documentation in the medical record, and time spent with the family or caregiver.
Anticipated Discharge: > 48 hours
Subjective/Interval History
-
Date of Service: May 23, 2025
Patient shortness of breath is better
Overnight was on BiPAP and currently taken off of it, on midflow 10L
Denies of having any abdominal pain/nausea/vomiting
Afebrile overnight
Objective Data
-
Labs:
Laboratory Results
05/23/25 05/23/25 05/23/25
00:17 03:16 10:00
WBC 13.1 H
Hgb 10.8 L
Hct 32.5 L
Plt Count 194
APTT 43.0 H Pending
HCO3 15.5 L*
Sodium 129 L
Potassium 3.9
Chloride 94 L
Carbon Dioxide 21 L
BUN 87 H
Creatinine 8.6 H*
Glucose 361 H
Calcium 8.1 L
Total Bilirubin 1.1
AST 569 H*
ALT 431 H
Alkaline Phosphatase 56
05/23/25
14:00
WBC
Hgb
Hct
Plt Count
APTT
HCO3
Sodium
Potassium
Chloride
Carbon Dioxide
BUN
Creatinine
Glucose
Calcium
Total Bilirubin Pending
AST Pending
ALT Pending
Alkaline Phosphatase Pending
Vital Signs:
Vital Signs
Temp Pulse Resp BP Pulse Ox
97.6 F 67 22 96/67 100
05/23/25 08:00 05/23/25 09:41 05/23/25 09:41 05/23/25 09:41 05/23/25 09:36
I&O
05/22/25 05/23/25 05/24/25
06:59 06:59 06:59
Intake Total 498.1 / 536.8 103.6 / 103.6
Output Total 1100 / 1100 950 / 950
Balance -601.9 / -563.2 -846.4 / -846.4
Review of Systems
-
Respiratory: Reports No Symptoms
Cardiac: Reports No Symptoms
Abdomen/GI: Reports No Symptoms
Physical Exam
-
General: Well Nourished
HEENT: Oxygen (10 L/min)
Respiratory: Clear to Auscultation
Cardiac: Regular Rhythm and S1/S2; Negative Tachycardic
GI: Soft, Nontender, Nondistended and Other (PD cath in place)
Musculoskeletal: Edema, Right Lower Extrem and Edema, Left Lower Extrem
Neuro: Awake, Alert, Oriented and AO x 3
[2025-05-23 10:26] LABS: APTT 44.5 Sec (23.4-35.0)
[2025-05-23 10:52] LABS: Glucose - Point of Care 136 mg/dl (70-99)
[2025-05-23] MEDS: HEPARIN 25000 UNITS/250 ML IV (11:27)
[2025-05-23] MEDS: PHOSLO PO ×2 (11:28→11:30)
[2025-05-23 11:48] LABS: Glucose - Point of Care 131 mg/dl (70-99)
[2025-05-23] MEDS: LIDOCAINE 4% PATCH 1 PATCH TOPICAL (12:07)
[2025-05-23 13:01] LABS: Glucose - Point of Care 139 mg/dl (70-99)
--- NOTE | 2025-05-23 13:06 | CM ---
Initial assessment completed with patient with mother and brother in room. Patient lives with his mother and son in a 1 story home with 3 steps to enter. 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 He has a SPC and RW which he uses when
needed and a W/CH. No in-home services. Patient is on peritoneal dialysis at home. He or his mother initiate the PD at . PD is managed by [facility] in [place] ([place]). No HC-POA. No service. PCP is Dr. Milidn Montana. Pharmacy is
[facility] in [place]. Discharge POC: Anticipate home with no needs.
[2025-05-23 13:39] LABS: Glucose - Point of Care 172 mg/dl (70-99)
--- NOTE | 2025-05-23 14:00 | PTCARENOTE ---
N/V noted after lunch. Mother says this happens often after meals but pt denied frequent occurrence. Zofran order received but nausea passed before med available.
[2025-05-23 15:38] LABS: Glucose - Point of Care 122 mg/dl (70-99)
[2025-05-23 16:28] LABS: APTT 37.0 Sec (23.4-35.0)
[2025-05-23] MEDS: CORDARONE 518 MG IV (16:28)
[2025-05-23] MEDS: NOVOLOG FLEXPEN SC (16:28)
[2025-05-23] MEDS: NOVOLOG FLEXPEN-LOW RESISTANCE SC (16:29)
[2025-05-23 16:41] LABS: ALT (SGPT) 355 U/L (0-50); AST (SGOT) 289 U/L (17-59); Albumin 3.6 g/dl (3.5-5.0); Alkaline Phosphatase 52 U/L (38-126); Total Protein 6.1 g/dl (6.3-8.2)
--- NOTE | 2025-05-23 16:45 | PTCARENOTE ---
PD continues with regular changes made by Nephrology. Pt tolerating well. Pt able to sit at bedside to assist with PD drainage.
[2025-05-23 17:52] LABS: Glucose - Point of Care 114 mg/dl (70-99)
--- NOTE | 2025-05-23 20:00 | PTCARENOTE ---
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 SR, PVCs on monitor. LAC IV, RUE midline WNL- amio, heparin, ins gtt infusing as ordered. RA Sat 93%. POC discussed, call luan w/pt, care ongoing.
[2025-05-23 20:18] LABS: Glucose - Point of Care 119 mg/dl (70-99)
[2025-05-23] MEDS: REMOVE LIDOCAINE PATCH 1 PATCH REMOVE (21:00)
[2025-05-23] MEDS: LANTUS 0.32 UNITS SC (21:03)
[2025-05-23] MEDS: NON-FORMULARY ITEM 1 UNIT PO (21:03)
[2025-05-23 22:35] LABS: Glucose - Point of Care 88 mg/dl (70-99)
[2025-05-23 23:25] LABS: Urine Character Slightly Cloudy (Clear)
[2025-05-23 23:31] LABS: APTT 35.1 Sec (23.4-35.0)
[2025-05-23 23:50] LABS: Urine Squamous Cell >30 /LPF (Few)
[2025-05-24] VITALS (34 sets, daily range): BP systolic 88–174; BP diastolic 48–115; PULSE 2–80; BMI 34.4
--- NOTE | 2025-05-24 | PTCARENOTE ---
no change in pt assessment.
[2025-05-24 01:24] LABS: Glucose - Point of Care 167 mg/dl (70-99)
[2025-05-24 03:22] LABS: Glucose - Point of Care 185 mg/dl (70-99)
[2025-05-24] MEDS: NOVOLOG FLEXPEN 2 UNITS SC (03:25)
[2025-05-24] MEDS: HEPARIN 25000 UNITS/250 ML IV ×2 (04:58→17:39)
[2025-05-24] MEDS: NON-FORMULARY ITEM 1 UNIT PO ×3 (05:30→21:32)
[2025-05-24 05:44] LABS: Glucose - Point of Care 165 mg/dl (70-99)
--- NOTE | 2025-05-24 05:58 | PTCARENOTE ---
LA IV d/c'd for pain when flushing, no redness at site. pt difficult stick- IV team to bedside to attempt 2nd IV access for heparin gtt. amio gtt infusing through midline. no further changes.
[2025-05-24 06:01] LABS: Hematocrit 31.0 % (39.0-52.0); Hemoglobin 10.6 g/dL (13.0-18.0); Mean Corp Hgb Conc. 34.2 g/dL (33.0-37.0); Mean Corpuscular Volume 83.3 fL (80.0-94.0); Platelet Count 209 10^3/uL (130-400); Red Cell Dist. Width 14.3 % (11.5-14.5)
[2025-05-24 06:12] LABS: APTT 44.5 Sec (23.4-35.0)
[2025-05-24 06:28] LABS: ALT (SGPT) 275 U/L (0-50); AST (SGOT) 112 U/L (17-59); Albumin 3.4 g/dl (3.5-5.0); Alkaline Phosphatase 54 U/L (38-126); Blood Urea Nitrogen 96 mg/dl (9-20); Calcium 8.6 mg/dl (8.4-10.2); Carbon Dioxide 24 mmol/L (22-30); Chloride 96 mmol/L (98-107); Estimated Creatinine Clearance 11 ml/min; Glucose 161 mg/dl (70-99); Potassium 3.7 mmol/L (3.5-5.1); Sodium 132 mmol/L (135-145); Total Protein 5.7 g/dl (6.3-8.2); eGFR 5.97
--- NOTE | 2025-05-24 07:19 | W.PN.INTV ---
Today's Communication / Plan
Recommendations
Continue with negative fluid balance per nephrology
Remains on amiodarone, heparin
Insulin drip, hopefully can wean off
Okay for transfer to IMU once off insulin drip. Will sign off once transferred. Please call with questions
Assessment
-
59-year-old male with end-stage renal disease on peritoneal dialysis, atrial fibrillation, stroke, diabetes presents with shortness of breath for 5 days and weight gain. Found to have acute non-ST elevation WI, troponin increased to 60, developed
worsening shortness of breath, tachycardia requiring amiodarone therapy BiPAP therapy transferred to ICU 05/22. We are asked to help from critical care standpoint
Acute hypoxic respiratory insufficiency, improved
89% on 6 L
Required BiPAP, 10 L
Transferred to ICU 05/22
Hypotension, systolic pressure 70 in the setting of tachycardia
Improved
S/p NSTEMI, admitted 05/22
Shortness of breath, chest pain for 5 days
Now resolved
Atrial fibrillation with RVR
On amiodarone therapy
Hyperglycemia
Acute congestive heart failure, systolic dysfunction
EF 32%
Moderate to severe mitral regurgitation
Acute transaminitis
Conditions present prior to admission
End-stage renal disease on PD
Diabetes
Hypertension/hypercholesterolemia
History of stroke
30 pack year history of smoking, quit
Disabled
Plan/recommendations
At this time, patient is improved objectively and subjectively
Hemodynamics have improved
He is currently undergoing peritoneal dialysis, and nephrology has been able to achieve negative fluid status
Patient states he is 5 pounds down since yesterday. 1.5 kg down since admission
Now 92% on room air
Echocardiogram with EF 32%, moderate to severe mitral regurgitation
Troponin trending down
Moving forward
Continue with management per cardiology and nephrology
Remains on amiodarone, heparin drip
Cardiac catheterization is being considered but for now we will hold off given respiratory status
Nephrology plans to continue with peritoneal dialysis, remains negative
Has been able to achieve negative fluid status in the last 24 hours with subjective improvement
Patient may require CRRT.
Hopefully this can be avoided per nephrology
Midline in place, hold on trialysis catheter for now
Follow liver function, improving
Blood sugars noted, improved
Continue with insulin therapy, remains on insulin drip
Reviewed with critical care nursing
Reviewed with primary service
Hope for transfer out of ICU once off insulin drip
Once transferred, we will sign off. Please call with questions
Subjective Dataa
Subjective Data
Date of Service:
Date of Service: May 24, 2025
Subjective:
Overall, patient feels much improved. Continues with effective cough, denies hemoptysis, chest pain, nausea. Records suggest off BiPAP but patient states he did use the BiPAP yesterday p.m.
Negative fluid status noted
Objective Data
Data Reviewed
Vital Signs / I&O / Oxygen:
Vital Signs
Temp Pulse Resp BP Pulse Ox
97.8 F 73 19 102/71 94
05/24/25 03:03 05/24/25 06:15 05/24/25 06:15 05/24/25 06:06 05/24/25 06:15
Intake and Output
05/23/25 05/24/25 05/25/25
06:59 06:59 06:59
Intake Total 498.1 / 536.8 1286.4 / 1286.4
Output Total 1100 / 1100 4475 / 4475
Balance -601.9 / -563.2 -3188.6 / -3188.6
SaO2 94
Nasal Cannula flow liters per 4
minute
Physical Exam
General: Comfortable and Other (Upper extremity midline)
HEENT: Normocephalic and Anicteric
Cardiovascular: S1-S2, Regular Rhythm, Murmur (n), Rub (n) and Peripheral Edema (1+)
Respiratory: Wheeze (n), Crackles (Few at base), Rhonchi (n), Non-Labored Respirations and Other (Decreased at base)
GI: Soft, Non Distended and Non Tender
Neurology: Awake, Alert and No Motor Deficits (Able to sit up without assistance)
Skin: Cyanosis (n) and Jaundice (n)
Labs/Micro/Reports
Lab Data
05/24/25 05:03
05/24/25 05:03
Laboratory Results
05/23/25 05/23/25 05/23/25
10:06 16:06 23:04
APTT 44.5 H 37.0 H 35.1 H
05/24/25
05:03
APTT 44.5 H
Microbiology
05/22/25 12:50 Blood/Venous Blood Culture - Preliminary
No Growth in 24 hours- Final report to follow
05/22/25 12:51 Blood/Venous Blood Culture - Preliminary
No Growth in 24 hours- Final report to follow
05/22/25 12:51 Nasal Swab Influenza Types A & B (DK) - Final
Negative for Influenza A & B, NAAT
Negative results must be combined with clinical observations
and patient history.
Nucleic Acid Amplification test (NAAT)performed on the
[employer] platform.
[2025-05-24] MEDS: ASPIR LOW (ENTERIC COATED) 81 MG PO (07:40)
[2025-05-24] MEDS: VITAMIN D3 (cholecalciferol) 25 MCG PO (07:40)
[2025-05-24] MEDS: LIDOCAINE 4% PATCH TOPICAL ×2 (07:40→17:02)
[2025-05-24] MEDS: PHOSLO PO ×3 (07:40→12:47)
[2025-05-24 07:43] LABS: Glucose - Point of Care 143 mg/dl (70-99)
[2025-05-24] MEDS: NOVOLOG FLEXPEN-LOW RESISTANCE SC (07:51)
[2025-05-24] MEDS: NOVOLOG FLEXPEN SC ×2 (07:51→12:46)
--- NOTE | 2025-05-24 08:11 | W.PN.CD ---
Today's Communication / Plan
-
Patient's volume status is improved. Plan for catheterization ( right and left) later today. Timing will be reviewed with nephrology and interventional cardiology
back in afib with elevated,. rates. tolerting wel.. will give addtional bolu sand increase drip
Impression / Plan
-
I/P: 59-year-old male with ESRD on peritoneal dialysis, HFpEF, paroxysmal atrial fibrillation, CVA, PAD, type 2 diabetes mellitus, and obesity who presented to the emergency department with a chief complaint of shortness of breath. He has had
shortness of breath and stuttering chest pain for the past 4 days. He also complains of bilateral lower extremity edema and orthopnea. In the ER troponin is 52 which was then trending down into the 40s. Echo with EF 30%. Patient developed
aflutter with RVR and placed on amiodarone IV. Concern raised regarding HF and challenges of removing volume with ESRD. Patient on PD not HD. Seen by nephrology. 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
diuretic. patient developed increased SOB requring Bipap and then had addtion PD with improvement. Current on Bipap but with no SOB or Cp. Atrial flutter has converted to NSR.
Outpatient senior java programmer analyst: Dr. Gonzalez
Acute hypoxic respiratory insufficiency, in the setting of acute HFpEF/volume overload
- Improved. Now on room air.
- volume control as per nepohrology
OR/ late presetnation
- currently CP free
- initial tropinin 52 was highest and is since trended down.
- ASA and Heparin
- No BB due to allergy
- NO beta tori due to - allergy listed. angioedema
- Plan was for additional treatment of cath and additional removal of volume with peritoneal dialysis prior to proceeding with cath. Patient's volume status is improved. Plan for catheterization later today. Timing will be reviewed with
nephrology and interventional cardiology
Heart failure, acute HFrEF,
- volume control and PD per nephrology
Paroxysmal atrial fibrillation
- Stable in sinus rhythm, omn admit. went into rapid flutter/fib and coverted with IV amio. Back in afib 05/24/25.
cpontinue amio
- Oral anticoagulation: Apixaban was recommended at his last hospitalization, self discontinued
- presented in sinus and developed atrial flutter with RVR . Now in sinus on amiodarone
- [id number] score of at least 5 (DM, PAD, CVA, HF)
- IV heparin. Eventual transition to oral anticoagulation prior to discharge
ischemic CM-
ef 30%
- limited options due to GDMT with ESRD and BP
- Further assessed options for GDMT post cath
ESRD
- Does PD daily at home
- Nephrology consulted
Prior CVA
PAD, follows with Dr. King
Hypertriglyceridemia, on fenofibrate, statin intolerant
Type 2 diabetes mellitus, per primary service
Physical Exam
Vital Signs/Labs
Vital Signs
Temp Pulse Resp BP Pulse Ox
98.1 F 73 19 102/71 94
05/24/25 07:30 05/24/25 06:15 05/24/25 06:15 05/24/25 06:06 05/24/25 06:15
05/23/25 05/24/25 05/25/25
06:59 06:59 06:59
Actual Weight 111 kg 108.8 kg
05/24/25 05:03
05/24/25 05:03
PT 19.6 Sec (11.4-14.6) H 05/22/25 20:57
INR 1.64 05/22/25 20:57
APTT 44.5 Sec (23.4-35.0) H 05/24/25 05:03
Magnesium 2.7 mg/dl (1.6-2.3) H 05/22/25 20:08
Triglycerides 146 mg/dl (10-149) 05/23/25 03:16
LDL Cholesterol, Calc 82 mg/dl 05/23/25 03:16
VLDL Cholesterol, Calc 29 mg/dl (0-30) 05/23/25 03:16
HDL Cholesterol 20 mg/dl 05/23/25 03:16
05/22/25
12:50
Rxp-F-Xxeqwmkanov Pept > 05406
LAB Results
05/22/25 05/22/25 05/22/25
12:50 16:39 17:12
Troponin I 52.200 H* 48.600 H* Cancelled
05/22/25 05/22/25 05/23/25
18:52 20:12 00:40
Troponin I 46.100 H* Cancelled 50.000 H*
05/23/25
06:23
Troponin I 41.100 H*
Physical Exam
Constitutional: No acute distress
Cardiovascular: Rhythm & rate is regular
Respiratory: Wheeze Absent and Rhonchi Absent
GI: Soft, Non tender, Distention present and Abdomen is tender
Neuro/Psych: Alert
Other: Other
mild edema
Data Reviewed
-
Date of Service: May 24, 2025
Medical Decision Making: Reviewed Test Results
EKG: Report Reviewed by me
Echo: Report Reviewed by me
Medical Tests (PFT, Pathology etc): Report Reviewed by me
Labs: Labs Reviewed by me
Critical Care Time (in minutes): 35
--- NOTE | 2025-05-24 08:22 | W.PN.NEPH.PH ---
Today's Communication / Plan
-
PD fluid to be changed to 2.5% for all exchanges
Removal of PD fluid prior to cardiac catheterization later this afternoon
Assessment/Plan
-
59-year-old male with past medical history of hypertension, atrial fibrillation, chronic HFpEF, ESRD on PD and DM-II who presented to [facility] ED for evaluation of chest heaviness. Patient explains that he has not been feeling well over the past 4-5
days, he reports chest pressure that has intermittently radiated to his left arm and currently right shoulder and neck. Found to have NSTEMI. Seen in the ICU
Renal consult for end-stage renal disease on peritoneal dialysis
Recently transition to peritoneal dialysis about 6 months
Has been dealing with volume overload for the last few weeks and peritoneal orders have been changed but yet going to affect. He was to try a last fill of icodextrin to help with ultrafiltration but is yet to get the solution delivered
Initial workup shows diminished ejection fraction 32%.
Discussed with cardiology at length.
Family at the bedside
Patient is having labored breathing but is alert. He is nonoliguric at baseline
Estimated dry weight is 104.5 although he is cannot achieve that in quite a few weeks
His last recorded weight was 105.8 kg on 05/09 from outpatient record
Impression.
ESRD on PD
NSTEMI (troponin peak 52)
CHF ejection fraction 32% from previous echo September 2024 was 50%
Atrial fibrillation
Type 2 diabetes
Hyperphosphatemia
Plan.
Patient with excellent UF with implementation of higher dialysate strength of 4.25%
PD flowsheets reviewed: each u/f cycle (500 -1000)
Weight is down by 3 kg
Glucose control has been erratic
Will change all dialysate to 2.5%
Amiodarone for rate control
Remains anticoagulated on heparin drip
Will proceed with right and left cardiac catheterization later this afternoon as discussed with cardiology
Will drain the patient's PD fluid prior to heart catheterization

-
-
Date of Service: May 24, 2025
CC / HPI / ROS
-
Chief Complaint:
ESRD/PD
History of Present Illness:
Remains on PD 4.25%/ 2.5% every 2 hour exchanges
Hemodynamically labile off pressor support
Non-ST elevation [place] with troponin peak at 52, remains on heparin drip
Review of Systems:
No longer short of breath off oxygen
No fevers
No reported chest pain
Labs
-
Labs:
WBC 14.1 10^3/uL (4.8-10.8) H 05/24/25 05:03
RBC 3.72 10^6/uL (4.70-6.10) L 05/24/25 05:03
Hgb 10.6 g/dL (13.0-18.0) L 05/24/25 05:03
Hct 31.0 % (39.0-52.0) L 05/24/25 05:03
Plt Count 209 10^3/uL (130-400) 05/24/25 05:03
Sodium 132 mmol/L (135-145) L 05/24/25 05:03
Potassium 3.7 mmol/L (3.5-5.1) 05/24/25 05:03
Chloride 96 mmol/L (98-107) L 05/24/25 05:03
Carbon Dioxide 24 mmol/L (22-30) 05/24/25 05:03
BUN 96 mg/dl (9-20) H 05/24/25 05:03
Creatinine 9.3 mg/dL (0.7-1.3) H* 05/24/25 05:03
eGFR 5.97 05/24/25 05:03
Glucose 161 mg/dl (70-99) H 05/24/25 05:03
Calcium 8.6 mg/dl (8.4-10.2) 05/24/25 05:03
Phosphorus 9.0 mg/dl (2.5-4.5) H 05/22/25 20:08
Wxg-K-Cfmngezxgeb Pept > 20273 pg/ml 05/22/25 12:50
Albumin 3.4 g/dl (3.5-5.0) L 05/24/25 05:03
Physical Exam
-
Vital Signs:
Vital Signs
Temp Pulse Resp BP Pulse Ox
98.1 F 73 19 102/71 94
05/24/25 07:30 05/24/25 06:15 05/24/25 06:15 05/24/25 06:06 05/24/25 06:15
Cardiovascular:: Regular rate and rhythm
Respiratory:: Bilateral: Coarse and Bilateral: Rales (At base)
Lung Excursion:: Normal
Abdomen:: Nontender and Soft
Bowel Sounds:: Normal
Extremity Edema:: +2: Bilateral:
King Catheter: No
--- NOTE | 2025-05-24 08:41 | W.PN.UPDATE ---
Update Note
Progress Note Update
Patient seen on peritoneal dialysis
PD fluids currently 2 L fill volume 4-hour dwell 2.5% alternating with 4.25%
Will change all dialysate to 2.5%
--- NOTE | 2025-05-24 08:46 | PTCARENOTE ---
legal activity adjudicator, pt aaox3, denies pain. Afib with PVCs vs rare SR on monitor. RUE midline WNL- amio gtt, heparin infusing in R hand IV without issue, Ptt continues subtherapeutic. RA Sat 93%. Ambulated with cane to bathroom with standby asst.
+BM/void. NPO for heart cath today. POC discussed, call luan w/pt, care ongoing.
--- NOTE | 2025-05-24 08:54 | PTCARENOTE ---
Afib 120s. Dr. Quinones to bedside. Ordered repeat amio bolus and increase Amio gtt to 1mg.
[2025-05-24] MEDS: CORDARONE 103 MG IV (09:11)
--- NOTE | 2025-05-24 09:42 | W.PN.HOSP.TC ---
Today's Communication/Plan
-
transfer to [facility]
for [facility] today
PD per nephro
monitor off abx
LFT down
amiodarone per cards
Assessment / Plan
Assessment / Plan
TTE 05/22
1. Left ventricle is normal in size with moderately reduced systolic function. LVEF 32%.
2. Right ventricle is normal in size and systolic function.
3. Moderate to severe mitral regurgitation.
4. Compared to prior echocardiogram in September 2024, LVEF has decreased from 50% to 32%. There is now moderate to severe mitral regurgitation (previously mild).

1. NSTEMI
-Troponin elevated to max 52, trending down
-EKG reviewed and no ST segment changes
-Cardiology evaluated and recommended patient to be managed conservatively as suspected symptoms ongoing more than 48 hours
-TTE result as above.
-Maintain on heparin drip
-Cardiology planning to take patient to heart catheterization today
2. Acute Hypoxic respiratory failure - resolved
Bilateral pleural effusion
-Chest x-ray showing pulmonary edema/congestion
-Likely volume overloaded as patient stopped taking Lasix reportedly peritoneal dialysis was not effective
- Patient required BiPAP on admission night, able to be weaned off of to mid flow and now on room air
3. ESRD on peritoneal dialysis
- Was on hemodialysis in the past
- Nephrology evaluated and trying to do aggressive peritoneal dialysis and trying to maximize ultrafiltration
4. Atrial flutter with 2-1 block
Shock - type unclear
-Started on amiodarone drip
-Coreg started although needed to be held due to shock state
-monitor on telemetry
- Patient has been requiring small dose of vasopressor, wean off as possible
5. Acute transaminitis - Improving
- As part of congestive hepatopathy with added shock liver ?
- LFT has increased significantly within 12-hour, ALT 35 > 431 > 275 , AST 60 > 569 > 112
- Started on Amio drip at admission and less likely playing role but will need adjustment based on LFT trend.
5. Leukocytosis - suspecting reactive
Rule out infection
-COVID neg.
-Chest x-ray did not show any overt pneumonia
- Abdominal examination benign. Can get peritoneal dialysis catheter sample if concern for peritonitis
- Rocephin discontinued. monitor for now off abx.
6. Hyponatremia
- With ESRD, monitor
7. Essential hypertension
- Being started on diltiazem for rate control
8. Insulin-dependent diabetes mellitus - Uncontrolled
- A1c of 10.3
- Maintain on regimen of insulin/sliding scale
- Diabetes DOBIE MAN consulted
Code status: full code
DVT prophylaxis: heparin gtt
Case discussed with nephrology/cardiology/dolphin researcher
Patient to be transferred to IMU
Total time spent : 54mins
Anticipated Discharge: > 48 hours
Subjective/Interval History
-
Date of Service: May 24, 2025
Subjective feeling better
Off of vasopressors
Not needing any oxygen
Denies any chest pain/shortness of breath
Denies any abdominal pain/nausea/vomiting
Objective Data
-
Labs:
Laboratory Results
05/23/25 05/24/25 05/24/25
23:04 05:03 12:00
WBC 14.1 H
Hgb 10.6 L
Hct 31.0 L
Plt Count 209
APTT 35.1 H 44.5 H Pending
Sodium 132 L
Potassium 3.7
Chloride 96 L
Carbon Dioxide 24
BUN 96 H
Creatinine 9.3 H*
Glucose 161 H
Calcium 8.6
Total Bilirubin 0.7
AST 112 H
ALT 275 H
Alkaline Phosphatase 54
Vital Signs:
Vital Signs
Temp Pulse Resp BP Pulse Ox
98.1 F 108 25 135/100 93
05/24/25 07:30 05/24/25 08:30 05/24/25 08:30 05/24/25 08:23 05/24/25 08:30
I&O
05/23/25 05/24/25 05/25/25
06:59 06:59 06:59
Intake Total 498.1 / 536.8 1286.4 / 1321.1 69.4 / 69.4
Output Total 1100 / 1100 4475 / 4475
Balance -601.9 / -563.2 -3188.6 / -3153.9 69.4 / 69.4
Review of Systems
-
Respiratory: Reports No Symptoms
Cardiac: Reports No Symptoms
Abdomen/GI: Reports No Symptoms
Physical Exam
-
General: Well Nourished
HEENT: Negative Oxygen
Respiratory: Clear to Auscultation
Cardiac: Regular Rhythm and S1/S2; Negative Tachycardic
GI: Soft, Nontender, Nondistended and Other (PD cath in place)
Musculoskeletal: Edema, Right Lower Extrem and Edema, Left Lower Extrem
Neuro: Awake, Alert, Oriented and AO x 3
--- NOTE | 2025-05-24 10:12 | PTCARENOTE ---
Addendum entered by Maria C Thomas RN 05/24/25 10:13:
PD drained prior to cath.
Original Note:
Pt to laboratory scientist with team for R/L heart cath.
--- NOTE | 2025-05-24 10:37 | PN.DE.MGMTRT ---
Insulin Management
- -
05/24/2025 Diabetes Management Consult Follow up
Patient admitted 05/22 for increased difficulty breathing over past 5 days found to be in acute CHF. PMH CFH, HTN, diabetes, renal failure, HLD. Prior to admission was taking novolog ss AC with Tresiba 32 units @ HS. A1C on admission 10.3%.
Today Cr 9.3, eGFR 5.97.
Patient is awake alert and oriented able to discuss diabetes care. States he was diagnosed ~ 15 years ago, took prandin for years then started insulin. Follows with primary care doctor, Milind Montana. Uses DexCom G7 and traditional glucose monitor
for glucose testing. He states he is not surprised his A1C is elevated as he has not been paying attention to his diabetes.
Transitioned from critical care glycemic protocol last evening. Received 32 units lantus @ hs. Fasting glucose 143. Patient is NPO today for cardiac cath. Patient completed peritoneal dialysis this AM.
Will continue current regimen
Discussed with nurse.
Will follow.
Diabetes History
- -
Type of Diabetes: 2 requiring insulin
Pre-Admission Diabetes Regimen
05/24/25
05:03
Creatinine 9.3 H*
Lab Results
Hemoglobin A1c 10.3 % (4.0-5.6) H 05/23/25 03:16
Insulin Pump Settings
IP Diabetes Regimen
05/23/25 05/23/25 05/23/25
10:39 11:37 12:50
Glucose
POC Glucose 136 H 131 H 139 H
05/23/25 05/23/25 05/23/25
13:25 15:27 17:42
Glucose
POC Glucose 172 H 122 H 114 H
05/23/25 05/23/25 05/24/25
20:07 22:23 01:13
Glucose
POC Glucose 119 H 88 167 H
05/24/25 05/24/25 05/24/25
03:10 05:03 05:33
Glucose 161 H
POC Glucose 185 H 165 H
05/24/25
07:32
Glucose
POC Glucose 143 H
Meal type: Dinner
Meal type: Lunch
Amount consumed: 25%
Amount consumed: 25%
Patient Education
--- NOTE | 2025-05-24 11:54 | ITS.CL.CATH ---
Pole Lift Operator - Catheterization
Cardiac Catheterization
Procedure Report:
CARDIAC CATHETERIZATION REPORT
Date of Procedure: 05/24/2025
Referring: Uli Quinones M.D.
Indication: Non-ST elevation myocardial infarction, cardiomyopathy, severe heart failure.
PROCEDURE:
1. Right heart catheterization.
2. Coronary angiography.
3. Left heart catheterization.
4. Left ventriculography.
A total of 17 minutes of procedural/moderate sedation was utilized. An independent bacteriologist medical was present to assist with and help manage the patient's level of consciousness and physiologic status.
ACCESS:
1. 6 [place] right common femoral artery using a modified Seldinger technique with a micropuncture kit under ultrasound guidance.
2. 6 [place] right common femoral vein using a modified Seldinger technique with a micropuncture kit under ultrasound guidance.
CATHETERS:
1. 5 [place] balloon with.
2. 5 [place]uan JL 4.
3. 5 [place] JR4.
4. 5 [place] angled pigtail.
HEMODYNAMIC DATA
Weight (kg): 108.4
AO (s/d/x, mmHg): 101/68/81
LV (s/x, mmHg): 101/34
PCWP (a/v/x, mmHg): 42/60/38
PA (s/d/x, mmHg): 76/38/51
RV (s/x, mmHg): 76/16
RA (a/v/x, mmHg): 20/20/17
SVC SvO2 (%): 41.5
IVC SvO2 (%): Not obtained.
RA SvO2 (%): Not obtained.
RV SvO2 (%): Not obtained.
PA SvO2 (%): 35.5
SaO2 (%): 92.6
Hbg (g/dL): 10.3
ALCIDES
CO (L/min): 3.52
CI (L/min/m2): 1.56
Thermodilution
CO (L/min): Not performed.
CI (L/min/m2): Not performed.
TPG (mmHg): 13
PVR (Tamayo Units): 3.69
SVR (dynes*seconds*cm^-5): 1455
AVO2 Diff (Volume %): 8.0
AV gradient (x, mmHg): None.
AV area (cm2): Normal.
MV gradient (x, mmHg): Not obtained.
MV area (cm2): Not obtained.
LEFT VENTRICULOGRAPHY: Moderate to severely dilated left ventricle with globular appearance and diffuse, severe global hypokinesis with akinesis of the inferior wall. Left ventricular ejection fraction severely reduced, estimated at 15-20%. There
is severe mitral valve regurgitation. There is no aortic valve insufficiency. The aortic root and ascending aorta appear normal.
AORTOGRAPHY: Not performed.
CORONARY ANGIOGRAPHY
Dominance: Right.
Left Main: Small to medium size, bifurcating vessel. There is an hazy, 80-90% lesion in the body of the vessel, proximal to its bifurcation point.
LAD: Large size vessel giving rise to 2 diagonals. There are tandem, densely calcified 80% lesions in the mid vessel after the origin of the diagonals.
Ramus: Congenitally absent.
Circumflex: Nondominant vessel. The vessel is chronically flush occluded at its origin.
RCA: Large size, dominant vessel with a large posterolateral arcade that supplies much of the inferior and inferolateral wall. There is a hazy, ulcerated 90% lesion in the mid vessel with ALMA-3 flow. The RPDA is chronically totally occluded at
its origin and appears diffusely diseased with faint collaterals from the RPL system. The most distant RPL has a 90% lesion in its origin.
INTERVENTIONS
None.
Closure Device: Perclose for the right common femoral artery, manual pressure for the right common femoral vein.
Radiation dose (mGy): 650.11
DAP (cm2.Gy): 56.5040
Fluoroscopy time (minutes): 5.0
CONCLUSIONS:
1. Right dominant circulation with an 80-90% lesion in the body of the left main coronary artery, tandem, densely calcified 80% lesions in the mid LAD after the origin of the diagonals, a chronic flush occlusion of the nondominant circumflex, and
90% ulcerated and hazy lesion in the mid RCA with a chronic total occlusion of the RPDA and a 90% lesion in the origin of the most distal RPL.
2. Moderate to severely dilated left ventricle with severe global hypokinesis and akinesis of the inferior wall with severely reduced systolic function, LVEF 15-20%.
3. Severe mitral valve regurgitation.
4. Severely elevated filling pressures (LVEDP = 34 mmHg, PCWP = 38 mmHg at 108.4 kg).
5. Severely depressed cardiac index (1.56 L/min/m�), combined with elevated LVEDP and pulmonary capillary wedge pressure are consistent with cardiogenic shock.
6. Moderate to severe, precapillary and postcapillary pulmonary hypertension (mean PA = 51 mmHg, PCWP = 38 mmHg, cardiac output = 3.52 L/min, PVR = 3.69 Tamayo units), WHO groups 2 and 5.
RECOMMENDATIONS:
1. Expectant management after cardiac catheterization via right common femoral approach.
2. Limited weight bearing for one week.
3. Initiation of dobutamine for inotropic support, starting at 10 mcg/kg/min.
4. Consultation with CT surgery regarding optimal revascularization strategy, particularly given depressed ejection fraction and severe mitral valve regurgitation.
5. Consultation with nephrology regarding need for initiation of hemodialysis for more aggressive ultrafiltration. Start bumetanide drip at 1 mg/h to see if we can increase urine output.
6. Continue heparin drip.
7. Aggressive secondary prevention. Patient is intolerant of statins. There may be role for PCSK9 inhibitors as an outpatient.
8. Low threshold for initiation of MCS.
Copy to: Uli Quinones M.D., George Bal M.D., Tino Foss M.D., Aline Renteria M.D.
Alexis Laws DO, FACC, FACP
--- NOTE | 2025-05-24 12:36 | PTCARENOTE ---
Pt received after R/L heart cath. Accessed R fem art/vein. Perclose. Dressing CDI. palpable pedal pulses. SpO2 low 80s on RS. Weaned O2 to 6L with SpO2 93%. Currently in NSR with BBB. PD infused as ordered without issue.
[2025-05-24] MEDS: NOVOLOG FLEXPEN-LOW RESISTANCE 1 UNITS SC ×2 (12:46→17:01)
[2025-05-24 12:57] LABS: Glucose - Point of Care 151 mg/dl (70-99)
--- NOTE | 2025-05-24 13:17 | CONSULT.CT ---
Consultation
-
Date/Time Consultation Requested: 05/24/25
Date/Time Consultation Performed: 05/24/25
Requesting Provider: Alexis Laws DO
Performing Provider: Melly HOGAN for Paolo Ibarra MD
Reason for Consultation: eval for CABG/MVR
Patient History
Physicians
Family Physician: Milind [place]
Inpatient Security System Administrator: [facility]
History of Present Illness
59-year-old male with PMH significant for ESRD on peritoneal dialysis, HFpEF, paroxysmal atrial fibrillation, CVA, PAD, type 2 diabetes mellitus, and obesity, presented to [facility] ER on 05/22/25 with a 4 day history of shortness of breath, intermittent
chest tightness, bilateral lower extremity edema, abdominal bloating and orthopnea. Patient stopped his Lasix 5 dyas ago due to low blood pressures. Patient ruled in for NSTEMI with Troponin 52.2 and treated with IV Heparin. TTE on 05/22/2025
reported an EF that was reduced from 50 (09/2024) to 30%. Normal RV size and function and moderate to severe mitral regurgitation. Patient was taken to the catheterization lab on 05/24/2025 for right and left heart cath which reported elevated
filling pressures ans triple vessel coronary disease. CT surgery was consulted to evaluate for CABG possible mitral valve surgery
Pertinent negatives: Patiient denies asthma/COPD, hepatitis/fatty liver, bowel disease, chest radiation/surgery, DVT/PE, cancer
Past Medical History
Past Medical History: Other
Type 2 diabetes diagnosed 15 years ago (A1C 10.3%)
Diabetic retinopathy w/injections
Diabetic neuropathy
End-stage renal disease on peritoneal dialysis x 1 year-nonoliguric
Hypertension
Hyperlipidemia
HF R EF (new 50>30%)
Atrial fibrillation with hemodialysis treatments
CVA with right hemiparesis 2021 (mostly resolved)-residual balance issues-ambulates with cane
PAD
anemia of chronic disease (ESRD)
Past Surgical History
Past Surgical History: Other
Peritoneal dialysis catheter placement
Bilateral cataract extraction
Left lower extremity angioplasty 2023
Kidney biopsy 2020
extra bone removed fromn B/L feet as a child
Dental History
last dental exam 6 weeks prior to admission-no issues
Family History
Mother: Still Living
Family Medical History: CAD (Father-NM/CVA)
Social History
Alcohol: None
Drug: None
Tobacco: Former Smoker (quit 1987)
Personal: Single
Living: Alone
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
Allergies
Allergy/AdvReac Type Severity Reaction Status Date / Time
JOHNATHON Inhibitors Allergy Swelling Verified 05/22/25 12:44
and HTN
acyclovir Allergy Swelling Verified 05/22/25 12:44
clindamycin Allergy Swelling Verified 05/22/25 12:44
ethacrynic acid Allergy nausea/ Verified 05/22/25 12:44
vomiting
honey Allergy Throat Verified 05/22/25 12:44
closes,
rash
hydralazine Allergy angioedema Verified 05/22/25 12:44
losartan Allergy palpitation Verified 05/22/25 12:44
s
metformin Allergy 'shut my Verified 05/22/25 12:44
liver
down, GI
Bleed'
metoprolol Allergy angioedema, Verified 05/22/25 12:44
Tachycardia,
HTN
mint Allergy Throat Verified 05/22/25 12:44
closes,
rash
mold Allergy Throat Verified 05/22/25 12:44
closes,
rash
nifedipine Allergy Angioedema Verified 05/22/25 12:44
Penicillins Allergy Anaphylaxis; Verified 05/22/25 17:25
tolerates
ceftriaxone
pollen extracts Allergy Throat Verified 05/22/25 12:44
closes,
rash, itch
Ypnvclw-WKI-SwZ Reductase Allergy Rash, Verified 05/22/25 12:44
Inhibitor blistering
Sulfa (Sulfonamide Allergy Anaphylaxis Verified 05/22/25 12:44
Antibiotics) and hives
tetracycline Allergy Anaphylaxis Verified 05/22/25 12:44
Home Medications
�Medication �Instructions �Recorded �Confirmed �Type
insulin degludec 100 unit/mL (3 32 unit SC HS Diabetes 04/26/22 05/22/25 History
mL) subcutaneous pen (Tresiba
FlexTouch U-100 insulin)
furosemide 80 mg tablet 80 mg PO DAILY Fluid 02/03/23 05/22/25 History
retention/Swelling
insulin aspart U-100 100 unit/mL 0 sliding scale dose SC MEALS 02/03/23 05/22/25 History
(3 mL) subcutaneous pen (Novolog Diabetes
FlexPen U-100 Insulin aspart)
calcium acetate(phosphat bind) 667 667 mg PO AC Supplement 12/22/23 05/22/25 History
mg tablet
carvedilol 25 mg tablet (Coreg) 12.5 mg PO BID Blood pressure 12/22/23 05/22/25 History
aspirin 81 mg tablet,delayed 81 mg PO DAILY Blood Clot 12/27/23 05/22/25 History
release Prevention/Tx
fenofibrate nanocrystallized 48 mg 48 mg PO NOON HIGH TRIGLYCERIDES 09/30/24 05/22/25 History
tablet
cholecalciferol (vitamin D3) 25 25 mcg PO DAILY Supplement 05/22/25 05/22/25 History
mcg (1,000 unit) tablet (Vitamin
D3)
diltiazem HCl 120 mg 120 mg PO DAILYPRN PRN afib 05/22/25 05/22/25 History
capsule,extended release 24 hr
simethicone 125 mg chewable tablet 125 mg PO QID PRN gas 05/23/25 05/23/25 History
Review of Systems
-
History Source: Patient
General: Reports No Symptoms
HEENT: Reports No Symptoms
Respiratory: Reports No Symptoms
Cardiac: Reports No Symptoms
Abdomen/GI: Reports No Symptoms
: Reports No Symptoms
Musculoskeletal: Reports No Symptoms
Skin: Reports No Symptoms
Neurological: Reports No Symptoms
Vascular: Reports No Symptoms
Physical Exam
Vital Signs
Temp 98.1 F 05/24/25 07:30
Temp route: Oral 05/24/25 07:30
Pulse 69 05/24/25 12:09
Rhythm: Atrial fibrillation 05/24/25 08:50
With- Bundle Branch Block Confi, PVC's Monomorphic 05/24/25 08:00
Resp Rate 23 05/24/25 12:09
Blood pressure 113/48 05/24/25 12:15
Blood pressure extremity used: Right upper arm 05/22/25 17:06
Position: Lying 05/22/25 17:06
MAP (cuff-Tosin Monitor) 69 05/24/25 12:15
SaO2 84 05/24/25 12:15
Nasal Cannula flow liters per minute 4 05/23/25 13:27
Oxygen Mode of Delivery Room air 05/24/25 08:00
Other oxygen comment bipap off 05/24/25 03:24
Acceptable pain level during hospitalization? 1 05/22/25 12:33
Can the patient verbally communicate their pain? Yes 05/24/25 08:00
Pain scale ratin 05/24/25 08:00
Actual Weight 108.8 kg 05/24/25 06:00
Body Mass Index (BMI) 34.4 05/24/25 06:00
Labs
05/24/25 05:03
05/24/25 05:03
PT 19.6 Sec (11.4-14.6) H 05/22/25 20:57
APTT 44.5 Sec (23.4-35.0) H 05/24/25 05:03
Hemoglobin A1c 10.3 % (4.0-5.6) H 05/23/25 03:16
Troponin I 41.100 ng/ml H* 05/23/25 06:23
Bpz-U-Opnuvirdrnq Pept > 89091 pg/ml 05/22/25 12:50
Arterial Blood Gases
pH 7.40 (7.35-7.45) 05/23/25 00:17
pCO2 25 mmHg (35-48) L 05/23/25 00:17
pO2 121 mmHg (83-108) H 05/23/25 00:17
HCO3 15.5 mmol/L (21-28) L* 05/23/25 00:17
Base Excess -7.9 mmol/L 05/23/25 00:17
ABG O2 Sat (Measured) 99.4 % (94-98) H 05/23/25 00:17
Sodium 125 mMOL/L (136-145) L 05/23/25 00:17
Potassium 4.5 mMOL/L (3.5-5.1) 05/23/25 00:17
O2 Delivery Level 05/23/25 00:17
Urinalysis
Urine Color Bisi 05/23/25 23:04
Urine Clarity Slightly cloudy (Clear) 05/23/25 23:04
Urine pH 6.0 (5.0-9.0) 05/23/25 23:04
Ur Specific [place] 1.025 (<1.030) 05/23/25 23:04
Urine Ketones Negative (Negative) 05/23/25 23:04
Ur Occult Blood Reflex 1+ (Negative) A 05/23/25 23:04
Urine Bilirubin Negative (Negative) 05/23/25 23:04
Leukocyte Esterase Rfl Negative (Negative) 05/23/25 23:04
Urine RBC 3-6 /HPF (0-2) A 05/23/25 23:04
Urine WBC (Reflex) 3-5 /HPF (0-5) 05/23/25 23:04
Ur Squamous Epith Cells >30 /LPF (Few) 05/23/25 23:04
Urine Bacteria (Reflex) Moderate (Negative) A 05/23/25 23:04
Urine Glucose 3+ (Negative) A 05/23/25 23:04
Urine Albumin (Reflex) 4+ (Neg - Trace) A 05/23/25 23:04
Diagnostic Studies
TTE 05/22:
LVEF 32% from 50% (09/2024). Right ventricle is normal in size and systolic function. Moderate to severe mitral regurgitation.
R/LHC 05/24:
RA 17; PA 76/38 (51); PCW 38; CI 1.56
80-90% left main; 80% mid LAD; occluded LCx; 70% mid RCA; 90%dRPL
Exam
General: Well Developed, Well Nourished and No Apparent Distress
HEENT: Normocephalic, Anicteric, Moist Mucous Membranes and PERRLA
Neck: Trachea Midline
Respiratory: Clear
Cardiac: S1/S2 and Regular Rhythm
GI: Soft, Non Tender, Non Distended, Normal Bowel Sounds and Other (PD catheter w/o surrounding erythema)
Rectal: Deferred by Provider
Skin: Warm and Dry
Neuro: AO x 3, No Motor Deficits and Nonfocal/Grossly Intact
Lymph: No Lymphadenopathy
Psych: Calm
Assessment / Plan
-
59 year old male with T2DM, ESRD on PD, HFrEF, PAD was admitted with NSTEMI. Found to have 3VCAD and moderate to severe MR on TTE
- surgeon to review imaging and discuss risk/benefit with patient
- elevated right heart pressures>medical optimization
- uncontrolled diabetes>insulin optimization
- last dental exam 6 weeks prior to admission
- NOTE allergy to PCN-anaphylaxis
- pre-op diagnostic work-up in progress
Data Reviewed
-
EKG: Report Reviewed by me and Discussed with Physician
Telecommunications Repairer: Report Reviewed by me and Discussed with Physician
Echo: Report Reviewed by me and Discussed with Physician
Radiology: Report Reviewed by me and Discussed with Physician
Labs: Labs Reviewed by me and Discussed with Physician
Old Records: Reviewed
--- NOTE | 2025-05-24 16:29 | PTCARENOTE ---
CT chest performed. PICC 2L placed in LUE, advanced 1cm to ideal placement. All IV lines changed.
[2025-05-24] MEDS: PHOSLO 667 MG PO (17:01)
[2025-05-24] MEDS: NOVOLOG FLEXPEN 6 UNITS SC (17:01)
[2025-05-24 17:10] LABS: Glucose - Point of Care 182 mg/dl (70-99)
--- NOTE | 2025-05-24 17:17 | VATNOTE ---
late entry; @ 1625 pushed left picc line in another [address] Diego instruction with previous VAT RN, Kayla Long Redressed with biopatch.
[2025-05-24] MEDS: CORDARONE 518 MG IV (17:37)
[2025-05-24] MEDS: BUMEX 100 IV (17:38)
[2025-05-24] MEDS: DOBUTREX 500 MG 250 IV (17:38)
[2025-05-24] MEDS: ZOFRAN 4 MG IV (18:50)
--- NOTE | 2025-05-24 20:07 | PTCARENOTE ---
confirmed with Dr Tiwari - no longer alternating solutions, to use 4.25% dextrose for all PD exchanges at this current time.
--- NOTE | 2025-05-24 21:00 | PTCARENOTE ---
pt with increased ectopy, runs of VT/MARIELENA HR up to 150s. pt denies CP. BDoughertyNP to bedside. EKG & weaning dobutamine gtt- improvement noted with decreased dose. care ongoing.
[2025-05-24] MEDS: REMOVE LIDOCAINE PATCH REMOVE (21:09)
[2025-05-24 21:30] LABS: Glucose - Point of Care 249 mg/dl (70-99)
--- NOTE | 2025-05-24 22:00 | RESPNOTE ---
PT is ordered for BIPAP for HS use and has been compliant since admission, but refused the BIPAP for the night, tonight and just wanted to stay on the n/c. Will attempt placement again tomorrow night.
[2025-05-24] MEDS: NOVOLOG FLEXPEN 3 UNITS SC (22:11)
[2025-05-24] MEDS: LANTUS 0.32 UNITS SC (22:11)
[2025-05-25] VITALS (26 sets, daily range): BP systolic 106–140; BP diastolic 58–92; BMI 34.1
[2025-05-25 00:28] LABS: APTT 61.8 Sec (23.4-35.0)
[2025-05-25 00:36] LABS: Blood Urea Nitrogen 90 mg/dl (9-20); Calcium 7.7 mg/dl (8.4-10.2); Carbon Dioxide 18 mmol/L (22-30); Chloride 97 mmol/L (98-107); Estimated Creatinine Clearance 11 ml/min; Glucose 287 mg/dl (70-99); Magnesium 2.4 mg/dl (1.6-2.3); Potassium 3.1 mmol/L (3.5-5.1); Sodium 131 mmol/L (135-145); eGFR 6.21
--- NOTE | 2025-05-25 04:00 | PTCARENOTE ---
no changes in assessment.
[2025-05-25] MEDS: HEPARIN 25000 UNITS/250 ML IV ×2 (04:33→16:29)
[2025-05-25] MEDS: DOBUTREX 500 MG 250 IV (05:01)
[2025-05-25 05:21] LABS: Hematocrit 29.9 % (39.0-52.0); Hemoglobin 10.1 g/dL (13.0-18.0); Mean Corp Hgb Conc. 33.8 g/dL (33.0-37.0); Mean Corpuscular Volume 84.2 fL (80.0-94.0); Platelet Count 218 10^3/uL (130-400); Red Cell Dist. Width 14.3 % (11.5-14.5)
[2025-05-25 05:27] LABS: APTT 91.0 Sec (23.4-35.0)
[2025-05-25] MEDS: KCL 160 MEQ IV (06:29)
[2025-05-25 06:34] LABS: ALT (SGPT) 173 U/L (0-50); AST (SGOT) 35 U/L (17-59); Albumin 3.2 g/dl (3.5-5.0); Alkaline Phosphatase 61 U/L (38-126); Blood Urea Nitrogen 93 mg/dl (9-20); Calcium 7.9 mg/dl (8.4-10.2); Carbon Dioxide 21 mmol/L (22-30); Chloride 95 mmol/L (98-107); Estimated Creatinine Clearance 10 ml/min; Glucose 229 mg/dl (70-99); Potassium 3.4 mmol/L (3.5-5.1); Sodium 130 mmol/L (135-145); Total Protein 5.5 g/dl (6.3-8.2); eGFR 5.89
--- NOTE | 2025-05-25 07:17 | W.PN.INTV ---
Today's Communication / Plan
Recommendations
Dobutamine and Bumex being DC'd per cardiology
Continue with negative fluid status, peritoneal dialysis
Adjust insulin dosing
Received potassium this morning, further replacement per nephrology
Amiodarone drip continues
Encourage nocturnal BiPAP
Assessment
-
59-year-old male with end-stage renal disease on peritoneal dialysis, atrial fibrillation, stroke, diabetes presents with shortness of breath for 5 days and weight gain. Found to have acute non-ST elevation SC, troponin increased to 60, developed
worsening shortness of breath, tachycardia requiring amiodarone therapy BiPAP therapy transferred to ICU 05/22. We are asked to help from critical care standpoint
Acute hypoxic respiratory insufficiency, improved
89% on 6 L
Required BiPAP, 10 L
Transferred to ICU 05/22
Hypotension, systolic pressure 70 in the setting of tachycardia
Improved
S/p NSTEMI, admitted 05/22
Shortness of breath, chest pain for 5 days
Now resolved
Atrial fibrillation with RVR
On amiodarone therapy
Hyperglycemia
Acute congestive heart failure, systolic dysfunction
EF 32%
Moderate to severe mitral regurgitation
RHC/LHC 05/24: V waves, cardiac index 1.56 L/min/m�, RV, mPAP 51, left main disease, multivessel disease, EF 15 to 20%, severe MR
Acute transaminitis, improving
Conditions present prior to admission
End-stage renal disease on PD
Diabetes
Hypertension/hypercholesterolemia
History of stroke
30 pack year history of smoking, quit
Disabled
Plan/recommendations
At this time, patient remains critically ill, catheterization results reviewed
Severe mitral regurgitation, cardiomyopathy, pulm hypertension, right and left-sided filling pressures elevated, cardiac index 1.56
Patient started on dobutamine yesterday p.m. and Bumex. Ectopy, tachycardia noted
Amiodarone dose increased to 1 mg, drip
blood pressure stable
Weight down 5 kg with peritoneal dialysis
Minimal urinary output with Bumex
Remains on room air
Echocardiogram with EF 32%, moderate to severe mitral regurgitation
Catheterization results noted
Moving forward
Continue with management per cardiology and nephrology
Remains on amiodarone, heparin drip
RHC/LHC reviewed. 80% left main lesion, multivessel coronary disease, EF 15%, severe MR, elevated filling pressures noted right and left
Remains high risk situation
Cardiology following
CT surgery following
Nephrology plans to continue with peritoneal dialysis, remains negative
Has been able to achieve negative fluid status in the last few days with subjective improvement
Nephrology following
Follow liver function, improving
Blood sugars noted, noted, likely worsened with PD
Continue with insulin therapy, currently off insulin drip
Increase insulin dosing
Diabetic diet
Reviewed with primary service, cardiology
Reviewed with critical care nursing, respiratory care, pharmacy
Reviewed with patient and mother at bedside
TCCT 31 min
Subjective Dataa
Subjective Data
Date of Service:
Date of Service: May 25, 2025
Subjective:
Patient feeling 'sore' all over. States from multiple procedures. Did not use BiPAP yesterday. [place] he did not need it. On further questioning states he was nauseous. Denies chest pain. Mother at bedside
Objective Data
Data Reviewed
Vital Signs / I&O / Oxygen:
Vital Signs
Temp Pulse Resp BP Pulse Ox
97.7 F 125 22 132/77 96
05/25/25 06:51 05/25/25 06:30 05/25/25 06:30 05/25/25 06:00 05/25/25 06:30
Intake and Output
05/24/25 05/25/25 05/26/25
06:59 06:59 06:59
Intake Total 1286.4 / 1323.1 1902.0 / 1902.0
Output Total 4475 / 4475 2224 / 2224
Balance -3188.6 / -3151.9 -323.0 / -323.0
SaO2 96
Nasal Cannula flow liters per 4
minute
Physical Exam
General: Comfortable and Other (Left upper extremity PICC line)
HEENT: Normocephalic and Anicteric
Cardiovascular: S1-S2, Regular Rhythm, Murmur (n), Rub (n) and Peripheral Edema (1+)
Respiratory: Wheeze (n), Crackles (Few at base), Rhonchi (n), Non-Labored Respirations and Other (Decreased at base)
GI: Soft, Non Distended and Non Tender
Neurology: Awake, Alert and No Motor Deficits (Able to sit up without assistance)
Skin: Cyanosis (n) and Jaundice (n)
Labs/Micro/Reports
Lab Data
05/25/25 05:06
05/25/25 05:06
Laboratory Results
05/24/25 05/25/25 05/25/25
12:00 00:00 05:06
APTT Cancelled 61.8 H 91.0 H
Microbiology
05/22/25 12:50 Blood/Venous Blood Culture - Preliminary
No Growth in 48 hours- Final report to follow
05/22/25 12:51 Blood/Venous Blood Culture - Preliminary
No Growth in 48 hours- Final report to follow
05/22/25 12:51 Nasal Swab Influenza Types A & B (DK) - Final
Negative for Influenza A & B, NAAT
Negative results must be combined with clinical observations
and patient history.
Nucleic Acid Amplification test (NAAT)performed on the
[employer] platform.
[2025-05-25] MEDS: CORDARONE 518 MG IV ×2 (07:54→18:01)
--- NOTE | 2025-05-25 08:02 | PN.DE.MGMTRT ---
Insulin Management
- -
05/25/2025: Diabetes Management Consult Follow up
Patient admitted 05/22 for increased difficulty breathing over past 5 days found to be in acute CHF. PMH CFH, HTN, diabetes, renal failure, HLD. Prior to admission was taking NovoLog ss AC with Tresiba 32 units @ HS. States he was diagnosed ~ 15
years ago, took Prandin for years then started insulin. Follows with primary care doctor, Milind Montana. Uses DexCom G7 and traditional glucose monitor for glucose testing. A1C on admission 10.3%, Cr 9.3, eGFR 5.97.
He states he is not surprised his A1C is elevated as he has not been paying attention to his diabetes. Transitioned from critical care glycemic protocol on 05/23.
Patient is awake alert and oriented, sitting up in bed, offers no complaints, able to discuss diabetes care. For peritoneal dialysis this AM.
Noted for Hyperglycemia due to increased glucose concentrate in PD treatment. HS glucose was 249, received 32 units Lantus, FBG 229V, 309 POC this AM.
Will start critical care glycemic protocol at this time for better glucose control.
Discussed with Pharmacy team and nurse. Will Cont to follow.
Diabetes History
- -
Type of Diabetes: 2 requiring insulin
Pre-Admission Diabetes Regimen
05/25/25 05/25/25
00:00 05:06
Creatinine 9.0 H* 9.4 H*
Lab Results
Hemoglobin A1c 10.3 % (4.0-5.6) H 05/23/25 03:16
Insulin Pump Settings
IP Diabetes Regimen
05/24/25 05/24/25 05/24/25
12:45 16:58 21:19
Glucose
POC Glucose 151 H 182 H 249 H
05/25/25 05/25/25
00:00 05:06
Glucose 287 H 229 H
POC Glucose
Patient Education
[2025-05-25] MEDS: NOVOLOG FLEXPEN-LOW RESISTANCE 5 UNITS SC (08:09)
[2025-05-25] MEDS: VITAMIN D3 (cholecalciferol) 25 MCG PO (08:10)
[2025-05-25] MEDS: ASPIR LOW (ENTERIC COATED) 81 MG PO (08:10)
[2025-05-25] MEDS: NOVOLOG FLEXPEN SC (08:11)
[2025-05-25 08:12] LABS: Glucose - Point of Care 306 mg/dl (70-99)
[2025-05-25] MEDS: PHOSLO PO ×2 (08:12→17:39)
--- NOTE | 2025-05-25 08:52 | W.PN.CD ---
Today's Communication / Plan
-
Stop dobutamine and Bumex drips
PD for volume removal
Continue IV amiodarone
Continue aspirin and heparin while awaiting CT surgery evaluation
Impression / Plan
-
I/P: 59-year-old male with ESRD on peritoneal dialysis, HFpEF, paroxysmal atrial fibrillation, CVA, PAD, type 2 diabetes mellitus, and obesity who presented to the emergency department with a chief complaint of shortness of breath and stuttering
chest pain for 4 days, found to have NSTEMI and severe multivessel CAD
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
Acute hypoxic respiratory insufficiency, in the setting of acute HFrEF/volume overload
- Improved. Now on nasal cannula
- volume control as per nephrology
Severe multivessel CAD
- [facility] 05/24/2025: 80-90% left main lesion, tandem 80% mid LAD lesions, hazy ulcerated 90% mid RCA lesion, chronically occluded RPDA, 90% RPL
- currently CP free. Initial trop 52, downtrended
- Continue ASA and Heparin
- No BB due to allergy. Intolerant to statins.
- CT surgery evaluation for possible CABG
Heart failure with reduced ejection fraction, acute
- Likely ischemic cardiomyopathy due to severe multivessel CAD as above
- TTE 05/22/2025: LVEF 30%, moderate to severe MR
- RHC/LHC on 05/24 revealed CI 1.5 but he has been normotensive, mentating appropriately, LFTs improving and already has ESRD so I see no reason to continue inotropic support.
- Continue volume removal with peritoneal dialysis
- He has not had much urine output. Stop Bumex and dobutamine.
- GDMT limited by long list of allergies, ESRD, and low CI. Will readdress after surgery.
Paroxysmal atrial fibrillation
- In and out of A-fib this admission
-Continue IV amiodarone for now. Will convert to p.o. over the weekend if he stays in sinus.
- Oral anticoagulation: Apixaban was recommended at his last hospitalization, self discontinued
- [id number] score of at least 5 (DM, PAD, CVA, HF)
- IV heparin. Eventual transition to oral anticoagulation prior to discharge
ESRD
- Does PD daily at home
- Nephrology consulted
Prior CVA
PAD, follows with Dr. King
Hypertriglyceridemia, on fenofibrate, statin intolerant
Type 2 diabetes mellitus, per primary service
Subjective: He is sore all over but no specific cardiovascular complaints. In terms of drips, he is currently on dobutamine 3 mcg, Bumex drip at 1, amiodarone at 1, and heparin.
Telemetry: In and out of atrial fibrillation overnight. Currently in sinus rhythm.
Physical Exam
Vital Signs/Labs
Vital Signs
Temp Pulse Resp BP Pulse Ox
97.7 F 125 22 132/77 96
05/25/25 06:51 05/25/25 06:30 05/25/25 06:30 05/25/25 06:00 05/25/25 06:30
05/24/25 05/25/25 05/26/25
06:59 06:59 06:59
Actual Weight 239 lb 13.807 oz 237 lb 10.533 oz
05/25/25 05:06
05/25/25 05:06
PT 19.6 Sec (11.4-14.6) H 05/22/25 20:57
INR 1.64 05/22/25 20:57
APTT 91.0 Sec (23.4-35.0) H 05/25/25 05:06
Magnesium 2.4 mg/dl (1.6-2.3) H 05/25/25 00:00
Triglycerides 146 mg/dl (10-149) 05/23/25 03:16
LDL Cholesterol, Calc 82 mg/dl 05/23/25 03:16
VLDL Cholesterol, Calc 29 mg/dl (0-30) 05/23/25 03:16
HDL Cholesterol 20 mg/dl 05/23/25 03:16
05/22/25
12:50
Ypu-V-Ilwyvmopzom Pept > 87020
LAB Results
05/22/25 05/22/25 05/22/25
12:50 16:39 17:12
Troponin I 52.200 H* 48.600 H* Cancelled
05/22/25 05/22/25 05/23/25
18:52 20:12 00:40
Troponin I 46.100 H* Cancelled 50.000 H*
05/23/25
06:23
Troponin I 41.100 H*
Physical Exam
Constitutional: No acute distress and Comfortable
Cardiovascular: Rhythm & rate is regular, Pedal edema present, Systolic murmur present and S1S2 is normal
Respiratory: Respiratory effort normal and Crackles Present
Neuro/Psych: AO x 3
Other: Cath Site (groin soft; no swelling or erythema)
Data Reviewed
-
Date of Service: May 25, 2025
Medical Decision Making: Reviewed Test Results, Independent Historian Assessment, Test Interpretation and Review of Case with other Provider
EKG: Tracing Personally Visualized and interpreted
Echo: Tracing Personally Visualized and interpreted and Report Reviewed by me
Labs: Labs Reviewed by me
Critical Care Time (in minutes): 32
--- NOTE | 2025-05-25 08:57 | W.PN.HOSP.TC ---
Addendum entered and electronically signed by Tino Foss MD 05/25/25 15:16:
Hypokalemia - replace prn
Original Note:
Today's Communication/Plan
-
await CTS evaluation
bumex/dobutamine drip to be stopped
keep on heparin drip
Continue volume optimization with PD, managed by nephro
Assessment / Plan
Assessment / Plan
TTE 05/22
1. Left ventricle is normal in size with moderately reduced systolic function. LVEF 32%.
2. Right ventricle is normal in size and systolic function.
3. Moderate to severe mitral regurgitation.
4. Compared to prior echocardiogram in September 2024, LVEF has decreased from 50% to 32%. There is now moderate to severe mitral regurgitation (previously mild).
LHC
1. Right dominant circulation with an 80-90% lesion in the body of the left main coronary artery, tandem, densely calcified 80% lesions in the mid LAD after the origin of the diagonals, a chronic flush occlusion of the nondominant circumflex, and
90% ulcerated and hazy lesion in the mid RCA with a chronic total occlusion of the RPDA and a 90% lesion in the origin of the most distal RPL.
2. Moderate to severely dilated left ventricle with severe global hypokinesis and akinesis of the inferior wall with severely reduced systolic function, LVEF 15-20%.
3. Severe mitral valve regurgitation.
4. Severely elevated filling pressures (LVEDP = 34 mmHg, PCWP = 38 mmHg at 108.4 kg).
5. Severely depressed cardiac index (1.56 L/min/m�), combined with elevated LVEDP and pulmonary capillary wedge pressure are consistent with cardiogenic shock.
6. Moderate to severe, precapillary and postcapillary pulmonary hypertension (mean PA = 51 mmHg, PCWP = 38 mmHg, cardiac output = 3.52 L/min, PVR = 3.69 Tamayo units), WHO groups 2 and 5.

1. NSTEMI
Triple-vessel CAD
-Troponin elevated to max 52, trending down
-EKG reviewed and no ST segment changes
-Cardiology evaluated and recommended patient to be managed conservatively as suspected symptoms ongoing more than 48 hours
-TTE result as above.
-Left heart catheterization on 05/24, report as above
- Awaiting cardiothoracic surgery input
2. Acute Hypoxic respiratory failure - resolved
Bilateral pleural effusion
-Chest x-ray showing pulmonary edema/congestion
-Likely volume overloaded as patient stopped taking Lasix reportedly peritoneal dialysis was not effective
-Patient required BiPAP on admission night, able to be weaned off of to mid flow and now on room air
3. ESRD on peritoneal dialysis
- Was on hemodialysis in the past
- Nephrology evaluated and trying to do aggressive peritoneal dialysis and trying to maximize ultrafiltration
4. Atrial flutter with 2-1 block
Shock - type unclear
-Started on amiodarone drip
-Coreg started although needed to be held due to shock state
-monitor on telemetry
- Patient has been requiring small dose of vasopressor, wean off as possible
5. Acute transaminitis - Improving
- As part of congestive hepatopathy with added shock liver ?
- LFT has increased significantly within 12-hour, ALT 35 > 431 > 275 , AST 60 > 569 > 112
- Started on Amio drip at admission and less likely playing role but will need adjustment based on LFT trend.
5. Leukocytosis - suspecting reactive
Rule out infection
-COVID neg.
-Chest x-ray did not show any overt pneumonia
- Abdominal examination benign. Can get peritoneal dialysis catheter sample if concern for peritonitis
- Rocephin discontinued. monitor for now off abx.
6. Hyponatremia
- With ESRD, monitor
7. Essential hypertension
- Being started on diltiazem for rate control
8. Insulin-dependent diabetes mellitus - Uncontrolled
- A1c of 10.3
- Maintain on regimen of insulin/sliding scale
- Diabetes FEDERAL AID COORDINATOR consulted
9. Cardiogenic shock
- Patient got index of 1.56 on left heart catheterization ventriculogram
- Attempted diuresis with dobutamine/Bumex drip, minimal output
- Nephrology and cardiology decided to stop drip
Code status: full code
DVT prophylaxis: heparin gtt
Case discussed with nephrology/cardiology/medical record technician
Patient to be transferred to IMU
Total critical care time 39 mins . Total critical care time documented does not include time spent on separately billed procedures or the services of residents, students, nurses or physician assistants. I personally saw and examined the patient. I
have reviewed all diagnostic interpretations and treatment plans as written. I was present for the herrera portions of any procedures performed and the inclusive time noted in any critical care statement. Critical care time includes patient management
by me, time spent at the patients bedside, time to review lab and imaging results, discussing patient care, documentation in the medical record, and time spent with the family or caregiver.
Anticipated Discharge: > 48 hours
Subjective/Interval History
-
Date of Service: May 25, 2025
Some chest tightness and shortness of breath
Denies of cough
no other acute issues reported
Objective Data
-
Labs:
Laboratory Results
05/25/25 05/25/25 05/25/25
00:00 05:06 11:00
WBC 13.6 H
Hgb 10.1 L
Hct 29.9 L
Plt Count 218
APTT 61.8 H 91.0 H Pending
Sodium 131 L 130 L
Potassium 3.1 L 3.4 L
Chloride 97 L 95 L
Carbon Dioxide 18 L 21 L
BUN 90 H 93 H
Creatinine 9.0 H* 9.4 H*
Glucose 287 H 229 H
Calcium 7.7 L 7.9 L
Total Bilirubin 0.7
AST 35
ALT 173 H
Alkaline Phosphatase 61
Vital Signs:
Vital Signs
Temp Pulse Resp BP Pulse Ox
97.7 F 125 22 132/77 96
05/25/25 06:51 05/25/25 06:30 05/25/25 06:30 05/25/25 06:00 05/25/25 06:30
I&O
05/24/25 05/25/25 05/26/25
06:59 06:59 06:59
Intake Total 1286.4 / 1323.1 1902.0 / 1902.0
Output Total 4475 / 4475 2225 / 2225
Balance -3188.6 / -3151.9 -323.0 / -323.0
Review of Systems
-
Respiratory: Reports No Symptoms
Cardiac: Reports No Symptoms
Abdomen/GI: Reports No Symptoms
Physical Exam
-
General: Well Nourished
HEENT: Negative Oxygen
Respiratory: Clear to Auscultation
Cardiac: Regular Rhythm and S1/S2; Negative Tachycardic
GI: Soft, Nontender, Nondistended and Other (PD cath in place)
Musculoskeletal: Edema, Right Lower Extrem and Edema, Left Lower Extrem
Neuro: Awake, Alert, Oriented and AO x 3
[2025-05-25] MEDS: NON-FORMULARY ITEM 1 UNIT PO (09:22)
--- NOTE | 2025-05-25 10:07 | W.PN.NEPH.PH ---
Today's Communication / Plan
-
cont PD orders
Assessment/Plan
-
59-year-old male with past medical history of hypertension, atrial fibrillation, chronic HFpEF, ESRD on PD and DM-II who presented to [facility] ED for evaluation of chest heaviness. Patient explains that he has not been feeling well over the past 4-5
days, he reports chest pressure that has intermittently radiated to his left arm and currently right shoulder and neck. Found to have NSTEMI. Seen in the ICU
Renal consult for end-stage renal disease on peritoneal dialysis
Recently transition to peritoneal dialysis about 6 months
Has been dealing with volume overload for the last few weeks and peritoneal orders have been changed but yet going to affect. He was to try a last fill of icodextrin to help with ultrafiltration but is yet to get the solution delivered
Initial workup shows diminished ejection fraction 32%.
Discussed with cardiology at length.
Family at the bedside
Patient is having labored breathing but is alert. He is nonoliguric at baseline
Estimated dry weight is 104.5 although he is cannot achieve that in quite a few weeks
His last recorded weight was 105.8 kg on 05/09 from outpatient record
Impression.
ESRD on PD
NSTEMI (troponin peak 52)
CHF ejection fraction 32% from previous echo September 2024 was 50%
Atrial fibrillation
Type 2 diabetes
Hyperphosphatemia
Plan.
Patient with excellent UF with implementation of higher dialysate strength of 4.25%
PD flowsheets reviewed: each u/f cycle (500 -1000)
c
Amiodarone for rate control
Remains anticoagulated on heparin drip
RHC high wedge / LHC multivessel disease
cont PD good UF
consider restarting insulin gtt with 4.25%
=====
33 cc time
-
-
Date of Service: May 25, 2025
CC / HPI / ROS
-
Chief Complaint:
ESRD/PD
History of Present Illness:
Remains on PD 4.25%/ 2.5% every 2 hour exchanges
Hemodynamically labile off pressor support
Non-ST elevation PA with troponin peak at 52, remains on heparin drip
Review of Systems:
No longer short of breath off oxygen
No fevers
No reported chest pain
Labs
-
Labs:
WBC 13.6 10^3/uL (4.8-10.8) H 05/25/25 05:06
RBC 3.55 10^6/uL (4.70-6.10) L 05/25/25 05:06
Hgb 10.1 g/dL (13.0-18.0) L 05/25/25 05:06
Hct 29.9 % (39.0-52.0) L 05/25/25 05:06
Plt Count 218 10^3/uL (130-400) 05/25/25 05:06
Sodium 130 mmol/L (135-145) L 05/25/25 05:06
Potassium 3.4 mmol/L (3.5-5.1) L 05/25/25 05:06
Chloride 95 mmol/L (98-107) L 05/25/25 05:06
Carbon Dioxide 21 mmol/L (22-30) L 05/25/25 05:06
BUN 93 mg/dl (9-20) H 05/25/25 05:06
Creatinine 9.4 mg/dL (0.7-1.3) H* 05/25/25 05:06
eGFR 5.89 05/25/25 05:06
Glucose 229 mg/dl (70-99) H 05/25/25 05:06
Calcium 7.9 mg/dl (8.4-10.2) L 05/25/25 05:06
Phosphorus 9.0 mg/dl (2.5-4.5) H 05/22/25 20:08
Oqz-R-Cqfnstwburh Pept > 57883 pg/ml 05/22/25 12:50
Albumin 3.2 g/dl (3.5-5.0) L 05/25/25 05:06
Physical Exam
-
Vital Signs:
Vital Signs
Temp Pulse Resp BP Pulse Ox
97.7 F 125 22 132/77 96
05/25/25 06:51 05/25/25 06:30 05/25/25 06:30 05/25/25 06:00 05/25/25 06:30
--- NOTE | 2025-05-25 10:10 | W.PN.UPDATE ---
Update Note
Progress Note Update
seen on PD. Tx tolerating
start insulin gtt with PD glucise solution
[2025-05-25] MEDS: NOVOLIN R INSULIN INFUSION 100 IV (10:43)
[2025-05-25] MEDS: NOVOLIN R 5 UNITS IV (10:47)
[2025-05-25 10:51] LABS: Glucose - Point of Care 293 mg/dl (70-99)
[2025-05-25 11:37] LABS: APTT 88.2 Sec (23.4-35.0)
[2025-05-25 12:02] LABS: Glucose - Point of Care 205 mg/dl (70-99)
--- NOTE | 2025-05-25 12:35 | PN.CDI ---
CDI
- -
CDI:
Physician Documentation Request
Admit Date: 05/22/25 15:40
Dear Doctor Pipo,
Patient admitted for NSTEMI.
05/25 Potassium level: 3.1
05/05 Potassium chloride 20 meq IV administered
Based on the above, could you clarify in the progress notes, the appropriate diagnosis, if significant, that supports the above abnormalities and additional evaluation, monitoring and/or treatment rendered:
Hypokalemia
Abnormal lab value insignificant
Other
Use of terms such as suspected, likely, concern for, or probable (associated with a specific diagnosis that is being evaluated, monitored, or treated as if it exists) are acceptable and can be coded in the inpatient setting, when documented at the
time of discharge.
Thank you,
Modesta Corley RN, BSN
CDI Specialist
Available via [place] text
Please use your independent medical judgment in providing your response.
[2025-05-25] MEDS: PHOSLO 667 MG PO (12:54)
[2025-05-25] MEDS: LIDOCAINE 4% PATCH TOPICAL (12:55)
[2025-05-25 13:03] LABS: Glucose - Point of Care 189 mg/dl (70-99)
[2025-05-25] MEDS: ZOFRAN 4 MG IV (13:03)
[2025-05-25] MEDS: NOVOLOG FLEXPEN 19 UNITS SC (13:03)
[2025-05-25 14:09] LABS: Glucose - Point of Care 156 mg/dl (70-99)
[2025-05-25 15:16] LABS: Glucose - Point of Care 97 mg/dl (70-99)
--- NOTE | 2025-05-25 15:35 | CM ---
Dobutamine and Bumex d/cd, Continue Amiodarone gtt. Discharge POC: TBD.
[2025-05-25 16:11] LABS: Glucose - Point of Care 79 mg/dl (70-99)
[2025-05-25 17:02] LABS: Glucose - Point of Care 80 mg/dl (70-99)
[2025-05-25] MEDS: NOVOLOG FLEXPEN 4 UNITS SC (18:01)
[2025-05-25 18:10] LABS: Glucose - Point of Care 113 mg/dl (70-99)
--- NOTE | 2025-05-25 18:33 | PTCARENOTE ---
7A-7P Shift Note:
1. Insulin drip restarted to manage BG while on PD.
2. Per Nephro Dr. Miguel, continue 4.25% dextrose for all PD exchanges.
3. Second PTT therapeutic, Daily PTT now.
4. Per CARDS Dr. Vazquez, decrease Amiodarone drip to 0.5mg/min in PM.
5. Made Dr. Vazquez aware that patient's HR dipped down to 40s occasionally in PM. Discontinued Amiodarone drip initially, but patient went back to Afib in 110s, restarted Amiodarone drip @0.5mg/min.
[2025-05-25 19:23] LABS: Glucose - Point of Care 135 mg/dl (70-99)
[2025-05-25] MEDS: REMOVE LIDOCAINE PATCH REMOVE (20:21)
[2025-05-25 21:10] LABS: Glucose - Point of Care 127 mg/dl (70-99)
--- NOTE | 2025-05-25 23:33 | PTCARENOTE ---
Pt received in bed awake alert and oriented. Initially in afib with heart rates 110s and frequent PVCs. Pt now in NSR with frequent PVCs. PD exchanges being completed as ordered. Assessment as charted.
[2025-05-25 23:44] LABS: Blood Urea Nitrogen 88 mg/dl (9-20); Calcium 8.3 mg/dl (8.4-10.2); Carbon Dioxide 25 mmol/L (22-30); Chloride 95 mmol/L (98-107); Estimated Creatinine Clearance 11 ml/min; Glucose 157 mg/dl (70-99); Potassium 3.5 mmol/L (3.5-5.1); eGFR 6.13
[2025-05-25 23:57] LABS: Sodium 131 mmol/L (135-145)
[2025-05-26] VITALS (23 sets, daily range): BP systolic 99–147; BP diastolic 61–117; BMI 32.9
[2025-05-26] MEDS: LANTUS 0.1 UNITS SC (00:04)
[2025-05-26] MEDS: KCL 270 MEQ IV (00:04)
[2025-05-26] MEDS: HEPARIN 25000 UNITS/250 ML IV ×2 (02:16→13:10)
[2025-05-26 04:54] LABS: Hematocrit 30.2 % (39.0-52.0); Hemoglobin 10.3 g/dL (13.0-18.0); Mean Corp Hgb Conc. 34.1 g/dL (33.0-37.0); Mean Corpuscular Volume 84.4 fL (80.0-94.0); Platelet Count 204 10^3/uL (130-400); Red Cell Dist. Width 14.3 % (11.5-14.5)
--- NOTE | 2025-05-26 05:10 | PTCARENOTE ---
Pt slept at intervals during the night. Assessment unchanged.
[2025-05-26 05:14] LABS: APTT 87.2 Sec (23.4-35.0)
[2025-05-26 05:57] LABS: ALT (SGPT) 113 U/L (0-50); AST (SGOT) 29 U/L (17-59); Albumin 3.2 g/dl (3.5-5.0); Alkaline Phosphatase 68 U/L (38-126); Blood Urea Nitrogen 79 mg/dl (9-20); Calcium 7.7 mg/dl (8.4-10.2); Carbon Dioxide 21 mmol/L (22-30); Chloride 98 mmol/L (98-107); Estimated Creatinine Clearance 11 ml/min; Glucose 210 mg/dl (70-99); Magnesium 2.4 mg/dl (1.6-2.3); Sodium 135 mmol/L (135-145); Total Protein 5.4 g/dl (6.3-8.2); eGFR 5.97
[2025-05-26 06:34] LABS: Potassium 3.7 mmol/L (3.5-5.1)
--- NOTE | 2025-05-26 07:17 | W.PN.INTV ---
Today's Communication / Plan
Recommendations
Insulin drip continues
Patient remains on heparin, amiodarone
Continue peritoneal dialysis
Await ongoing cardiothoracic workup, cardiology input
Assessment
-
59-year-old male with end-stage renal disease on peritoneal dialysis, atrial fibrillation, stroke, diabetes presents with shortness of breath for 5 days and weight gain. Found to have acute non-ST elevation NM, troponin increased to 60, developed
worsening shortness of breath, tachycardia requiring amiodarone therapy BiPAP therapy transferred to ICU 05/22. We are asked to help from critical care standpoint
Acute hypoxic respiratory insufficiency, improved
89% on 6 L
Required BiPAP, 10 L
Transferred to ICU 05/22
Hypotension, systolic pressure 70 in the setting of tachycardia
Improved
S/p NSTEMI, admitted 05/22
Shortness of breath, chest pain for 5 days
Now resolved
Atrial fibrillation with RVR
On amiodarone therapy
Hyperglycemia
Acute congestive heart failure, systolic dysfunction
EF 32%
Moderate to severe mitral regurgitation
RHC/[facility] 05/24: V waves, cardiac index 1.56 L/min/m�, RV, mPAP 51, left main disease, multivessel disease, EF 15 to 20%, severe MR
Acute transaminitis, improving
Conditions present prior to admission
End-stage renal disease on PD
Diabetes
Hypertension/hypercholesterolemia
History of stroke
30 pack year history of smoking, quit
Disabled
Plan/recommendations
At this time, patient appears to be stable, continues to improve
Feels stronger today, denies significant shortness of breath
He does describe some chest tightness but denies chest pain, arm pain, nausea
Per RHC/C, severe mitral regurgitation, cardiomyopathy, pulm hypertension, right and left-sided filling pressures elevated, cardiac index 1.56
Dobutamine and Bumex have been discontinued
Amiodarone has been decreased to 0.5 mg
blood pressure stable
Remains on room air
Moving forward
Continue with management per cardiology and nephrology
Remains on amiodarone, heparin drip
RHC/LHC reviewed. 80% left main lesion, multivessel coronary disease, EF 15%, severe MR, elevated filling pressures noted right and left
Remains high risk situation
Cardiology following
CT surgery following, awaiting input
Nephrology plans to continue with peritoneal dialysis, remains negative
Has been able to achieve negative fluid status in the last few days with subjective improvement
Nephrology following
Follow liver function, improving
Blood sugars noted, noted, likely worsened with PD
Insulin drip resumed
Diabetic diet
Reviewed with critical care nursing, respiratory care, pharmacy
Reviewed with patient and mother at bedside
Consider transfer to IMU pending cardiology and cardiothoracic input
Subjective Dataa
Subjective Data
Date of Service:
Date of Service: May 26, 2025
Subjective:
Patient is feeling much improved compared to yesterday. Has some mild chest tightness but denies nausea, significant shortness of breath. Able to move legs, feels stronger today. Mother at bedside
Objective Data
Data Reviewed
Vital Signs / I&O / Oxygen:
Vital Signs
Temp Pulse Resp BP Pulse Ox
99.2 F 79 22 115/81 96
05/26/25 03:08 05/26/25 06:00 05/26/25 06:00 05/26/25 06:00 05/26/25 06:00
Intake and Output
05/25/25 05/26/25 05/27/25
06:59 06:59 06:59
Intake Total 1902.0 / 2051.1 2219.2 / 2219.2
Output Total 2225 / 2225 3750 / 3750
Balance -323.0 / -173.9 -1530.8 / -1530.8
SaO2 96
Nasal Cannula flow liters per 2
minute
Physical Exam
General: Comfortable and Other (Left upper extremity PICC line)
HEENT: Normocephalic and Anicteric
Cardiovascular: S1-S2, Regular Rhythm, Murmur (n), Rub (n) and Peripheral Edema (1+)
Respiratory: Wheeze (n), Crackles (Bibasilar crackles, decreased breath sounds at base), Rhonchi (n) and Non-Labored Respirations
GI: Soft, Non Distended and Non Tender
Neurology: Awake, Alert and No Motor Deficits (Able to sit up without assistance)
Skin: Cyanosis (n) and Jaundice (n)
Labs/Micro/Reports
Lab Data
05/26/25 04:41
05/26/25 04:41
Laboratory Results
05/25/25 05/26/25
10:58 04:41
APTT 88.2 H 87.2 H
Microbiology
05/22/25 12:50 Blood/Venous Blood Culture - Preliminary
No Growth in 72 hours- Final report to follow
05/22/25 12:51 Blood/Venous Blood Culture - Preliminary
No Growth in 72 hours- Final report to follow
05/23/25 23:04 Urine Urine Culture - Final
No Significant Growth
[2025-05-26] MEDS: NOVOLOG FLEXPEN-HIGH RESISTANCE 4 UNITS SC (07:38)
[2025-05-26 07:48] LABS: Glucose - Point of Care 241 mg/dl (70-99)
[2025-05-26] MEDS: NON-FORMULARY ITEM 1 UNIT PO ×3 (08:01→19:22)
[2025-05-26] MEDS: VITAMIN D3 (cholecalciferol) 25 MCG PO (08:02)
[2025-05-26] MEDS: LIDOCAINE 4% PATCH 1 PATCH TOPICAL (08:02)
[2025-05-26] MEDS: ASPIR LOW (ENTERIC COATED) 81 MG PO (08:02)
[2025-05-26] MEDS: PHOSLO 667 MG PO ×3 (08:04→18:22)
--- NOTE | 2025-05-26 08:58 | W.PN.HOSP.TC ---
Today's Communication/Plan
-
await cardiothoracic input
amio/heparin drip per cards
PD per nephrology
possible downgrade to IMU if appropriate from cards perspective
Assessment / Plan
Assessment / Plan
TTE 05/22
1. Left ventricle is normal in size with moderately reduced systolic function. LVEF 32%.
2. Right ventricle is normal in size and systolic function.
3. Moderate to severe mitral regurgitation.
4. Compared to prior echocardiogram in September 2024, LVEF has decreased from 50% to 32%. There is now moderate to severe mitral regurgitation (previously mild).
LHC
1. Right dominant circulation with an 80-90% lesion in the body of the left main coronary artery, tandem, densely calcified 80% lesions in the mid LAD after the origin of the diagonals, a chronic flush occlusion of the nondominant circumflex, and
90% ulcerated and hazy lesion in the mid RCA with a chronic total occlusion of the RPDA and a 90% lesion in the origin of the most distal RPL.
2. Moderate to severely dilated left ventricle with severe global hypokinesis and akinesis of the inferior wall with severely reduced systolic function, LVEF 15-20%.
3. Severe mitral valve regurgitation.
4. Severely elevated filling pressures (LVEDP = 34 mmHg, PCWP = 38 mmHg at 108.4 kg).
5. Severely depressed cardiac index (1.56 L/min/m�), combined with elevated LVEDP and pulmonary capillary wedge pressure are consistent with cardiogenic shock.
6. Moderate to severe, precapillary and postcapillary pulmonary hypertension (mean PA = 51 mmHg, PCWP = 38 mmHg, cardiac output = 3.52 L/min, PVR = 3.69 Tamayo units), WHO groups 2 and 5.

1. NSTEMI
Triple-vessel CAD
-Troponin elevated to max 52, trending down
-EKG reviewed and no ST segment changes
-Cardiology evaluated and recommended patient to be managed conservatively as suspected symptoms ongoing more than 48 hours
-TTE result as above.
-Left heart catheterization on 05/24, report as above
-Awaiting cardiothoracic surgery input
2. Acute Hypoxic respiratory failure - resolved
Bilateral pleural effusion
-Chest x-ray showing pulmonary edema/congestion
-Likely volume overloaded as patient stopped taking Lasix reportedly peritoneal dialysis was not effective
-Patient required BiPAP on admission night
-remains on O2 through NC
3. ESRD on peritoneal dialysis
- Was on hemodialysis in the past
- Nephrology evaluated and trying to do aggressive peritoneal dialysis and trying to maximize ultrafiltration
- Having some abd pain from PD.
4. Atrial flutter with 2-1 block
Shock - type unclear
-Started on amiodarone drip
-Coreg started although needed to be held due to shock state
-monitor on telemetry
-Patient has been requiring small dose of vasopressor, wean off as possible
5. Acute transaminitis - Improving
- As part of congestive hepatopathy with added shock liver ?
- LFT has increased significantly within 12-hour, ALT 35 > 431 > 275 , AST 60 > 569 > 112
- Started on Amio drip at admission and less likely playing role but will need adjustment based on LFT trend.
5. Leukocytosis - suspecting reactive
Rule out infection
-COVID neg.
-Chest x-ray did not show any overt pneumonia
- Abdominal examination benign. Can get peritoneal dialysis catheter sample if concern for peritonitis
- Rocephin discontinued. monitor for now off abx.
6. Hyponatremia
- With ESRD, monitor
7. Essential hypertension
- Being started on diltiazem for rate control
8. Insulin-dependent diabetes mellitus - Uncontrolled
- A1c of 10.3
- Maintain on regimen of insulin/sliding scale
- Diabetes PUMP OPERATOR consulted
9. Cardiogenic shock
- Patient got index of 1.56 on left heart catheterization ventriculogram
- Attempted diuresis with dobutamine/Bumex drip, minimal output, dobutamine/bumex drips were stopped.
Code status: full code
DVT prophylaxis: heparin gtt
Total critical care time 38 mins . Total critical care time documented does not include time spent on separately billed procedures or the services of residents, students, nurses or physician assistants. I personally saw and examined the patient. I
have reviewed all diagnostic interpretations and treatment plans as written. I was present for the herrera portions of any procedures performed and the inclusive time noted in any critical care statement. Critical care time includes patient management
by me, time spent at the patients bedside, time to review lab and imaging results, discussing patient care, documentation in the medical record, and time spent with the family or caregiver.
Anticipated Discharge: > 48 hours
Subjective/Interval History
-
Date of Service: May 26, 2025
no complains overnight
having abd pain from PD.
remains on heparin/amiodarone drip
Objective Data
-
Labs:
Laboratory Results
05/25/25 05/26/25
22:39 04:41
WBC 14.5 H
Hgb 10.3 L
Hct 30.2 L
Plt Count 204
APTT 87.2 H
Sodium 131 L 135
Potassium 3.5 3.7
Chloride 95 L 98
Carbon Dioxide 25 21 L
BUN 88 H 79 H
Creatinine 9.1 H* 9.3 H*
Glucose 157 H 210 H
Calcium 8.3 L 7.7 L
Total Bilirubin 0.6
AST 29
ALT 113 H
Alkaline Phosphatase 68
Vital Signs:
Vital Signs
Temp Pulse Resp BP Pulse Ox
99.2 F 79 22 115/81 96
05/26/25 03:08 05/26/25 06:00 05/26/25 06:00 05/26/25 06:00 05/26/25 06:00
I&O
05/25/25 05/26/25 05/27/25
06:59 06:59 06:59
Intake Total 1902.0 / 2050.1 2219.2 / 2219.2
Output Total 2225 / 2225 3750 / 3750
Balance -323.0 / -173.9 -1530.8 / -1530.8
Review of Systems
-
Respiratory: Reports No Symptoms
Cardiac: Reports No Symptoms
Abdomen/GI: Reports No Symptoms
Physical Exam
-
General: Well Nourished
HEENT: Negative Oxygen
Respiratory: Clear to Auscultation
Cardiac: Regular Rhythm and S1/S2; Negative Tachycardic
GI: Soft, Nontender, Nondistended and Other (PD cath in place)
Musculoskeletal: Edema, Right Lower Extrem and Edema, Left Lower Extrem
Neuro: Awake, Alert, Oriented and AO x 3
--- NOTE | 2025-05-26 09:00 | PTCARENOTE ---
Received pt awake and alert.Speech is appropriate.1 person min-mod assist with single point cane (patient's own) oob to chair.SR with frequent monomorphic PVC and trigeminy noted.Left PICC intact with Heparin and Amiodarone gtts.Decreased breath
sounds bibasilar noted.O2 3l NC.POX 97%Appetite is poor.No BM at this time.Voiding yellow urine.Peritoneal dialysis completed as ordered.Sacral foam intact.Pt's mother at bedside.Plan of care discussed with pt.
--- NOTE | 2025-05-26 10:54 | W.PN.CD ---
Today's Communication / Plan
-
Resume carvedilol 6.25 mg twice daily
Continue IV amiodarone and heparin
Volume removal with PD per nephrology
CT surgery eval
I am okay with him moving to IMU as long as he can continue IV amiodarone there.
Impression / Plan
-
I/P: 59-year-old male with ESRD on peritoneal dialysis, HFpEF, paroxysmal atrial fibrillation, CVA, PAD, type 2 diabetes mellitus, and obesity who presented to the emergency department with a chief complaint of shortness of breath and stuttering
chest pain for 4 days, found to have NSTEMI and severe multivessel CAD
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 Gonzalez
NSTEMI with severe multivessel CAD
- Diagnosis is a threat to life. Patient remains on IV heparin which requires intensive monitoring of labs and exam
- [facility] 05/24/2025: 80-90% left main lesion, tandem 80% mid LAD lesions, hazy ulcerated 90% mid RCA lesion, chronically occluded RPDA, 90% RPL
- currently CP free. Initial trop 52, downtrended
- Continue ASA and Heparin
- No BB due to allergy. Intolerant to statins.
- CT surgery evaluation for possible CABG
Heart failure with reduced ejection fraction, acute
- Likely ischemic cardiomyopathy due to severe multivessel CAD as above
- TTE 05/22/2025: LVEF 30%, moderate to severe MR
- RHC/LHC on 05/24 revealed CI 1.5 but he has been normotensive, mentating appropriately, LFTs improving and already has ESRD so no inotropic support.
- Continue volume removal with peritoneal dialysis
- GDMT limited by long list of allergies, ESRD, and low CI. Will readdress after surgery.
Frequent PVCs
- Resume carvedilol 6.25 mg twice daily
- Continue IV amiodarone 0.5, would not switch to p.o. given increasing ectopy and severe unrevascularized CAD
- Replete lytes per nephro
Paroxysmal atrial fibrillation
- In and out of A-fib this admission
- Continue IV amiodarone for now, especially given frequent PVCs.
- Oral anticoagulation: Apixaban was recommended at his last hospitalization, self discontinued
- [id number] score of at least 5 (DM, PAD, CVA, HF)
- IV heparin. Eventual transition to oral anticoagulation prior to discharge
Acute hypoxic respiratory insufficiency, in the setting of acute HFrEF/volume overload
- Improved. Now on nasal cannula
- volume control as per nephrology
ESRD
- Does PD daily at home
- Nephrology consulted
Prior CVA
PAD, follows with Dr. King
Hypertriglyceridemia, on fenofibrate, statin intolerant
Type 2 diabetes mellitus, per primary service
Subjective: He is complaining of leg cramps. Had some chest pain this morning but thinks it was related to gas. Denies shortness of breath at rest. Lower extremity edema is improving.
Physical Exam
Vital Signs/Labs
Vital Signs
Temp Pulse Resp BP Pulse Ox
99.2 F 86 22 141/94 96
05/26/25 03:08 05/26/25 10:00 05/26/25 10:00 05/26/25 10:00 05/26/25 09:00
05/25/25 05/26/25 05/27/25
06:59 06:59 06:59
Actual Weight 237 lb 10.533 oz 229 lb 4.492 oz
05/26/25 04:41
05/26/25 04:41
PT 19.6 Sec (11.4-14.6) H 05/22/25 20:57
INR 1.64 05/22/25 20:57
APTT 87.2 Sec (23.4-35.0) H 05/26/25 04:41
Magnesium 2.4 mg/dl (1.6-2.3) H 05/26/25 04:41
Triglycerides 146 mg/dl (10-149) 05/23/25 03:16
LDL Cholesterol, Calc 82 mg/dl 05/23/25 03:16
VLDL Cholesterol, Calc 29 mg/dl (0-30) 05/23/25 03:16
HDL Cholesterol 20 mg/dl 05/23/25 03:16
05/22/25
12:50
Jzq-U-Qjovyttiorl Pept > 21115
Physical Exam
Constitutional: No acute distress and Comfortable
Cardiovascular: Rhythm/rate is irregular, Pedal edema present, Systolic murmur present and S1S2 is normal
Respiratory: Respiratory effort normal and Crackles Present
Neuro/Psych: AO x 3
Data Reviewed
-
Date of Service: May 26, 2025
Medical Decision Making: Reviewed Test Results, Independent Historian Assessment, Test Interpretation and Review of Case with other Provider
EKG: Tracing Personally Visualized and interpreted
Echo: Report Reviewed by me
Labs: Labs Reviewed by me
--- NOTE | 2025-05-26 11:10 | W.PN.NEPH.PH ---
Today's Communication / Plan
-
Continue PD
Start Lasix 120 mg twice daily IV
Assessment/Plan
-
59-year-old male with past medical history of hypertension, atrial fibrillation, chronic HFpEF, ESRD on PD and DM-II who presented to [facility] ED for evaluation of chest heaviness. Patient explains that he has not been feeling well over the past 4-5
days, he reports chest pressure that has intermittently radiated to his left arm and currently right shoulder and neck. Found to have NSTEMI. Seen in the ICU
Renal consult for end-stage renal disease on peritoneal dialysis
Recently transition to peritoneal dialysis about 6 months
Has been dealing with volume overload for the last few weeks and peritoneal orders have been changed but yet going to affect. He was to try a last fill of icodextrin to help with ultrafiltration but is yet to get the solution delivered
Initial workup shows diminished ejection fraction 32%.
Discussed with cardiology at length.
Family at the bedside
Patient is having labored breathing but is alert. He is nonoliguric at baseline
Estimated dry weight is 104.5 although he is cannot achieve that in quite a few weeks
His last recorded weight was 105.8 kg on 05/09 from outpatient record
Impression.
ESRD on PD
NSTEMI (troponin peak 52)
CHF ejection fraction 32% from previous echo September 2024 was 50%
Atrial fibrillation
Type 2 diabetes
Hyperphosphatemia
Plan.
Patient with excellent UF with implementation of higher dialysate strength of 4.25%
PD flowsheets reviewed: each u/f cycle (500 -1000)
Amiodarone for rate control
Remains anticoagulated on heparin drip
RHC high wedge / LHC multivessel disease
cont PD good UF
Continue 4.25% dextrose solution with PD
Increasing urine output will start Lasix 120 mg twice a day
Discussed at length with the patient as well and his son at bedside
Discussed possibility of dialysis still not off the table at least temporary for preop optimization
=====
33 cc time
-
-
Date of Service: May 26, 2025
CC / HPI / ROS
-
Chief Complaint:
ESRD/PD
History of Present Illness:
Remains on PD 4.25%/ 2.5% every 2 hour exchanges
Hemodynamically labile off pressor support
Non-ST elevation NC with troponin peak at 52, remains on heparin drip
Review of Systems:
No longer short of breath off oxygen
No fevers
No reported chest pain
Labs
-
Labs:
WBC 14.5 10^3/uL (4.8-10.8) H 05/26/25 04:41
RBC 3.58 10^6/uL (4.70-6.10) L 05/26/25 04:41
Hgb 10.3 g/dL (13.0-18.0) L 05/26/25 04:41
Hct 30.2 % (39.0-52.0) L 05/26/25 04:41
Plt Count 204 10^3/uL (130-400) 05/26/25 04:41
Sodium 135 mmol/L (135-145) 05/26/25 04:41
Potassium 3.7 mmol/L (3.5-5.1) 05/26/25 04:41
Chloride 98 mmol/L (98-107) 05/26/25 04:41
Carbon Dioxide 21 mmol/L (22-30) L 05/26/25 04:41
BUN 79 mg/dl (9-20) H 05/26/25 04:41
Creatinine 9.3 mg/dL (0.7-1.3) H* 05/26/25 04:41
eGFR 5.97 05/26/25 04:41
Glucose 210 mg/dl (70-99) H 05/26/25 04:41
Calcium 7.7 mg/dl (8.4-10.2) L 05/26/25 04:41
Phosphorus 7.3 mg/dl (2.5-4.5) H 05/26/25 04:41
Iiz-Q-Jydlkkkgsdd Pept > 71164 pg/ml 05/22/25 12:50
Albumin 3.2 g/dl (3.5-5.0) L 05/26/25 04:41
Physical Exam
-
Vital Signs:
Vital Signs
Temp Pulse Resp BP Pulse Ox
99.2 F 86 22 141/94 96
05/26/25 03:08 05/26/25 10:00 05/26/25 10:00 05/26/25 10:00 05/26/25 09:00
Respiratory:: Bilateral: Rales
--- NOTE | 2025-05-26 11:38 | CHAP ---
Walter's mother Roma shared background about the situation, said she is considering quitting her job so she can be available to help him. She has already lost one son. 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 Emotional and spiritual
support provided.
[2025-05-26] MEDS: LASIX 120 MG IV ×2 (12:15→16:08)
[2025-05-26] MEDS: NOVOLOG FLEXPEN-HIGH RESISTANCE 7 UNITS SC (12:19)
[2025-05-26 12:29] LABS: Glucose - Point of Care 278 mg/dl (70-99)
--- NOTE | 2025-05-26 13:05 | W.PN.UPDATE ---
Update Note
Progress Note Update
Peritoneal dialysis noted ultrafiltration about 2 L. Continue with 4.25%
[2025-05-26] MEDS: NOVOLIN R INSULIN INFUSION 100 IV (13:12)
[2025-05-26] MEDS: NOVOLIN R 5 UNITS IV (13:15)
--- NOTE | 2025-05-26 13:36 | PTCARENOTE ---
Pt assessed.No change in assessment noted.Blood sugar 241 and 278.Devi Foss and Tank made aware.Critical Care Glycemic Insulin gtt reinitiated as ordered.Pt sitting in recliner visiting with family.Temperature 100 axillary.MD made aware.IS and
Acapella as ordered as per MD.
[2025-05-26 14:27] LABS: Glucose - Point of Care 270 mg/dl (70-99)
[2025-05-26 15:17] LABS: Glucose - Point of Care 280 mg/dl (70-99)
[2025-05-26] MEDS: NOVOLOG FLEXPEN 4 UNITS SC (16:13)
[2025-05-26 16:23] LABS: Glucose - Point of Care 230 mg/dl (70-99)
[2025-05-26 17:22] LABS: Glucose - Point of Care 164 mg/dl (70-99)
--- NOTE | 2025-05-26 17:32 | PTCARENOTE ---
Pt assessed.No change in assessment noted.Remains oob in recliner.
[2025-05-26 18:19] LABS: Glucose - Point of Care 141 mg/dl (70-99)
[2025-05-26 19:13] LABS: Glucose - Point of Care 103 mg/dl (70-99)
[2025-05-26] MEDS: COREG 6.25 MG PO (19:21)
[2025-05-26] MEDS: REMOVE LIDOCAINE PATCH REMOVE (19:29)
[2025-05-26 20:13] LABS: Glucose - Point of Care 108 mg/dl (70-99)
[2025-05-26 21:19] LABS: Glucose - Point of Care 144 mg/dl (70-99)
[2025-05-26 22:17] LABS: Glucose - Point of Care 197 mg/dl (70-99)
--- NOTE | 2025-05-26 23:06 | RESPNOTE ---
PT refused the BIPAP for the night, he says that he is nauseous. PT says that the n/c is fine, will attempt again tomorrow night.
[2025-05-26 23:38] LABS: Glucose - Point of Care 170 mg/dl (70-99)
[2025-05-27] VITALS (35 sets, daily range): BP systolic 83–120; BP diastolic 44–92; BMI 33.0
--- NOTE | 2025-05-27 | PTCARENOTE ---
pt assisted back to bed @ shift change with x1 assist and cane. PD continues. afib on monitor, ICU SPEECH AND HEARING DIRECTOR aware of higher HR up to 140s at shift change. HR consistent in 90-low 100s at this time. on 2L NC. amio/heparin/glycemic gtts continue. mom @
bedside. call roland in reach. care continues.
[2025-05-27] MEDS: HEPARIN 25000 UNITS/250 ML IV ×2 (00:10→12:39)
[2025-05-27] MEDS: CORDARONE 518 MG IV (00:11)
[2025-05-27 00:20] LABS: Glucose - Point of Care 155 mg/dl (70-99)
[2025-05-27 01:10] LABS: Glucose - Point of Care 144 mg/dl (70-99)
[2025-05-27 03:17] LABS: Glucose - Point of Care 184 mg/dl (70-99)
[2025-05-27 04:17] LABS: Glucose - Point of Care 176 mg/dl (70-99)
--- NOTE | 2025-05-27 04:35 | VATNOTE ---
Unable to flush purple lumen of PICC, white lumen very difficult to flush, no BR from either lumen. Patient reports nurses having difficulty for a few days. Awaiting CXR to verify placement, Primary RN at bedside. Will continue to monitor.
--- NOTE | 2025-05-27 04:43 | PTCARENOTE ---
PICC hard to flush when obtaining AM labs, no blood return noted. midline flushing well but no blood return. VAT contacted to assess. ICU MACHINE OPERATOR TRANSPLANTER made aware of heparin and amio gtts on hold at this time. VAT unable to get blood return, CXR ordered to
verify placement and cathflo ordered if needed. ok for insulin and amio gtt to be on standby and continue heparin gtt in midline at this time per ICU MACHINE OPERATOR TRANSPLANTER until PICC is functioning. care continues.
[2025-05-27] MEDS: CATHFLO/ACTIVASE 2 MG INTRACATH (04:52)
--- NOTE | 2025-05-27 05:29 | VATNOTE ---
CathFlo installed in white lumen at 0455, checked at 0528 no blood return. Will continue to monitor.
[2025-05-27 06:15] LABS: Glucose - Point of Care 177 mg/dl (70-99)
--- NOTE | 2025-05-27 06:39 | VATNOTE ---
+BR from both lumens after cath jaimee. Labs drawn from purple lumen, white lumen was cath jaimee'd. This VAT RN explained to primary RN that PTT was not be accurate as it is unknown what lumen the heparin was previous hooked up to. May need to draw PTT
peripherally. PICC now working properly, primary RN updated.
[2025-05-27 06:48] LABS: Hematocrit 30.6 % (39.0-52.0); Hemoglobin 10.1 g/dL (13.0-18.0); Mean Corp Hgb Conc. 33.0 g/dL (33.0-37.0); Mean Corpuscular Volume 84.8 fL (80.0-94.0); Platelet Count 227 10^3/uL (130-400); Red Cell Dist. Width 14.5 % (11.5-14.5)
[2025-05-27 07:11] LABS: APTT 91.1 Sec (23.4-35.0)
--- NOTE | 2025-05-27 07:17 | W.PN.INTV ---
Today's Communication / Plan
Recommendations
Continue amiodarone, heparin per cardiology
Remains on insulin drip
Peritoneal dialysis per nephrology, negative fluid balance continues
Await CT surgery input regarding possibility of coronary bypass/mitral valve surgery
Assessment
-
59-year-old male with end-stage renal disease on peritoneal dialysis, atrial fibrillation, stroke, diabetes presents with shortness of breath for 5 days and weight gain. Found to have acute non-ST elevation NM, troponin increased to 60, developed
worsening shortness of breath, tachycardia requiring amiodarone therapy BiPAP therapy transferred to ICU 05/22. We are asked to help from critical care standpoint
Acute hypoxic respiratory insufficiency, improved
89% on 6 L
Required BiPAP, 10 L
Transferred to ICU 05/22
Hypotension, systolic pressure 70 in the setting of tachycardia
Improved
S/p NSTEMI, admitted 05/22
Shortness of breath, chest pain for 5 days
Now resolved
Atrial fibrillation with RVR
On amiodarone therapy
Hyperglycemia
Acute congestive heart failure, systolic dysfunction
EF 32%
Moderate to severe mitral regurgitation
RHC/C 05/24: V waves, cardiac index 1.56 L/min/m�, RV, mPAP 51, left main disease, multivessel disease, EF 15 to 20%, severe MR
Acute transaminitis, improving
Conditions present prior to admission
End-stage renal disease on PD
Diabetes
Hypertension/hypercholesterolemia
History of stroke
30 pack year history of smoking, quit
Disabled
Plan/recommendations
At this time, patient appears to be stable, continues to improve
Feels stronger today, denies significant shortness of breath
Chest exam also improved, better breath sounds, less crackles
Per R[facility], severe mitral regurgitation, cardiomyopathy, pulm hypertension, right and left-sided filling pressures elevated, cardiac index 1.56
Dobutamine and Bumex have been discontinued
Amiodarone has been decreased to 0.5 mg
blood pressure stable intermittent episodes of tachycardia in the 130s, but patient appears to be relatively asymptomatic
Remains on room air
Moving forward
Continue with management per cardiology and nephrology
Remains on amiodarone, heparin drip
RHC/LHC reviewed. 80% left main lesion, multivessel coronary disease, EF 15%, severe MR, elevated filling pressures noted right and left
Remains high risk situation
Cardiology following
CT surgery following, awaiting input
Nephrology plans to continue with peritoneal dialysis, remains negative
Has been able to achieve negative fluid status in the last few days with subjective improvement
Nephrology following
Follow liver function, improving
Blood sugars noted, noted, likely worsened with PD
Insulin drip continues
Diabetic diet
Reviewed with critical care nursing
Subjective Dataa
Subjective Data
Date of Service:
Date of Service: May 27, 2025
Subjective:
Patient continues to improve on a daily basis. Feels able to move legs, less short of breath. Denies chest pain, nausea although refused BiPAP yesterday p.m. because of nausea. Tachycardia with heart rate in the 130s yesterday p.m. noted, patient
without significant symptoms
Objective Data
Data Reviewed
Vital Signs / I&O / Oxygen:
Vital Signs
Temp Pulse Resp BP Pulse Ox
98.3 F 94 20 106/76 97
05/27/25 03:14 05/27/25 06:00 05/27/25 06:00 05/27/25 06:00 05/27/25 06:00
Intake and Output
05/26/25 05/27/25 05/28/25
06:59 06:59 06:59
Intake Total 2219.2 / 2257.9 2597.9 / 2597.9
Output Total 3750 / 3750 3400 / 3400
Balance -1530.8 / -1492.1 -802.1 / -802.1
SaO2 97
Nasal Cannula flow liters per 3
minute
Physical Exam
General: Comfortable and Other (Left upper extremity PICC line)
HEENT: Normocephalic and Anicteric
Cardiovascular: S1-S2, Regular Rhythm, Murmur (n), Rub (n) and Peripheral Edema (1+)
Respiratory: Wheeze (n), Crackles (Improved breath sounds at the base, minimal crackles), Rhonchi (n) and Non-Labored Respirations
GI: Soft, Non Distended and Non Tender
Neurology: Awake, Alert and No Motor Deficits (Able to sit up without assistance)
Skin: Cyanosis (n) and Jaundice (n)
Labs/Micro/Reports
Lab Data
05/27/25 06:33
Microbiology
05/22/25 12:50 Blood/Venous Blood Culture - Preliminary
No Growth in 4 days- Final report to follow
05/22/25 12:51 Blood/Venous Blood Culture - Preliminary
No Growth in 4 days- Final report to follow
05/23/25 23:04 Urine Urine Culture - Final
No Significant Growth
[2025-05-27 07:24] LABS: ALT (SGPT) 88 U/L (0-50); AST (SGOT) 24 U/L (17-59); Albumin 3.3 g/dl (3.5-5.0); Alkaline Phosphatase 66 U/L (38-126); Blood Urea Nitrogen 77 mg/dl (9-20); Calcium 8.1 mg/dl (8.4-10.2); Carbon Dioxide 23 mmol/L (22-30); Chloride 96 mmol/L (98-107); Estimated Creatinine Clearance 10 ml/min; Glucose 160 mg/dl (70-99); Potassium 3.8 mmol/L (3.5-5.1); Sodium 131 mmol/L (135-145); Total Protein 5.6 g/dl (6.3-8.2); eGFR 5.97
--- NOTE | 2025-05-27 08:00 | PTCARENOTE ---
Received pt awake and alert.Denies pain.+CARNEY.Moving self in bed more independently.SR with PVCs noted.Left PICC intact with Amiodarone and Heparin gtts.Reinitiated Glycemic Protocol.Decreased breath sounds bibasilar.POX 97% on RA.Poor appetite.No
BM.Has not voided at this time.Peritoneal Dialysis completed as ordered.Skin integrity as documented.Pt's mother at bedside.Plan of care discussed.
[2025-05-27] MEDS: NOVOLOG FLEXPEN 2 UNITS SC (08:10)
[2025-05-27] MEDS: VITAMIN D3 (cholecalciferol) 25 MCG PO (08:10)
[2025-05-27] MEDS: PHOSLO 667 MG PO ×2 (08:10→17:44)
[2025-05-27] MEDS: COREG 6.25 MG PO (08:11)
[2025-05-27] MEDS: LASIX 120 MG IV (08:12)
[2025-05-27] MEDS: LIDOCAINE 4% PATCH 1 PATCH TOPICAL (08:12)
[2025-05-27] MEDS: ASPIR LOW (ENTERIC COATED) 81 MG PO (08:12)
[2025-05-27 08:16] LABS: Glucose - Point of Care 227 mg/dl (70-99)
[2025-05-27 09:28] LABS: Glucose - Point of Care 266 mg/dl (70-99)
[2025-05-27 10:34] LABS: Glucose - Point of Care 253 mg/dl (70-99)
[2025-05-27 11:18] LABS: Glucose - Point of Care 207 mg/dl (70-99)
[2025-05-27 12:14] LABS: Glucose - Point of Care 163 mg/dl (70-99)
[2025-05-27] MEDS: NOVOLOG FLEXPEN SC ×2 (13:19→16:45)
[2025-05-27] MEDS: PHOSLO PO (13:19)
[2025-05-27 13:27] LABS: Glucose - Point of Care 106 mg/dl (70-99)
[2025-05-27] MEDS: NOVOLIN R INSULIN INFUSION 100 IV (13:45)
--- NOTE | 2025-05-27 14:00 | PTCARENOTE ---
Pt assessed.Assisted oob to chair with 1 person minimal assistance.1300 - Amiodarone held for BP 89/51. Dr Bal made aware and at bedside.
--- NOTE | 2025-05-27 14:16 | W.PN.CD ---
Today's Communication / Plan
-
He is likely as optimized as he will be. Regroup with CT surgery tomorrow re: CABG feasibility and timing.
Blood pressures are lower since starting carvedilol. Decrease carvedilol to 3.125 mg twice daily.
Switch IV Amio to 400 mg p.o. daily
Impression / Plan
-
I/P: 59-year-old male with ESRD on peritoneal dialysis, HFpEF, paroxysmal atrial fibrillation, CVA, PAD, type 2 diabetes mellitus, and obesity who presented to the emergency department with a chief complaint of shortness of breath and stuttering
chest pain for 4 days, found to have NSTEMI and severe multivessel CAD
Outpatient cotton baler: Dr. Gonzalez
NSTEMI with severe multivessel CAD
- Diagnosis is a threat to life. Patient remains on IV heparin which requires intensive monitoring of labs and neuro exam
- [facility] 05/24/2025: 80-90% left main lesion, tandem 80% mid LAD lesions, hazy ulcerated 90% mid RCA lesion, chronically occluded RPDA, 90% RPL
- currently CP free. Initial trop 52, downtrended
- Continue ASA and Heparin
- Continue low-dose carvedilol. Intolerant to statins.
- CT surgery evaluation for possible CABG. He is optimized from a volume standpoint.
Heart failure with reduced ejection fraction, acute
- Likely ischemic cardiomyopathy due to severe multivessel CAD as above
- TTE 05/22/2025: LVEF 30%, moderate to severe MR
- RHC/LHC on 05/24 revealed CI 1.5 but he has been normotensive, mentating appropriately, LFTs improving and already has ESRD so no inotropic support.
- Continue volume removal with peritoneal dialysis
- GDMT limited by long list of allergies, ESRD, and low CI. Will readdress after surgery.
Frequent PVCs
- Improved with carvedilol but now BP is on the lower side. Decrease carvedilol to 3.125 mg twice daily
- Switch amiodarone to 400 mg p.o. daily
- Replete lytes per nephro
Paroxysmal atrial fibrillation
- In and out of A-fib this admission
- On IV amiodarone and carvedilol but we are now running into issues with low BP. Switch to p.o. amiodarone 400 mg daily and decrease carvedilol to 3.125 mg twice daily
- Oral anticoagulation: Apixaban was recommended at his last hospitalization, self discontinued
- [id number] score of at least 5 (DM, PAD, CVA, HF)
- IV heparin. Eventual transition to oral anticoagulation prior to discharge
Acute hypoxic respiratory insufficiency, in the setting of acute HFrEF/volume overload
- Improved. Now on nasal cannula
- volume control as per nephrology
ESRD
- Does PD daily at home
- Nephrology consulted
Prior CVA
PAD, follows with Dr. King
Hypertriglyceridemia, on fenofibrate, statin intolerant
Type 2 diabetes mellitus, per primary service
Subjective: Went into A-fib overnight with heart rates in the 110s. He was asymptomatic. Converted to sinus rhythm around 8 AM. Currently denies any CV complaints.
Physical Exam
Vital Signs/Labs
Vital Signs
Temp Pulse Resp BP Pulse Ox
98.3 F 68 19 102/79 97
05/27/25 03:14 05/27/25 14:00 05/27/25 14:00 05/27/25 14:00 05/27/25 14:00
05/26/25 05/27/25 05/28/25
06:59 06:59 06:59
Actual Weight 229 lb 4.492 oz 229 lb 15.074 oz
05/27/25 06:33
05/27/25 06:33
PT 19.6 Sec (11.4-14.6) H 05/22/25 20:57
INR 1.64 05/22/25 20:57
APTT 91.1 Sec (23.4-35.0) H 05/27/25 06:33
Magnesium 2.4 mg/dl (1.6-2.3) H 05/26/25 04:41
Triglycerides 146 mg/dl (10-149) 05/23/25 03:16
LDL Cholesterol, Calc 82 mg/dl 05/23/25 03:16
VLDL Cholesterol, Calc 29 mg/dl (0-30) 05/23/25 03:16
HDL Cholesterol 20 mg/dl 05/23/25 03:16
05/22/25
12:50
Tet-H-Dfcmdpadxve Pept > 77000
Physical Exam
Constitutional: No acute distress and Comfortable
Cardiovascular: Rhythm & rate is regular, Pedal edema is absent, Systolic murmur present and S1S2 is normal
Respiratory: Respiratory effort normal and Crackles Present
Neuro/Psych: AO x 3
Data Reviewed
-
Date of Service: May 27, 2025
Medical Decision Making: Reviewed Test Results, Independent Historian Assessment, Test Interpretation and Review of Case with other Provider
EKG: Tracing Personally Visualized and interpreted
Echo: Report Reviewed by me
Labs: Labs Reviewed by me
[2025-05-27 14:32] LABS: Glucose - Point of Care 166 mg/dl (70-99)
[2025-05-27] MEDS: NON-FORMULARY ITEM 1 UNIT PO (15:13)
--- NOTE | 2025-05-27 15:20 | W.PN.HOSP.TC ---
Today's Communication/Plan
-
Ongoing volume optimization with PT
Support with diuretics as possible
await CTS input
possible downgrade to imu if off insulin drip
Assessment / Plan
Assessment / Plan
TTE 05/22
1. Left ventricle is normal in size with moderately reduced systolic function. LVEF 32%.
2. Right ventricle is normal in size and systolic function.
3. Moderate to severe mitral regurgitation.
4. Compared to prior echocardiogram in September 2024, LVEF has decreased from 50% to 32%. There is now moderate to severe mitral regurgitation (previously mild).
LHC
1. Right dominant circulation with an 80-90% lesion in the body of the left main coronary artery, tandem, densely calcified 80% lesions in the mid LAD after the origin of the diagonals, a chronic flush occlusion of the nondominant circumflex, and
90% ulcerated and hazy lesion in the mid RCA with a chronic total occlusion of the RPDA and a 90% lesion in the origin of the most distal RPL.
2. Moderate to severely dilated left ventricle with severe global hypokinesis and akinesis of the inferior wall with severely reduced systolic function, LVEF 15-20%.
3. Severe mitral valve regurgitation.
4. Severely elevated filling pressures (LVEDP = 34 mmHg, PCWP = 38 mmHg at 108.4 kg).
5. Severely depressed cardiac index (1.56 L/min/m�), combined with elevated LVEDP and pulmonary capillary wedge pressure are consistent with cardiogenic shock.
6. Moderate to severe, precapillary and postcapillary pulmonary hypertension (mean PA = 51 mmHg, PCWP = 38 mmHg, cardiac output = 3.52 L/min, PVR = 3.69 Tamayo units), WHO groups 2 and 5.

1. NSTEMI
Triple-vessel CAD
-Troponin elevated to max 52, trending down
-EKG reviewed and no ST segment changes
-Cardiology evaluated and recommended patient to be managed conservatively as suspected symptoms ongoing more than 48 hours
-TTE result as above.
-Left heart catheterization on 05/24, report as above
-Awaiting cardiothoracic surgery input
2. Acute Hypoxic respiratory failure - resolved
Bilateral pleural effusion
-Chest x-ray showing pulmonary edema/congestion
-Likely volume overloaded as patient stopped taking Lasix reportedly peritoneal dialysis was not effective
-Patient required BiPAP on admission night
-remains on O2 through [place]
3. ESRD on peritoneal dialysis
- Was on hemodialysis in the past
- Nephrology evaluated and trying to do aggressive peritoneal dialysis and trying to maximize ultrafiltration
- Having some abd pain from PD.
4. Atrial flutter with 2-1 block
Shock - type unclear
-Started on amiodarone drip
-Coreg started although needed to be held due to shock state
-monitor on telemetry
-Patient has been requiring small dose of vasopressor, wean off as possible
5. Acute transaminitis - Improving
- As part of congestive hepatopathy with added shock liver ?
- LFT has increased significantly within 12-hour, ALT 35 > 431 > 275 , AST 60 > 569 > 112
- Started on Amio drip at admission and less likely playing role but will need adjustment based on LFT trend.
5. Leukocytosis - suspecting reactive
Rule out infection
-COVID neg.
-Chest x-ray did not show any overt pneumonia
- Abdominal examination benign. Can get peritoneal dialysis catheter sample if concern for peritonitis
- Rocephin discontinued. monitor for now off abx.
6. Hyponatremia
- With ESRD, monitor
7. Essential hypertension
- Being started on diltiazem for rate control
8. Insulin-dependent diabetes mellitus - Uncontrolled
- A1c of 10.3
- Maintain on regimen of insulin/sliding scale
- Diabetes CAR SPOTTER consulted
9. Cardiogenic shock
- Patient got index of 1.56 on left heart catheterization ventriculogram
- Attempted diuresis with dobutamine/Bumex drip, minimal output, dobutamine/bumex drips were stopped.
Code status: full code
DVT prophylaxis: heparin gtt
Anticipated Discharge: > 48 hours
Subjective/Interval History
-
Date of Service: May 27, 2025
Denies of having any chest pains or shortness of breath
No acute issues reported
Objective Data
-
Labs:
Laboratory Results
05/27/25
06:33
WBC 16.4 H
Hgb 10.1 L
Hct 30.6 L
Plt Count 227
APTT 91.1 H
Sodium 131 L
Potassium 3.8
Chloride 96 L
Carbon Dioxide 23
BUN 77 H
Creatinine 9.3 H*
Glucose 160 H
Calcium 8.1 L
Total Bilirubin 0.7
AST 24
ALT 88 H
Alkaline Phosphatase 66
Vital Signs:
Vital Signs
Temp Pulse Resp BP Pulse Ox
98.5 F 69 19 101/77 96
05/27/25 12:00 05/27/25 14:30 05/27/25 14:30 05/27/25 14:30 05/27/25 14:30
I&O
05/26/25 05/27/25 05/28/25
06:59 06:59 06:59
Intake Total 2219.2 / 2257.9 2597.9 / 2636.6 1025.2 / 1025.2
Output Total 3750 / 3750 3800 / 3800 700 / 700
Balance -1530.8 / -1492.1 -1202.1 / -1163.4 325.2 / 325.2
Review of Systems
-
Respiratory: Reports No Symptoms
Cardiac: Reports No Symptoms
Abdomen/GI: Reports No Symptoms
Physical Exam
-
General: Well Nourished
HEENT: Negative Oxygen
Respiratory: Clear to Auscultation
Cardiac: Regular Rhythm and S1/S2; Negative Tachycardic
GI: Soft, Nontender, Nondistended and Other (PD cath in place)
Musculoskeletal: Edema, Right Lower Extrem and Edema, Left Lower Extrem
Neuro: Awake, Alert, Oriented and AO x 3
[2025-05-27 15:22] LABS: Glucose - Point of Care 180 mg/dl (70-99)
--- NOTE | 2025-05-27 15:46 | CHAP ---
Walter was sitting in the chair, with his mother faithfully at his side. Walter was in some pain, but still welcoming and willing to share. Emotional and spiritual support provided, along with assurance of our on-going availability.
--- NOTE | 2025-05-27 16:00 | PTCARENOTE ---
Pt assessed.No change in assessment noted.Assisted back to bed with 1 person minimal assist.
--- NOTE | 2025-05-27 16:09 | W.PN.NEPH.PH ---
Today's Communication / Plan
-
Continue current PD with IV diuretics
Assessment/Plan
-
59-year-old male with past medical history of hypertension, atrial fibrillation, chronic HFpEF, ESRD on PD and DM-II who presented to [facility] ED for evaluation of chest heaviness. Patient explains that he has not been feeling well over the past 4-5
days, he reports chest pressure that has intermittently radiated to his left arm and currently right shoulder and neck. Found to have NSTEMI. Seen in the ICU
Renal consult for end-stage renal disease on peritoneal dialysis
Recently transition to peritoneal dialysis about 6 months
Has been dealing with volume overload for the last few weeks and peritoneal orders have been changed but yet going to affect. He was to try a last fill of icodextrin to help with ultrafiltration but is yet to get the solution delivered
Initial workup shows diminished ejection fraction 32%.
Discussed with cardiology at length.
Family at the bedside
Patient is having labored breathing but is alert. He is nonoliguric at baseline
Estimated dry weight is 104.5 although he is cannot achieve that in quite a few weeks
His last recorded weight was 105.8 kg on 05/09 from outpatient record
Impression.
ESRD on PD
NSTEMI (troponin peak 52)
CHF ejection fraction 32% from previous echo September 2024 was 50%
Atrial fibrillation
Type 2 diabetes
Hyperphosphatemia
Plan.
Patient with excellent UF with implementation of higher dialysate strength of 4.25%
PD flowsheets reviewed: each u/f cycle (500 -1000)
Amiodarone for rate control
Remains anticoagulated on heparin drip
RHC high wedge / LHC multivessel disease
cont PD good UF
Continue 4.25% dextrose solution with PD
Increasing urine output will continue Lasix 120 mg twice a day
Mother was at bedside discussed with her
Discussed possibility of dialysis still not off the table at least temporary for preop optimization
Ultrafiltrating well over the last 24 hours over 3 L and at his dry weight of 104 kg outpatient below will continue to be aggressive with ultrafiltration as he still remains volume overloaded
=====
33 cc time
-
-
Date of Service: May 27, 2025
CC / HPI / ROS
-
Chief Complaint:
ESRD/PD
History of Present Illness:
Remains on PD 4.25%/ 2.5% every 2 hour exchanges
Hemodynamically labile off pressor support
Non-ST elevation GA with troponin peak at 52, remains on heparin drip
Review of Systems:
No longer short of breath off oxygen
No fevers
No reported chest pain
Labs
-
Labs:
WBC 16.4 10^3/uL (4.8-10.8) H 05/27/25 06:33
RBC 3.61 10^6/uL (4.70-6.10) L 05/27/25 06:33
Hgb 10.1 g/dL (13.0-18.0) L 05/27/25 06:33
Hct 30.6 % (39.0-52.0) L 05/27/25 06:33
Plt Count 227 10^3/uL (130-400) 05/27/25 06:33
Sodium 131 mmol/L (135-145) L 05/27/25 06:33
Potassium 3.8 mmol/L (3.5-5.1) 05/27/25 06:33
Chloride 96 mmol/L (98-107) L 05/27/25 06:33
Carbon Dioxide 23 mmol/L (22-30) 05/27/25 06:33
BUN 77 mg/dl (9-20) H 05/27/25 06:33
Creatinine 9.3 mg/dL (0.7-1.3) H* 05/27/25 06:33
eGFR 5.97 05/27/25 06:33
Glucose 160 mg/dl (70-99) H 05/27/25 06:33
Calcium 8.1 mg/dl (8.4-10.2) L 05/27/25 06:33
Phosphorus 7.3 mg/dl (2.5-4.5) H 05/26/25 04:41
Zfw-I-Wyhxraojomc Pept > 09853 pg/ml 05/22/25 12:50
Albumin 3.3 g/dl (3.5-5.0) L 05/27/25 06:33
Physical Exam
-
Vital Signs:
Vital Signs
Temp Pulse Resp BP Pulse Ox
98.5 F 69 19 101/77 96
05/27/25 12:00 05/27/25 14:30 05/27/25 14:30 05/27/25 14:30 05/27/25 14:30
Respiratory:: Bilateral: Rales
--- NOTE | 2025-05-27 16:11 | W.PN.UPDATE ---
Update Note
Progress Note Update
Peritoneal dialysis reviewed. Ultrafiltration 3+ liters we will continue with 4.25% dextrose solution
[2025-05-27 16:50] LABS: Glucose - Point of Care 161 mg/dl (70-99)
[2025-05-27] MEDS: LASIX IV (17:28)
--- NOTE | 2025-05-27 17:30 | PTCARENOTE ---
BP 93/44.Dr Miguel made aware.Lasix held as ordered.
[2025-05-27 17:59] LABS: Glucose - Point of Care 131 mg/dl (70-99)
[2025-05-27 19:28] LABS: Glucose - Point of Care 135 mg/dl (70-99)
--- NOTE | 2025-05-27 20:00 | PTCARENOTE ---
Rec'd pt resting in bed, mother at bedside, pt cooperative, CARNEY, follows commands, SR w/ freq PVC's, occas bigeminy, bp stable, doppler distal pulses R distal pulses weaker than Left, + LE edema, denies pain, O2 2 liters nc, lungs decr in bases,
fine left base crackles, , enc to use IS- reaches 1000, + bowel sounds, no bm, abd soft, no n/v, oliguric, PD cont per order, hep gtt at 2200 units, on glycemic protocal- see flow sheet for titrations,
[2025-05-27] MEDS: REMOVE LIDOCAINE PATCH REMOVE (20:16)
[2025-05-27] MEDS: COREG 3.125 MG PO (20:16)
[2025-05-27 21:26] LABS: Glucose - Point of Care 132 mg/dl (70-99)
[2025-05-27 23:29] LABS: Glucose - Point of Care 105 mg/dl (70-99)
--- NOTE | 2025-05-27 23:48 | PTCARENOTE ---
sys reviewed, changes noted, afib/ SR w/ PAC's, PVC's
[2025-05-28] VITALS (22 sets, daily range): BP systolic 95–130; BP diastolic 58–94; BMI 32.5
[2025-05-28 00:34] LABS: Glucose - Point of Care 141 mg/dl (70-99)
[2025-05-28] MEDS: HEPARIN 25000 UNITS/250 ML IV ×2 (00:45→14:04)
[2025-05-28] MEDS: NOVOLIN R INSULIN INFUSION 100 IV (00:49)
[2025-05-28 01:36] LABS: Glucose - Point of Care 156 mg/dl (70-99)
[2025-05-28 02:39] LABS: Glucose - Point of Care 146 mg/dl (70-99)
--- NOTE | 2025-05-28 03:38 | PTCARENOTE ---
sys reviewed, changes noted
[2025-05-28 03:39] LABS: Hematocrit 29.2 % (39.0-52.0); Hemoglobin 9.9 g/dL (13.0-18.0); Mean Corp Hgb Conc. 33.9 g/dL (33.0-37.0); Mean Corpuscular Volume 85.6 fL (80.0-94.0); Platelet Count 238 10^3/uL (130-400); Red Cell Dist. Width 14.5 % (11.5-14.5)
[2025-05-28 03:42] LABS: Glucose - Point of Care 162 mg/dl (70-99)
[2025-05-28 03:58] LABS: APTT 133.0 Sec (23.4-35.0)
[2025-05-28] MEDS: NON-FORMULARY ITEM 1 UNIT PO ×2 (04:09→17:03)
[2025-05-28 04:13] LABS: ALT (SGPT) 67 U/L (0-50); AST (SGOT) 23 U/L (17-59); Albumin 3.3 g/dl (3.5-5.0); Alkaline Phosphatase 64 U/L (38-126); Blood Urea Nitrogen 75 mg/dl (9-20); Calcium 8.3 mg/dl (8.4-10.2); Carbon Dioxide 24 mmol/L (22-30); Chloride 97 mmol/L (98-107); Estimated Creatinine Clearance 9 ml/min; Glucose 135 mg/dl (70-99); Potassium 3.4 mmol/L (3.5-5.1); Sodium 134 mmol/L (135-145); Total Protein 5.5 g/dl (6.3-8.2); eGFR 5.34
[2025-05-28 05:41] LABS: Glucose - Point of Care 132 mg/dl (70-99)
[2025-05-28 07:46] LABS: Glucose - Point of Care 179 mg/dl (70-99)
--- NOTE | 2025-05-28 08:00 | PTCARENOTE ---
Received pt @ change of shift. Pt. AAOx3, denies pain. Sinus arrhythmia w PAC's/PVC's and afib on property assessment monitor. Weaned to RA; SpO2 96%, no s/s of resp distress. Auscultated crackles @ b/l bases. Hyperactive BS, abd soft/round/obese; +appetite.
Cont b/b. Oliguric. R groin dressing c/d/i. PD sites dressing c/d/i; PD performed per orders- see flow sheet. Nephro made aware of uptrending creat and IV lasix dose; received input to admin- see MAR. L DL PICC w heparin infusing and R midline w
insulin gtt per glycemic protocol- see flow sheets. Pt.'s mother @ bedside, pt. and mother updated on plan of care. Pt. using call roland approp and call roland w in reach.
--- NOTE | 2025-05-28 08:01 | PN.DE.MGMTRT ---
Insulin Management
- -
05/28/2025: Diabetes Management Consult Follow up
Patient admitted 05/22 for increased difficulty breathing over past 5 days found to be in acute CHF. PMH CFH, HTN, diabetes, renal failure, HLD. Prior to admission was taking NovoLog ss AC with Tresiba 32 units @ HS. States he was diagnosed ~ 15
years ago, took Prandin for years then started insulin. Follows with primary care doctor, Milind [place]. Uses DexCom G7 and traditional glucose monitor for glucose testing. A1C on admission 10.3%, Cr 9.3, eGFR 5.97.
He states he is not surprised his A1C is elevated as he has not been paying attention to his diabetes. Transitioned from critical care glycemic protocol on 05/23.
Patient is awake alert and oriented, sitting up in bed, offers no complaints, able to discuss diabetes care. For peritoneal dialysis this AM.
Has remained on critical care glycemic protocol over the weekend. Will transition to subcutaneous insulin. 15 units lantus now, insulin infusion off 2 hours after lantus administered; then 32 units @ hs with 5 units novolog AC and moderate
corrective.
Discussed with nurse. Will Cont to follow.
Diabetes History
- -
Type of Diabetes: 2 requiring insulin
Pre-Admission Diabetes Regimen
05/28/25
03:30
Creatinine 10.2 H*
Lab Results
Hemoglobin A1c 10.3 % (4.0-5.6) H 05/23/25 03:16
Insulin Pump Settings
IP Diabetes Regimen
05/27/25 05/27/25 05/27/25
08:05 09:16 10:22
Glucose
POC Glucose 227 H 266 H 253 H
05/27/25 05/27/25 05/27/25
11:06 12:03 13:16
Glucose
POC Glucose 207 H 163 H 106 H
05/27/25 05/27/25 05/27/25
14:20 15:11 16:38
Glucose
POC Glucose 166 H 180 H 161 H
05/27/25 05/27/25 05/27/25
17:47 19:16 21:14
Glucose
POC Glucose 131 H 135 H 132 H
05/27/25 05/28/25 05/28/25
23:17 00:23 01:25
Glucose
POC Glucose 105 H 141 H 156 H
05/28/25 05/28/25 05/28/25
02:27 03:30 05:29
Glucose 135 H
POC Glucose 146 H 162 H 132 H
05/28/25
07:34
Glucose
POC Glucose 179 H
Meal type: Lunch
Amount consumed: 5%
Patient Education
[2025-05-28] MEDS: PACERONE 400 MG PO (08:26)
[2025-05-28] MEDS: COREG 3.125 MG PO ×2 (08:26→20:14)
[2025-05-28] MEDS: VITAMIN D3 (cholecalciferol) 25 MCG PO (08:26)
[2025-05-28] MEDS: ASPIR LOW (ENTERIC COATED) 81 MG PO (08:26)
[2025-05-28] MEDS: PHOSLO 667 MG PO ×3 (08:26→17:03)
[2025-05-28] MEDS: LIDOCAINE 4% PATCH TOPICAL (08:28)
[2025-05-28] MEDS: NOVOLOG FLEXPEN 2 UNITS SC (08:29)
[2025-05-28] MEDS: LASIX 120 MG IV ×2 (08:41→17:03)
[2025-05-28] MEDS: LANTUS 0.15 UNITS SC (08:42)
--- NOTE | 2025-05-28 09:21 | W.PN.NEPH.PH ---
Today's Communication / Plan
-
PD continues
Assessment/Plan
-
59-year-old male with past medical history of hypertension, atrial fibrillation, chronic HFpEF, ESRD on PD and DM-II who presented to [facility] ED for evaluation of chest heaviness. Patient explains that he has not been feeling well over the past 4-5
days, he reports chest pressure that has intermittently radiated to his left arm and currently right shoulder and neck. Found to have NSTEMI. Seen in the ICU
Renal consult for end-stage renal disease on peritoneal dialysis
Recently transition to peritoneal dialysis about 6 months
Has been dealing with volume overload for the last few weeks and peritoneal orders have been changed but yet going to affect. He was to try a last fill of icodextrin to help with ultrafiltration but is yet to get the solution delivered
Initial workup shows diminished ejection fraction 32%.
Discussed with cardiology at length.
Family at the bedside
Patient is having labored breathing but is alert. He is nonoliguric at baseline
Estimated dry weight is 104.5 although he is cannot achieve that in quite a few weeks
His last recorded weight was 105.8 kg on 05/09 from outpatient record
Impression.
ESRD on PD
NSTEMI (troponin peak 52)
CHF ejection fraction 32% from previous echo September 2024 was 50%
Atrial fibrillation
Type 2 diabetes
Hyperphosphatemia
Plan.
change to alternating 4.25% and 2.5% solutions
continue heparin gtt
await CTS evaluation
He is willing to switch to HD (at least temporarily) if more optimization needed prior to surgery
will continue Lasix 120 mg twice a day
Mother was at bedside
critical care time 31 minutes
-
-
Date of Service: May 28, 2025
CC / HPI / ROS
-
Chief Complaint:
ESRD/PD
History of Present Illness:
Remains on PD 4.25%/ 2.5% every 4 hour exchange
good UF, weights down
Hemodynamically labile off pressor support
Non-ST elevation [place] with troponin peak at 52, remains on heparin drip
critically ill in ICU
remains in Afib
K low
WBC stable high
Review of Systems:
No longer short of breath, off oxygen
No fevers
No reported chest pain
Labs
-
Labs:
WBC 17.2 10^3/uL (4.8-10.8) H 05/28/25 03:30
RBC 3.41 10^6/uL (4.70-6.10) L 05/28/25 03:30
Hgb 9.9 g/dL (13.0-18.0) L 05/28/25 03:30
Hct 29.2 % (39.0-52.0) L 05/28/25 03:30
Plt Count 238 10^3/uL (130-400) 05/28/25 03:30
Sodium 134 mmol/L (135-145) L 05/28/25 03:30
Potassium 3.4 mmol/L (3.5-5.1) L 05/28/25 03:30
Chloride 97 mmol/L (98-107) L 05/28/25 03:30
Carbon Dioxide 24 mmol/L (22-30) 05/28/25 03:30
BUN 75 mg/dl (9-20) H 05/28/25 03:30
Creatinine 10.2 mg/dL (0.7-1.3) H* 05/28/25 03:30
eGFR 5.34 05/28/25 03:30
Glucose 135 mg/dl (70-99) H 05/28/25 03:30
Calcium 8.3 mg/dl (8.4-10.2) L 05/28/25 03:30
Phosphorus 7.3 mg/dl (2.5-4.5) H 05/26/25 04:41
Yob-I-Rxigtwndczp Pept > 33172 pg/ml 05/22/25 12:50
Albumin 3.3 g/dl (3.5-5.0) L 05/28/25 03:30
Physical Exam
-
Vital Signs:
Vital Signs
Temp Pulse Resp BP Pulse Ox
98.5 F 98 17 130/59 98
05/28/25 03:37 05/28/25 06:00 05/28/25 06:00 05/28/25 05:06 05/28/25 06:00
Cardiovascular:: Regular rate and rhythm
Respiratory:: Bilateral: CTA
Lung Excursion:: Normal
Abdomen:: Nontender and Soft
Bowel Sounds:: Normal
Extremity Edema:: None: Bilateral:
--- NOTE | 2025-05-28 09:24 | W.PN.UPDATE ---
Update Note
Progress Note Update
PD in progress
UF excellent, now below EDW
reduce PD to alt 4.25 and 2.5% solutions.
still q4h exchanges
on heparin gtt
[2025-05-28 09:58] LABS: Glucose - Point of Care 208 mg/dl (70-99)
[2025-05-28] MEDS: KCL 270 MEQ IV (11:10)
[2025-05-28] MEDS: NOVOLOG FLEXPEN SC (11:48)
[2025-05-28] MEDS: NOVOLOG FLEXPEN 5 UNITS SC ×2 (11:52→17:03)
[2025-05-28] MEDS: NOVOLOG FLEXPEN-MODERATE RESISTANCE 3 UNITS SC (11:52)
--- NOTE | 2025-05-28 11:53 | VATNOTE ---
05/28- MD request to keep PICC for another 24hrs before revaluating discontinuation. insulin discontinued today.
[2025-05-28 11:56] LABS: Glucose - Point of Care 235 mg/dl (70-99)
--- NOTE | 2025-05-28 12:00 | PTCARENOTE ---
DM [employer] to bedside this AM; plan to transition off insulin gtt to sc insulin. Admin long acting insulin @ 0842 and insulin gtt off 2H post Lantus admin- see MAR/flow sheet.
[2025-05-28 12:12] LABS: APTT 91.7 Sec (23.4-35.0)
--- NOTE | 2025-05-28 14:55 | W.PN.HOSP.TC ---
Today's Communication/Plan
-
await CT Surg recs
Amio
Hep ggt
PD
IV lasix
Assessment / Plan
Assessment / Plan
TTE 05/22
1. Left ventricle is normal in size with moderately reduced systolic function. LVEF 32%.
2. Right ventricle is normal in size and systolic function.
3. Moderate to severe mitral regurgitation.
4. Compared to prior echocardiogram in September 2024, LVEF has decreased from 50% to 32%. There is now moderate to severe mitral regurgitation (previously mild).
LHC
1. Right dominant circulation with an 80-90% lesion in the body of the left main coronary artery, tandem, densely calcified 80% lesions in the mid LAD after the origin of the diagonals, a chronic flush occlusion of the nondominant circumflex, and
90% ulcerated and hazy lesion in the mid RCA with a chronic total occlusion of the RPDA and a 90% lesion in the origin of the most distal RPL.
2. Moderate to severely dilated left ventricle with severe global hypokinesis and akinesis of the inferior wall with severely reduced systolic function, LVEF 15-20%.
3. Severe mitral valve regurgitation.
4. Severely elevated filling pressures (LVEDP = 34 mmHg, PCWP = 38 mmHg at 108.4 kg).
5. Severely depressed cardiac index (1.56 L/min/m�), combined with elevated LVEDP and pulmonary capillary wedge pressure are consistent with cardiogenic shock.
6. Moderate to severe, precapillary and postcapillary pulmonary hypertension (mean PA = 51 mmHg, PCWP = 38 mmHg, cardiac output = 3.52 L/min, PVR = 3.69 Tamayo units), WHO groups 2 and 5.

# NSTEMI
Triple-vessel CAD
-Troponin elevated to max 52, trending down
-EKG reviewed and no ST segment changes
-Cardiology evaluated and recommended patient to be managed conservatively as suspected symptoms ongoing more than 48 hours
-TTE result as above.
-Left heart catheterization on 05/24, report as above
-Hep ggt
-Awaiting cardiothoracic surgery input
# Acute Hypoxic respiratory failure - resolved
Bilateral pleural effusion
-Chest x-ray showing pulmonary edema/congestion
-Likely volume overloaded as patient stopped taking Lasix reportedly peritoneal dialysis was not effective
-Patient required BiPAP on admission night
-remains on O2 through [place]
# ESRD on peritoneal dialysis
- Was on hemodialysis in the past
- Nephrology evaluated and trying to do aggressive peritoneal dialysis and trying to maximize ultrafiltration
- Having some abd pain from PD.
-Cont IV lasix
-willing to switch to HD (at least temporarily) if more optimization needed prior to surgery
# Atrial flutter with 2-1 block
Shock - type unclear
-Started on amiodarone
-Coreg started although needed to be held due to shock state
-monitor on telemetry
-Patient has been requiring small dose of vasopressor, wean off as possible
# Acute transaminitis - Improving
- As part of congestive hepatopathy
- Started on Amio drip at admission and less likely playing role but will need adjustment based on LFT trend.
-monitor on amio
# Leukocytosis - suspecting reactive
Rule out infection
-COVID neg.
-Chest x-ray did not show any overt pneumonia
- Abdominal examination benign. Can get peritoneal dialysis catheter sample if concern for peritonitis
- Rocephin discontinued. monitor for now off abx.
# Hyponatremia
- With ESRD, monitor
# Essential hypertension
- Being started on diltiazem for rate control
# Insulin-dependent diabetes mellitus - Uncontrolled
- A1c of 10.3
- Maintain on regimen of insulin/sliding scale
- Diabetes [employer] consulted
# Acute Heart failure with reduced ejection fraction
- Patient got index of 1.56 on left heart catheterization ventriculogram
- Attempted diuresis with dobutamine/Bumex drip, minimal output, dobutamine/bumex drips were stopped.
Code status: full code
DVT prophylaxis: heparin gtt
Anticipated Discharge: > 48 hours
Subjective/Interval History
-
Date of Service: May 28, 2025
no acute events overnight
Objective Data
-
Labs:
Laboratory Results
05/28/25 05/28/25 05/28/25
03:30 11:45 18:00
WBC 17.2 H
Hgb 9.9 L
Hct 29.2 L
Plt Count 238
APTT 133.0 H 91.7 H Pending
Sodium 134 L
Potassium 3.4 L
Chloride 97 L
Carbon Dioxide 24
BUN 75 H
Creatinine 10.2 H*
Glucose 135 H
Calcium 8.3 L
Total Bilirubin 0.5
AST 23
ALT 67 H
Alkaline Phosphatase 64
Vital Signs:
Vital Signs
Temp Pulse Resp BP Pulse Ox
98.5 F 111 20 102/73 95
05/28/25 03:37 05/28/25 13:00 05/28/25 13:00 05/28/25 13:00 05/28/25 13:00
I&O
05/27/25 05/28/25 05/29/25
06:59 06:59 06:59
Intake Total 2597.9 / 2636.6 2122.9 / 2144.4 768.5 / 768.5
Output Total 3800 / 3800 2150 / 2150 900 / 900
Balance -1202.1 / -1163.4 -27.1 / -5.6 -131.5 / -131.5
Review of Systems
-
History Source: Patient
All other systems: Not reviewed unless documented
Physical Exam
-
General: Well Nourished
HEENT: Negative Oxygen
Respiratory: Clear to Auscultation
Cardiac: Regular Rhythm and S1/S2; Negative Tachycardic
GI: Soft, Nontender, Nondistended and Other (PD cath in place)
Musculoskeletal: Edema, Right Lower Extrem and Edema, Left Lower Extrem
Neuro: Awake, Alert, Oriented and AO x 3
Data Reviewed
-
Total Time Spent with Patient (in minutes): 55
--- NOTE | 2025-05-28 15:08 | W.PN.CD ---
Today's Communication / Plan
-
surgical consultation for CABG
Impression / Plan
-
I/P: 59-year-old male with ESRD on peritoneal dialysis, HFpEF, paroxysmal atrial fibrillation, CVA, PAD, type 2 diabetes mellitus, and obesity who presented to the emergency department with a chief complaint of shortness of breath and stuttering
chest pain for 4 days, found to have NSTEMI and severe multivessel CAD
Outpatient surgical nurse practitioner: Dr. Gonzalez
NSTEMI with severe multivessel CAD
- [facility] 05/24/2025: 80-90% left main lesion, tandem 80% mid LAD lesions, hazy ulcerated 90% mid RCA lesion, chronically occluded RPDA, 90% RPL
- currently CP free. Initial trop 52, downtrended
- Continue ASA and Heparin
- Continue low-dose carvedilol. Intolerant to statins. Will need PCSK9i as outpatient.
- CT surgery evaluation for possible CABG. He is optimized from a volume standpoint.
Heart failure with reduced ejection fraction, acute
- Likely ischemic cardiomyopathy due to severe multivessel CAD as above
- TTE 05/22/2025: LVEF 30%, moderate to severe MR
- RHC/LHC on 05/24 revealed CI 1.5 but he has been normotensive, mentating appropriately, LFTs improving and already has ESRD so no inotropic support.
- Continue volume removal with peritoneal dialysis. Aim to maintain current euvolemia.
- GDMT limited by long list of allergies, ESRD, and low CI. Will readdress after surgery.
Frequent PVCs
- Improved with carvedilol 3.125 mg twice daily
- Cont. amiodarone to 400 mg p.o. daily
- Replete lytes per nephro
Paroxysmal atrial fibrillation
- In and out of A-fib/Aflutter this admission, currently in Aflutter.
- Cont. amiodarone 400 mg daily and carvedilol 3.125 mg twice daily
- Oral anticoagulation: Apixaban was recommended at his last hospitalization, self discontinued
- [id number] score of at least 5 (DM, PAD, CVA, HF)
- IV heparin. Eventual transition to oral anticoagulation prior to discharge
Acute hypoxic respiratory insufficiency, in the setting of acute HFrEF/volume overload
- Improved. Now on nasal cannula
- volume control as per nephrology
ESRD
- Does PD daily at home
- Nephrology consulted, will d/w surgery re: need for perioperative HD
Prior CVA
PAD, follows with Dr. King
Hypertriglyceridemia, on fenofibrate, statin intolerant
Type 2 diabetes mellitus, per primary service
Subjective: In asymptamotic Aflutter. Awaiting surgical consultation.
Physical Exam
Vital Signs/Labs
Vital Signs
Temp Pulse Resp BP Pulse Ox
36.9 C 111 20 102/73 95
05/28/25 03:37 05/28/25 13:00 05/28/25 13:00 05/28/25 13:00 05/28/25 13:00
05/27/25 05/28/25 05/29/25
06:59 06:59 06:59
Actual Weight 104 kg 102.7 kg
05/28/25 03:30
05/28/25 03:30
PT 19.6 Sec (11.4-14.6) H 05/22/25 20:57
INR 1.64 05/22/25 20:57
APTT 91.7 Sec (23.4-35.0) H 05/28/25 11:45
Magnesium 2.4 mg/dl (1.6-2.3) H 05/26/25 04:41
Triglycerides 146 mg/dl (10-149) 05/23/25 03:16
LDL Cholesterol, Calc 82 mg/dl 05/23/25 03:16
VLDL Cholesterol, Calc 29 mg/dl (0-30) 05/23/25 03:16
HDL Cholesterol 20 mg/dl 05/23/25 03:16
05/22/25
12:50
Rew-J-Xrdurbdvxcq Pept > 87780
Physical Exam
Constitutional: Comfortable
Cardiovascular: Other (aflutter with HR 100s)
Respiratory: Respiratory effort normal
Neuro/Psych: AO x 3
Data Reviewed
-
Date of Service: May 28, 2025
Medical Decision Making: Reviewed Test Results
EKG: Tracing Personally Visualized and interpreted
Echo: Tracing Personally Visualized and interpreted
Labs: Labs Reviewed by me
--- NOTE | 2025-05-28 15:11 | W.PN.INTV ---
Today's Communication / Plan
Recommendations
- Patient transition from insulin infusion to subcu
- Stable for transfer to IVU, book store associate service will sign off, please call as needed
Assessment
-
59-year-old male with end-stage renal disease on peritoneal dialysis, atrial fibrillation, stroke, diabetes presents with shortness of breath for 5 days and weight gain. Found to have acute non-ST elevation ND, troponin increased to 60, developed
worsening shortness of breath, tachycardia requiring amiodarone therapy BiPAP therapy transferred to ICU 05/22. We are asked to help from critical care standpoint
Acute hypoxic respiratory insufficiency, improved
89% on 6 L
Required BiPAP, 10 L
Transferred to ICU 05/22, on Room air now on 05/2025
Hypotension, systolic pressure 70 in the setting of tachycardia
Improved
S/p NSTEMI, admitted 05/22
Shortness of breath, chest pain for 5 days
Now resolved
Atrial fibrillation with RVR
On amiodarone therapy
Hyperglycemia
Acute congestive heart failure, systolic dysfunction
EF 32%
Moderate to severe mitral regurgitation
RHC/LHC 05/24: V waves, cardiac index 1.56 L/min/m�, RV, mPAP 51, left main disease, multivessel disease, EF 15 to 20%, severe MR
Acute transaminitis, improving
Conditions present prior to admission
End-stage renal disease on PD
Diabetes
Hypertension/hypercholesterolemia
History of stroke
30 pack year history of smoking, quit
Disabled
Plan/recommendations
At this time, patient appears to be stable, continues to improve
Feels stronger today, denies significant shortness of breath
Chest exam also improved, better breath sounds, less crackles
Per RHC/[facility], severe mitral regurgitation, cardiomyopathy, pulm hypertension, right and left-sided filling pressures elevated, cardiac index 1.56
Dobutamine and Bumex have been discontinued
Amiodarone has been transition to oral form
Remains on room air
Continue with management per cardiology and nephrology
Continue heparin infusion.
RHC/LHC reviewed. 80% left main lesion, multivessel coronary disease, EF 15%, severe MR, elevated filling pressures noted right and left
Remains high risk situation
Cardiology following
CT surgery following, awaiting input
Nephrology plans to continue with peritoneal dialysis
Has been able to achieve negative fluid status in the last few days with subjective improvement
Nephrology following
Follow liver function, improving
Blood sugars noted, noted, likely worsened with PD
Insulin drip transitioning to subcu insulin
Diabetic diet
Patient stable for transfer out of ICU. Sweatband Flanger service will sign off.
Critical Care time 38 mins -- The patient is admitted for acute critical illness for the treatment of vital organ failure and/or prevention of further life-threatening conditions. Total care includes time spent in review of history, physical exam,
medications, hemodynamic/ventilator parameters, laboratory data, imaging and discussion with house staff, pharmacy, respiratory therapy, agile tester, and nursing.
Subjective Dataa
Subjective Data
Date of Service:
Date of Service: May 28, 2025
Subjective:
Patient comfortably sitting in bed in no acute distress.
Review of Systems
Genitourinary: Other (All 14 systems reviewed and negative except as stated above in the history of present illness.)
Objective Data
Data Reviewed
Vital Signs / I&O / Oxygen:
Vital Signs
Temp Pulse Resp BP Pulse Ox
98.5 F 111 20 102/73 95
05/28/25 03:37 05/28/25 13:00 05/28/25 13:00 05/28/25 13:00 05/28/25 13:00
Intake and Output
05/27/25 05/28/25 05/29/25
06:59 06:59 06:59
Intake Total 2597.9 / 2636.6 2122.9 / 2144.4 768.5 / 768.5
Output Total 3800 / 3800 2150 / 2150 900 / 900
Balance -1202.1 / -1163.4 -27.1 / -5.6 -131.5 / -131.5
SaO2 95
Nasal Cannula flow liters per 2
minute
Physical Exam
General: Comfortable and Other (Left upper extremity PICC line)
HEENT: Normocephalic and Anicteric
Cardiovascular: S1-S2, Regular Rhythm, Murmur (n), Rub (n) and Peripheral Edema (1+)
Respiratory: Wheeze (n), Crackles (Improved breath sounds at the base, minimal crackles), Rhonchi (n) and Non-Labored Respirations
GI: Soft, Non Distended and Non Tender
Neurology: Awake, Alert and No Motor Deficits (Able to sit up without assistance)
Skin: Cyanosis (n) and Jaundice (n)
Labs/Micro/Reports
Lab Data
05/28/25 03:30
05/28/25 03:30
Laboratory Results
05/28/25 05/28/25
03:30 11:45
APTT 133.0 H 91.7 H
Microbiology
05/22/25 12:50 Blood/Venous Blood Culture - Final
No Growth - Final Report
05/22/25 12:51 Blood/Venous Blood Culture - Final
No Growth - Final Report
--- NOTE | 2025-05-28 15:48 | CM ---
IV/Lasix, transition IV/insulin to SQ, transfer to IVU. Discharge POC: Remains TBD.
[2025-05-28 16:53] LABS: Glucose - Point of Care 332 mg/dl (70-99)
[2025-05-28] MEDS: NOVOLOG FLEXPEN-MODERATE RESISTANCE 7 UNITS SC (17:03)
--- NOTE | 2025-05-28 17:32 | PTCARENOTE ---
pt. assisted x1 w SPC into BR then into chair. Tolerated 4H in chair. PD completed per orders- see flow sheet. Assisted back to bed. ECHO @ bedside completed by tech. Remains on heparin gtt- see flow sheet. Pt.'s mom remains @ bedside. Call
luan w in reach.
[2025-05-28 18:20] LABS: APTT 92.6 Sec (23.4-35.0)
--- NOTE | 2025-05-28 20:00 | PTCARENOTE ---
Rec'd pt resting in bed, mother at bedside, denies pain, distal pulses via doppler- Left distal > than R; skin warm, dry, RA, lungs w/ fine bibas crackles, decr in bases, sat 98, no sob, occas NPC, + bowel sounds, abd soft, no n/v, stpehanie diet,
oliguric;rec PD 4.25% 4 hr exhanges
[2025-05-28] MEDS: REMOVE LIDOCAINE PATCH REMOVE (20:14)
[2025-05-28] MEDS: LANTUS 0.32 UNITS SC (22:09)
[2025-05-28 22:17] LABS: Glucose - Point of Care 339 mg/dl (70-99)
[2025-05-28] MEDS: NOVOLOG FLEXPEN 7 UNITS SC (22:38)
[2025-05-29] MEDS: HEPARIN 25000 UNITS/250 ML IV ×2 (02:09→17:53)
[2025-05-29 02:19] VITALS: BMI 32.0
[2025-05-29 03:16] LABS: Hematocrit 29.9 % (39.0-52.0); Hemoglobin 10.0 g/dL (13.0-18.0); Mean Corp Hgb Conc. 33.4 g/dL (33.0-37.0); Mean Corpuscular Volume 85.4 fL (80.0-94.0); Platelet Count 257 10^3/uL (130-400); Red Cell Dist. Width 14.6 % (11.5-14.5)
[2025-05-29 03:30] LABS: APTT 136.6 Sec (23.4-35.0)
[2025-05-29 03:45] LABS: Blood Urea Nitrogen 77 mg/dl (9-20); Calcium 8.5 mg/dl (8.4-10.2); Carbon Dioxide 24 mmol/L (22-30); Chloride 96 mmol/L (98-107); Estimated Creatinine Clearance 9 ml/min; Glucose 298 mg/dl (70-99); Potassium 3.5 mmol/L (3.5-5.1); Sodium 133 mmol/L (135-145); eGFR 5.04
[2025-05-29 07:39] VITALS: BP 103/63
[2025-05-29] MEDS: ASPIR LOW (ENTERIC COATED) 81 MG PO (07:39)
[2025-05-29] MEDS: LASIX 120 MG IV ×2 (07:40→16:49)
[2025-05-29] MEDS: VITAMIN D3 (cholecalciferol) 25 MCG PO (07:40)
[2025-05-29] MEDS: COREG 3.125 MG PO ×2 (07:40→20:10)
[2025-05-29] MEDS: NOVOLOG FLEXPEN-MODERATE RESISTANCE 5 UNITS SC ×2 (07:41→16:54)
[2025-05-29] MEDS: NOVOLOG FLEXPEN 5 UNITS SC (07:42)
[2025-05-29] MEDS: LIDOCAINE 4% PATCH TOPICAL (07:42)
[2025-05-29] MEDS: PHOSLO 667 MG PO ×3 (07:46→16:54)
[2025-05-29 07:49] LABS: Glucose - Point of Care 292 mg/dl (70-99)
[2025-05-29] MEDS: PACERONE 400 MG PO (08:29)
--- NOTE | 2025-05-29 08:40 | W.PN.CD ---
Today's Communication / Plan
-
- Continue ASA, Carvedilol, and Heparin drip.
- Awaiting CT Surgery evaluation for possible CABG.
- Continue calciminer.
Impression / Plan
-
I/P: 59-year-old male with ESRD on peritoneal dialysis, HFpEF, paroxysmal atrial fibrillation, CVA, PAD, type 2 diabetes mellitus, and obesity who presented to the emergency department with a chief complaint of shortness of breath and stuttering
chest pain for 4 days, found to have NSTEMI and severe multivessel CAD
Outpatient oil field rig builder: Dr. Gonzalez
NSTEMI with severe multivessel CAD
- [facility] 05/24/2025: 80-90% left main lesion, tandem 80% mid LAD lesions, hazy ulcerated 90% mid RCA lesion, chronically occluded RPDA, 90% RPL
- currently CP free. Initial trop 52, downtrended
- Continue ASA, Carvedilol, and Heparin drip.
- Statin-intolerant; will need PCSK9i as outpatient.
- Awaiting CT Surgery evaluation for possible CABG.
- Continue calciminer.
Heart failure with reduced ejection fraction, acute (EF 30%):
- Likely ischemic cardiomyopathy due to severe multivessel CAD as above
- TTE 05/22/2025: LVEF 30%, moderate to severe MR
- RHC/LHC on 05/24 revealed CI 1.5 but he has been normotensive, mentating appropriately, LFTs improving and already has ESRD so no inotropic support.
- Continue volume removal with peritoneal dialysis. Aim to maintain current euvolemia.
- GDMT limited by long list of allergies, ESRD, and low CI. Will readdress after surgery.
Moderate to severe MR:
- Volume status appears to be stable currently.
Frequent PVCs
- Improved with carvedilol 3.125 mg twice daily
- Cont. amiodarone to 400 mg p.o. daily
- Replete lytes per nephro
Paroxysmal atrial fibrillation
- In and out of A-fib/Aflutter this admission, currently in Aflutter.
- Continue amiodarone 400 mg daily and carvedilol 3.125 mg twice daily
- Oral anticoagulation: Apixaban was recommended at his last hospitalization, self discontinued
- [id number] score of at least 5 (DM, PAD, CVA, HF)
- Continue IV heparin drip; eventual transition to oral anticoagulation prior to discharge
Acute hypoxic respiratory insufficiency, in the setting of acute HFrEF/volume overload
- Improved. Now on nasal cannula
- volume control as per Nephrology
ESRD
- Does PD daily at home
- Nephrology consulted, will d/w surgery re: need for perioperative HD
Prior CVA
PAD, follows with Dr. King
Hypertriglyceridemia, on fenofibrate, statin intolerant
Type 2 diabetes mellitus, per primary service
Subjective: No cardiac complaints today. Denies chest pain, shortness of breath, or palpitations.
Physical Exam
Vital Signs/Labs
Vital Signs
Temp Pulse Resp BP Pulse Ox
97.8 F 69 18 103/63 99
05/29/25 07:39 05/29/25 08:29 05/29/25 07:39 05/29/25 08:29 05/29/25 08:30
05/28/25 05/29/25 05/30/25
06:59 06:59 06:59
Actual Weight 102.7 kg 101.3 kg
05/29/25 03:07
05/29/25 03:07
PT 19.6 Sec (11.4-14.6) H 05/22/25 20:57
INR 1.64 05/22/25 20:57
APTT 136.6 Sec (23.4-35.0) H 05/29/25 03:07
Magnesium 2.4 mg/dl (1.6-2.3) H 05/26/25 04:41
Triglycerides 146 mg/dl (10-149) 05/23/25 03:16
LDL Cholesterol, Calc 82 mg/dl 05/23/25 03:16
VLDL Cholesterol, Calc 29 mg/dl (0-30) 05/23/25 03:16
HDL Cholesterol 20 mg/dl 05/23/25 03:16
05/22/25
12:50
Iyl-B-Nbtilonxwye Pept > 55560
Physical Exam
Constitutional: No acute distress and Comfortable
EENT: Anicteric
Cardiovascular: Rhythm & rate is regular, Pedal edema is absent, Systolic murmur present (11/09) and S1S2 is normal
Respiratory: Respiratory effort normal and Rhonchi Present (Right base)
GI: Soft and Non tender
Neuro/Psych: AO x 3
Other: Skin (Warm, dry)
Data Reviewed
-
Date of Service: May 29, 2025
EKG: Report Reviewed by me (Sinus rhythm)
Echo: Report Reviewed by me (EF 30%; moderate to severe MR)
Labs: Labs Reviewed by me
--- NOTE | 2025-05-29 09:42 | PN.DE.MGMTRT ---
Insulin Management
- -
05/29/2025: Diabetes Management Consult Follow up
Patient admitted 05/22 for increased difficulty breathing over past 5 days found to be in acute CHF. PMH CHF, HTN, diabetes, renal failure, HLD. Prior to admission was taking NovoLog ss AC with Tresiba 32 units @ HS. States he was diagnosed ~ 15
years ago, took Prandin for years then started insulin. Follows with primary care doctor, Milind [place]. Uses DexCom G7 and traditional glucose monitor for glucose testing. A1C on admission 10.3%, Cr 9.3, eGFR 5.97.
He states he is not surprised his A1C is elevated as he has not been paying attention to his diabetes. Transitioned from critical care glycemic protocol on 05/23.
Patient is awake alert and oriented, sitting up in bed, offers no complaints, able to discuss diabetes care. For HD this AM.
Transitioned from critical care glycemic protocol yesterday with 15 units lantus @ ~ 8:45am insulin infusion off 2 hours after lantus administered. Received 32 units @ hs with 5 units novolog AC and moderate corrective. Glucose range 235 to 339.
Will increase hs lantus to 38 units and AC novolog to 8 units with moderate corrective.
Discussed with nurse. Will Cont to follow.
Diabetes History
- -
Type of Diabetes: 2 requiring insulin
Pre-Admission Diabetes Regimen
05/29/25
03:07
Creatinine 10.7 H*
Lab Results
Hemoglobin A1c 10.3 % (4.0-5.6) H 05/23/25 03:16
Insulin Pump Settings
IP Diabetes Regimen
05/28/25 05/28/25 05/28/25
09:47 11:43 16:42
Glucose
POC Glucose 208 H 235 H 332 H
05/28/25 05/29/25 05/29/25
22:05 03:07 07:38
Glucose 298 H
POC Glucose 339 H 292 H
Meal type: Dinner
Meal type: Lunch
Amount consumed: 100%
Amount consumed: 75%
Patient Education
--- NOTE | 2025-05-29 10:02 | PTCARENOTE ---
Assumed care of pt from test design engineer RN. AAOx3. NSR with PVCs/Trigeminy on tele, HRs 60s. SpO2 99% on room air. VSS. PD performed per orders - see worklist. Heparin gtt infusing at 1800 units/hr, PTT assessment due at 1100. Assessment documented. Pt
resting in bed at this time, call roland in reach. Transfer orders placed for downgrade to IMU. Assigned to room 3350. Report given to IMU RN.
--- NOTE | 2025-05-29 10:38 | W.PN.NEPH.PH ---
Today's Communication / Plan
-
Await surgical input
Assessment/Plan
-
59-year-old male with past medical history of hypertension, atrial fibrillation, chronic HFpEF, ESRD on PD and DM-II who presented to [facility] ED for evaluation of chest heaviness. Patient explains that he has not been feeling well over the past 4-5
days, he reports chest pressure that has intermittently radiated to his left arm and currently right shoulder and neck. Found to have NSTEMI.
Renal consult for end-stage renal disease on peritoneal dialysis
Recently transition to peritoneal dialysis about 6 months
Has been dealing with volume overload for the last few weeks and peritoneal orders have been changed but yet going to affect. He was to try a last fill of icodextrin to help with ultrafiltration but is yet to get the solution delivered
Initial workup shows diminished ejection fraction 32%.
Estimated dry weight is 104.5 although he is cannot achieve that in quite a few weeks
His last recorded weight was 105.8 kg on 05/09 from outpatient record
Impression.
ESRD on PD
NSTEMI (troponin peak 52)
CHF ejection fraction 32% from previous echo September 2024 was 50%
Atrial fibrillation
Type 2 diabetes
Hyperphosphatemia
Plan.
change to alternating 4.25% and 2.5% solutions. We may not need to continue dropping his weight
continue heparin gtt
await CTS evaluation. He is agreeable to surgery if that is an option.
He is willing to switch to HD (at least temporarily) if more optimization needed prior to surgery
will continue Lasix 120 mg twice a day
Mother was at bedside
critical care time 31 minutes
-
-
Date of Service: May 29, 2025
CC / HPI / ROS
-
Chief Complaint:
ESRD/PD
History of Present Illness:
Remains on PD 4.25% every 4 hour exchange
good UF, weights down
Hemodynamically labile off pressor support
Non-ST elevation WI with troponin peak at 52, remains on heparin drip
critically ill in ICU
remains in Afib with ectopy
K low 3.4
WBC stable high 16.7
Review of Systems:
No longer short of breath, off oxygen
No fevers
No reported chest pain
Labs
-
Labs:
WBC 16.7 10^3/uL (4.8-10.8) H 05/29/25 03:07
RBC 3.50 10^6/uL (4.70-6.10) L 05/29/25 03:07
Hgb 10.0 g/dL (13.0-18.0) L 05/29/25 03:07
Hct 29.9 % (39.0-52.0) L 05/29/25 03:07
Plt Count 257 10^3/uL (130-400) 05/29/25 03:07
Sodium 133 mmol/L (135-145) L 05/29/25 03:07
Potassium 3.5 mmol/L (3.5-5.1) 05/29/25 03:07
Chloride 96 mmol/L (98-107) L 05/29/25 03:07
Carbon Dioxide 24 mmol/L (22-30) 05/29/25 03:07
BUN 77 mg/dl (9-20) H 05/29/25 03:07
Creatinine 10.7 mg/dL (0.7-1.3) H* 05/29/25 03:07
eGFR 5.04 05/29/25 03:07
Glucose 298 mg/dl (70-99) H 05/29/25 03:07
Calcium 8.5 mg/dl (8.4-10.2) 05/29/25 03:07
Phosphorus 7.3 mg/dl (2.5-4.5) H 05/26/25 04:41
Sfr-L-Hahsidiyjrf Pept > 31166 pg/ml 05/22/25 12:50
Albumin 3.3 g/dl (3.5-5.0) L 05/28/25 03:30
Physical Exam
-
Vital Signs:
Vital Signs
Temp Pulse Resp BP Pulse Ox
97.8 F 69 18 103/63 99
05/29/25 07:39 05/29/25 08:29 05/29/25 07:39 05/29/25 08:29 05/29/25 08:30
Cardiovascular:: Irregular rate and rhythm
Lung Excursion:: Normal
Abdomen:: Nontender and Soft
Bowel Sounds:: Normal
Extremity Edema:: None: Bilateral:
--- NOTE | 2025-05-29 10:42 | W.PN.UPDATE ---
Update Note
Progress Note Update
PD in progress
Switch solutions to alternating 4.25% and 2.5% solutions 2 L every 4 hours
His true weight may still be lower and will be limited by hypotension when it occurs
It would not be unusual should he require additional potassium supplementation given peritoneal dialysis
--- NOTE | 2025-05-29 10:50 | W.PN.UPDATE ---
Addendum entered and electronically signed by Derek Rose MD 05/29/25 13:39:
I saw and examined the patient.
The PA's note was reviewed and I agree with the note.
Comment:
Pt. of prohibitive risk for surgical intervention for CAD and MV disease.
Consider transfer to tertiary center
Original Note:
Update Note
Progress Note Update
Procedure Type:�CABG + MVR
Perioperative Outcome Estimate %
Operative Mortality 35.9%
Morbidity & Mortality 66.8%
Stroke 5.12%
Renal Failure NA
Reoperation 11.1%
Prolonged Ventilation 71.6%
Deep Sternal Wound Infection 1.57%
Long Hospital Stay (>14 days) 61.1%
Short Hospital Stay (<6 days)* 1.2%
Clinical Summary
Planned Surgery: CABG + MVR, Urgent, First cardiovascular surgery
Demographics: 59 year old, male, 101kg, 178cm, BMI: 31.9 kg/m�
Lab Values: Creatinine: 10.7 mg/dL, Hematocrit: 29.9%, WBC Count: 16.7 10�/�L, Platelet Count: 325774 cells/�L
PreOp Medications: Insulin diabetes control
Substance Abuse: Former smoker
Risk Factors / Comorbidities: Insulin-dependent Diabetes Mellitus, Dialysis, Hypertension
Vascular RF: Cerebrovascular Disease: CVA > 30 days
Cardiac Status: Acute heart failure, NYHA Class IV, Ejection Fraction = 30%
Coronary Artery Disease: 3 vessels diseased, Left Main Stenosis >=50%, Non-ST Elevation CA, CA: 1 to 7 Days
Valve Disease: Moderate MR
Arrhythmia: Recent A-fib, Paroxysmal
[2025-05-29 11:27] LABS: APTT 93.5 Sec (23.4-35.0)
[2025-05-29] MEDS: KCL 270 MEQ IV (11:35)
[2025-05-29] MEDS: NOVOLOG FLEXPEN-MODERATE RESISTANCE 7 UNITS SC (12:22)
[2025-05-29] MEDS: NOVOLOG FLEXPEN 8 UNITS SC ×2 (12:25→16:54)
[2025-05-29 12:35] LABS: Glucose - Point of Care 332 mg/dl (70-99)
--- NOTE | 2025-05-29 12:45 | PTCARENOTE ---
Patient received from ICU. Patient AAO, VSS. No complaints of pain. Heparin gtt @ 1800 units/hr, 1100am PTT therapeutic next at 1700. Continuing IV lasix. PICC line to be removed today after 1700 PTT drawn. PD done per orders. No testing
scheduled at this time. Call roland in reach.
[2025-05-29] MEDS: NON-FORMULARY ITEM 1 UNIT PO (14:18)
--- NOTE | 2025-05-29 14:24 | W.PN.HOSP.TC ---
Today's Communication/Plan
-
CT Surg eval
Hep ggt
PD, IV lasix
Assessment / Plan
Assessment / Plan
TTE 05/22
1. Left ventricle is normal in size with moderately reduced systolic function. LVEF 32%.
2. Right ventricle is normal in size and systolic function.
3. Moderate to severe mitral regurgitation.
4. Compared to prior echocardiogram in September 2024, LVEF has decreased from 50% to 32%. There is now moderate to severe mitral regurgitation (previously mild).
LHC
1. Right dominant circulation with an 80-90% lesion in the body of the left main coronary artery, tandem, densely calcified 80% lesions in the mid LAD after the origin of the diagonals, a chronic flush occlusion of the nondominant circumflex, and
90% ulcerated and hazy lesion in the mid RCA with a chronic total occlusion of the RPDA and a 90% lesion in the origin of the most distal RPL.
2. Moderate to severely dilated left ventricle with severe global hypokinesis and akinesis of the inferior wall with severely reduced systolic function, LVEF 15-20%.
3. Severe mitral valve regurgitation.
4. Severely elevated filling pressures (LVEDP = 34 mmHg, PCWP = 38 mmHg at 108.4 kg).
5. Severely depressed cardiac index (1.56 L/min/m�), combined with elevated LVEDP and pulmonary capillary wedge pressure are consistent with cardiogenic shock.
6. Moderate to severe, precapillary and postcapillary pulmonary hypertension (mean PA = 51 mmHg, PCWP = 38 mmHg, cardiac output = 3.52 L/min, PVR = 3.69 Tamayo units), WHO groups 2 and 5.

# NSTEMI
Triple-vessel CAD
-Troponin elevated to max 52, trending down
-EKG reviewed and no ST segment changes
-Cardiology evaluated and recommended patient to be managed conservatively as suspected symptoms ongoing more than 48 hours
-TTE result as above.
-Left heart catheterization on 05/24, report as above
-Hep ggt
-Awaiting cardiothoracic surgery input
# Acute Hypoxic respiratory failure - resolved
Bilateral pleural effusion
-Chest x-ray showing pulmonary edema/congestion
-Likely volume overloaded as patient stopped taking Lasix reportedly peritoneal dialysis was not effective
-Patient required BiPAP on admission night
-remains on O2 through [place]
# ESRD on peritoneal dialysis
- Was on hemodialysis in the past
- Nephrology evaluated and trying to do aggressive peritoneal dialysis and trying to maximize ultrafiltration
- Having some abd pain from PD.
-Cont IV lasix
-willing to switch to HD (at least temporarily) if more optimization needed prior to surgery
# Atrial flutter with 2-1 block
Shock - type unclear
-Started on amiodarone
-Coreg started although needed to be held due to shock state
-monitor on telemetry
-Patient has been requiring small dose of vasopressor, wean off as possible
# Acute transaminitis - Improving
- As part of congestive hepatopathy
- Started on Amio drip at admission and less likely playing role but will need adjustment based on LFT trend.
-monitor on amio
# Leukocytosis - suspecting reactive
Rule out infection
-COVID neg.
-Chest x-ray did not show any overt pneumonia
- Abdominal examination benign. Can get peritoneal dialysis catheter sample if concern for peritonitis
- Rocephin discontinued. monitor for now off abx.
# Hyponatremia
- With ESRD, monitor
# Essential hypertension
- Being started on diltiazem for rate control
# Insulin-dependent diabetes mellitus - Uncontrolled
- A1c of 10.3
- Maintain on regimen of insulin/sliding scale
- Diabetes [employer] consulted
# Acute Heart failure with reduced ejection fraction
- Patient got index of 1.56 on left heart catheterization ventriculogram
- Attempted diuresis with dobutamine/Bumex drip, minimal output, dobutamine/bumex drips were stopped.
Code status: full code
DVT prophylaxis: heparin gtt
Total time spent on today's encounter was 51 minutes which included time spent in counseling the patient/family regarding diagnosis and treatment plan as listed above, goals of care, and symptom management. Case was discussed with nursing staff,
specialists, and care coordinators/case management. All labs and imaging personally reviewed by me. Remainder the time spent in detailed review of previous records, lab data, imaging, and other medical provider documentation.
Anticipated Discharge: > 48 hours
Subjective/Interval History
-
Date of Service: May 29, 2025
No acute events overnight
Objective Data
-
Labs:
Laboratory Results
05/29/25 05/29/25 05/29/25
03:07 11:00 17:00
WBC 16.7 H
Hgb 10.0 L
Hct 29.9 L
Plt Count 257
APTT 136.6 H 93.5 H Pending
Sodium 133 L
Potassium 3.5
Chloride 96 L
Carbon Dioxide 24
BUN 77 H
Creatinine 10.7 H*
Glucose 298 H
Calcium 8.5
Vital Signs:
Vital Signs
Temp Pulse Resp BP Pulse Ox
97.8 F 69 18 103/63 95
05/29/25 12:00 05/29/25 08:29 05/29/25 07:39 05/29/25 08:29 05/29/25 13:02
I&O
05/28/25 05/29/25 05/30/25
06:59 06:59 06:59
Intake Total 2122.9 / 2144.4 1396.5 / 1396.5
Output Total 2150 / 2150 3500 / 3500 900 / 900
Balance -27.1 / -5.6 -2103.5 / -2103.5 -900 / -900
Review of Systems
-
History Source: Patient
All other systems: Not reviewed unless documented
Physical Exam
-
General: Well Nourished
HEENT: Negative Oxygen
Respiratory: Clear to Auscultation
Cardiac: Regular Rhythm and S1/S2; Negative Tachycardic
GI: Soft, Nontender, Nondistended and Other (PD cath in place)
Musculoskeletal: Edema, Right Lower Extrem and Edema, Left Lower Extrem
Neuro: Awake, Alert, Oriented and AO x 3
Data Reviewed
-
Diagnostic Radiology: Report Reviewed by me
CT Scan: Report Reviewed by me
Labs: Labs Reviewed by me
[2025-05-29 16:13] LABS: Glucose - Point of Care 274 mg/dl (70-99)
[2025-05-29 16:50] VITALS: BP 128/78
[2025-05-29 17:28] LABS: APTT 76.0 Sec (23.4-35.0)
[2025-05-29 19:39] VITALS: BP 112/61
--- NOTE | 2025-05-29 19:41 | W.PN.UPDATE ---
Update Note
Progress Note Update
Mr. Williamson is a 59-year-old male with extensive past medical history including peripheral vascular disease, ESRD on PD, diabetes, and current admission for NSTEMI and cardiogenic shock. He has been undergoing evaluation for surgical multivessel
CABG plus mitral valve replacement. In discussion today with cardiac surgeon Dr. Salomon Rose, it was noted that given the patient's multiple comorbidities, he would be at prohibitive risk for open heart surgery, with STS risk calculated >30%. In
this setting, I was asked to evaluate the patient for possible percutaneous revascularization. On review of his angiogram, he has focal disease in his left main, proximal LAD, and proximal RCA with total occlusion of his circumflex and RPDA.
Percutaneous revascularization of the left main, LAD, and RCA would be technically feasible but would require Impella support given his severe cardiomyopathy coupled with the length and complexity of the intervention. On review of recent invasive
angiograms performed during interventions for lower leg peripheral vascular disease, he appears to have minimal iliofemoral disease, suggesting feasibility of Impella support. I had a long discussion with the patient and his mother at bedside about
the option for PCI. We discussed the risks and benefits of the procedure including vascular injury, myocardial infarction, stroke, and . I quoted him a 3% risk of serious complications or with multivessel PCI. In consideration of the
risks and benefits of the procedure, the patient is interested in proceeding with PCI with tentative date plan for this Wednesday. Between now and Wednesday, plan will be for continued volume removal via peritoneal dialysis to optimize hemodynamics.
Total time spent reviewing data, discussing with collaborating physicians, and discussing with patient: 45 minutes.
[2025-05-29 20:00] VITALS: BP 130/82
[2025-05-29] MEDS: REMOVE LIDOCAINE PATCH REMOVE (20:11)
[2025-05-29] MEDS: LANTUS 0.38 UNITS SC (22:40)
[2025-05-29 22:42] VITALS: BP 109/58
[2025-05-29 22:48] LABS: Glucose - Point of Care 295 mg/dl (70-99)
[2025-05-30] VITALS (13 sets, daily range): BP systolic 110–131; BP diastolic 68–96; BMI 31.8
--- NOTE | 2025-05-30 04:52 | PTCARENOTE ---
Pt continues on heparin gtt, see worklist for titrations. PD continued per MD orders, see worklist. Pt denies complaints at this time. Call roland within reach.
[2025-05-30] MEDS: NON-FORMULARY ITEM 1 UNIT PO ×3 (05:33→21:32)
[2025-05-30 06:29] LABS: Hematocrit 31.8 % (39.0-52.0); Hemoglobin 10.5 g/dL (13.0-18.0); Mean Corp Hgb Conc. 33.0 g/dL (33.0-37.0); Mean Corpuscular Volume 85.9 fL (80.0-94.0); Platelet Count 275 10^3/uL (130-400); Red Cell Dist. Width 14.6 % (11.5-14.5)
[2025-05-30 06:53] LABS: Blood Urea Nitrogen 74 mg/dl (9-20); Calcium 8.4 mg/dl (8.4-10.2); Carbon Dioxide 24 mmol/L (22-30); Chloride 98 mmol/L (98-107); Estimated Creatinine Clearance 9 ml/min; Glucose 244 mg/dl (70-99); Magnesium 2.3 mg/dl (1.6-2.3); Potassium 4.1 mmol/L (3.5-5.1); Sodium 134 mmol/L (135-145); eGFR 4.93
[2025-05-30 06:59] LABS: APTT 75.0 Sec (23.4-35.0)
[2025-05-30] MEDS: HEPARIN 25000 UNITS/250 ML IV ×2 (07:35→21:36)
[2025-05-30] MEDS: PHOSLO 667 MG PO ×3 (07:36→15:51)
[2025-05-30 07:39] LABS: Glucose - Point of Care 310 mg/dl (70-99)
--- NOTE | 2025-05-30 07:40 | W.PN.UPDATE ---
Update Note
Progress Note Update
CARDIAC SURGERY ATTENDING:
Case reviewed in multidisciplinary fashion. I am very thankful that my interventional colleagues believe there are reasonable PCI/stent options for this patient in the setting of extremely high/near prohibitive surgical risk. Plan is tenatively
for PCI on Wednesday. I had a evelyn discussion with the patient and his family and will offer emergent surgical rescue should this be required. We had a evelyn discussion about the perioperative risks, and the potential need for mechanical support
periprocedurally if he were to require surgical intervention. Will continue to follow closely.
Thank you.
Derek Rose M.D.
[phone]
[2025-05-30] MEDS: ZOFRAN 4 MG IV (08:09)
[2025-05-30] MEDS: NOVOLOG FLEXPEN 16 UNITS SC ×3 (08:14→17:03)
[2025-05-30] MEDS: NOVOLOG FLEXPEN-MODERATE RESISTANCE 7 UNITS SC (08:15)
--- NOTE | 2025-05-30 09:48 | W.PN.CD ---
Addendum entered and electronically signed by Zane Sorenson MD 05/30/25 11:40:
I saw and evaluated the patient, and I provided the substantive portion of the medical decision making.
I reviewed and agree with the note by EDISON Rodríguez and it accurately reflects our care.
I personally performed the medical decision making of the this encounter and my assessment and plan is below:
Severe CAD with NSTEMI, such high surgical risk so PCI picked over CABG. Adding to high risk is his ESRD mananged with PD and excess volume/ HF need ultrafiltration. MV will need to be followed over time. For PCI prior to discharge.
Original Note:
Today's Communication / Plan
-
Continue aspirin, Coreg, and IV heparin. Plan is for high risk PCI this admit- see details below.
Continue amiodarone and monitor telemetry
Volume management per nephrology
Impression / Plan
-
I/P: 59-year-old male with ESRD on peritoneal dialysis, HFpEF, paroxysmal atrial fibrillation, CVA, PAD, type 2 diabetes mellitus, and obesity who presented to the emergency department with a chief complaint of shortness of breath and stuttering
chest pain for 4 days, found to have NSTEMI and severe multivessel CAD
Outpatient cad operator: Dr. Gonzalez
NSTEMI with severe multivessel CAD
- [facility] 05/24/2025: 80-90% left main lesion, tandem 80% mid LAD lesions, hazy ulcerated 90% mid RCA lesion, chronically occluded RPDA, 90% RPL
- Initial trop 52, downtrended
- Continue ASA, Carvedilol, and Heparin drip. Heparin drip requires intensive monitoring. I renewed order.
- Statin-intolerant; will need PCSK9i as outpatient.
- Discussion between CT surgery and interventional cardiology took place, and due to risk of CT surgery, plan is now made for complex percutaneous revascularization, with Impella support. This is tentatively planned for Wednesday - see Dr. Peace's
note from 8/27/25 for further details.
Heart failure with reduced ejection fraction, acute (EF 30%):
- Likely ischemic cardiomyopathy due to severe multivessel CAD as above
- TTE 05/22/2025: LVEF 30%, moderate to severe MR
- RHC/LHC on 05/24 revealed CI 1.5 but he has been normotensive, mentating appropriately, LFTs improving and already has ESRD so no inotropic support.
- Continue volume removal with peritoneal dialysis. Aim to maintain euvolemia.
- GDMT limited by long list of allergies, ESRD, and low CI. Readdress after surgery.
Moderate to severe MR:
-Volume status appears to be stable currently.
Frequent PVCs
- Improved with carvedilol 3.125 mg twice daily
- Cont. amiodarone to 400 mg p.o. daily
- Replace lytes per nephro
Paroxysmal atrial fibrillation
- In and out of A-fib/Aflutter this admission. Currently SR with PVC's.
- Continue amiodarone 400 mg daily and carvedilol 3.125 mg twice daily
- Oral anticoagulation: Apixaban was recommended at his last hospitalization, self discontinued
- [id number] score of at least 5 (DM, PAD, CVA, HF)
- Continue IV heparin drip; eventual transition to oral anticoagulation prior to discharge
Acute hypoxic respiratory insufficiency, in the setting of acute HFrEF/volume overload
- Improved
- volume control as per Nephrology
ESRD
- Does PD daily at home
- Nephrology on the case
Prior CVA
PAD, follows with Dr. King
Hypertriglyceridemia, on fenofibrate, statin intolerant
Type 2 diabetes mellitus, per primary service
Physical Exam
Vital Signs/Labs
Vital Signs
Temp Pulse Resp BP Pulse Ox
98.2 F 65 18 126/83 97
05/30/25 07:06 05/30/25 06:00 05/29/25 07:39 05/30/25 06:00 05/29/25 23:46
05/29/25 05/30/25 05/31/25
06:59 06:59 06:59
Actual Weight 101.3 kg 100.6 kg
05/30/25 05:43
05/30/25 05:43
PT 19.6 Sec (11.4-14.6) H 05/22/25 20:57
INR 1.64 05/22/25 20:57
APTT 75.0 Sec (23.4-35.0) H 05/30/25 05:43
Magnesium 2.3 mg/dl (1.6-2.3) 05/30/25 05:43
Triglycerides 146 mg/dl (10-149) 05/23/25 03:16
LDL Cholesterol, Calc 82 mg/dl 05/23/25 03:16
VLDL Cholesterol, Calc 29 mg/dl (0-30) 05/23/25 03:16
HDL Cholesterol 20 mg/dl 05/23/25 03:16
05/22/25
12:50
Rkr-T-Kwygnojmvna Pept > 07138
Physical Exam
Constitutional: No acute distress
EENT: Anicteric
Cardiovascular: Rhythm & rate is regular and Systolic murmur present (II/ systolic)
Respiratory: Respiratory effort normal and Lungs clear to auscul.
Neuro/Psych: AO x 3
Data Reviewed
-
Date of Service: May 30, 2025
EKG: Other (SR with PVCs)
Labs: Labs Reviewed by me
[2025-05-30] MEDS: PACERONE 400 MG PO (10:00)
[2025-05-30] MEDS: COREG 3.125 MG PO ×2 (10:00→20:31)
[2025-05-30] MEDS: LIDOCAINE 4% PATCH TOPICAL (10:43)
[2025-05-30] MEDS: LASIX 120 MG IV ×2 (10:43→15:50)
[2025-05-30] MEDS: ASPIR LOW (ENTERIC COATED) 81 MG PO (10:51)
[2025-05-30] MEDS: VITAMIN D3 (cholecalciferol) 25 MCG PO (10:51)
--- NOTE | 2025-05-30 11:09 | W.PN.NEPH.PH ---
Today's Communication / Plan
-
Continue PD
Assessment/Plan
-
59-year-old male with past medical history of hypertension, atrial fibrillation, chronic HFpEF, ESRD on PD and DM-II who presented to [facility] ED for evaluation of chest heaviness. Patient explains that he has not been feeling well over the past 4-5
days, he reports chest pressure that has intermittently radiated to his left arm and currently right shoulder and neck. Found to have NSTEMI.
Renal consult for end-stage renal disease on peritoneal dialysis
Recently transition to peritoneal dialysis about 6 months
Has been dealing with volume overload for the last few weeks and peritoneal orders have been changed but yet going to affect. He was to try a last fill of icodextrin to help with ultrafiltration but is yet to get the solution delivered
Initial workup shows diminished ejection fraction 32%.
Estimated dry weight is 104.5 although he is cannot achieve that in quite a few weeks
His last recorded weight was 105.8 kg on 05/09 from outpatient record
Impression.
ESRD on PD
NSTEMI (troponin peak 52)
CHF ejection fraction 32% from previous echo September 2024 was 50%
Atrial fibrillation
Type 2 diabetes
Hyperphosphatemia
Plan.
change to alternating 4.25% and 2.5% solutions. We may not need to continue dropping his weight
continue heparin gtt
will continue Lasix 120 mg twice a day
Son was at bedside and discussed plan
Patient appears optimal from a volume standpoint
Pending cardiac catheter and high risk PCI= CT note reviewed

critical care time 31 minutes
-
-
Date of Service: May 30, 2025
CC / HPI / ROS
-
Chief Complaint:
ESRD/PD
History of Present Illness:
Remains on PD 4.25% every 4 hour exchange
good UF, weights down
Hemodynamically labile off pressor support
Non-ST elevation RI with troponin peak at 52, remains on heparin drip
critically ill in ICU
remains in Afib with ectopy
K low 3.4
WBC stable high 16.7
Review of Systems:
No longer short of breath, off oxygen
No fevers
No reported chest pain
Labs
-
Labs:
WBC 17.5 10^3/uL (4.8-10.8) H 05/30/25 05:43
RBC 3.70 10^6/uL (4.70-6.10) L 05/30/25 05:43
Hgb 10.5 g/dL (13.0-18.0) L 05/30/25 05:43
Hct 31.8 % (39.0-52.0) L 05/30/25 05:43
Plt Count 275 10^3/uL (130-400) 05/30/25 05:43
Sodium 134 mmol/L (135-145) L 05/30/25 05:43
Potassium 4.1 mmol/L (3.5-5.1) 05/30/25 05:43
Chloride 98 mmol/L (98-107) 05/30/25 05:43
Carbon Dioxide 24 mmol/L (22-30) 05/30/25 05:43
BUN 74 mg/dl (9-20) H 05/30/25 05:43
Creatinine 10.9 mg/dL (0.7-1.3) H* 05/30/25 05:43
eGFR 4.93 05/30/25 05:43
Glucose 244 mg/dl (70-99) H 05/30/25 05:43
Calcium 8.4 mg/dl (8.4-10.2) 05/30/25 05:43
Phosphorus 6.4 mg/dl (2.5-4.5) H 05/30/25 05:43
Tql-Y-Qmyycqmgyxg Pept > 93817 pg/ml 05/22/25 12:50
Albumin 3.3 g/dl (3.5-5.0) L 05/28/25 03:30
Physical Exam
-
Vital Signs:
Vital Signs
Temp Pulse Resp BP Pulse Ox
98.2 F 71 18 127/69 97
05/30/25 07:06 05/30/25 11:00 05/29/25 07:39 05/30/25 10:43 05/29/25 23:46
Cardiovascular:: Irregular rate and rhythm
Respiratory:: Bilateral: CTA
Lung Excursion:: Normal
Abdomen:: Nontender and Soft
Bowel Sounds:: Normal
Extremity Edema:: None: Bilateral:
--- NOTE | 2025-05-30 11:11 | W.PN.UPDATE ---
Update Note
Progress Note Update
Patient was seen during peritoneal dialysis and tolerating treatment with good ultrafiltration
--- NOTE | 2025-05-30 11:31 | PTCARENOTE ---
Patient out of bed to chair. Peritoneal dialysis continues as per doctors orders. Nausea this morning relieved with Zofran. Patient very knowlegable regarding plan if care and future procedures. Denying pain when asked. Doppler used for pedal
pulses.
[2025-05-30 11:55] LABS: Glucose - Point of Care 243 mg/dl (70-99)
[2025-05-30] MEDS: NOVOLOG FLEXPEN-MODERATE RESISTANCE 3 UNITS SC ×2 (12:35→17:04)
--- NOTE | 2025-05-30 12:36 | PN.DE.MGMTRT ---
Insulin Management
- -
05/30/2025: Diabetes Management Consult Follow up
Patient admitted 05/22 for increased difficulty breathing over past 5 days found to be in acute CHF. PMH CHF, HTN, diabetes, renal failure, HLD. Prior to admission was taking NovoLog ss AC with Tresiba 32 units @ HS. States he was diagnosed ~ 15
years ago, took Prandin for years then started insulin. Follows with primary care doctor, Milind [place]. Uses DexCom G7 and traditional glucose monitor for glucose testing. A1C on admission 10.3%, Cr 9.3, eGFR 5.97.
He states he is not surprised his A1C is elevated as he has not been paying attention to his diabetes. Transitioned from critical care glycemic protocol on 05/23.
Patient is awake alert and oriented, sitting out of bed, preparing for PD, offers no complaints, able to discuss diabetes care.
Received 38 units lantus @ hs, fasting lgucose 244/310. Will increase hs lantus to 42 units. AC novolog was increased to 8 units, glucose range 274 to 332. Will increase hs lantus to 42 units and AC novolog to 16 units with moderate corrective.
Discussed with nurse. Will Cont to follow.
Diabetes History
- -
Pre-Admission Diabetes Regimen
05/30/25
05:43
Creatinine 10.9 H*
Lab Results
Hemoglobin A1c 10.3 % (4.0-5.6) H 05/23/25 03:16
Insulin Pump Settings
IP Diabetes Regimen
05/29/25 05/29/25 05/30/25
16:01 22:37 05:43
Glucose 244 H
POC Glucose 274 H 295 H
05/30/25 05/30/25
07:28 11:44
Glucose
POC Glucose 310 H 243 H
Meal type: Lunch
Patient Education
--- NOTE | 2025-05-30 14:00 | W.PN.HOSP.TC ---
Today's Communication/Plan
-
hep ggt
amiodarone
PCI Wednesday
PD
Assessment / Plan
Assessment / Plan
TTE 05/22
1. Left ventricle is normal in size with moderately reduced systolic function. LVEF 32%.
2. Right ventricle is normal in size and systolic function.
3. Moderate to severe mitral regurgitation.
4. Compared to prior echocardiogram in September 2024, LVEF has decreased from 50% to 32%. There is now moderate to severe mitral regurgitation (previously mild).
LHC
1. Right dominant circulation with an 80-90% lesion in the body of the left main coronary artery, tandem, densely calcified 80% lesions in the mid LAD after the origin of the diagonals, a chronic flush occlusion of the nondominant circumflex, and
90% ulcerated and hazy lesion in the mid RCA with a chronic total occlusion of the RPDA and a 90% lesion in the origin of the most distal RPL.
2. Moderate to severely dilated left ventricle with severe global hypokinesis and akinesis of the inferior wall with severely reduced systolic function, LVEF 15-20%.
3. Severe mitral valve regurgitation.
4. Severely elevated filling pressures (LVEDP = 34 mmHg, PCWP = 38 mmHg at 108.4 kg).
5. Severely depressed cardiac index (1.56 L/min/m�), combined with elevated LVEDP and pulmonary capillary wedge pressure are consistent with cardiogenic shock.
6. Moderate to severe, precapillary and postcapillary pulmonary hypertension (mean PA = 51 mmHg, PCWP = 38 mmHg, cardiac output = 3.52 L/min, PVR = 3.69 Tamayo units), WHO groups 2 and 5.

# NSTEMI
Triple-vessel CAD
-Troponin elevated to max 52, trending down
-EKG reviewed and no ST segment changes
-Cardiology evaluated and recommended patient to be managed conservatively as suspected symptoms ongoing more than 48 hours
-TTE result as above.
-Left heart catheterization on 05/24, report as above
-Hep ggt
-High Risk for CABG; there are PCI options
-Plan for PCI on Friday 06/01
# Acute Hypoxic respiratory failure - resolved
Bilateral pleural effusion
-Chest x-ray showing pulmonary edema/congestion
-Likely volume overloaded as patient stopped taking Lasix reportedly peritoneal dialysis was not effective
-Patient required BiPAP on admission night
# ESRD on peritoneal dialysis
- Was on hemodialysis in the past
- Nephrology evaluated and trying to do aggressive peritoneal dialysis and trying to maximize ultrafiltration
- Having some abd pain from PD.
-Cont IV lasix
# Atrial flutter with 2-1 block
Shock - type unclear
-Started on amiodarone
-Coreg started although needed to be held due to shock state
-monitor on telemetry
-Patient has been requiring small dose of vasopressor, wean off as possible
# Acute transaminitis - Improving
- As part of congestive hepatopathy
- Started on Amio this admission and less likely playing role but will need adjustment based on LFT trend.
-monitor on amio
# Leukocytosis - suspecting reactive
Rule out infection
-COVID neg.
-Chest x-ray did not show any overt pneumonia
- Abdominal examination benign. Can get peritoneal dialysis catheter sample if concern for peritonitis
- Rocephin discontinued. monitor for now off abx.
# Hyponatremia
- With ESRD, monitor
# Essential hypertension
- Being started on diltiazem for rate control
# Insulin-dependent diabetes mellitus - Uncontrolled
- A1c of 10.3
- Maintain on regimen of insulin/sliding scale
- Diabetes STEEL UNLOADER consulted
# Acute Heart failure with reduced ejection fraction
- Patient got index of 1.56 on left heart catheterization ventriculogram
- Attempted diuresis with dobutamine/Bumex drip, minimal output, dobutamine/bumex drips were stopped.
Code status: full code
DVT prophylaxis: heparin gtt
Total time spent on today's encounter was 53 minutes which included time spent in counseling the patient/family regarding diagnosis and treatment plan as listed above, goals of care, and symptom management. Case was discussed with nursing staff,
specialists, and care coordinators/case management. All labs and imaging personally reviewed by me. Remainder the time spent in detailed review of previous records, lab data, imaging, and other medical provider documentation.
Anticipated Discharge: > 48 hours
Subjective/Interval History
-
Date of Service: May 30, 2025
no acute events
Objective Data
-
Labs:
Laboratory Results
05/30/25
05:43
WBC 17.5 H
Hgb 10.5 L
Hct 31.8 L
Plt Count 275
APTT 75.0 H
Sodium 134 L
Potassium 4.1
Chloride 98
Carbon Dioxide 24
BUN 74 H
Creatinine 10.9 H*
Glucose 244 H
Calcium 8.4
Vital Signs:
Vital Signs
Temp Pulse Resp BP Pulse Ox
97.9 F 71 18 127/69 100
05/30/25 11:28 05/30/25 11:00 05/29/25 07:39 05/30/25 10:43 05/30/25 11:10
I&O
05/29/25 05/30/25 05/31/25
06:59 06:59 06:59
Intake Total 1396.5 / 1396.5 600 / 600 200 / 200
Output Total 3500 / 3500 3400 / 3400 900 / 900
Balance -2103.5 / -2103.5 -2800 / -2800 -700 / -700
Review of Systems
-
History Source: Patient
All other systems: Not reviewed unless documented
Data Reviewed
-
Diagnostic Radiology: Report Reviewed by me
CT Scan: Report Reviewed by me
Labs: Labs Reviewed by me
--- NOTE | 2025-05-30 14:28 | CM ---
Chart reviewed. Case Management will continue to monitor and will support discharge needs when identified
[2025-05-30 16:58] LABS: Glucose - Point of Care 203 mg/dl (70-99)
[2025-05-30] MEDS: REMOVE LIDOCAINE PATCH REMOVE (20:31)
[2025-05-30] MEDS: SENOKOT-S 1 TABLET PO (20:31)
[2025-05-30] MEDS: LANTUS 0.42 UNITS SC (21:39)
[2025-05-30 21:49] LABS: Glucose - Point of Care 137 mg/dl (70-99)
--- NOTE | 2025-05-30 23:22 | PTCARENOTE ---
Caring for pt overnight. aaox3 pleasant, at bedside. Denies pain besides occasional cramping during PD. NSR on monitor withe frequent PVC's & trigeminy. VSS. Remains on RA. PD Q4H. Completed at 2030, due at 0200. No other issues at this time.
Will monitor.
[2025-05-31] VITALS (13 sets, daily range): BP systolic 68–124; BP diastolic 33–92; BMI 32.3
[2025-05-31 05:54] LABS: Hematocrit 32.3 % (39.0-52.0); Hemoglobin 10.6 g/dL (13.0-18.0); Mean Corp Hgb Conc. 32.8 g/dL (33.0-37.0); Mean Corpuscular Volume 86.8 fL (80.0-94.0); Platelet Count 263 10^3/uL (130-400); Red Cell Dist. Width 14.6 % (11.5-14.5)
[2025-05-31 06:35] LABS: ALT (SGPT) 39 U/L (0-50); AST (SGOT) 19 U/L (17-59); Albumin 3.5 g/dl (3.5-5.0); Alkaline Phosphatase 74 U/L (38-126); Blood Urea Nitrogen 71 mg/dl (9-20); Calcium 8.7 mg/dl (8.4-10.2); Carbon Dioxide 25 mmol/L (22-30); Chloride 97 mmol/L (98-107); Estimated Creatinine Clearance 9 ml/min; Glucose 148 mg/dl (70-99); Magnesium 2.3 mg/dl (1.6-2.3); Potassium 3.8 mmol/L (3.5-5.1); Sodium 136 mmol/L (135-145); Total Protein 6.1 g/dl (6.3-8.2); eGFR 4.77
[2025-05-31 07:04] LABS: APTT 119.1 Sec (23.4-35.0)
[2025-05-31 07:41] LABS: Glucose - Point of Care 167 mg/dl (70-99)
[2025-05-31] MEDS: PHOSLO 667 MG PO ×3 (07:58→17:35)
[2025-05-31] MEDS: NOVOLOG FLEXPEN-MODERATE RESISTANCE 1 UNITS SC (07:59)
[2025-05-31] MEDS: NOVOLOG FLEXPEN 16 UNITS SC ×3 (08:00→17:34)
[2025-05-31] MEDS: SENOKOT-S 1 TABLET PO ×2 (08:11→20:03)
[2025-05-31] MEDS: VITAMIN D3 (cholecalciferol) 25 MCG PO (08:11)
[2025-05-31] MEDS: PACERONE 400 MG PO (08:11)
[2025-05-31] MEDS: ASPIR LOW (ENTERIC COATED) 81 MG PO (08:11)
[2025-05-31] MEDS: LIDOCAINE 4% PATCH TOPICAL (08:12)
[2025-05-31] MEDS: COREG 3.125 MG PO ×2 (08:12→20:05)
[2025-05-31] MEDS: LASIX 120 MG IV (08:55)
--- NOTE | 2025-05-31 09:31 | CM ---
Addendum entered by Karlee Arevalo 05/31/25 11:11:
Patient requested information on Advanced Directives
Packet given to patient
Original Note:
chart reviewed
-Plan for PCI on Friday 06/01
patient ESRD ON PD
PLAN: CM will continue to monitor and will support discharge needs when identified
--- NOTE | 2025-05-31 10:29 | PN.DE.MGMTRT ---
Insulin Management
- -
05/31/2025: Diabetes Management Consult Follow up
Patient admitted 05/22 for increased difficulty breathing over past 5 days found to be in acute CHF. PMH CHF, HTN, diabetes, renal failure, HLD. Prior to admission was taking NovoLog ss AC with Tresiba 32 units @ HS. States he was diagnosed ~ 15
years ago, took Prandin for years then started insulin. Follows with primary care doctor, Milind [place]. Uses DexCom G7 and traditional glucose monitor for glucose testing. A1C on admission 10.3%, Cr 9.3, eGFR 5.97.
He states he is not surprised his A1C is elevated as he has not been paying attention to his diabetes. Transitioned from critical care glycemic protocol on 05/23.
Patient is awake alert and oriented, sitting out of bed, currently on PD, offers no complaints, able to discuss diabetes care.
Patient glucose range yesterday 137 to 244, improved to 137 @ HS after AC novolog increased to 16 units AC. Received 42 units lantus @ hs, fasting glucose 148. Will continue hs lantus 42 units with AC novolog 16 units and reduce moderate
corrective to low corrective insulin.
Discussed with nurse. Will Cont to follow.
Diabetes History
- -
Type of Diabetes: 2 requiring insulin
Pre-Admission Diabetes Regimen
05/31/25
05:23
Creatinine 11.2 H*
Lab Results
Hemoglobin A1c 10.3 % (4.0-5.6) H 05/23/25 03:16
Insulin Pump Settings
IP Diabetes Regimen
05/30/25 05/30/25 05/30/25
11:44 16:46 21:38
Glucose
POC Glucose 243 H 203 H 137 H
05/31/25 05/31/25
05:23 07:30
Glucose 148 H
POC Glucose 167 H
Meal type: Breakfast
Meal type: Breakfast
Meal type: Lunch
Amount consumed: 100%
Amount consumed: 100%
Amount consumed: 100%
Patient Education
--- NOTE | 2025-05-31 11:09 | W.PN.NEPH.PH ---
Today's Communication / Plan
-
Continue Lasix
Continue current PD prescription
Assessment/Plan
-
59-year-old male with past medical history of hypertension, atrial fibrillation, chronic HFpEF, ESRD on PD and DM-II who presented to [facility] ED for evaluation of chest heaviness. Patient explains that he has not been feeling well over the past 4-5
days, he reports chest pressure that has intermittently radiated to his left arm and currently right shoulder and neck. Found to have NSTEMI.
Renal consult for end-stage renal disease on peritoneal dialysis
Recently transition to peritoneal dialysis about 6 months
Has been dealing with volume overload for the last few weeks and peritoneal orders have been changed but yet going to affect. He was to try a last fill of icodextrin to help with ultrafiltration but is yet to get the solution delivered
Initial workup shows diminished ejection fraction 32%.
Estimated dry weight is 104.5 although he is cannot achieve that in quite a few weeks
His last recorded weight was 105.8 kg on 05/09 from outpatient record
Impression.
ESRD on PD
NSTEMI (troponin peak 52)
CHF ejection fraction 32% from previous echo September 2024 was 50%
Atrial fibrillation
Type 2 diabetes
Hyperphosphatemia
Plan.
change to alternating 4.25% and 2.5% solutions. We may not need to continue dropping his weight
continue heparin gtt
continue Lasix 120 mg twice a day
Son was at bedside and discussed plan
Patient appears optimal from a volume standpoint
Pending cardiac catheter and high risk PCI= CT note reviewed
Seen while PD in progress tolerating treatment weights are stable

-
-
Date of Service: May 31, 2025
CC / HPI / ROS
-
Chief Complaint:
ESRD/PD
History of Present Illness:
Remains on PD 4.25% every 4 hour exchange
good UF, weights down
Hemodynamically labile off pressor support
Non-ST elevation [place] with troponin peak at 52, remains on heparin drip
critically ill in ICU
remains in Afib with ectopy
K low 3.4
WBC stable high 16.7
Review of Systems:
No longer short of breath, off oxygen
No fevers
No reported chest pain
Labs
-
Labs:
WBC 18.2 10^3/uL (4.8-10.8) H 05/31/25 05:23
RBC 3.72 10^6/uL (4.70-6.10) L 05/31/25 05:23
Hgb 10.6 g/dL (13.0-18.0) L 05/31/25 05:23
Hct 32.3 % (39.0-52.0) L 05/31/25 05:23
Plt Count 263 10^3/uL (130-400) 05/31/25 05:23
Sodium 136 mmol/L (135-145) 05/31/25 05:23
Potassium 3.8 mmol/L (3.5-5.1) 05/31/25 05:23
Chloride 97 mmol/L (98-107) L 05/31/25 05:23
Carbon Dioxide 25 mmol/L (22-30) 05/31/25 05:23
BUN 71 mg/dl (9-20) H 05/31/25 05:23
Creatinine 11.2 mg/dL (0.7-1.3) H* 05/31/25 05:23
eGFR 4.77 05/31/25 05:23
Glucose 148 mg/dl (70-99) H 05/31/25 05:23
Calcium 8.7 mg/dl (8.4-10.2) 05/31/25 05:23
Phosphorus 7.5 mg/dl (2.5-4.5) H 05/31/25 05:23
Xem-S-Ykfogwzbvre Pept > 72962 pg/ml 05/22/25 12:50
Albumin 3.5 g/dl (3.5-5.0) 05/31/25 05:23
Physical Exam
-
Vital Signs:
Vital Signs
Temp Pulse Resp BP Pulse Ox
97.4 F 63 18 99/74 96
05/31/25 11:00 05/31/25 10:00 05/29/25 07:39 05/31/25 10:00 05/31/25 09:21
Cardiovascular:: Irregular rate and rhythm
Respiratory:: Bilateral: CTA
Lung Excursion:: Normal
Abdomen:: Nontender and Soft
Bowel Sounds:: Normal
Extremity Edema:: None: Bilateral:
[2025-05-31 11:36] LABS: Glucose - Point of Care 139 mg/dl (70-99)
[2025-05-31] MEDS: NOVOLOG FLEXPEN-LOW RESISTANCE SC (12:07)
[2025-05-31] MEDS: HEPARIN 25000 UNITS/250 ML IV (12:11)
--- NOTE | 2025-05-31 12:11 | W.PN.CD ---
Today's Communication / Plan
-
Impella supported PCI with CTS backup tomorrow around 12-1 PM
NPO@MN
Load with Plavix
Impression / Plan
-
I/P: 59-year-old male with ESRD on peritoneal dialysis, HFpEF, paroxysmal atrial fibrillation, CVA, PAD, type 2 diabetes mellitus, and obesity who presented to the emergency department with a chief complaint of shortness of breath and stuttering
chest pain for 4 days, found to have NSTEMI and severe multivessel CAD
Outpatient prop worker: Dr. Gonzalez
NSTEMI with severe multivessel CAD
- [facility] 05/24/2025: 80-90% left main lesion, tandem 80% mid LAD lesions, hazy ulcerated 90% mid RCA lesion, chronically occluded RPDA, 90% RPL
- Initial trop 52, downtrended
- Continue ASA, Carvedilol, and Heparin drip. Heparin drip requires intensive monitoring. I renewed order.
- Statin-intolerant; will need PCSK9i as outpatient.
- Discussion between CT surgery and interventional cardiology took place, and due to risk of CT surgery, plan is now made for complex percutaneous revascularization, with Impella support on 05/31.
- Load with 600 mg Plavix today and then continue 75 mg daily
Heart failure with reduced ejection fraction, acute (EF 30%):
- Likely ischemic cardiomyopathy due to severe multivessel CAD as above
- TTE 05/22/2025: LVEF 30%, moderate to severe MR
- RHC/LHC on 05/24 revealed CI 1.5 but he has been normotensive, mentating appropriately, LFTs improving and already has ESRD so no inotropic support; suspect CI is improved, will recheck RHC during PCI
- Continue volume removal with peritoneal dialysis. Currently examines euvolemic, aim to maintain euvolmia
- GDMT limited by long list of allergies, ESRD, and low CI. Readdress after surgery.
Moderate to severe MR:
-Volume status appears to be stable currently.
Frequent PVCs
- Improved with carvedilol 3.125 mg twice daily
- Cont. amiodarone to 400 mg p.o. daily
- Replace lytes per nephro
Paroxysmal atrial fibrillation
- In and out of A-fib/Aflutter this admission. Currently SR with PVC's.
- Continue amiodarone 400 mg daily and carvedilol 3.125 mg twice daily
- Oral anticoagulation: Apixaban was recommended at his last hospitalization, self discontinued
- [id number] score of at least 5 (DM, PAD, CVA, HF)
- Continue IV heparin drip; eventual transition to oral anticoagulation post PCI
Acute hypoxic respiratory insufficiency, in the setting of acute HFrEF/volume overload
- Improved
- volume control as per Nephrology
ESRD
- Does PD daily at home
- Nephrology on the case
Prior CVA
PAD, follows with Dr. King
Hypertriglyceridemia, on fenofibrate, statin intolerant
Type 2 diabetes mellitus, per primary service
Physical Exam
Vital Signs/Labs
Vital Signs
Temp Pulse Resp BP Pulse Ox
36.3 C 63 18 99/74 96
05/31/25 11:00 05/31/25 10:00 05/29/25 07:39 05/31/25 10:00 05/31/25 09:21
05/30/25 05/31/25 06/01/25
06:59 06:59 06:59
Actual Weight 100.6 kg 102.1 kg
05/31/25 05:23
05/31/25 05:23
PT 19.6 Sec (11.4-14.6) H 05/22/25 20:57
INR 1.64 05/22/25 20:57
APTT 119.1 Sec (23.4-35.0) H 05/31/25 05:23
Magnesium 2.3 mg/dl (1.6-2.3) 05/31/25 05:23
Triglycerides 146 mg/dl (10-149) 05/23/25 03:16
LDL Cholesterol, Calc 82 mg/dl 05/23/25 03:16
VLDL Cholesterol, Calc 29 mg/dl (0-30) 05/23/25 03:16
HDL Cholesterol 20 mg/dl 05/23/25 03:16
05/22/25
12:50
Qdv-T-Kuxgqntvbhh Pept > 72575
Physical Exam
Constitutional: Comfortable
Cardiovascular: Rhythm & rate is regular
Respiratory: Respiratory effort normal
Neuro/Psych: AO x 3
Data Reviewed
-
Date of Service: May 31, 2025
Medical Decision Making: Reviewed Test Results
EKG: Tracing Personally Visualized and interpreted
Labs: Labs Reviewed by me
[2025-05-31] MEDS: NON-FORMULARY ITEM 1 UNIT PO ×2 (13:32→18:55)
[2025-05-31] MEDS: PLAVIX 600 MG PO (13:33)
--- NOTE | 2025-05-31 13:51 | W.PN.HOSP.TC ---
Today's Communication/Plan
-
PCI tomorrow
NPO at MN
Hep ggt
plavix load
Assessment / Plan
Assessment / Plan
TTE 05/22
1. Left ventricle is normal in size with moderately reduced systolic function. LVEF 32%.
2. Right ventricle is normal in size and systolic function.
3. Moderate to severe mitral regurgitation.
4. Compared to prior echocardiogram in September 2024, LVEF has decreased from 50% to 32%. There is now moderate to severe mitral regurgitation (previously mild).
LHC
1. Right dominant circulation with an 80-90% lesion in the body of the left main coronary artery, tandem, densely calcified 80% lesions in the mid LAD after the origin of the diagonals, a chronic flush occlusion of the nondominant circumflex, and
90% ulcerated and hazy lesion in the mid RCA with a chronic total occlusion of the RPDA and a 90% lesion in the origin of the most distal RPL.
2. Moderate to severely dilated left ventricle with severe global hypokinesis and akinesis of the inferior wall with severely reduced systolic function, LVEF 15-20%.
3. Severe mitral valve regurgitation.
4. Severely elevated filling pressures (LVEDP = 34 mmHg, PCWP = 38 mmHg at 108.4 kg).
5. Severely depressed cardiac index (1.56 L/min/m�), combined with elevated LVEDP and pulmonary capillary wedge pressure are consistent with cardiogenic shock.
6. Moderate to severe, precapillary and postcapillary pulmonary hypertension (mean PA = 51 mmHg, PCWP = 38 mmHg, cardiac output = 3.52 L/min, PVR = 3.69 Tamayo units), WHO groups 2 and 5.

# NSTEMI
Triple-vessel CAD
-Troponin elevated to max 52, trending down
-EKG reviewed and no ST segment changes
-Cardiology evaluated and recommended patient to be managed conservatively as suspected symptoms ongoing more than 48 hours
-TTE result as above.
-Left heart catheterization on 05/24, report as above
-Hep ggt
-High Risk for CABG; there are PCI options
-Plan for PCI on Friday 06/01; NPO at NC
# Acute Hypoxic respiratory failure - resolved
Bilateral pleural effusion
-Chest x-ray showing pulmonary edema/congestion
-Likely volume overloaded as patient stopped taking Lasix reportedly peritoneal dialysis was not effective
-Patient required BiPAP on admission night
# ESRD on peritoneal dialysis
- Was on hemodialysis in the past
- Nephrology evaluated and trying to do aggressive peritoneal dialysis and trying to maximize ultrafiltration
- Having some abd pain from PD.
-Cont IV lasix
# Atrial flutter with 2-1 block
Shock - type unclear
-Started on amiodarone
-Coreg started although needed to be held due to shock state
-monitor on telemetry
-Patient has been requiring small dose of vasopressor, wean off as possible
# Acute transaminitis - Improving
- As part of congestive hepatopathy
- Started on Amio this admission and less likely playing role but will need adjustment based on LFT trend.
-monitor on amio
# Leukocytosis - suspecting reactive
no obvious source of infection; afebrile; hemodynamically stable
-COVID neg.
-Chest x-ray did not show any overt pneumonia
- Abdominal examination benign. Can get peritoneal dialysis catheter sample if concern for peritonitis
- Rocephin discontinued. monitor for now off abx.
# Hyponatremia
- With ESRD, monitor
# Essential hypertension
- Being started on diltiazem for rate control
# Insulin-dependent diabetes mellitus - Uncontrolled
- A1c of 10.3
- Maintain on regimen of insulin/sliding scale
- Diabetes SEARCH ENGINE OPTIMIZATION SPECIALIST consulted
# Acute Heart failure with reduced ejection fraction
- Patient got index of 1.56 on left heart catheterization ventriculogram
- Attempted diuresis with dobutamine/Bumex drip, minimal output, dobutamine/bumex drips were stopped.
Code status: full code
DVT prophylaxis: heparin gtt
Total time spent on today's encounter was 53 minutes which included time spent in counseling the patient/family regarding diagnosis and treatment plan as listed above, goals of care, and symptom management. Case was discussed with nursing staff,
specialists, and care coordinators/case management. All labs and imaging personally reviewed by me. Remainder the time spent in detailed review of previous records, lab data, imaging, and other medical provider documentation.
Anticipated Discharge: 24 - 48 hours
Subjective/Interval History
-
Date of Service: May 31, 2025
No acute events overnight
Objective Data
-
Labs:
Laboratory Results
05/31/25 05/31/25
05:23 13:45
WBC 18.2 H
Hgb 10.6 L
Hct 32.3 L
Plt Count 263
APTT 119.1 H Pending
Sodium 136
Potassium 3.8
Chloride 97 L
Carbon Dioxide 25
BUN 71 H
Creatinine 11.2 H*
Glucose 148 H
Calcium 8.7
Total Bilirubin 0.4
AST 19
ALT 39
Alkaline Phosphatase 74
Vital Signs:
Vital Signs
Temp Pulse Resp BP Pulse Ox
97.4 F 66 18 109/85 96
05/31/25 11:00 05/31/25 12:15 05/29/25 07:39 05/31/25 12:15 05/31/25 09:21
I&O
05/30/25 05/31/25 06/01/25
06:59 06:59 06:59
Intake Total 600 / 600 656 / 656 120 / 120
Output Total 3400 / 3400 2650 / 2650 550 / 550
Balance -2800 / -2800 -1993 / -1993 -430 / -430
Review of Systems
-
History Source: Patient
All other systems: Not reviewed unless documented
Data Reviewed
-
Diagnostic Radiology: Report Reviewed by me
CT Scan: Report Reviewed by me
Labs: Labs Reviewed by me
[2025-05-31 14:06] LABS: APTT 100.1 Sec (23.4-35.0)
[2025-05-31] MEDS: LASIX IV (15:04)
[2025-05-31] MEDS: NOVOLOG FLEXPEN-LOW RESISTANCE 1 UNITS SC (17:35)
[2025-05-31 17:49] LABS: Glucose - Point of Care 183 mg/dl (70-99)
[2025-05-31] MEDS: REMOVE LIDOCAINE PATCH REMOVE (20:05)
[2025-05-31 20:50] LABS: APTT 87.2 Sec (23.4-35.0)
[2025-05-31 22:04] LABS: Glucose - Point of Care 261 mg/dl (70-99)
[2025-05-31] MEDS: LANTUS SC (22:37)
[2025-05-31] MEDS: LANTUS 0.2 UNITS SC (23:07)
[2025-06-01] VITALS (32 sets, daily range): BP systolic 65–117; BP diastolic 33–89; BMI 31.4
--- NOTE | 2025-06-01 01:46 | PTCARENOTE ---
Heparin gtt continues, see worklist. Peritoneal dialysis continues without complication. Pt made NPO at midnight, half of usual lantus dose given per ENTRY REP order, see DEC. Call roland within reach.
[2025-06-01] MEDS: HEPARIN 25000 UNITS/250 ML IV (03:24)
[2025-06-01] MEDS: NOVOLOG FLEXPEN-LOW RESISTANCE 3 UNITS SC (05:50)
[2025-06-01 05:55] LABS: Glucose - Point of Care 262 mg/dl (70-99)
[2025-06-01 06:20] LABS: APTT 101.3 Sec (23.4-35.0)
[2025-06-01 06:41] LABS: ALT (SGPT) 34 U/L (0-50); AST (SGOT) 20 U/L (17-59); Albumin 3.7 g/dl (3.5-5.0); Alkaline Phosphatase 72 U/L (38-126); Blood Urea Nitrogen 74 mg/dl (9-20); Calcium 8.9 mg/dl (8.4-10.2); Carbon Dioxide 22 mmol/L (22-30); Chloride 94 mmol/L (98-107); Estimated Creatinine Clearance 8 ml/min; Glucose 229 mg/dl (70-99); Potassium 4.2 mmol/L (3.5-5.1); Sodium 132 mmol/L (135-145); Total Protein 6.4 g/dl (6.3-8.2); eGFR 4.83
[2025-06-01 07:31] LABS: Hematocrit 33.2 % (39.0-52.0); Hemoglobin 11.1 g/dL (13.0-18.0); Mean Corp Hgb Conc. 33.4 g/dL (33.0-37.0); Mean Corpuscular Volume 86.0 fL (80.0-94.0); Platelet Count 316 10^3/uL (130-400); Red Cell Dist. Width 14.7 % (11.5-14.5)
--- NOTE | 2025-06-01 07:44 | PN.DE.MGMTRT ---
Insulin Management
- -
06/01/2025: Diabetes Management Follow up
Patient admitted 05/22 for increased difficulty breathing over past 5 days found to be in acute CHF. PMH CHF, HTN, diabetes, renal failure, HLD. Prior to admission was taking NovoLog ss AC with Tresiba 32 units @ HS. States he was diagnosed ~ 15
years ago, took Prandin for years then started insulin. Follows with primary care doctor, Milind [place]. Uses DexCom G7 and traditional glucose monitor for glucose testing. A1C on admission 10.3%, Cr 9.3, eGFR 5.97.
He states he is not surprised his A1C is elevated as he has not been paying attention to his diabetes. Transitioned from critical care glycemic protocol on 05/23.
Patient is awake alert and oriented, currently on PD, offers no complaints, able to discuss diabetes care.
Patient glucose range yesterday 139 to 183. Pt was NPO after MN and remains NPO for OR today.
Received reduced dose of Lantus 20 units @ HS, fasting glucose 229V, 262 POC this AM
Will Resume HS Lantus 42 units with AC NovoLog 16 units and low corrective insulin.
Discussed with nurse. Will Cont to follow.
Diabetes History
- -
Type of Diabetes: 2 requiring insulin
Pre-Admission Diabetes Regimen
06/01/25
05:43
Creatinine 11.1 H*
Lab Results
Hemoglobin A1c 10.3 % (4.0-5.6) H 05/23/25 03:16
Insulin Pump Settings
IP Diabetes Regimen
05/31/25 05/31/25 05/31/25
11:25 17:34 21:52
Glucose
POC Glucose 139 H 183 H 261 H
06/01/25
05:43
Glucose 229 H
POC Glucose 262 H
Meal type: Breakfast
Amount consumed: 100%
Patient Education
[2025-06-01] MEDS: PHOSLO PO ×3 (08:04→20:18)
[2025-06-01] MEDS: NOVOLOG FLEXPEN SC ×3 (08:05→20:18)
--- NOTE | 2025-06-01 08:39 | CM ---
chart reviewed
plan for PCI today
PLAN: CM will continue to monitor and will support discharge needs when identified
--- NOTE | 2025-06-01 08:59 | W.PN.NEPH.PH ---
Today's Communication / Plan
-
PD orders provided
For cardiac high risk PCI later today
Assessment/Plan
-
59-year-old male with past medical history of hypertension, atrial fibrillation, chronic HFpEF, ESRD on PD and DM-II who presented to [facility] ED for evaluation of chest heaviness. Patient explains that he has not been feeling well over the past 4-5
days, he reports chest pressure that has intermittently radiated to his left arm and currently right shoulder and neck. Found to have NSTEMI.
Renal consult for end-stage renal disease on peritoneal dialysis
Recently transition to peritoneal dialysis about 6 months
Has been dealing with volume overload for the last few weeks and peritoneal orders have been changed but yet going to affect. He was to try a last fill of icodextrin to help with ultrafiltration but is yet to get the solution delivered
Initial workup shows diminished ejection fraction 32%.
Estimated dry weight is 104.5 although he is cannot achieve that in quite a few weeks
His last recorded weight was 105.8 kg on 05/09 from outpatient record
Impression.
ESRD on PD
NSTEMI (troponin peak 52)
CHF ejection fraction 32% from previous echo September 2024 was 50%
Atrial fibrillation
Type 2 diabetes
Hyperphosphatemia
Plan.
Maintain alternating 4.25% and 2.5% solutions. We may not need to continue dropping his weight
continue heparin gtt
Patient for high risk PCI today
Patient appears optimal from a volume standpoint
Pending cardiac catheter and high risk PCI= CT note reviewed
Seen while PD in progress tolerating treatment weights are stable

-
-
Date of Service: June 01, 2025
CC / HPI / ROS
-
Chief Complaint:
ESRD/PD
History of Present Illness:
Remains on PD 4.25% /2.5 every 4 hour exchange
good UF, weights down
Hemodynamically labile off pressor support
Non-ST elevation MA with troponin peak at 52, remains on heparin drip
remains in sinus with ectopy
WBC stable high 21
Review of Systems:
No longer short of breath, off oxygen
No fevers
No reported chest pain
Weight is down
Labs
-
Labs:
WBC 21.3 10^3/uL (4.8-10.8) H 06/01/25 05:43
RBC 3.86 10^6/uL (4.70-6.10) L 06/01/25 05:43
Hgb 11.1 g/dL (13.0-18.0) L 06/01/25 05:43
Hct 33.2 % (39.0-52.0) L 06/01/25 05:43
Plt Count 316 10^3/uL (130-400) D 06/01/25 05:43
Sodium 132 mmol/L (135-145) L 06/01/25 05:43
Potassium 4.2 mmol/L (3.5-5.1) 06/01/25 05:43
Chloride 94 mmol/L (98-107) L 06/01/25 05:43
Carbon Dioxide 22 mmol/L (22-30) 06/01/25 05:43
BUN 74 mg/dl (9-20) H 06/01/25 05:43
Creatinine 11.1 mg/dL (0.7-1.3) H* 06/01/25 05:43
eGFR 4.83 06/01/25 05:43
Glucose 229 mg/dl (70-99) H 06/01/25 05:43
Calcium 8.9 mg/dl (8.4-10.2) 06/01/25 05:43
Phosphorus 7.5 mg/dl (2.5-4.5) H 05/31/25 05:23
Spi-P-Dqrulaocwgf Pept > 43482 pg/ml 05/22/25 12:50
Albumin 3.7 g/dl (3.5-5.0) 06/01/25 05:43
Physical Exam
-
Vital Signs:
Vital Signs
Temp Pulse Resp BP Pulse Ox
98.2 F 68 18 97/70 97
06/01/25 03:00 06/01/25 06:37 05/29/25 07:39 06/01/25 06:37 05/31/25 23:17
Cardiovascular:: Irregular rate and rhythm
Respiratory:: Bilateral: CTA
Lung Excursion:: Normal
Abdomen:: Nontender and Soft
Bowel Sounds:: Normal
Extremity Edema:: None: Bilateral:
[2025-06-01] MEDS: COREG 3.125 MG PO (09:14)
[2025-06-01] MEDS: VITAMIN D3 (cholecalciferol) 25 MCG PO (09:14)
[2025-06-01] MEDS: ASPIR LOW (ENTERIC COATED) 81 MG PO (09:14)
[2025-06-01] MEDS: PLAVIX 75 MG PO (09:14)
[2025-06-01] MEDS: SENOKOT-S 1 TABLET PO (09:14)
[2025-06-01] MEDS: PACERONE 400 MG PO (09:15)
[2025-06-01] MEDS: LIDOCAINE 4% PATCH TOPICAL (09:15)
[2025-06-01] MEDS: LASIX IV ×2 (09:41→18:55)
--- NOTE | 2025-06-01 12:10 | PTCARENOTE ---
Patient due for PD at 10:00. Patient drained but advised by that filling patient would be wasteful as he is to go to incinerator plant laborer approx 12-1:00 PM and patient will need to be drained again. Patient also in agreement to not be filled just
prior to going to incinerator plant laborer. Heparin gtt still infusing, no orders to hold, patient therapeutic this morning per protocol. Pt also refused Lasix this morning, states he would 'never get to surgery if I took that' and stating that he is 'already so
dehydrated, I barely made it to the bathroom this morning.' Pt reporting that he was lightheaded walking this morning because he was dehydrated. made aware and advised to hold Lasix. Assessment, care and VS as charted.
[2025-06-01] MEDS: NOVOLOG FLEXPEN-LOW RESISTANCE 2 UNITS SC (12:33)
[2025-06-01 12:43] LABS: Glucose - Point of Care 208 mg/dl (70-99)
--- NOTE | 2025-06-01 13:48 | PTCARENOTE ---
Pt taken to laborer drying department with laborer drying department RN's.
--- NOTE | 2025-06-01 14:20 | W.PN.HOSP.TC ---
Today's Communication/Plan
-
High Cardiac Risk PCI today
PD
Plavix
hep ggt until [facility]
Assessment / Plan
Assessment / Plan
TTE 05/22
1. Left ventricle is normal in size with moderately reduced systolic function. LVEF 32%.
2. Right ventricle is normal in size and systolic function.
3. Moderate to severe mitral regurgitation.
4. Compared to prior echocardiogram in September 2024, LVEF has decreased from 50% to 32%. There is now moderate to severe mitral regurgitation (previously mild).
[facility]
1. Right dominant circulation with an 80-90% lesion in the body of the left main coronary artery, tandem, densely calcified 80% lesions in the mid LAD after the origin of the diagonals, a chronic flush occlusion of the nondominant circumflex, and
90% ulcerated and hazy lesion in the mid RCA with a chronic total occlusion of the RPDA and a 90% lesion in the origin of the most distal RPL.
2. Moderate to severely dilated left ventricle with severe global hypokinesis and akinesis of the inferior wall with severely reduced systolic function, LVEF 15-20%.
3. Severe mitral valve regurgitation.
4. Severely elevated filling pressures (LVEDP = 34 mmHg, PCWP = 38 mmHg at 108.4 kg).
5. Severely depressed cardiac index (1.56 L/min/m�), combined with elevated LVEDP and pulmonary capillary wedge pressure are consistent with cardiogenic shock.
6. Moderate to severe, precapillary and postcapillary pulmonary hypertension (mean PA = 51 mmHg, PCWP = 38 mmHg, cardiac output = 3.52 L/min, PVR = 3.69 Tamayo units), WHO groups 2 and 5.

# NSTEMI
Triple-vessel CAD
-Troponin elevated to max 52, trending down
-EKG reviewed and no ST segment changes
-Cardiology evaluated and recommended patient to be managed conservatively as suspected symptoms ongoing more than 48 hours
-TTE result as above.
-Left heart catheterization on 05/24, report as above
-Hep ggt
� Plavix load completed, continue Plavix
-High Risk for CABG; there are PCI options
-Plan for PCI today 06/01; NPO at [place]
# Acute Hypoxic respiratory failure - resolved
Bilateral pleural effusion
-Chest x-ray showing pulmonary edema/congestion
-Likely volume overloaded as patient stopped taking Lasix reportedly peritoneal dialysis was not effective
-Patient required BiPAP on admission night
# ESRD on peritoneal dialysis
- Was on hemodialysis in the past
- Nephrology evaluated and trying to do aggressive peritoneal dialysis and trying to maximize ultrafiltration
- Having some abd pain from PD.
-Cont IV lasix
# Atrial flutter with 2-1 block
Shock - type unclear
-Started on amiodarone
-Coreg started although needed to be held due to shock state
-monitor on telemetry
-Patient has been requiring small dose of vasopressor, wean off as possible
# Acute transaminitis - Improving
- As part of congestive hepatopathy
- Started on Amio this admission and less likely playing role but will need adjustment based on LFT trend.
-monitor on amio
# Leukocytosis - suspecting reactive
no obvious source of infection; afebrile; hemodynamically stable
-COVID neg.
-Chest x-ray did not show any overt pneumonia
- Abdominal examination benign. Can get peritoneal dialysis catheter sample if concern for peritonitis
- Rocephin discontinued. monitor for now off abx.
# Hyponatremia
- With ESRD, monitor
# Essential hypertension
- Being started on diltiazem for rate control
# Insulin-dependent diabetes mellitus - Uncontrolled
- A1c of 10.3
- Maintain on regimen of insulin/sliding scale
- Diabetes [employer] ROLL[employer] GRINDER consulted
# Acute Heart failure with reduced ejection fraction
- Patient got index of 1.56 on left heart catheterization ventriculogram
- Attempted diuresis with dobutamine/Bumex drip, minimal output, dobutamine/bumex drips were stopped.
Code status: full code
DVT prophylaxis: heparin gtt
Total time spent on today's encounter was 51 minutes which included time spent in counseling the patient/family regarding diagnosis and treatment plan as listed above, goals of care, and symptom management. Case was discussed with nursing staff,
specialists, and care coordinators/case management. All labs and imaging personally reviewed by me. Remainder the time spent in detailed review of previous records, lab data, imaging, and other medical provider documentation.
Anticipated Discharge: 24 - 48 hours
Subjective/Interval History
-
Date of Service: June 01, 2025
PCI today, no acute events.
Objective Data
-
Labs:
Laboratory Results
06/01/25
05:43
WBC 21.3 H
Hgb 11.1 L
Hct 33.2 L
Plt Count 316 D
APTT 101.3 H
Sodium 132 L
Potassium 4.2
Chloride 94 L
Carbon Dioxide 22
BUN 74 H
Creatinine 11.1 H*
Glucose 229 H
Calcium 8.9
Total Bilirubin 0.6
AST 20
ALT 34
Alkaline Phosphatase 72
Vital Signs:
Vital Signs
Temp Pulse Resp BP Pulse Ox
98.2 F 64 18 112/89 97
06/01/25 03:00 06/01/25 12:00 05/29/25 07:39 06/01/25 10:00 06/01/25 10:14
I&O
05/31/25 06/01/25 06/02/25
06:59 06:59 06:59
Intake Total 656 / 656 120 / 120
Output Total 2650 / 2650 3600 / 3600 400 / 400
Balance -1993 / -1993 -3480 / -3480 - / -400
Review of Systems
-
History Source: Patient
All other systems: Not reviewed unless documented
Physical Exam
-
General: Well Nourished
HEENT: Negative Oxygen
Respiratory: Clear to Auscultation
Cardiac: Regular Rhythm and S1/S2; Negative Tachycardic
GI: Soft, Nontender, Nondistended and Other (PD cath in place)
Musculoskeletal: Edema, Right Lower Extrem and Edema, Left Lower Extrem
Neuro: Awake, Alert, Oriented and AO x 3
[2025-06-01 15:31] LABS: ACT-LR - POC 297 Seconds (116-155)
[2025-06-01 15:36] LABS: ACT-LR - POC 237 Seconds (116-155)
[2025-06-01 15:36] LABS: ACT-LR - POC 265 Seconds (116-155)
[2025-06-01 15:36] LABS: ACT-LR - POC 292 Seconds (116-155)
[2025-06-01 15:56] LABS: ACT-LR - POC 239 Seconds (116-155)
[2025-06-01 17:50] LABS: Glucose - Point of Care 121 mg/dl (70-99)
[2025-06-01] MEDS: NOVOLOG FLEXPEN-LOW RESISTANCE SC (18:54)
--- NOTE | 2025-06-01 19:25 | W.PN.CD ---
Today's Communication / Plan
-
did well with impella supported multi-vessel pci
heparin resume this evening
OAC tomorrow (for 1 month triple therapy)
Impression / Plan
-
I/P: 59-year-old male with ESRD on peritoneal dialysis, HFpEF, paroxysmal atrial fibrillation, CVA, PAD, type 2 diabetes mellitus, and obesity who presented to the emergency department with a chief complaint of shortness of breath and stuttering
chest pain for 4 days, found to have NSTEMI and severe multivessel CAD
Outpatient plant utility person: Dr. Gonzalez
NSTEMI with severe multivessel CAD
- [facility] 05/24/2025: 80-90% left main lesion, tandem 80% mid LAD lesions, hazy ulcerated 90% mid RCA lesion, chronically occluded RPDA, 90% RPL
- Initial trop 52, downtrended
- cont. BB
- Statin-intolerant; will need PCSK9i as outpatient.
- Successful Impella supported PCI to RCA/LAD/LM today; note RHC at time of cath with normal filling pressures normal index, much improved from prior
- Cont. ASA/Plavix, if no bleeding issues convert heparin to OAC tomorrow and plan for 1 month triple therapy
Heart failure with reduced ejection fraction, acute (EF 30%):
- Likely ischemic cardiomyopathy due to severe multivessel CAD as above
- TTE 05/22/2025: LVEF 30%, moderate to severe MR
- RHC/LHC on 05/24 revealed CI 1.5; CI and filling pressures now normal
- Continue volume removal with peritoneal dialysis. Euvolemic by hemos, maintain with dialysis
- GDMT limited by long list of allergies, ESRD; consider inpatient initiation of SGLT2i if ok with renal, uptitrate BB as tolerated, further GDMT as outpatient
Moderate to severe MR:
-Volume status appears to be stable currently.
-reassess as outpatient, suspect will improve
Frequent PVCs
- Improved with carvedilol 3.125 mg twice daily, uptitrate as tolerated
- Cont. amiodarone to 400 mg p.o. daily
- Replace lytes per nephro
Paroxysmal atrial fibrillation
- In and out of A-fib/Aflutter this admission. Currently SR with PVC's.
- Continue amiodarone 400 mg daily and carvedilol 3.125 mg twice daily
- Oral anticoagulation: heparin currently, Apixaban was recommended at his last hospitalization, self discontinued, restart once hemostasis post impella assured
- [id number] score of at least 5 (DM, PAD, CVA, HF)
Acute hypoxic respiratory insufficiency, in the setting of acute HFrEF/volume overload
- Improved
- volume control as per Nephrology
ESRD
- Does PD daily at home
- Nephrology consulted here
Prior CVA
PAD, follows with Dr. King
Hypertriglyceridemia, on fenofibrate, statin intolerant
Type 2 diabetes mellitus, per primary service
Physical Exam
Vital Signs/Labs
Vital Signs
Temp Pulse Resp BP Pulse Ox
36.4 C 65 20 108/73 96
06/01/25 17:51 06/01/25 18:15 06/01/25 17:51 06/01/25 18:15 06/01/25 17:59
05/31/25 06/01/25 06/02/25
06:59 06:59 06:59
Actual Weight 102.1 kg 99.3 kg
06/01/25 05:43
06/01/25 05:43
PT 19.6 Sec (11.4-14.6) H 05/22/25 20:57
INR 1.64 05/22/25 20:57
APTT 101.3 Sec (23.4-35.0) H 06/01/25 05:43
Magnesium 2.3 mg/dl (1.6-2.3) 05/31/25 05:23
Triglycerides 146 mg/dl (10-149) 05/23/25 03:16
LDL Cholesterol, Calc 82 mg/dl 05/23/25 03:16
VLDL Cholesterol, Calc 29 mg/dl (0-30) 05/23/25 03:16
HDL Cholesterol 20 mg/dl 05/23/25 03:16
05/22/25
12:50
Otx-M-[id number] Pept > [id number]
Physical Exam
Constitutional: Comfortable
Cardiovascular: Rhythm & rate is regular
Respiratory: Respiratory effort normal
Neuro/Psych: AO x 3
Data Reviewed
-
Date of Service: June 01, 2025
Medical Decision Making: Reviewed Test Results
EKG: Tracing Personally Visualized and interpreted
X-Ray/CT/US/MRI/NUC/PET: Image Personally Visualized and interpreted
Labs: Labs Reviewed by me
--- NOTE | 2025-06-01 19:25 | ITS.CL.PN ---
Pathology Assistant - Procedure Note
Procedure
Procedure Note:
CARDIAC CATHETERIZATION REPORT
Date of Procedure: 06/01/2025
Referring: Dr. Derek Rose MD
Indication: NSTEMI, cardiogenic shock, multivessel coronary artery disease with prohibitive surgical risk
PROCEDURE(S)
1. right heart catheterization
2. Impella placement
3. coronary angiography
4. IVUS RCA
5. Shockwave lithotripsy RCA
6. PCI with DONNA of ostial to mid RCA
7. IVUS LAD
8. PCI with DONNA to mid-LAD
9. IVUS left main
10. PCI with DONNA to left main
11. Impella removal
12. moderate sedation 150 minutes
ACCESS:
1. 7F right femoral vein (closure: manual pressure)
2. 14F right common femoral artery (closure: Perclose x2)
CATHETERS
1. 6F balloon wedge catheter
2. 6F pigtail catheter
3. 6F JR4 guide
4. 7F EBU3.75 guide
MODERATE SEDATION: 150 minutes of moderate sedation was utilized. An independent medical illustrator was present to assist with and help manage the patient's level of consciousness and physiologic status.
HEMODYNAMIC DATA
SBP 107/58 (mean 76) mmHg
RA 7 mmHg
RV 38/1 (EDP 12) mmHg
PA 27/12 (mean 17) mmHg
PCWP 9 mmHg
SaO2 97.9%
SvO2 62.0%
Hb 11.2 g/dL
CO/CI 4.95/2.29 L/min/m2
SVR 1115 dsc*-5
PVR 1.6 Wood units
CORONARY ANGIOGRAPHY - full coronary angiography was repeated to better clarify ostial RCA disease as well as the precise location of the diagonal branch vessels relative to the LAD disease to inform interventional strategy
Dominance: Right
LM: Large vessel with 80% focal stenosis.
LAD: Large vessel giving rise to a small D1 and moderate caliber branching D2. There is a long segment of severe calcific disease up to 80% extending from just after the D2 takeoff distally. There D2 itself has diffuse moderate disease from the
ostium to mid-way down the large inferior branch.
LCx: Totally occluded ostially with faint R-L collaterals.
RCA: Large vessel giving rise to an RDPA and several RPL branches. There is 50% ostial stenosis with significant pressure dampening with a 6F guide. There is a heavily calcified 80% mid-vessel stenosis. There is total occlusion of the RPDA. There is
focal ostial disease of the distal small RPL branch but otherwise mild disease in the other RPL branches.
Impella Insertion
Despite improved hemodynamics compared to prior cath, given the known severe cardiomyopathy and the anatomic distribution and severity of coronary disease it was felt that particularly LM/LAD PCI would require hemodynamic support. Under ultrasound
guidance, right common femoral access was obtained and 2 preclose sutures placed. Serial dilation was performed followed by insertion of the Impella sheath. Heparin was given to achieve ACT greater than 300. The aortic valve is crossed with a
pigtail catheter and exchanged for the Impella insertion wire after which the Impella was inserted and therapy initiated.
IVUS-guided PCI with Shockwave lithotripsy and DESx2 to ostial to mid RCA
Via the 7F Impella single access Impella sheath, the RCA was engaged with a 6 [place] JR4 guide catheter and a Runthrough wire placed in a distal RPL. Initial lesion preparation was performed with a 2.5 mm semicompliant balloon followed by IVUS
demonstrating a 4.5 mm reference vessel diameter. There was noted to be severe concentric calcification at the lesion site in both the mid vessel and the RCA ostium. The decision was made to proceed with Shockwave lithotripsy with a 4.0 mm Shockwave
balloon with a total of 60 pulses delivered to the mid RCA and RCA ostium with full expansion at 6 brandon. Additional lesion preparation was performed with a 4.0 mm NC balloon with full expansion. Stenting was then performed with overlapping 4.0 x 38
and 4.0 x 18 mm [place] drug-eluting stents postdilated throughout to high-pressure with a 4.5 mm NC balloon with full expansion. Final angiographic result was outstanding. The wire and guide were removed.
IVUS-guided PCI with DONNA to mid-LAD and IVUS-guided PCI with DONNA to the left main
The left main was engaged with a EBU 3.75 guide catheter and Runthrough wires placed in the distal LAD and D2. Initial lesion preparation of the LAD was performed with a 2.0 mm semicompliant balloon with full expansion. There was noted to be near
complete loss of pulsatility on the Impella waveform during balloon expansion. Thus, we chose to use shorter balloon inflations when possible and to avoid using Shockwave lithotripsy in this vessel unless there was demonstrated failure of expansion
with NC balloons. Initial lesion preparation of the left main was performed with a 2.5 mm semicompliant balloon with full expansion. IVUS was performed demonstrating a 2.5-2.75 mm reference vessel diameter in the mid LAD with a relatively
disease-free landing zone just distal to the takeoff of the D2, mild-moderate calcific disease in the proximal LAD, and severe non-concentric calcific disease in the mid body of the left main with a 3.5 mm reference vessel diameter. Further lesion
preparation of the LAD was performed with serial dilation of a 2.5 mm NC balloon to 14 brandon with full expansion. Stenting was performed with a 2.5 x 26 mm [place] drug-eluting stent placed just distal to the takeoff of the D2 in order to
prevent plaque shift and vessel closure. There was noted to be mild pinching of the D2 ostium but ALMA-3 flow was maintained. Postdilation was performed with a 2.5 mm NC balloon at the distal stent edge to high-pressure and a 2.75 x 15 mm NC balloon
in the remainder of the stent to high-pressure. We then turned our attention to the left main. Further lesion preparation was performed with serial dilation with 3.5 x 12 mm NC balloon to full expansion. Stenting was then performed with a 3.5 x 18
mm [place] drug-eluting stent followed by post dilation with a 3.5 mm NC throughout to high-pressure. Angiographic result was outstanding with ALMA-3 flow in all branches. The diagonal protection wire was removed due to wire wrapping. IVUS was
performed which demonstrated excellent mid LAD distal stent edge sizing and apposition but slight underexpansion and undersizing in the remainder of the stent. The left main stent was noted to have excellent distal sizing and apposition however the
ostial portion of the stent was slightly undersized and mal-opposed. Thus, further postdilation was performed of the mid LAD stent with a 3.0 NC balloon taken to 14 brandon at the distal and proximal edges and 18 brandon in the midportion. Flaring of the
left main stent was then performed with a 4.0 mm NC taken to high-pressure. Final angiographic result was outstanding. The Impella was weaned with excellent hemodynamics noted and then removed. The groin sheath was removed with deployment of the
Perclose sutures with good distal pulses noted and excellent hemostasis. The patient had tolerated the procedure well and was taken to recovery in stable condition with family updated.
RADIATION: dose 1967 mGy; DAP 76.5 Gy*cm2; fluoroscopy time 38.1 min
CONCLUSIONS
1. Severe coronary artery disease as described
2. Hemodynamics demonstrate normal BiV filling pressure and normal cardiac index
3. Successful Impella placement via right femoral access
4. IVUS-guided PCI with Shockwave lithotripsy (4.0 mm) and DONNA x2 to RCA (overlapping 4.0x38 and 4.0x18 mm [place] DONNA post-dilated to 4.5 mm at high pressure)
5. IVUS-guided PCI with DONNA to LAD (2.5x26 mm [place] DONNA post dilated to 3.0 mm throughout, to high pressure at the severe lesion site and moderate pressure at distal and proximal edges)
6. IVUS-guided PCI with DONNA to LM (3.5x15 mm [place] DONNA post-dilated distally to 3.5 mm at high pressure and proximally to 4.0 mm at high pressure)
RECOMMENDATIONS
1. Resume heparin tonight then transition to OAC tomorrow if no bleeding concerns. Continue triple therapy for 1 month followed by OAC+Plavix for at least 1 year.
2. Addition of GDMT for HFrEF as tolerated
3. Beta tori for ICM and PVCs
4. Aggressive secondary prevention of CAD with risk factor modification including goal LDL as low as reasonably achievable, at least <55 - note: statin intolerant, will need PCSK9i +/- other agents
5. Cardiac rehab
6. Patient to follow up with me as outpatient
Signed: Balwinder Echeverria MD, PhD
--- NOTE | 2025-06-01 19:33 | PTCARENOTE ---
Pt received from laboratory development technician post impella assisted PCI done via right femoral artery. Minimal oozing at right groin site, no sign of hematoma, dressing changed once, doppler right PT pulse present. Peritoneal dialysis continued, order changed by
to 1.5% solution because pt was 'dry' per . Pt denies any discomfort. Telemetry shows sinus rhythm with first degree AV block and trigeminy.
[2025-06-01] MEDS: SENOKOT-S PO (20:18)
[2025-06-01] MEDS: NON-FORMULARY ITEM 1 UNIT PO (20:19)
[2025-06-01 22:15] LABS: Glucose - Point of Care 156 mg/dl (70-99)
[2025-06-01] MEDS: REMOVE LIDOCAINE PATCH REMOVE (22:47)
[2025-06-01] MEDS: LANTUS SC (22:55)
[2025-06-01] MEDS: COREG PO (22:56)
[2025-06-01] MEDS: LANTUS 0.21 UNITS SC (22:56)
--- NOTE | 2025-06-01 23:21 | PTCARENOTE ---
Right groin site with very slow ooze - dressing removed and pressure held x 20 minutes, dressing replaced, no new bleeding noted. No hematoma, Doppler pedal pulses present. SBP also wavering 80's- low 100's. Ed Eufemia notified, ordered to hold
Coreg and re-start heparin at 0100 instead of 2300. Pt. denies any chest discomfort. Due for PD at midnight.
[2025-06-02] VITALS (18 sets, daily range): BP systolic 70–106; BP diastolic 45–65; BMI 30.8
[2025-06-02] MEDS: HEPARIN 25000 UNITS/250 ML IV ×2 (00:59→15:16)
--- NOTE | 2025-06-02 02:17 | PTCARENOTE ---
No further bleeding from right groin site, no change to assessment. Pt. able to get OOB to use bathroom following PD without difficulty, ambulates with assist x 1 & RW. Heparin restarted at 0100 as per Ed Eufemia. Tolerated PD without any
problems. Currently resting quietly.
[2025-06-02] MEDS: NON-FORMULARY ITEM 1 UNIT PO ×2 (05:56→11:38)
[2025-06-02 07:02] LABS: Hematocrit 32.3 % (39.0-52.0); Hemoglobin 10.9 g/dL (13.0-18.0); Mean Corp Hgb Conc. 33.7 g/dL (33.0-37.0); Mean Corpuscular Volume 84.8 fL (80.0-94.0); Platelet Count 303 10^3/uL (130-400); Red Cell Dist. Width 14.9 % (11.5-14.5)
[2025-06-02 07:12] LABS: APTT 100.6 Sec (23.4-35.0)
[2025-06-02 07:15] LABS: ALT (SGPT) 27 U/L (0-50); AST (SGOT) 21 U/L (17-59); Albumin 3.5 g/dl (3.5-5.0); Alkaline Phosphatase 71 U/L (38-126); Blood Urea Nitrogen 81 mg/dl (9-20); Calcium 8.4 mg/dl (8.4-10.2); Carbon Dioxide 21 mmol/L (22-30); Chloride 94 mmol/L (98-107); Estimated Creatinine Clearance 8 ml/min; Glucose 183 mg/dl (70-99); Magnesium 2.2 mg/dl (1.6-2.3); Potassium 4.0 mmol/L (3.5-5.1); Sodium 129 mmol/L (135-145); Total Protein 6.1 g/dl (6.3-8.2); eGFR 4.44
[2025-06-02 07:28] LABS: Glucose - Point of Care 204 mg/dl (70-99)
[2025-06-02] MEDS: NOVOLOG FLEXPEN 16 UNITS SC ×3 (08:44→17:20)
[2025-06-02] MEDS: NOVOLOG FLEXPEN-LOW RESISTANCE 2 UNITS SC (08:45)
[2025-06-02] MEDS: PACERONE 400 MG PO (08:48)
[2025-06-02] MEDS: PHOSLO 667 MG PO ×3 (08:48→17:20)
[2025-06-02] MEDS: COREG 3.125 MG PO (08:48)
[2025-06-02] MEDS: ASPIR LOW (ENTERIC COATED) 81 MG PO (08:48)
[2025-06-02] MEDS: PLAVIX 75 MG PO (08:48)
[2025-06-02] MEDS: SENOKOT-S 1 TABLET PO ×2 (08:48→20:17)
[2025-06-02] MEDS: LASIX IV ×2 (08:48→11:28)
[2025-06-02] MEDS: VITAMIN D3 (cholecalciferol) 25 MCG PO (08:48)
[2025-06-02] MEDS: LIDOCAINE 4% PATCH TOPICAL (08:54)
--- NOTE | 2025-06-02 08:58 | PTCARENOTE ---
Assumed care. Patient comfortable at rest, tolerating PD dialysis,intermittent gas discomfort. SR, PVC's, BBB, Doppler faint pedal pulses, feet and legs warm to touch. Right femoral site CDI, soft, non-tender. Eating breakfast,call roland in reach
--- NOTE | 2025-06-02 09:55 | W.PN.NEPH.PH ---
Today's Communication / Plan
-
PD orders written
Currently seen on PD 2 L fill volume 1.5% every 5 hours
Assessment/Plan
-
59-year-old male with past medical history of hypertension, atrial fibrillation, chronic HFpEF, ESRD on PD and DM-II who presented to [facility] ED for evaluation of chest heaviness. Patient explains that he has not been feeling well over the past 4-5
days, he reports chest pressure that has intermittently radiated to his left arm and currently right shoulder and neck. Found to have NSTEMI.
Renal consult for end-stage renal disease on peritoneal dialysis
Recently transition to peritoneal dialysis about 6 months
Has been dealing with volume overload for the last few weeks and peritoneal orders have been changed but yet going to affect. He was to try a last fill of icodextrin to help with ultrafiltration but is yet to get the solution delivered
Initial workup shows diminished ejection fraction 32%.
Estimated dry weight is 104.5 although he is cannot achieve that in quite a few weeks
His last recorded weight was 105.8 kg on 05/09 from outpatient record
Impression.
ESRD on PD
NSTEMI (troponin peak 52)
CHF ejection fraction 32% from previous echo September 2024 was 50%
Atrial fibrillation
Type 2 diabetes
Hyperphosphatemia
Plan.
Maintain 1.5% dialysate to scale back u/f as [facility] notes PCWP 9, status post multiple stenting procedures on 06/01/2025
patient symptomatically hypotensive: will give 500cc nss
hold lasix
continue heparin gtt

-
-
Date of Service: June 02, 2025
CC / HPI / ROS
-
Chief Complaint:
ESRD/PD
History of Present Illness:
Remains on PD changed to 1.5% every 4 hour exchange
good UF, weights down
Hemodynamically labile off pressor support
Non-ST elevation AL with troponin peak at 52, remains on heparin drip
remains in sinus with ectopy
Review of Systems:
No longer short of breath, off oxygen
No fevers
No reported chest pain
Weight is down
Feels weak when standing
Labs
-
Labs:
WBC 19.9 10^3/uL (4.8-10.8) H 06/02/25 06:42
RBC 3.81 10^6/uL (4.70-6.10) L 06/02/25 06:42
Hgb 10.9 g/dL (13.0-18.0) L 06/02/25 06:42
Hct 32.3 % (39.0-52.0) L 06/02/25 06:42
Plt Count 303 10^3/uL (130-400) 06/02/25 06:42
Sodium 129 mmol/L (135-145) L 06/02/25 06:42
Potassium 4.0 mmol/L (3.5-5.1) 06/02/25 06:42
Chloride 94 mmol/L (98-107) L 06/02/25 06:42
Carbon Dioxide 21 mmol/L (22-30) L 06/02/25 06:42
BUN 81 mg/dl (9-20) H 06/02/25 06:42
Creatinine 11.9 mg/dL (0.7-1.3) H* 06/02/25 06:42
eGFR 4.44 06/02/25 06:42
Glucose 183 mg/dl (70-99) H 06/02/25 06:42
Calcium 8.4 mg/dl (8.4-10.2) 06/02/25 06:42
Phosphorus 7.5 mg/dl (2.5-4.5) H 05/31/25 05:23
Obk-Z-Oojhudjedia Pept > 65273 pg/ml 05/22/25 12:50
Albumin 3.5 g/dl (3.5-5.0) 06/02/25 06:42
Physical Exam
-
Vital Signs:
Vital Signs
Temp Pulse Resp BP Pulse Ox
97.8 F 62 18 98/63 98
06/02/25 07:21 06/02/25 02:00 06/02/25 07:21 06/02/25 01:38 06/02/25 07:21
Cardiovascular:: Irregular rate and rhythm
Respiratory:: Bilateral: CTA
Lung Excursion:: Normal
Abdomen:: Nontender and Soft
Bowel Sounds:: Normal
Extremity Edema:: None: Bilateral:
[2025-06-02] MEDS: NSS 500 IV (11:37)
[2025-06-02 11:44] LABS: Glucose - Point of Care 168 mg/dl (70-99)
[2025-06-02] MEDS: NOVOLOG FLEXPEN-LOW RESISTANCE 1 UNITS SC (11:46)
[2025-06-02 13:58] LABS: APTT 128.9 Sec (23.4-35.0)
--- NOTE | 2025-06-02 14:23 | W.PN.HOSP.TC ---
Today's Communication/Plan
-
Transition to NOAC as per cads
PD as per Renal
PCWP improved - Stop Lasix
Monitor WBC
Cont Plavix, ASA
Assessment / Plan
Assessment / Plan
TTE 05/22
1. Left ventricle is normal in size with moderately reduced systolic function. LVEF 32%.
2. Right ventricle is normal in size and systolic function.
3. Moderate to severe mitral regurgitation.
4. Compared to prior echocardiogram in September 2024, LVEF has decreased from 50% to 32%. There is now moderate to severe mitral regurgitation (previously mild).
LHC
1. Right dominant circulation with an 80-90% lesion in the body of the left main coronary artery, tandem, densely calcified 80% lesions in the mid LAD after the origin of the diagonals, a chronic flush occlusion of the nondominant circumflex, and
90% ulcerated and hazy lesion in the mid RCA with a chronic total occlusion of the RPDA and a 90% lesion in the origin of the most distal RPL.
2. Moderate to severely dilated left ventricle with severe global hypokinesis and akinesis of the inferior wall with severely reduced systolic function, LVEF 15-20%.
3. Severe mitral valve regurgitation.
4. Severely elevated filling pressures (LVEDP = 34 mmHg, PCWP = 38 mmHg at 108.4 kg).
5. Severely depressed cardiac index (1.56 L/min/m�), combined with elevated LVEDP and pulmonary capillary wedge pressure are consistent with cardiogenic shock.
6. Moderate to severe, precapillary and postcapillary pulmonary hypertension (mean PA = 51 mmHg, PCWP = 38 mmHg, cardiac output = 3.52 L/min, PVR = 3.69 Tamayo units), WHO groups 2 and 5.

# NSTEMI
Triple-vessel CAD
-Troponin elevated to max 52, trending down
-EKG reviewed and no ST segment changes
-TTE result as above.
-Left heart catheterization on 05/24, report as above
-High Risk for CABG; there are PCI options
-Successful PCI X 3 via Impella on 06/01
-Hep ggt�can transition over to NOAC today
� Plavix load completed
�Continue triple therapy for 1 month followed by a NOAC plus Plavix for at least 1 year
# Acute Hypoxic respiratory failure - resolved
Bilateral pleural effusion
-Chest x-ray showing pulmonary edema/congestion
-Likely volume overloaded as patient stopped taking Lasix reportedly peritoneal dialysis was not effective
-Patient required BiPAP on admission night
# ESRD on peritoneal dialysis
- Was on hemodialysis in the past
- Nephrology evaluated and trying to do aggressive peritoneal dialysis and trying to maximize ultrafiltration
- Having some abd pain from PD.
-Cont IV lasix
# Atrial flutter with 2-1 block
Shock - type unclear
-Started on amiodarone
-Coreg started although needed to be held due to shock state
-monitor on telemetry
-Patient has been requiring small dose of vasopressor, wean off as possible
# Acute transaminitis - Improving
- As part of congestive hepatopathy
- Started on Amio this admission and less likely playing role but will need adjustment based on LFT trend.
-monitor on amio
# Leukocytosis - suspecting reactive
no obvious source of infection; afebrile; hemodynamically stable
-COVID neg.
-Chest x-ray did not show any overt pneumonia
- Abdominal examination benign. Can get peritoneal dialysis catheter sample if concern for peritonitis
- Rocephin discontinued. monitor for now off abx.
-Cont to monitor now that PCI completed
# Hyponatremia
- With ESRD, monitor
# Essential hypertension
- Being started on diltiazem for rate control
# Insulin-dependent diabetes mellitus - Uncontrolled
- A1c of 10.3
- Maintain on regimen of insulin/sliding scale
- Diabetes SUMMER CLERK consulted
# Acute Heart failure with reduced ejection fraction
- Patient got index of 1.56 on left heart catheterization ventriculogram
- Attempted diuresis with dobutamine/Bumex drip, minimal output, dobutamine/bumex drips were stopped.
Code status: full code
DVT prophylaxis: heparin gtt
Total time spent on today's encounter was 52 minutes which included time spent in counseling the patient/family regarding diagnosis and treatment plan as listed above, goals of care, and symptom management. Case was discussed with nursing staff,
specialists, and care coordinators/case management. All labs and imaging personally reviewed by me. Remainder the time spent in detailed review of previous records, lab data, imaging, and other medical provider documentation.
Anticipated Discharge: 24 - 48 hours
Subjective/Interval History
-
Date of Service: June 02, 2025
Successful PCI X 3 - 06/01 via Impella
Objective Data
-
Labs:
Laboratory Results
06/02/25 06/02/25
06:42 13:36
WBC 19.9 H
Hgb 10.9 L
Hct 32.3 L
Plt Count 303
APTT 100.6 H 128.9 H
Sodium 129 L
Potassium 4.0
Chloride 94 L
Carbon Dioxide 21 L
BUN 81 H
Creatinine 11.9 H*
Glucose 183 H
Calcium 8.4
Total Bilirubin 0.6
AST 21
ALT 27
Alkaline Phosphatase 71
Vital Signs:
Vital Signs
Temp Pulse Resp BP Pulse Ox
97.4 F 64 15 82/54 94
06/02/25 11:53 06/02/25 11:53 06/02/25 11:53 06/02/25 11:51 06/02/25 11:53
I&O
06/01/25 06/02/25 06/03/25
06:59 06:59 06:59
Intake Total 120 / 120 240 / 240
Output Total 3600 / 3600 550 / 550 200 / 200
Balance -3480 / -3480 -310 / -310 -200 / -200
Review of Systems
-
History Source: Patient
All other systems: Not reviewed unless documented
Physical Exam
-
General: Well Nourished
HEENT: Negative Oxygen
Respiratory: Clear to Auscultation
Cardiac: Regular Rhythm and S1/S2; Negative Tachycardic
GI: Soft, Nontender, Nondistended and Other (PD cath in place)
Musculoskeletal: Edema, Right Lower Extrem and Edema, Left Lower Extrem
Neuro: Awake, Alert, Oriented and AO x 3
Data Reviewed
-
Diagnostic Radiology: Report Reviewed by me
CT Scan: Report Reviewed by me
Labs: Labs Reviewed by me
--- NOTE | 2025-06-02 15:19 | PTCARENOTE ---
Patients BP 70/46 side lying, placed on back 95/45. States feeling weak. Was sitting on side of bed today and felt lightheaded BP 83/49. 500 cc NSS bolus is already infusing. Dr Tiwari notified and instructed to hold any further exchanges today
after this next cycle. Re-assessed BP 106/60, flat in bed.Weight obtained after drain in bed,down 4 pounds from yesterday
[2025-06-02] MEDS: NOVOLOG FLEXPEN-LOW RESISTANCE SC (17:18)
[2025-06-02 17:26] LABS: Glucose - Point of Care 77 mg/dl (70-99)
[2025-06-02] MEDS: REMOVE LIDOCAINE PATCH REMOVE (20:18)
[2025-06-02 21:05] LABS: Glucose - Point of Care 74 mg/dl (70-99)
[2025-06-02 21:43] LABS: APTT 110.5 Sec (23.4-35.0)
[2025-06-02] MEDS: COREG PO (22:17)
[2025-06-02] MEDS: LANTUS SC (22:18)
--- NOTE | 2025-06-02 23:59 | PTCARENOTE ---
Assumed care of the pt @ 1900. Pt is AAOx3 SR/SB on the monitor with PVC's. Heparin gtt infusing per protocol. 2100 blood sugar 74. Lantus dose held PThalia Pratt aware. POC discussed with pt. Remington roland within reach.
[2025-06-03] VITALS (10 sets, daily range): BP systolic 87–112; BP diastolic 49–66
[2025-06-03 03:42] LABS: Glucose - Point of Care 98 mg/dl (70-99)
[2025-06-03 04:05] LABS: Hematocrit 28.1 % (39.0-52.0); Hemoglobin 9.4 g/dL (13.0-18.0); Mean Corp Hgb Conc. 33.5 g/dL (33.0-37.0); Mean Corpuscular Volume 85.7 fL (80.0-94.0); Platelet Count 270 10^3/uL (130-400); Red Cell Dist. Width 14.6 % (11.5-14.5)
[2025-06-03 04:12] LABS: APTT 100.1 Sec (23.4-35.0)
[2025-06-03 04:58] LABS: ALT (SGPT) 23 U/L (0-50); AST (SGOT) 18 U/L (17-59); Albumin 3.1 g/dl (3.5-5.0); Alkaline Phosphatase 72 U/L (38-126); Blood Urea Nitrogen 84 mg/dl (9-20); Calcium 8.1 mg/dl (8.4-10.2); Carbon Dioxide 21 mmol/L (22-30); Chloride 95 mmol/L (98-107); Estimated Creatinine Clearance 8 ml/min; Glucose 106 mg/dl (70-99); Magnesium 2.1 mg/dl (1.6-2.3); Potassium 3.6 mmol/L (3.5-5.1); Sodium 128 mmol/L (135-145); Total Protein 5.4 g/dl (6.3-8.2); eGFR 4.23
[2025-06-03] MEDS: HEPARIN 25000 UNITS/250 ML IV (07:12)
[2025-06-03] MEDS: MIRALAX 17 GRAMS PO (07:55)
[2025-06-03] MEDS: ASPIR LOW (ENTERIC COATED) 81 MG PO (07:56)
[2025-06-03] MEDS: PACERONE 400 MG PO (07:56)
[2025-06-03] MEDS: PHOSLO 667 MG PO ×3 (07:56→18:07)
[2025-06-03] MEDS: COREG 3.125 MG PO (07:56)
[2025-06-03] MEDS: SENOKOT-S 1 TABLET PO ×2 (07:56→19:44)
[2025-06-03] MEDS: VITAMIN D3 (cholecalciferol) 25 MCG PO (07:57)
[2025-06-03] MEDS: PLAVIX 75 MG PO (07:57)
[2025-06-03 08:06] LABS: Glucose - Point of Care 117 mg/dl (70-99)
[2025-06-03] MEDS: NOVOLOG FLEXPEN-LOW RESISTANCE SC ×3 (08:09→17:53)
[2025-06-03] MEDS: NOVOLOG FLEXPEN 16 UNITS SC ×2 (08:59→12:18)
[2025-06-03] MEDS: LIDOCAINE 4% PATCH TOPICAL (09:40)
--- NOTE | 2025-06-03 10:08 | W.PN.NEPH.PH ---
Today's Communication / Plan
-
PD orders provided
Holding diuretic
Assessment/Plan
-
59-year-old male with past medical history of hypertension, atrial fibrillation, chronic HFpEF, ESRD on PD and DM-II who presented to [facility] ED for evaluation of chest heaviness. Patient explains that he has not been feeling well over the past 4-5
days, he reports chest pressure that has intermittently radiated to his left arm and currently right shoulder and neck. Found to have NSTEMI.
Renal consult for end-stage renal disease on peritoneal dialysis
Recently transition to peritoneal dialysis about 6 months
Has been dealing with volume overload for the last few weeks and peritoneal orders have been changed but yet going to affect. He was to try a last fill of icodextrin to help with ultrafiltration but is yet to get the solution delivered
Initial workup shows diminished ejection fraction 32%.
Estimated dry weight is 104.5 although he is cannot achieve that in quite a few weeks
His last recorded weight was 105.8 kg on 05/09 from outpatient record
Impression.
ESRD on PD
NSTEMI (troponin peak 52)
CHF ejection fraction 32% from previous echo September 2024 was 50%
Atrial fibrillation
Type 2 diabetes
Hyperphosphatemia
Plan.
Maintain 1.5% dialysate to scale back u/f as [facility] notes PCWP 9, status post multiple stenting procedures on 06/01/2025
Exchanges of 2 L every 5 hours
Holding diuretic
Patient feeling better and less orthostatic

-
-
Date of Service: June 03, 2025
CC / HPI / ROS
-
Chief Complaint:
ESRD/PD
History of Present Illness:
Remains on PD changed to 1.5% every 5 hour exchange
good UF, weights down
Hemodynamically labile off pressor support
Non-ST elevation ID with troponin peak at 52, remains on heparin drip
remains in sinus with ectopy
Review of Systems:
No longer short of breath, off oxygen
No fevers
No reported chest pain
Weight is down
Feeling better and less orthostatic with ambulation
Labs
-
Labs:
WBC 18.7 10^3/uL (4.8-10.8) H 06/03/25 03:42
RBC 3.28 10^6/uL (4.70-6.10) L 06/03/25 03:42
Hgb 9.4 g/dL (13.0-18.0) L 06/03/25 03:42
Hct 28.1 % (39.0-52.0) L 06/03/25 03:42
Plt Count 270 10^3/uL (130-400) 06/03/25 03:42
Sodium 128 mmol/L (135-145) L 06/03/25 03:42
Potassium 3.6 mmol/L (3.5-5.1) 06/03/25 03:42
Chloride 95 mmol/L (98-107) L 06/03/25 03:42
Carbon Dioxide 21 mmol/L (22-30) L 06/03/25 03:42
BUN 84 mg/dl (9-20) H 06/03/25 03:42
Creatinine 12.4 mg/dL (0.7-1.3) H* 06/03/25 03:42
eGFR 4.23 06/03/25 03:42
Glucose 106 mg/dl (70-99) H 06/03/25 03:42
Calcium 8.1 mg/dl (8.4-10.2) L 06/03/25 03:42
Phosphorus 7.5 mg/dl (2.5-4.5) H 05/31/25 05:23
Qrs-U-Dyzcasdwxdw Pept > 29987 pg/ml 05/22/25 12:50
Albumin 3.1 g/dl (3.5-5.0) L 06/03/25 03:42
Physical Exam
-
Vital Signs:
Vital Signs
Temp Pulse Resp BP Pulse Ox
97.7 F 63 20 112/59 95
06/03/25 07:21 06/03/25 08:00 06/03/25 07:21 06/03/25 07:56 06/03/25 07:21
Cardiovascular:: Irregular rate and rhythm
Respiratory:: Bilateral: CTA
Lung Excursion:: Normal
Abdomen:: Nontender and Soft
Bowel Sounds:: Normal
Extremity Edema:: None: Bilateral:
--- NOTE | 2025-06-03 10:20 | W.PN.CD ---
Addendum entered and electronically signed by Zane Sorenson MD 06/03/25 10:30:
Spoke to nephrology low BP is attributed to fluid removal.
Original Note:
Today's Communication / Plan
-
Cariology will sign off
Our office will reach out for a followup visit
No cath related complications
triple therapy for 1 month followed by Eliquis+Plavix for at least 1 year.
I had seen the patient on 06/02/2025 but did not make a chart entry: cath site was normal!
Impression / Plan
-
I/P: 59-year-old male with ESRD on peritoneal dialysis, HFpEF, paroxysmal atrial fibrillation, CVA, PAD, type 2 diabetes mellitus, and obesity who presented to the emergency department with a chief complaint of shortness of breath and stuttering
chest pain for 4 days, found to have NSTEMI and severe multivessel CAD
Outpatient it application architect: Dr. Gonzalez
NSTEMI with severe multivessel CAD
- LHC 05/24/2025: 80-90% left main lesion, tandem 80% mid LAD lesions, hazy ulcerated 90% mid RCA lesion, chronically occluded RPDA, 90% RPL
- Initial trop 52, downtrended
- cont. BB
- Statin-intolerant; will need PCSK9i as outpatient.
- Successful Impella supported PCI to RCA/LAD/LM today; note RHC at time of cath with normal filling pressures normal index, much improved from prior
- Cont. ASA/Plavix, if no bleeding issues convert heparin to OAC tomorrow and plan for 1 month triple therapy
- No cath replated conplications
- Now for Eliquis and triple therapy for 1 month followed by Eliquis+Plavix for at least 1 year. Then after one year Eliquis alone or perhaps continue 1 antiplatelet med
Heart failure with reduced ejection fraction, acute (EF 30%):
- Likely ischemic cardiomyopathy due to severe multivessel CAD as above
- TTE 05/22/2025: LVEF 30%, moderate to severe MR
- RHC/LHC on 05/24 revealed CI 1.5; CI and filling pressures now normal
- Continue volume removal with peritoneal dialysis. Euvolemic by hemos, maintain with dialysis
- GDMT limited by long list of allergies, ESRD; consider inpatient initiation of SGLT2i if ok with renal, uptitrate BB as tolerated, further GDMT as outpatient
Moderate to severe MR:
-Volume status appears to be stable currently.
-reassess as outpatient, suspect will improve
Frequent PVCs
- Improved with carvedilol 3.125 mg twice daily, uptitrate as tolerated
- Cont. amiodarone to 400 mg p.o. daily
- Replace lytes per nephro
Paroxysmal atrial fibrillation
- In and out of A-fib/Aflutter this admission. Currently SR with PVC's.
- Continue amiodarone 400 mg daily and carvedilol 3.125 mg twice daily
- Oral anticoagulation: heparin currently, Apixaban was recommended at his last hospitalization, self discontinued, restart once hemostasis post impella assured
- [id number] score of at least 5 (DM, PAD, CVA, HF)
Acute hypoxic respiratory insufficiency, in the setting of acute HFrEF/volume overload
- Improved
- volume control as per Nephrology
ESRD
- Does PD daily at home
- Nephrology consulted here
Prior CVA
PAD, follows with Dr. King
Hypertriglyceridemia, on fenofibrate, statin intolerant
Type 2 diabetes mellitus, per primary service
Physical Exam
Vital Signs/Labs
Vital Signs
Temp Pulse Resp BP Pulse Ox
97.7 F 63 20 112/59 95
06/03/25 07:21 06/03/25 08:00 06/03/25 07:21 06/03/25 07:56 06/03/25 07:21
06/02/25 06/03/25 06/04/25
06:59 06:59 06:59
Actual Weight 97.3 kg
06/03/25 03:42
06/03/25 03:42
PT 19.6 Sec (11.4-14.6) H 05/22/25 20:57
INR 1.64 05/22/25 20:57
APTT 100.1 Sec (23.4-35.0) H 06/03/25 03:42
Magnesium 2.1 mg/dl (1.6-2.3) 06/03/25 03:42
Triglycerides 146 mg/dl (10-149) 05/23/25 03:16
LDL Cholesterol, Calc 82 mg/dl 05/23/25 03:16
VLDL Cholesterol, Calc 29 mg/dl (0-30) 05/23/25 03:16
HDL Cholesterol 20 mg/dl 05/23/25 03:16
05/22/25
12:50
Gjd-C-Dwjiawpaikx Pept > 48190
Physical Exam
Constitutional: No acute distress
Cardiovascular: Rhythm & rate is regular and Pedal edema is absent
Respiratory: Respiratory effort normal and Lungs clear to auscul.
GI: Soft and Distention absent
Neuro/Psych: AO x 3
Data Reviewed
-
Date of Service: June 03, 2025
--- NOTE | 2025-06-03 11:16 | PTCARENOTE ---
Walked to the bathroom today with cane. Some lightheadedness with getting up from the toilet. Small bowel movement. In chair now, BP 100/60, restarted PD per the orders.
[2025-06-03] MEDS: ELIQUIS 5 MG PO ×2 (12:15→19:44)
[2025-06-03 12:24] LABS: Glucose - Point of Care 126 mg/dl (70-99)
[2025-06-03 14:12] LABS: Glucose - Point of Care 137 mg/dl (70-99)
--- NOTE | 2025-06-03 14:45 | W.PN.HOSP.TC ---
Today's Communication/Plan
-
Holding UF with PD
Triple therapy
Monitor BP and allow PT eval prior to dc
Assessment / Plan
Assessment / Plan
TTE 05/22
1. Left ventricle is normal in size with moderately reduced systolic function. LVEF 32%.
2. Right ventricle is normal in size and systolic function.
3. Moderate to severe mitral regurgitation.
4. Compared to prior echocardiogram in September 2024, LVEF has decreased from 50% to 32%. There is now moderate to severe mitral regurgitation (previously mild).
LHC
1. Right dominant circulation with an 80-90% lesion in the body of the left main coronary artery, tandem, densely calcified 80% lesions in the mid LAD after the origin of the diagonals, a chronic flush occlusion of the nondominant circumflex, and
90% ulcerated and hazy lesion in the mid RCA with a chronic total occlusion of the RPDA and a 90% lesion in the origin of the most distal RPL.
2. Moderate to severely dilated left ventricle with severe global hypokinesis and akinesis of the inferior wall with severely reduced systolic function, LVEF 15-20%.
3. Severe mitral valve regurgitation.
4. Severely elevated filling pressures (LVEDP = 34 mmHg, PCWP = 38 mmHg at 108.4 kg).
5. Severely depressed cardiac index (1.56 L/min/m�), combined with elevated LVEDP and pulmonary capillary wedge pressure are consistent with cardiogenic shock.
6. Moderate to severe, precapillary and postcapillary pulmonary hypertension (mean PA = 51 mmHg, PCWP = 38 mmHg, cardiac output = 3.52 L/min, PVR = 3.69 Tamayo units), WHO groups 2 and 5.

# NSTEMI
Triple-vessel CAD
-Troponin elevated to max 52, trending down
-EKG reviewed and no ST segment changes
-TTE result as above.
-Left heart catheterization on 05/24, report as above
-High Risk for CABG; there are PCI options
-Successful PCI X 3 via Impella on 06/01
-Hep ggt�transitioned over to NOAC 06/02
�Continue triple therapy for 1 month followed by a NOAC plus Plavix for at least 1 year
# Acute Hypoxic respiratory failure - resolved
Bilateral pleural effusion
-Chest x-ray showing pulmonary edema/congestion
-Likely volume overloaded as patient stopped taking Lasix reportedly peritoneal dialysis was not effective
-Patient required BiPAP on admission night
# ESRD on peritoneal dialysis
- Was on hemodialysis in the past
- Nephrology evaluated and trying to do aggressive peritoneal dialysis and trying to maximize ultrafiltration
- Having some abd pain from PD.
-Stopping Lasix
- Holding UF due to hypotension
# Atrial flutter with 2-1 block
Shock - type unclear
-Started on amiodarone
-Coreg started although needed to be held due to shock state
-monitor on telemetry
# Acute transaminitis - Improving
- As part of congestive hepatopathy
- Started on Amio this admission and less likely playing role but will need adjustment based on LFT trend.
-monitor on amio
# Leukocytosis - suspecting reactive
no obvious source of infection; afebrile; hemodynamically stable
-COVID neg.
-Chest x-ray did not show any overt pneumonia
- Abdominal examination benign. Can get peritoneal dialysis catheter sample if concern for peritonitis
- Rocephin discontinued. monitor for now off abx.
-Cont to monitor now that PCI completed
# Hyponatremia
- With ESRD, monitor
# Essential hypertension
- Being started on diltiazem for rate control
# Insulin-dependent diabetes mellitus - Uncontrolled
- A1c of 10.3
- Maintain on regimen of insulin/sliding scale
- Diabetes VOCATIONAL SERVICES SPECIALIST consulted
# Acute Heart failure with reduced ejection fraction
- Patient got index of 1.56 on left heart catheterization ventriculogram
- Attempted diuresis with dobutamine/Bumex drip, minimal output, dobutamine/bumex drips were stopped.
Code status: full code
DVT prophylaxis: NOAC
Anticipated Discharge: 24 - 48 hours
Subjective/Interval History
-
Date of Service: June 03, 2025
Receiving PT, patient was lightheaded upon ambulation with notable hypotension
Objective Data
-
Labs:
Laboratory Results
06/03/25
03:42
WBC 18.7 H
Hgb 9.4 L
Hct 28.1 L
Plt Count 270
APTT 100.1 H
Sodium 128 L
Potassium 3.6
Chloride 95 L
Carbon Dioxide 21 L
BUN 84 H
Creatinine 12.4 H*
Glucose 106 H
Calcium 8.1 L
Total Bilirubin 0.4
AST 18
ALT 23
Alkaline Phosphatase 72
Vital Signs:
Vital Signs
Temp Pulse Resp BP Pulse Ox
97.4 F 73 20 92/56 99
06/03/25 11:33 06/03/25 12:00 06/03/25 11:33 06/03/25 11:33 06/03/25 11:33
I&O
06/02/25 06/03/25 06/04/25
06:59 06:59 06:59
Intake Total 240 / 240 1772 / 1772 229 / 2294
Output Total 550 / 550 300 / 300
Balance -310 / -310 1472 / 1472 2293 / 2293
Review of Systems
-
History Source: Patient
All other systems: Not reviewed unless documented
Physical Exam
-
General: Well Nourished
HEENT: Negative Oxygen
Respiratory: Clear to Auscultation
Cardiac: Regular Rhythm and S1/S2; Negative Tachycardic
GI: Soft, Nontender, Nondistended and Other (PD cath in place)
Musculoskeletal: Edema, Right Lower Extrem and Edema, Left Lower Extrem
Neuro: Awake, Alert, Oriented and AO x 3
Data Reviewed
-
Diagnostic Radiology: Report Reviewed by me
CT Scan: Report Reviewed by me
Labs: Labs Reviewed by me
--- NOTE | 2025-06-03 15:13 | PTCARENOTE ---
Patient feeling lightheaded in the chair BP 87/50. Assisted to bed BP 106/60 symptoms lightheadedness did resolve. Dr Tiwari notified, NSS 500 cc bolus at 100 cc/hr ordered. Continue dialysis at ordered
[2025-06-03] MEDS: NSS 500 IV (15:38)
[2025-06-03 17:25] LABS: Glucose - Point of Care 116 mg/dl (70-99)
[2025-06-03] MEDS: NOVOLOG FLEXPEN 10 UNITS SC (18:06)
[2025-06-03] MEDS: REMOVE LIDOCAINE PATCH REMOVE (19:59)
[2025-06-03] MEDS: COREG PO (20:00)
--- NOTE | 2025-06-03 21:52 | PTCARENOTE ---
Assumed care of the pt @ 1900. Pt is AAOx3 mom at bedside. SR with PVC's on the monitor. Pt finished 500 ml NSS bolus at the start of my shift. POC discussed with pt. Call roland within reach.
[2025-06-03 22:35] LABS: Glucose - Point of Care 131 mg/dl (70-99)
[2025-06-04] VITALS (9 sets, daily range): BP systolic 98–121; BP diastolic 58–71; BMI 32.1
[2025-06-04] MEDS: LANTUS SC (00:27)
[2025-06-04] MEDS: NON-FORMULARY ITEM 1 UNIT PO ×3 (05:44→20:12)
[2025-06-04 06:06] LABS: Hematocrit 27.0 % (39.0-52.0); Hemoglobin 9.2 g/dL (13.0-18.0); Mean Corp Hgb Conc. 34.1 g/dL (33.0-37.0); Mean Corpuscular Volume 83.9 fL (80.0-94.0); Platelet Count 259 10^3/uL (130-400); Red Cell Dist. Width 14.7 % (11.5-14.5)
[2025-06-04 06:22] LABS: ALT (SGPT) 24 U/L (0-50); AST (SGOT) 19 U/L (17-59); Albumin 3.4 g/dl (3.5-5.0); Alkaline Phosphatase 70 U/L (38-126); Blood Urea Nitrogen 82 mg/dl (9-20); Calcium 8.1 mg/dl (8.4-10.2); Carbon Dioxide 18 mmol/L (22-30); Chloride 96 mmol/L (98-107); Estimated Creatinine Clearance 8 ml/min; Glucose 113 mg/dl (70-99); Magnesium 2.0 mg/dl (1.6-2.3); Potassium 3.9 mmol/L (3.5-5.1); Sodium 129 mmol/L (135-145); Total Protein 5.8 g/dl (6.3-8.2); eGFR 4.27
[2025-06-04] MEDS: ELIQUIS 5 MG PO ×2 (07:45→19:55)
[2025-06-04] MEDS: PLAVIX 75 MG PO (07:45)
[2025-06-04 07:47] LABS: Glucose - Point of Care 168 mg/dl (70-99)
[2025-06-04] MEDS: PHOSLO 667 MG PO ×3 (07:48→17:11)
[2025-06-04] MEDS: SENOKOT-S 1 TABLET PO ×2 (07:48→19:55)
[2025-06-04] MEDS: PACERONE 400 MG PO (07:49)
[2025-06-04] MEDS: ASPIR LOW (ENTERIC COATED) 81 MG PO (07:49)
[2025-06-04] MEDS: VITAMIN D3 (cholecalciferol) 25 MCG PO (07:49)
[2025-06-04] MEDS: NOVOLOG FLEXPEN-LOW RESISTANCE 1 UNITS SC (07:51)
[2025-06-04] MEDS: NOVOLOG FLEXPEN 16 UNITS SC ×3 (07:51→17:12)
[2025-06-04] MEDS: MIRALAX 17 GRAMS PO (08:00)
[2025-06-04] MEDS: LIDOCAINE 4% PATCH TOPICAL (10:01)
--- NOTE | 2025-06-04 11:03 | W.PN.NEPH.PH ---
Today's Communication / Plan
-
PD orders provided
Allowing weights to drift up further due to lower pulmonary capillary wedge pressure and symptomatic orthostasis
Assessment/Plan
-
59-year-old male with past medical history of hypertension, atrial fibrillation, chronic HFpEF, ESRD on PD and DM-II who presented to [facility] ED for evaluation of chest heaviness. Patient explains that he has not been feeling well over the past 4-5
days, he reports chest pressure that has intermittently radiated to his left arm and currently right shoulder and neck. Found to have NSTEMI.
Renal consult for end-stage renal disease on peritoneal dialysis
Recently transition to peritoneal dialysis about 6 months
Has been dealing with volume overload for the last few weeks and peritoneal orders have been changed but yet going to affect. He was to try a last fill of icodextrin to help with ultrafiltration but is yet to get the solution delivered
Initial workup shows diminished ejection fraction 32%.
Estimated dry weight is 104.5 although he is cannot achieve that in quite a few weeks
His last recorded weight was 105.8 kg on 05/09 from outpatient record
Impression.
ESRD on PD
NSTEMI (troponin peak 52)
CHF ejection fraction 32% from previous echo September 2024 was 50%
Atrial fibrillation
Type 2 diabetes
Hyperphosphatemia
Plan.
Patient seen on PD
Maintain 1.5% dialysate to scale back u/f as [facility] notes PCWP 9, status post multiple stenting procedures on 06/01/2025
Exchanges of 2 L every 5 hours
Holding diuretics and limiting UF on dialysis due to persistent orthostasis and hypotension
Weights are gradually rising up to 101.4 kg today. Dry weight is likely around 102 to 103 kg
Patient still with some symptoms of orthostasis

-
-
Date of Service: June 04, 2025
CC / HPI / ROS
-
Chief Complaint:
ESRD/PD
History of Present Illness:
Remains on PD changed to 1.5% every 5 hour exchange
good UF, weights down
Hemodynamically labile off pressor support
Non-ST elevation PR with troponin peak at 52, remains on heparin drip
remains in sinus with ectopy
Review of Systems:
No longer short of breath, off oxygen
No fevers
No reported chest pain
Weight is up
Feeling better and less orthostatic with ambulation
Labs
-
Labs:
WBC 15.2 10^3/uL (4.8-10.8) H 06/04/25 05:42
RBC 3.22 10^6/uL (4.70-6.10) L 06/04/25 05:42
Hgb 9.2 g/dL (13.0-18.0) L 06/04/25 05:42
Hct 27.0 % (39.0-52.0) L 06/04/25 05:42
Plt Count 259 10^3/uL (130-400) 06/04/25 05:42
Sodium 129 mmol/L (135-145) L 06/04/25 05:42
Potassium 3.9 mmol/L (3.5-5.1) 06/04/25 05:42
Chloride 96 mmol/L (98-107) L 06/04/25 05:42
Carbon Dioxide 18 mmol/L (22-30) L 06/04/25 05:42
BUN 82 mg/dl (9-20) H 06/04/25 05:42
Creatinine 12.3 mg/dL (0.7-1.3) H* 06/04/25 05:42
eGFR 4.27 06/04/25 05:42
Glucose 113 mg/dl (70-99) H 06/04/25 05:42
Calcium 8.1 mg/dl (8.4-10.2) L 06/04/25 05:42
Phosphorus 7.5 mg/dl (2.5-4.5) H 05/31/25 05:23
Uku-U-Gyifjqedtlj Pept > 42420 pg/ml 05/22/25 12:50
Albumin 3.4 g/dl (3.5-5.0) L 06/04/25 05:42
Physical Exam
-
Vital Signs:
Vital Signs
Temp Pulse Resp BP Pulse Ox
98.3 F 79 18 105/58 97
06/04/25 07:34 06/04/25 08:00 06/04/25 07:34 06/04/25 07:49 06/04/25 10:39
Cardiovascular:: Irregular rate and rhythm
Respiratory:: Bilateral: CTA
Lung Excursion:: Normal
Abdomen:: Nontender and Soft
Bowel Sounds:: Normal
Extremity Edema:: +1: Bilateral: (Trace)
King Catheter: No
[2025-06-04 12:05] LABS: Glucose - Point of Care 142 mg/dl (70-99)
[2025-06-04] MEDS: NOVOLOG FLEXPEN-LOW RESISTANCE SC ×2 (12:37→17:11)
--- NOTE | 2025-06-04 14:19 | W.PN.HOSP.TC ---
Today's Communication/Plan
-
Continue current care
Assessment / Plan
Assessment / Plan
Gen-AAOx3, NAD
HEENT-NC, AT, anicteric, clear oral mm
Neck-supple
CV-reg, no M, +S1/S2
Lungs-clear B/L
Abd-soft, NT, ND
Ext-trace lower extremity edema bilaterally
Musculoskeletal-no cyanosis, clubbing
Skin-warm and dry
Neuro-grossly non-focal
Psych-calm, cooperative
NSTEMI
Triple-vessel CAD
-Troponin elevated to max 52, trending down
-EKG reviewed and no ST segment changes
-TTE result as above.
-Left heart catheterization on 05/24, report as above
-High Risk for CABG; there are PCI options
-Successful PCI X 3 via Impella on 06/01
-Hep ggt�transitioned over to NOAC 06/02
�Continue triple therapy for 1 month followed by a NOAC plus Plavix for at least 1 year
Acute Hypoxic respiratory failure - resolved
Bilateral pleural effusion
-Chest x-ray showing pulmonary edema/congestion
-Likely volume overloaded as patient stopped taking Lasix reportedly peritoneal dialysis was not effective
-Patient required BiPAP on admission night
ESRD on peritoneal dialysis
- Was on hemodialysis in the past
- Nephrology evaluated and trying to do aggressive peritoneal dialysis and trying to maximize ultrafiltration
Atrial flutter with 2-1 block
Shock - type unclear
-Started on amiodarone
-Coreg started although needed to be held due to shock state
-monitor on telemetry
Acute transaminitis - Improving
- As part of congestive hepatopathy
- Started on Amio this admission and less likely playing role but will need adjustment based on LFT trend.
-monitor on amio
Leukocytosis - suspecting reactive
no obvious source of infection; afebrile; hemodynamically stable
-COVID neg.
-Chest x-ray did not show any overt pneumonia
- Abdominal examination benign. Can get peritoneal dialysis catheter sample if concern for peritonitis
- Rocephin discontinued. monitor for now off abx.
-Cont to monitor now that PCI completed
Hyponatremia
- With ESRD, monitor
Essential hypertension -hypotension along with lightheadedness noted and likely related to excessive volume removal. Discussed with nephrology. Nephrology aiming for weight gain to treat the hypotension. Blood pressure improved now compared to
last night.
DM2 with hyperglycemia
- A1c of 10.3, was in the 8% range last year. Patient believes that the dextrose in his PD fluid is contributing to the hyperglycemia.
- Maintain on regimen of insulin/sliding scale. Hold Lantus given a.m. hypoglycemia.
- Diabetes FILM LIBRARIAN following
Acute Heart failure with reduced ejection fraction
- Patient got index of 1.56 on left heart catheterization ventriculogram 05/22, repeat cardiac catheterization 06/01 showed improvement in cardiac index to 2.29.
- Attempted diuresis with dobutamine/Bumex drip, minimal output, dobutamine/bumex drips were stopped.
Obesity due to excess calories
Code status: full code
DVT prophylaxis: NOAC
Dispo -possible discharge tomorrow if stable. Discussed with nephrology service.
Anticipated Discharge: Within 24 hours
Subjective/Interval History
-
Date of Service: June 04, 2025
Patient seen and examined, feels better currently. No complaints. Had a nosebleed earlier today.
Objective Data
-
Labs:
Laboratory Results
06/04/25
05:42
WBC 15.2 H
Hgb 9.2 L
Hct 27.0 L
Plt Count 259
Sodium 129 L
Potassium 3.9
Chloride 96 L
Carbon Dioxide 18 L
BUN 82 H
Creatinine 12.3 H*
Glucose 113 H
Calcium 8.1 L
Total Bilirubin 0.6
AST 19
ALT 24
Alkaline Phosphatase 70
Vital Signs:
Vital Signs
Temp Pulse Resp BP Pulse Ox
97.3 F 67 16 121/71 100
06/04/25 12:30 06/04/25 14:14 06/04/25 12:30 06/04/25 14:14 06/04/25 12:30
I&O
06/03/25 06/04/25 06/05/25
06:59 06:59 06:59
Intake Total 1772 / 1772 2294 / 2294
Output Total 300 / 300 200 / 200 150 / 150
Balance 1472 / 1472 2093 / 2093 -150 / -150
Review of Systems
-
History Source: Patient
All other systems: Reviewed and negative
[2025-06-04] MEDS: COREG PO ×2 (14:45→20:28)
--- NOTE | 2025-06-04 15:45 | PTCARENOTE ---
Pt received @ 0700 from previous shift. Pt in bed, originally complaining of abdominal pain related to constipation. Miralax and Simethicone provided. Pt with 3 brown, formed bowel movements observed after. SaO2 97% on room air. Shallow breaths.
Sinus rhythm with BBBC and occasional PVC observed. Pt refused morning Carvedilol out of concern of recent hypotension. Trace pitting LE edema. Pedal pulses found by Doppler. (R) midline in place. Minimal assistance with single point cane oob to
chair. Pt ambulating to bathroom with minimal assistance. Perirenal dialyses changed as documented.
[2025-06-04 16:48] LABS: Glucose - Point of Care 109 mg/dl (70-99)
--- NOTE | 2025-06-04 20:13 | PTCARENOTE ---
Assumed care of the pt @ 1900. Pt is AAOx3 SR on the monitor VSS Pt refused PM dose of Coreg. Pt tolerating PD as ordered. Rt groin cath site dressing c/d/i. Mom at bedside. POC discussed with pt and mom. Call roland within reach.
[2025-06-04] MEDS: REMOVE LIDOCAINE PATCH REMOVE (20:28)
[2025-06-04 23:04] LABS: Glucose - Point of Care 143 mg/dl (70-99)
[2025-06-05] VITALS (8 sets, daily range): BP systolic 94–106; BP diastolic 52–63; PULSE 69–76; BMI 32.2
[2025-06-05 02:59] LABS: Hematocrit 27.6 % (39.0-52.0); Hemoglobin 9.5 g/dL (13.0-18.0); Mean Corp Hgb Conc. 34.4 g/dL (33.0-37.0); Mean Corpuscular Volume 83.9 fL (80.0-94.0); Nucleated Red Blood Cells % 0 % (-); Platelet Count 259 10^3/uL (130-400); Red Cell Dist. Width 14.8 % (11.5-14.5)
[2025-06-05 03:24] LABS: Blood Urea Nitrogen 81 mg/dl (9-20); Calcium 8.4 mg/dl (8.4-10.2); Carbon Dioxide 20 mmol/L (22-30); Chloride 95 mmol/L (98-107); Estimated Creatinine Clearance 8 ml/min; Glucose 148 mg/dl (70-99); Potassium 3.8 mmol/L (3.5-5.1); Sodium 130 mmol/L (135-145); eGFR 4.15
[2025-06-05 07:03] LABS: Glucose - Point of Care 213 mg/dl (70-99)
--- NOTE | 2025-06-05 07:59 | W.PN.CD ---
Today's Communication / Plan
-
discharge today with outpatient cardiology follow up (06/27 with Yelitza Craig; 09/[address] Echeverria)
Impression / Plan
-
I/P: 59-year-old male with ESRD on peritoneal dialysis, HFpEF, paroxysmal atrial fibrillation, CVA, PAD, type 2 diabetes mellitus, and obesity who presented to the emergency department with a chief complaint of shortness of breath and stuttering
chest pain for 4 days, found to have NSTEMI and severe multivessel CAD
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 Gonzalez
NSTEMI with severe multivessel CAD
- LHC 05/24/2025: 80-90% left main lesion, tandem 80% mid LAD lesions, hazy ulcerated 90% mid RCA lesion, chronically occluded RPDA, 90% RPL
- Initial trop 52, downtrended
- cont. BB
- Statin-intolerant; will need PCSK9i as outpatient.
- Successful Impella supported PCI to RCA/LAD/LM today; note RHC at time of cath with normal filling pressures normal index, much improved from prior
- Cont. ASA/Plavix, if no bleeding issues convert heparin to OAC tomorrow and plan for 1 month triple therapy
- No cath replated conplications
- Now for Eliquis and triple therapy for ~1 month followed by Eliquis+Plavix for at least 1 year. Then after one year Eliquis alone or perhaps continue 1 antiplatelet med - can stop ASA at 2-4 week outpatient follow up appointment as will be ~1
month
Heart failure with reduced ejection fraction, acute (EF 30%):
- Likely ischemic cardiomyopathy due to severe multivessel CAD as above
- TTE 05/22/2025: LVEF 30%, moderate to severe MR
- RHC/LHC on 05/24 revealed CI 1.5; CI and filling pressures now normal
- Continue volume removal with peritoneal dialysis. Euvolemic by hemos, maintain with dialysis
- GDMT limited by long list of allergies, ESRD; consider further titration of GDMT as outpatient including initiation of SGLT2i and uptitration of BB as tolerated
Moderate to severe MR:
-Volume status appears to be stable currently.
-reassess as outpatient, suspect will improve
Frequent PVCs
- Improved with carvedilol 3.125 mg twice daily
- Cont. amiodarone to 400 mg p.o. daily, recommend discontinuation after 2-4 weeks (once has outpatient follow up)
- Replace lytes per nephro
Paroxysmal atrial fibrillation
- In and out of A-fib/Aflutter this admission. Currently SR with PVC's.
- Continue amiodarone 400 mg daily and carvedilol 3.125 mg twice daily
- Oral anticoagulation: heparin currently, Apixaban was recommended at his last hospitalization, self discontinued, restart once hemostasis post impella assured
- [id number] score of at least 5 (DM, PAD, CVA, HF)
Acute hypoxic respiratory insufficiency, in the setting of acute HFrEF/volume overload
- Improved
- volume control as per Nephrology
ESRD
- Does PD daily at home
- Nephrology consulted here
Prior CVA
PAD, follows with Dr. King
Hypertriglyceridemia, on fenofibrate, statin intolerant
Type 2 diabetes mellitus, per primary service
Physical Exam
Vital Signs/Labs
Vital Signs
Temp Pulse Resp BP Pulse Ox
36.6 C 71 14 101/58 96
06/05/25 07:03 06/05/25 07:03 06/05/25 07:03 06/05/25 02:11 06/05/25 07:03
06/04/25 06/05/25 06/06/25
06:59 06:59 06:59
Actual Weight 101.4 kg 101.7 kg
06/05/25 02:31
06/05/25 02:31
PT 19.6 Sec (11.4-14.6) H 05/22/25 20:57
INR 1.64 05/22/25 20:57
APTT 100.1 Sec (23.4-35.0) H 06/03/25 03:42
Magnesium 2.0 mg/dl (1.6-2.3) 06/04/25 05:42
Triglycerides 146 mg/dl (10-149) 05/23/25 03:16
LDL Cholesterol, Calc 82 mg/dl 05/23/25 03:16
VLDL Cholesterol, Calc 29 mg/dl (0-30) 05/23/25 03:16
HDL Cholesterol 20 mg/dl 05/23/25 03:16
05/22/25
12:50
Jkd-N-Mhuzfvtddhf Pept > 59997
Physical Exam
Constitutional: Comfortable
Cardiovascular: Rhythm & rate is regular
Respiratory: Respiratory effort normal
Neuro/Psych: AO x 3
Data Reviewed
-
Date of Service: June 05, 2025
Medical Decision Making: Reviewed Test Results
Labs: Labs Reviewed by me
[2025-06-05 08:00] LABS: ACT-LR - POC > 397 Seconds (116-155)
[2025-06-05 08:00] LABS: ACT-LR - POC > 397 Seconds (116-155)
[2025-06-05 08:00] LABS: ACT-LR - POC 340 Seconds (116-155)
--- NOTE | 2025-06-05 08:01 | W.PN.HOSP.TC ---
Today's Communication/Plan
-
Check orthostatics
Assessment / Plan
Assessment / Plan
Gen-AAOx3, NAD
HEENT-NC, AT, anicteric, clear oral mm
Neck-supple
CV-reg, no M, +S1/S2
Lungs-clear B/L
Abd-soft, NT, ND
Ext-trace lower extremity edema bilaterally
Musculoskeletal-no cyanosis, clubbing
Skin-warm and dry
Neuro-grossly non-focal
Psych-calm, cooperative
NSTEMI
Triple-vessel CAD
-Troponin elevated to max 52, trending down
-EKG reviewed and no ST segment changes
-TTE result as above.
-Left heart catheterization on 05/24, report as above
-High Risk for CABG; there are PCI options
-Successful PCI X 3 via Impella on 06/01
-Hep ggt�transitioned over to NOAC 06/02
�Continue triple therapy for 1 month followed by a NOAC plus Plavix for at least 1 year
Acute Hypoxic respiratory failure - resolved
Bilateral pleural effusion
-Chest x-ray showing pulmonary edema/congestion
-Likely volume overloaded as patient stopped taking Lasix reportedly peritoneal dialysis was not effective
-Patient required BiPAP on admission night
ESRD on peritoneal dialysis
- Was on hemodialysis in the past
- Nephrology evaluated and trying to do aggressive peritoneal dialysis and trying to maximize ultrafiltration
Atrial flutter with 2-1 block
Shock - type unclear
-Started on amiodarone
-Coreg started although needed to be held due to shock state
-monitor on telemetry
Acute transaminitis -resolved.
- As part of congestive hepatopathy
- Started on Amio this admission and less likely playing role but will need adjustment based on LFT trend.
-monitor on amio
Leukocytosis - suspecting reactive, trending down. Afebrile. Nontoxic.
No obvious source of infection.
-COVID neg.
-Chest x-ray did not show any overt pneumonia
- Abdominal examination benign. Can get peritoneal dialysis catheter sample if concern for peritonitis
- Rocephin discontinued. monitor for now off abx.
-Cont to monitor now that PCI completed
Hyponatremia
- With ESRD, monitor
Essential hypertension -hypotension along with lightheadedness noted and likely related to excessive volume removal. Discussed with nephrology. Nephrology aiming for weight gain to treat the hypotension.
Weight stable at 101.7 kg today.
Blood pressure improved now compared to last night.
Check orthostatic vital signs today. Discussed with nursing.
DM2 with hyperglycemia
- A1c of 10.3, was in the 8% range last year. Patient believes that the dextrose in his PD fluid is contributing to the hyperglycemia.
- Glucose 143 last night, 213 this morning. Patient did have dessert last night after dinner. Lantus has been on hold due to a.m. hypoglycemia. Can resume Lantus at 10 units at bedtime.
At home he is on Tresiba 32 units at bedtime, NovoLog 8 units with meals. He states this regimen has been working for him.
- Diabetes TRUCK SERVICE MANAGER following
Acute Heart failure with reduced ejection fraction
- Patient got index of 1.56 on left heart catheterization ventriculogram 05/22, repeat cardiac catheterization 06/01 showed improvement in cardiac index to 2.29.
- Attempted diuresis with dobutamine/Bumex drip, minimal output, dobutamine/bumex drips were stopped.
Obesity due to excess calories
Code status: full code
DVT prophylaxis: NOAC
Dispo -possible discharge today if orthostatic vitals are stable. Will discuss with nephrology.
Anticipated Discharge: Today
Subjective/Interval History
-
Date of Service: June 05, 2025
Patient seen and examined, no complaints.
Objective Data
-
Labs:
Laboratory Results
06/05/25
02:31
WBC 13.9 H
Hgb 9.5 L
Hct 27.6 L
Plt Count 259
Sodium 130 L
Potassium 3.8
Chloride 95 L
Carbon Dioxide 20 L
BUN 81 H
Creatinine 12.6 H*
Glucose 148 H
Calcium 8.4
Vital Signs:
Vital Signs
Temp Pulse Resp BP Pulse Ox
97.8 F 71 14 101/58 96
06/05/25 07:03 06/05/25 07:03 06/05/25 07:03 06/05/25 02:11 06/05/25 07:03
I&O
06/04/25 06/05/25 06/06/25
06:59 06:59 06:59
Intake Total 2294 / 2294 240 / 240
Output Total 200 / 200 750 / 750
Balance 2093 / 2093 -510 / -510
Review of Systems
-
History Source: Patient
All other systems: Reviewed and negative
--- NOTE | 2025-06-05 08:21 | PN.DE.MGMTRT ---
Insulin Management
- -
06/05/2025: Diabetes Management Follow up
Patient admitted 05/22 for increased difficulty breathing over past 5 days found to be in acute CHF. PMH CHF, HTN, diabetes, renal failure, HLD. Prior to admission was taking NovoLog ss AC with Tresiba 32 units @ HS. States he was diagnosed ~ 15
years ago, took Prandin for years then started insulin. Follows with primary care doctor, Milind [place]. Uses DexCom G7 and traditional glucose monitor for glucose testing. A1C on admission 10.3%, Cr 9.3, eGFR 5.97.
He states he is not surprised his A1C is elevated as he has not been paying attention to his diabetes. Transitioned from critical care glycemic protocol on 05/23.
Patient is awake alert and oriented, currently on PD, offers no complaints, able to discuss diabetes care.
Patient glucose range yesterday 109 to 168.
Received NO Lantus @ HS, fasting glucose [address] Max has reduced HS lantus to 10 units.
Will continue AC NovoLog 16 units and low corrective insulin.
Discussed with nurse. Will Cont to follow.
Diabetes History
- -
Type of Diabetes: 2 requiring insulin
Pre-Admission Diabetes Regimen
06/05/25
02:31
Creatinine 12.6 H*
Lab Results
Hemoglobin A1c 10.3 % (4.0-5.6) H 05/23/25 03:16
Insulin Pump Settings
IP Diabetes Regimen
06/04/25 06/04/25 06/04/25
12:03 16:47 23:03
Glucose
POC Glucose 142 H 109 H 143 H
06/05/25 06/05/25
02:31 07:02
Glucose 148 H
POC Glucose 213 H
Meal type: Lunch
Meal type: Breakfast
Amount consumed: 100%
Amount consumed: 95%
Patient Education
[2025-06-05] MEDS: NOVOLOG FLEXPEN-LOW RESISTANCE 2 UNITS SC (08:51)
[2025-06-05] MEDS: NOVOLOG FLEXPEN 16 UNITS SC ×2 (08:52→12:30)
[2025-06-05] MEDS: COREG PO (08:53)
[2025-06-05] MEDS: LIDOCAINE 4% PATCH TOPICAL (08:53)
[2025-06-05] MEDS: ASPIR LOW (ENTERIC COATED) 81 MG PO (08:54)
[2025-06-05] MEDS: PHOSLO 667 MG PO ×2 (08:54→11:24)
[2025-06-05] MEDS: PACERONE 400 MG PO (08:54)
[2025-06-05] MEDS: ELIQUIS 5 MG PO (08:54)
[2025-06-05] MEDS: VITAMIN D3 (cholecalciferol) 25 MCG PO (08:54)
[2025-06-05] MEDS: SENOKOT-S 1 TABLET PO (08:54)
[2025-06-05] MEDS: PLAVIX 75 MG PO (08:54)
[2025-06-05] MEDS: NON-FORMULARY ITEM 1 UNIT PO (09:42)
--- NOTE | 2025-06-05 11:05 | W.PN.NEPH.PH ---
Today's Communication / Plan
-
ok for d/c
Assessment/Plan
-
59-year-old male with past medical history of hypertension, atrial fibrillation, chronic HFpEF, ESRD on PD and DM-II who presented to [facility] ED for evaluation of chest heaviness. Patient explains that he has not been feeling well over the past 4-5
days, he reports chest pressure that has intermittently radiated to his left arm and currently right shoulder and neck. Found to have NSTEMI.
Renal consult for end-stage renal disease on peritoneal dialysis
Recently transition to peritoneal dialysis about 6 months
Has been dealing with volume overload for the last few weeks and peritoneal orders have been changed but yet going to affect. He was to try a last fill of icodextrin to help with ultrafiltration but is yet to get the solution delivered
Initial workup shows diminished ejection fraction 32%.
Estimated dry weight is 104.5 although he is cannot achieve that in quite a few weeks
His last recorded weight was 105.8 kg on 05/09 from outpatient record
Impression.
ESRD on PD
NSTEMI (troponin peak 52)
CHF ejection fraction 32% from previous echo September 2024 was 50%
Atrial fibrillation
Type 2 diabetes
Hyperphosphatemia
Plan.
Patient seen on PD
Maintain 1.5% dialysate, neg neg balance still and stable wts
reports [facility]OP decreased this admit
[facility] notes PCWP 9, status post multiple stenting procedures on 06/01/2025
Exchanges of 2 L every 5 hours
he can resume diuretics at d/c
he will resume back on home script of PD, prn 2.5% at d/c and f/u with us next week
reviewed imp of keeping EDW low, maintain FR
old EDW 99, adjusted Dry weight is likely around 102 to 103 kg-hoping eventually to decrease
BP soft on low dose coreg
scant nose bleed from AC as per pt reports

-
-
Date of Service: June 05, 2025
CC / HPI / ROS
-
Chief Complaint:
ESRD/PD
History of Present Illness:
Remains on PD changed to 1.5% every 5 hour exchange
good UF-1lit, weights stable
Hemodynamically labile off pressor support
Review of Systems:
no cp or sob
no dizziness
No fevers
Labs
-
Labs:
WBC 13.9 10^3/uL (4.8-10.8) H 06/05/25
RBC 3.29 10^6/uL (4.70-6.10) L 06/05/25
Hgb 9.5 g/dL (13.0-18.0) L 06/05/25
Hct 27.6 % (39.0-52.0) L 06/05/25:
Plt Count 259 10^3/uL (130-400) 06/05/25:
Sodium 130 mmol/L (135-145) L 06/05/25
Potassium 3.8 mmol/L (3.5-5.1) 06/05/25
Chloride 95 mmol/L (98-107) L 06/05/25
Carbon Dioxide 20 mmol/L (22-30) L 06/05/25
BUN 81 mg/dl (9-20) H 06/05/25
Creatinine 12.6 mg/dL (0.7-1.3) H* 06/05/25
eGFR 4.15 06/05/25
Glucose 148 mg/dl (70-99) H 06/05/25
Calcium 8.4 mg/dl (8.4-10.2) 06/05/25 02:31
Phosphorus 7.5 mg/dl (2.5-4.5) H 05/31/25 05:23
Uha-R-Emfgvjilpdx Pept > 67551 pg/ml 05/22/25 12:50
Albumin 3.4 g/dl (3.5-5.0) L 06/04/25 05:42
Physical Exam
-
Vital Signs:
Vital Signs
Temp Pulse Resp BP Pulse Ox
97.6 F 68 14 106/62 99
06/05/25 11:18 06/05/25 11:22 06/05/25 11:18 06/05/25 11:22 06/05/25 11:18
Cardiovascular:: Irregular rate and rhythm
Respiratory:: Bilateral: CTA
Lung Excursion:: Normal
Abdomen:: Nontender and Soft
Bowel Sounds:: Normal
Extremity Edema:: +1: Bilateral: (Trace)
King Catheter: No
[2025-06-05 11:21] LABS: Glucose - Point of Care 188 mg/dl (70-99)
--- NOTE | 2025-06-05 12:19 | CM ---
priced yeni with pts [facility]- his copay is $47/month
[2025-06-05] MEDS: NOVOLOG FLEXPEN-LOW RESISTANCE 1 UNITS SC (12:29)
--- NOTE | 2025-06-05 12:43 | HFEDUCATE ---
59 yo male admitted with SOB and stuttering chest pain. Past medical history includes ESRD on peritoneal dialysis, HFpEF, paroxysmal atrial fibrillation, CVA, PAD, Type 2 DM, obesity found to have NSTEMI and severe MV CAD with successful PCI X 3 on
06/01/25 . His current ejection fraction by echocardiogram is 30%. He reports following a low sodium diet and a 48oz fluid restriction per day. He has a scale at home and weighs himself daily.
I provided HF education and discussed the usual lifestyle recommendations. I advised he continue to follow a low sodium diet of 6949-7440 mg. per day, and limit it to 500-750 mg. per meal. I advised a 48oz fluid restriction per day and discussed
ways to achieve the recommendations. I also advised he continue weighing himself daily and monitoring for any slight weight gain. I explained how to monitor for exacerbations. We discussed other alarming symptoms to watch for and when to notify his
provider. We discussed need for medications.
Recommendations:
Continue all HF recommended medications as ordered on discharge.
Limit sodium intake to <500-750 mg per meal.
Limit fluid intake to <48 oz per day.
Daily weights and contact provider for any weight gain >3lbs in one day or 5lbs in one week.
Follow up with provider as recommended
--- NOTE | 2025-06-05 13:18 | W.DS.TRANS ---
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
-
Discharge Instructions:
Sleep Apnea Risk Intermediate
Discharge Diagnosis/Procedures Myocardial infarction, elevated liver enzymes
Diet Diabetic, Carb Controlled,2 Gram Sodium,Other
diet
Additional Diets 50 ounce fluid restriction
Activity As tolerated
Driving Restrictions As prior to admission
Bathing Restrictions None
Instructions:
Stand-Alone Forms:
Changes to Home Medications: Yes
Discharge Medications:
DC Medications w/original date entered in [employer]
insulin degludec 100 unit/mL (3 mL) subcutaneous pen (Tresiba FlexTouch U-100 insulin) 32 unit SC HS Diabetes 04/26/22
insulin aspart U-100 100 unit/mL (3 mL) subcutaneous pen (Novolog FlexPen U-100 Insulin aspart) 0 sliding scale dose SC MEALS Diabetes 02/03/23
calcium acetate(phosphat bind) 667 mg tablet 667 mg PO AC Supplement 12/22/23
aspirin 81 mg tablet,delayed release 81 mg PO DAILY Blood Clot Prevention/Tx 12/27/23
cholecalciferol (vitamin D3) 25 mcg (1,000 unit) tablet (Vitamin D3) 25 mcg PO DAILY Supplement 05/22/25
simethicone 125 mg chewable tablet 125 mg PO QID PRN gas 05/23/25
amiodarone 200 mg tablet (Pacerone) 400 mg (2 x 200 mg) PO DAILY #60 tabs 06/05/25
apixaban 5 mg tablet (Eliquis) 5 mg PO BID #60 tabs 06/05/25
carvedilol 3.125 mg tablet 3.125 mg PO BID #60 tabs 06/05/25
clopidogrel 75 mg tablet 75 mg PO DAILY #30 tabs 06/05/25
Home Medication Changes
Stop diltiazem
Stop furosemide
Pending Results: No
--- NOTE | 2025-06-05 14:30 | VATNOTE ---
Pt being D/C'd. Midline removed w/ no complications. TCL retrieved was 15 cm. Pressure dressing applied.
--- NOTE | 2025-06-05 14:50 | PTCARENOTE ---
~[id number]: Handoff report received from nightshift RN. Pt AOx4, NSR 60s-70s, SBP 90s-100s, RA satting 99%. Pt denies pain at this time. +1 DP pulses, trace edema noted. Orthostatic BPs obtained per order. PD catheter site CDI. For PD, patient
taught back to RN steps for PD to ensure it was able to be performed independently at home. Around 0845, pt drained about 2350cc of dialysate out. 1.5% dialysate infused and dwell time started around 1000. L midline site CDI and capped at this time.
Family at bedside. All needs met at this time,call [facility]land within reach.
~[id number]: Patient in room with family at bedside. No c/o pain at this time. Independent to bathroom. VSS at this time. DC orders in place. Clarified dc carvedilol order since patient had not received it in hospital since night of 06/03 d/t low BPs.
Per hospitalist, patient will be fine to be d/c'd on medication. All needs met at this time. Midline removed by VAT team. Tele pack removed. DC paperwork reviewed with patient and family, all questions answered. Patient wheeled down to lobby in
wheelchair in stable condition;
== END 2025-06-05 14:50 | disposition home or self-care (01) | DRG 216 ==
LOC: IVU 15:40
PROVIDERS: Internal Medicine; Internal Medicine Cardiovascular Disease; Nurse Practitioner Family; Nurse Practitioner Gerontology; Nurse Practitioner Primary Care; Physician Assistant; Specialist; Student in an Organized Health Care Education/Training Program; ADMITTING PHYSICIAN Hospitalist; ATTENDING PHYSICIAN Hospitalist; CONSULT PHYSICIAN Internal Medicine Critical Care Medicine; CONSULT PHYSICIAN Internal Medicine Nephrology; CONSULT PHYSICIAN Student in an Organized Health Care Education/Training Program; EMERGENCY PHYSICIAN Student in an Organized Health Care Education/Training Program; FAMILY PHYSICIAN Family Medicine; OTHER PHYSICIAN Thoracic Surgery (Cardiothoracic Vascular Surgery)
PROC: 5A09357 Assistance with Respiratory Ventilation, Less than 24 Consecutive Hours, Continuous Positive Airway Pressure (ICD-10-PCS; 2025-05-22)
PROC: 3E1M39Z Irrigation of Peritoneal Cavity using Dialysate, Percutaneous Approach (ICD-10-PCS; 2025-05-23)
PROC: B2111ZZ Fluoroscopy of Multiple Coronary Arteries using Low Osmolar Contrast (ICD-10-PCS; 2025-05-24)
PROC: 4A023N8 Measurement of Cardiac Sampling and Pressure, Bilateral, Percutaneous Approach (ICD-10-PCS; 2025-05-24)
PROC: B2151ZZ Fluoroscopy of Left Heart using Low Osmolar Contrast (ICD-10-PCS; 2025-05-24)
PROC: 02HV33Z Insertion of Infusion Device into Superior Vena Cava, Percutaneous Approach (ICD-10-PCS; 2025-05-24)
PROC: 02HA3RJ Insertion of Short-term External Heart Assist System into Heart, Intraoperative, Percutaneous Approach (ICD-10-PCS; 2025-06-01)
PROC: 027237Z Dilation of Coronary Artery, Three Arteries with Four or More Drug-eluting Intraluminal Devices, Percutaneous Approach (ICD-10-PCS; 2025-06-01)
PROC: 02F03ZZ Fragmentation in Coronary Artery, One Artery, Percutaneous Approach (ICD-10-PCS; 2025-06-01)
PROC: 5A0221D Assistance with Cardiac Output using Impeller Pump, Continuous (ICD-10-PCS; 2025-06-01)
PROC: 4A023N6 Measurement of Cardiac Sampling and Pressure, Right Heart, Percutaneous Approach (ICD-10-PCS; 2025-06-01)
PROC: B241ZZ3 Ultrasonography of Multiple Coronary Arteries, Intravascular (ICD-10-PCS; 2025-06-01)
DX: I21.4 Non-ST elevation (NSTEMI) myocardial infarction (principal); I50.21 Acute systolic (congestive) heart failure; N18.6 End stage renal disease; R57.0 Cardiogenic shock; J96.01 Acute respiratory failure with hypoxia; I13.2 Hypertensive heart and chronic kidney disease with heart failure and with stage 5 chronic kidney disease, or end stage renal disease; I48.92 Unspecified atrial flutter; E87.1 Hypo-osmolality and hyponatremia; N25.81 Secondary hyperparathyroidism of renal origin; I47.10 Supraventricular tachycardia, unspecified; I48.0 Paroxysmal atrial fibrillation; I25.10 Atherosclerotic heart disease of native coronary artery without angina pectoris; E11.65 Type 2 diabetes mellitus with hyperglycemia; E11.319 Type 2 diabetes mellitus with unspecified diabetic retinopathy without macular edema; E11.40 Type 2 diabetes mellitus with diabetic neuropathy, unspecified; E11.51 Type 2 diabetes mellitus with diabetic peripheral angiopathy without gangrene; K21.9 Gastro-esophageal reflux disease without esophagitis; D72.829 Elevated white blood cell count, unspecified; E66.09 Other obesity due to excess calories; E78.1 Pure hyperglyceridemia; I25.5 Ischemic cardiomyopathy; I49.3 Ventricular premature depolarization; E87.6 Hypokalemia; I34.0 Nonrheumatic mitral (valve) insufficiency; D63.1 Anemia in chronic kidney disease; R74.01 Elevation of levels of liver transaminase levels; E83.39 Other disorders of phosphorus metabolism; I27.20 Pulmonary hypertension, unspecified; Z91.148 Patient's other noncompliance with medication regimen for other reason; Z86.73 Personal history of transient ischemic attack (TIA), and cerebral infarction without residual deficits; Z87.891 Personal history of nicotine dependence; Z79.4 Long term (current) use of insulin; Z79.82 Long term (current) use of aspirin; Z88.0 Allergy status to penicillin; Z11.52 Encounter for screening for COVID-19; Z68.32 Body mass index [BMI] 32.0-32.9, adult
CPT/HCPCS: 33990; 71045; 71046; 71250; 80048; 80053; 80061; 80076; 81003; 81015; 82248; 82330; 82805; 82962; 83036; 83605; 83735; 83880; 84100; 84132; 84302; 84484; 85025; 85027; 85347; 85610; 85730; 87040; 87086; 87502; 87811; 92978; 92979; 93005; 93306; 93308; 93321; 93325; 93456; 93460; 93880; 93923; 93930; 94660; 96365; 96366; 96367; 96375; 97162; 99152; 99291; C1725; C1753; C1760; C1769; C1874; C1894; C9600; J1939; J2997; Q9967

== ENCOUNTER 2025-08-03 16:45 | Outpatient (RCR) | payer MEDICARE, SELFPAY ==
[2025-07-04 14:15] LABS: Glucose - Point of Care 185 mg/dl (70-99)
[2025-07-04 14:53] LABS: Glucose - Point of Care 180 mg/dl (70-99)
[2025-07-06 16:01] LABS: Glucose - Point of Care 145 mg/dl (70-99)
[2025-07-06 16:56] LABS: Glucose - Point of Care 123 mg/dl (70-99)
[2025-07-09 15:46] LABS: Glucose - Point of Care 156 mg/dl (70-99)
[2025-07-09 16:39] LABS: Glucose - Point of Care 118 mg/dl (70-99)
[2025-07-11 15:40] LABS: Glucose - Point of Care 147 mg/dl (70-99)
[2025-07-11 16:40] LABS: Glucose - Point of Care 121 mg/dl (70-99)
[2025-07-13 15:50] LABS: Glucose - Point of Care 139 mg/dl (70-99)
[2025-07-13 16:45] LABS: Glucose - Point of Care 122 mg/dl (70-99)
[2025-07-16 15:46] LABS: Glucose - Point of Care 187 mg/dl (70-99)
[2025-07-16 16:40] LABS: Glucose - Point of Care 136 mg/dl (70-99)
== END 2025-08-03 23:59 | disposition home or self-care (01) ==
LOC: CRHB 16:45
PROVIDERS: ATTENDING PHYSICIAN Student in an Organized Health Care Education/Training Program; FAMILY PHYSICIAN Family Medicine
DX: I25.2 Old myocardial infarction (principal); Z95.5 Presence of coronary angioplasty implant and graft; I25.10 Atherosclerotic heart disease of native coronary artery without angina pectoris
CPT/HCPCS: 82962; G0422; G0423

== ENCOUNTER → 2025-08-20 12:49 | Outpatient (REF) | payer MEDICARE, SELFPAY | LOC: RAD 12:49 | PROVIDERS: ATTENDING PHYSICIAN Surgery Vascular Surgery; FAMILY PHYSICIAN Family Medicine | DX: I73.9 Peripheral vascular disease, unspecified (principal) | CPT/HCPCS: 93922 ==

== ENCOUNTER 2025-08-31 16:43 | Outpatient (RCR) | payer MEDICARE, SELFPAY | END 2025-08-31 23:59 | disposition home or self-care (01) | LOC: CRHB 16:43 | PROVIDERS: ATTENDING PHYSICIAN Student in an Organized Health Care Education/Training Program; FAMILY PHYSICIAN Family Medicine | DX: I25.2 Old myocardial infarction (principal); I21.4 Non-ST elevation (NSTEMI) myocardial infarction (principal); I25.10 Atherosclerotic heart disease of native coronary artery without angina pectoris (principal); Z95.5 Presence of coronary angioplasty implant and graft | CPT/HCPCS: G0422; G0423 ==

== ENCOUNTER → 2025-09-11 14:31 | Outpatient (REF) | payer MEDICARE, SELFPAY | LOC: HWRCS 14:31 | PROVIDERS: ATTENDING PHYSICIAN Student in an Organized Health Care Education/Training Program; FAMILY PHYSICIAN Family Medicine | DX: I50.20 Unspecified systolic (congestive) heart failure (principal) | CPT/HCPCS: 93306 ==

== ENCOUNTER 2025-10-01 16:30 | Outpatient (RCR) | payer MEDICARE, SELFPAY | END 2025-10-01 23:59 | disposition home or self-care (01) | LOC: CRHB 16:30 | PROVIDERS: ATTENDING PHYSICIAN Student in an Organized Health Care Education/Training Program; FAMILY PHYSICIAN Family Medicine | DX: I25.2 Old myocardial infarction (principal); I21.4 Non-ST elevation (NSTEMI) myocardial infarction; I25.10 Atherosclerotic heart disease of native coronary artery without angina pectoris; Z95.5 Presence of coronary angioplasty implant and graft | CPT/HCPCS: G0422; G0423 ==

== ENCOUNTER → 2025-10-03 12:45 | Outpatient (REF) | payer MEDICARE, SELFPAY | LOC: SDSPAT 12:45 | PROVIDERS: ATTENDING PHYSICIAN Internal Medicine Cardiovascular Disease; FAMILY PHYSICIAN Family Medicine; OTHER PHYSICIAN Student in an Organized Health Care Education/Training Program | DX: I34.0 Nonrheumatic mitral (valve) insufficiency (principal) | CPT/HCPCS: 93005 ==